=== PATIENT | male | born 1950 | race Caucasian/White ===

== ENCOUNTER 2020-07-26 09:16 | Outpatient (REF) | payer MEDICARE, MEDICAID, SELFPAY ==
--- NOTE | 2020-07-26 09:17 | XR_ITS ---
EXAMINATION: XR PELVIS CLINICAL INFORMATION: Hip pain. COMPARISON: Radiographs bilateral hips 01/27/2020. Radiographs lumbar spine 01/27/2020 TECHNIQUE: AP view of the pelvis. FINDINGS: There is no fracture, dislocation, destructive process. There are degenerative changes lower lumbar spine consistent with the recent lumbar radiographs. The SI joints and pubis appear normal. No diastases. There is minor spurring lateral right iliac crest. The left hip joint shows no narrowing or erosive change. There is mild narrowing superior right hip joint, similar to recent right hip radiographs. XR/XR pelvis 1-2V IMPRESSION: 1. Degenerative changes lower lumbar spine and right hip similar to recent radiographs. 2. Bony pelvis unremarkable. No destructive process.
== END 2020-07-26 09:17 | disposition home or self-care (01) ==
LOC: HO.HOSX 09:16
PROVIDERS: Visit Provider Orthopaedic Surgery
DX: M25.559 Pain in unspecified hip (principal); M16.11 Unilateral primary osteoarthritis, right hip
CPT/HCPCS: 72170; 99202

== ENCOUNTER 2021-05-10 07:42 | Outpatient (REF) | payer MEDICARE, MEDICAID, SELFPAY ==
--- NOTE | ~2021-05-10 | US_ITS ---
EXAMINATION: US ABDOMEN COMPLETE CLINICAL INFORMATION: Alcoholic cirrhosis of liver without ascites. COMPARISON: Ultrasound abdomen 02/10/2020. Renal ultrasound 12/10/2019. TECHNIQUE: Real-time imaging of the abdominal viscera. Technically limited study secondary to bowel gas. FINDINGS: PANCREAS: The pancreas is obscured by overlying gas. Visualized body of the pancreas is echogenic but not enlarged. ABDOMINAL AORTA: The abdominal aorta is not visualized. INFERIOR VENA CAVA: Visualized portions are normal. LIVER: The liver is coarse and echogenic with slightly lobulated contour. No enlargement seen. No focal hepatic lesion. There is no intrahepatic biliary duct dilatation seen. GALLBLADDER: Surgically absent. COMMON BILE DUCT: Normal in caliber measuring 1.0 cm in diameter. RIGHT KIDNEY: There are several anechoic cysts seen. Two midpole cyst measure 2.1 x 2.0 x 2.4 cm and 1.5 x 1.2 x 2.0 cm. A lower pole anechoic cyst measures 1.6 x 1.1 x 1.0 cm. No hydronephrosis or renal calculi. The kidney measures 10.6 cm in maximum dimension. LEFT KIDNEY: There is an anechoic cyst in the midpole measuring 2.2 x 2.1 x 2.2 cm. No hydronephrosis or renal calculi. The kidney measures 10.6 cm in maximum dimension. SPLEEN: Scattered calcifications are seen in the spleen. The spleen measures 12.5 cm in maximum dimension. FREE FLUID: None. US/US abdomen complete IMPRESSION: Limited visualization of the pancreas, however, visualized pancreatic body is echogenic without enlargement. Coarse echogenic liver is slightly lobulated, likely underlying cirrhosis. No ascites seen. Bilateral anechoic renal cysts. No echogenic stones or hydronephrosis. Scattered splenic calcifications.
[2021-05-10 09:26] LABS: MANUAL DIFF FLAG NO
[2021-05-10 09:32] LABS: Basophils Absolute Auto 0.1 X10*3/uL (0.0-0.2); Eosinophils Absolute Auto 0.2 X10*3/uL (0.0-0.4); Hematocrit 45.5 % (42-52); Hemoglobin 15.4 g/dl (14.0-18.0); Imm Gran Abs Auto 0.01 X10*3/uL (0.00-0.03); Imm Gran Pct Auto 0.2 % (0.0-0.4); Lymphocytes Absolute Auto 2.2 X10*3/uL (1.2-4.9); Lymphocytes Percent Auto 43.3 % (20-40); Mean Corpuscular HGB Conc 33.8 g/dl (31.0-36.0); Mean Corpuscular Hemoglobin 31.2 pg (27.0-33.0); Mean Corpuscular Volume 92.3 fL (80-98); Mean Platelet Volume 10.2 fL (9.4-12.4); Monocytes Absolute Auto 0.5 X10*3/uL (0.1-1.2); Monocytes Percent Auto 10.3 % (2-11); Neutrophils Absolute Auto 2.1 X10*3/uL (2.0-8.3); Neutrophils Percent Auto 42.2 % (45-73); Platelet Count 179 X10*3/uL (160-400); Red Blood Count 4.93 X10*6/uL (4.60-5.80); Red Cell Distribution Width 13.1 % (11.0-16.0)
[2021-05-10 09:39] LABS: INTERNATIONAL NORM RATIO 1.2 (0.9-1.1); Prothrombin Time 13.4 SEC (9.9-13.0)
[2021-05-10 09:48] LABS: Alanine Aminotransferase 28 U/L (0-40); Albumin Level 4.3 g/dL (3.5-5.0); Alkaline Phosphatase 62 U/L (39-117); Aspartate Amino Transferase 27 U/L (5-37); Bilirubin Direct 0.4 mg/dL (0.0-0.5); Total Protein 7.1 g/dL (6.5-8.0)
[2021-05-16 13:26] LABS: Alpha Fetoprotein 4.2 ng/mL (<6.1)
== END 2021-05-10 07:43 | disposition home or self-care (01) ==
LOC: HO.US 07:42
PROVIDERS: PCP Internal Medicine; Visit Provider Internal Medicine
DX: K70.30 Alcoholic cirrhosis of liver without ascites (principal)
CPT/HCPCS: 36415; 76700; 80076; 82105; 85025; 85610

== ENCOUNTER 2021-05-23 11:36 | Outpatient (REF) | payer MEDICARE, MEDICAID, SELFPAY ==
[2021-05-23 12:17] LABS: MANUAL DIFF FLAG NO
[2021-05-23 12:26] LABS: Basophils Percent Auto 0.7 % (0-2); Eosinophils Absolute Auto 0.1 X10*3/uL (0.0-0.4); Eosinophils Percent Auto 2.6 % (0-4); Hematocrit 43.7 % (42-52); Imm Gran Abs Auto 0.02 X10*3/uL (0.00-0.03); Imm Gran Pct Auto 0.4 % (0.0-0.4); Lymphocytes Absolute Auto 2.8 X10*3/uL (1.2-4.9); Lymphocytes Percent Auto 52.2 % (20-40); Mean Corpuscular HGB Conc 34.3 g/dl (31.0-36.0); Mean Corpuscular Hemoglobin 31.3 pg (27.0-33.0); Mean Platelet Volume 9.7 fL (9.4-12.4); Monocytes Absolute Auto 0.5 X10*3/uL (0.1-1.2); Monocytes Percent Auto 9.7 % (2-11); Neutrophils Absolute Auto 1.8 X10*3/uL (2.0-8.3); Neutrophils Percent Auto 34.4 % (45-73); Platelet Count 167 X10*3/uL (160-400); White Blood Count 5.4 X10*3/uL (4.8-10.8)
[2021-05-23 14:12] LABS: Albumin Level 4.1 g/dL (3.5-5.0); Anion Gap 12 (12-20); Blood Urea Nitrogen 18 mg/dL (9-16); Calcium 9.1 mg/dL (8.4-10.2); Carbon Dioxide 23 mmol/L (22-29); Chloride 107 mmol/L (96-108); Estimated Glomerular Filt Rate 45; Magnesium 2.1 mg/dL (1.6-2.6); Phosphorus 3.3 mg/dL (2.7-4.5); Potassium 4.5 mmol/L (3.3-5.1); Sodium 137 mmol/L (135-145)
[2021-05-23 14:35] LABS: Vitamin D 25-OH Total 69.9 ng/mL (>30)
[2021-05-23 14:47] LABS: Appearance Urine CLEAR; Color Urine YELLOW; Glucose Urine UA 250 MG/DL (NEG); Leukocyte Esterase Urine NEG (NEG); Nitrite Urine NEG (NEG); PH 5.5 (5.0-8.0); Specific Gravity - Urine 1.025 (1.005-1.025); Urine Blood NEG (NEG); Urine Ketones NEG (NEG); Urine Protein NEG (NEG-TRACE)
[2021-05-23 15:24] LABS: Creatinine Urine 97.13 mg/dL; Microalbum/Creatinine Ratio Ur 13.3 ug/mg cr; Total Protein Urine Random < 7 mg/dL (<12)
[2021-05-24 18:27] LABS: Calcium (PTHI) 9.6 mg/dL (8.6-10.3); PTHI 52 pg/mL (14-64)
== END 2021-05-23 11:37 | disposition home or self-care (01) ==
LOC: HO.LAB 11:36
PROVIDERS: PCP Internal Medicine; Visit Provider Internal Medicine Nephrology
DX: I12.9 Hypertensive chronic kidney disease with stage 1 through stage 4 chronic kidney disease, or unspecified chronic kidney disease (principal); N18.31 Chronic kidney disease, stage 3a; N28.1 Cyst of kidney, acquired
CPT/HCPCS: 36415; 80051; 81003; 82040; 82043; 82306; 82310; 82565; 83735; 83970; 84100; 84156; 84520; 85025; 87086

== ENCOUNTER 2021-10-28 16:04 | Outpatient (REF) | payer MEDICARE, MEDICAID, SELFPAY ==
--- NOTE | ~2021-10-28 | XR_ITS ---
EXAMINATION: XR SHOULDER, LEFT CLINICAL INFORMATION: Shoulder pain COMPARISON: None TECHNIQUE: AP external rotation, Grashey, scapular Y, and axillary views of the left shoulder. FINDINGS: No fracture. Mild acromioclavicular arthritis. Glenohumeral and acromioclavicular alignment is anatomic with normal joint space. No abnormal soft tissue calcifications. XR/XR shoulder LT min 2V IMPRESSION: Mild acromioclavicular arthritis.
== END 2021-10-28 16:05 | disposition home or self-care (01) ==
LOC: HO.XRAY 16:04
PROVIDERS: Visit Provider Nurse Practitioner
DX: M25.512 Pain in left shoulder (principal)
CPT/HCPCS: 73030

== ENCOUNTER 2021-10-31 10:47 | Outpatient (REF) | payer MEDICARE, MEDICAID, SELFPAY ==
[2021-10-31 11:34] LABS: Estimated Average Glucose 148 mg/dL; Hemoglobin A1c % 6.8 %
== END 2021-10-31 10:48 | disposition home or self-care (01) ==
LOC: HO.LAB 10:47
PROVIDERS: PCP Internal Medicine; Visit Provider Nurse Practitioner
DX: R73.03 Prediabetes (principal)
CPT/HCPCS: 36415; 83036

== ENCOUNTER → 2021-11-24 10:42 | Outpatient (BNVA) | payer MEDICARE, MEDICAID, SELFPAY | PROVIDERS: PCP Internal Medicine; Visit Provider Orthopaedic Surgery | DX: M75.42 Impingement syndrome of left shoulder (principal) | CPT/HCPCS: 20610; 99212; J1100 ==

== ENCOUNTER 2022-01-02 11:00 | Outpatient (RCR) | payer MEDICARE, MEDICAID, SELFPAY ==
--- NOTE | 2021-12-06 15:13 | MHC.PT.EP ---
[facility] [place] Office [place] Office [place] Office [address] Esperanza Deng [address] [phone] F: [phone] F: [phone] F: [phone] F: [phone] Physical Therapy Plan of Care Date of Evaluation: Date of Surgery: Diagnosis: IMPINGEMENT SYNDROME LEFT SHOULDER Assessment: 71 YO MALE REF TO PT W A LEFT SH IMPINGEMENT SUSTAINED AFTER RESUMING AN EXERCISE ROUTINE. Pt IS RIGHT HAND DOMINANT. ON XR, Pt HAS MILD LEFT AC ARTHRITIS- HE HAS DECR POSTURAL AWARENESS W MILD SCOLIOSIS, UT OVERUSE LEFT SH, LIMITED END ROM Lt SH, STRENGTH DEFICITS POST RC/ SCAP , AND PAIN IN LEFT AC Jt. FUNCTIONALLY, Pt IS ABLE TO PERFORM REG ADLs, BUT W LEFT SH PAIN/ IMPINGEMENT SXS. hE WOULD BENEFIT FROM PT TO ADDRESS THE ABOVE FINDINGS, DEV A PROGRESSIVE HEP, AND EDUC REGARDING PROPER FORM AND TECHN W RE-ENTRY TO THE GYM. Frequency and Duration: The patient will be seen 2x WK x 4 WKS Short Term Goals: *Pt 'S LEFT SH PAIN DECR TO 2-3/10 AT MAX W REG ADLs IN 2 WKS *Pt DEMON WFL AROM ABD, W/O PAINFUL ARC IN 2 WKS *Pt INDEP SELF CORRECT POSTURE AND BODY MECH W SIMUL ADLs IN 2 WKS Mcfp Goals: *Pt EDUC RE SAFELY RETURNING TO WORKING OUT W/O SHOULDER STRAIN IN 4 WKS *Pt DEMON APPROP FORM W SIMUL SH EXERCISES IN 4 WKS *Pt IMPROVE STRENGTH AND INDEP W PROGESSION IN LEFT SH COMPLEX IN 4 WKS Treatment Plan: Modalities to reduce pain, spasms and effusion. Manual therapy to restore motion and function. Therapeutic exercise to improve strength and flexibility. Neuromuscular re-education for posture and balance. Therapeutic activities to return to functional activities of daily living. Electronically signed by: Ana Rosa LopezPT Please sign and return to therapist. Thank you for your referral.
--- NOTE | 2022-02-06 07:08 | MHC.PT.DC ---
[facility] [place] Office [place] Office [place] Office [address] Esperanza Deng [address] [phone] F: [phone] F: [phone] F: [phone] F: [phone] Physical Therapy Discharge Report Diagnosis: IMPINGEMENT SYNDROME LEFT SHOULDER Date of Surgery: Date of Evaluation: 12/06/21 Date of Discharge: 02/06/22 Treatments to Date: 6 Cancellations to Date: No Shows to Date: Discharge Status: Achieved Goals Improved Function Independent with HEP Discharge Summary: Mook is demonstrating improved fuction w/L Shld and stamina improving w/added activities. Electronically signed by: Ana Rosa Lopez PT Please sign and return to therapist. Thank you for your referral.
== END 2022-02-06 07:08 | disposition home or self-care (01) ==
LOC: HO.PT 11:00
PROVIDERS: PCP Internal Medicine; Visit Provider Orthopaedic Surgery
DX: M75.42 Impingement syndrome of left shoulder (principal)
CPT/HCPCS: 97110; 97140; 97161; 97530

== ENCOUNTER 2022-08-10 08:41 | Outpatient (REF) | payer MEDICARE, MEDICAID, SELFPAY ==
--- NOTE | ~2022-08-10 | US_ITS ---
EXAMINATION: US ABDOMEN COMPLETE CLINICAL INFORMATION: Alcoholic cirrhosis of liver without ascites. COMPARISON: Ultrasound abdomen complete 05/10/2021 and 02/10/2020. TECHNIQUE: Real-time imaging of the abdominal viscera. Technically difficult study secondary to body habitus. FINDINGS: PANCREAS: Normal. ABDOMINAL AORTA: The proximal, mid, and distal segments are normal in caliber. INFERIOR VENA CAVA: Visualized portions are normal. LIVER: Coarsening of the liver parenchyma with increased echogenicity. No discrete focal lesion. No intrahepatic biliary ductal dilatation. GALLBLADDER: Surgically absent. COMMON BILE DUCT: Upper limits of normal measuring 0.7 cm in diameter, not significantly changed compared to 05/10/2021. RIGHT KIDNEY: Simple cysts, for which no imaging follow-up is recommended, largest measuring 2.3 cm in the mid to lower pole. No hydronephrosis or renal calculi. The kidney measures 10.3 cm in maximum dimension. LEFT KIDNEY: Simple cyst in the midpole measuring 2 cm for which no imaging follow-up is recommended. No hydronephrosis or renal calculi. The kidney measures 10.9 cm in maximum dimension. SPLEEN: Small echogenic densities in the spleen are not significantly changed, these could represent calcifications. The spleen measures 11.6 cm in maximum dimension. FREE FLUID: None. US/US abdomen complete IMPRESSION: 1. Coarsening of the liver parenchyma with increased echogenicity suggesting underlying liver disease and cirrhosis. 2. Simple bilateral renal cysts for which no imaging follow-up is recommended. 3. Overall stable small echogenic densities in the spleen, possibly related with calcifications.
[2022-08-10 09:41] LABS: MANUAL DIFF FLAG NO
[2022-08-10 10:35] LABS: Basophils Absolute Auto 0.1 X10*3/uL (0.0-0.2); Basophils Percent Auto 1.7 % (0-2); Eosinophils Absolute Auto 0.1 X10*3/uL (0.0-0.4); Hematocrit 42.6 % (42.0-52.0); Hemoglobin 14.7 g/dl (14.0-18.0); Imm Gran Abs Auto 0.01 X10*3/uL (0.00-0.03); Imm Gran Pct Auto 0.2 % (0.0-0.4); Lymphocytes Percent Auto 41.9 % (20-40); Mean Corpuscular HGB Conc 34.5 g/dl (31.0-36.0); Mean Corpuscular Hemoglobin 32.1 pg (27.0-33.0); Mean Platelet Volume 10.6 fL (9.4-12.4); Monocytes Absolute Auto 0.5 X10*3/uL (0.1-1.2); Monocytes Percent Auto 9.9 % (2-11); Neutrophils Percent Auto 43.3 % (45-73); Platelet Count 182 X10*3/uL (160-400); Red Blood Count 4.58 X10*6/uL (4.60-5.80); Red Cell Distribution Width 13.5 % (11.0-16.0); White Blood Count 4.7 X10*3/uL (4.8-10.8)
[2022-08-10 10:37] LABS: INTERNATIONAL NORM RATIO 1.1 (0.9-1.1); Prothrombin Time 12.9 SEC (10.0-13.1)
[2022-08-10 11:55] LABS: Alanine Aminotransferase 34 U/L (0-40); Albumin Level 4.2 g/dL (3.5-5.0); Alkaline Phosphatase 60 U/L (39-117); Aspartate Amino Transferase 24 U/L (5-37); Bilirubin Total 0.6 mg/dL (0.0-1.0); Total Protein 6.6 g/dL (6.5-8.0)
[2022-08-10 12:07] LABS: Bilirubin Direct 0.2 mg/dL (0.0-0.5)
[2022-08-14 13:59] LABS: Alpha Fetoprotein 3.9 ng/mL (<6.1)
== END 2022-08-10 08:42 | disposition home or self-care (01) ==
LOC: HO.US 08:41
PROVIDERS: PCP Internal Medicine; Visit Provider Internal Medicine
DX: K70.30 Alcoholic cirrhosis of liver without ascites (principal)
CPT/HCPCS: 36415; 76700; 80076; 82105; 85025; 85610

== ENCOUNTER 2023-05-28 08:09 | Outpatient (REF) | payer MEDICARE, MEDICAID, SELFPAY ==
[2023-05-28 11:39] LABS: MANUAL DIFF FLAG NO
[2023-05-28 12:16] LABS: Basophils Absolute Auto 0.1 X10*3/uL (0.0-0.2); Basophils Percent Auto 1.3 % (0-2); Eosinophils Absolute Auto 0.2 X10*3/uL (0.0-0.4); Eosinophils Percent Auto 4.8 % (0-4); Hemoglobin 15.2 g/dl (14.0-18.0); Lymphocytes Absolute Auto 2.1 X10*3/uL (1.2-4.9); Lymphocytes Percent Auto 45.3 % (20-40); Mean Corpuscular HGB Conc 33.8 g/dl (31.0-36.0); Mean Corpuscular Hemoglobin 31.5 pg (27.0-33.0); Mean Corpuscular Volume 93.2 fL (80.0-98.0); Mean Platelet Volume 10.6 fL (9.4-12.4); Monocytes Absolute Auto 0.4 X10*3/uL (0.1-1.2); Monocytes Percent Auto 9.6 % (2-11); Neutrophils Absolute Auto 1.8 x10*3/uL (2.0-8.3); Platelet Count 187 X10*3/uL (160-400); Red Blood Count 4.83 X10*6/uL (4.60-5.80); Red Cell Distribution Width 13.1 % (11.0-16.0); White Blood Count 4.6 X10*3/uL (4.8-10.8)
[2023-05-28 12:18] LABS: Estimated Average Glucose 134 mg/dL; Hemoglobin A1C 151.9673 umol/L; Hemoglobin A1c % 6.3 % (<6.0)
[2023-05-28 12:42] LABS: Alanine Aminotransferase 34 U/L (0-40); Alkaline Phosphatase 60 U/L (39-117); Anion Gap 16 (12-20); Aspartate Amino Transferase 26 U/L (5-37); Bilirubin Total 0.6 mg/dL (0.0-1.0); Blood Urea Nitrogen 16 mg/dL (9-16); Carbon Dioxide 23 mmol/L (22-29); Chloride 107 mmol/L (96-108); Estimated Glomerular Filt Rate 51; Glucose Random 116 mg/dL (60-115); Potassium 4.8 mmol/L (3.3-5.1); Sodium 141 mmol/L (135-145); Total Protein 6.7 g/dL (6.5-8.0)
[2023-05-29 11:28] LABS: Absolute CD3 Count 1887 cells/uL (840-3060); Absolute CD4 Count 1025 cells/uL (490-1740); Absolute CD8 Count 950 cells/uL (180-1170); Absolute Lymphocytes 2240 cells/uL (850-3900); CD4 CD8 Ratio 1.08 (0.86-5.00); Percent CD3 Cells 84 % (57-85); Percent CD4 Cells 46 % (30-61); Percent CD8 Cells 42 % (12-42)
[2023-05-29 13:19] LABS: HIV RNA PCR Qn Copies NOT DETECTED copies/mL (NOT DETECTED); HIV RNA PCR Qn Log Copies NOT DETECTED (NOT DETECTED)
== END 2023-05-28 08:10 | disposition home or self-care (01) ==
LOC: HO.HHCL 08:09
PROVIDERS: Visit Provider Student in an Organized Health Care Education/Training Program
DX: B20 Human immunodeficiency virus [HIV] disease (principal); E08.22 Diabetes mellitus due to underlying condition with diabetic chronic kidney disease; N18.9 Chronic kidney disease, unspecified
CPT/HCPCS: 36415; 80053; 83036; 85025; 86359; 86360; 87536

== ENCOUNTER 2023-07-09 08:01 | Outpatient (REF) | payer MEDICARE, MEDICAID, SELFPAY ==
[2023-07-09 11:18] LABS: Appearance Urine Clear; Color Urine Yellow; Glucose Urine UA Negative (Negative); Leukocyte Esterase Urine Negative (Negative); Nitrite Urine Negative (Negative); PH 6.5 (5.0-9.0); Urine Blood Negative (Negative); Urine Ketones Negative (Negative); Urine Protein Negative (Neg-Trace)
[2023-07-09 11:31] LABS: MANUAL DIFF FLAG NO
[2023-07-09 11:38] LABS: Basophils Absolute Auto 0.1 X10*3/uL (0.0-0.2); Basophils Percent Auto 1.4 % (0-2); Eosinophils Absolute Auto 0.2 X10*3/uL (0.0-0.4); Eosinophils Percent Auto 4.7 % (0-4); Hematocrit 47.4 % (42.0-52.0); Hemoglobin 15.6 g/dl (14.0-18.0); Imm Gran Abs Auto 0.01 X10*3/uL (0.00-0.03); Imm Gran Pct Auto 0.2 % (0.0-0.4); Lymphocytes Absolute Auto 2.5 X10*3/uL (1.2-4.9); Lymphocytes Percent Auto 48.5 % (20-40); Mean Corpuscular HGB Conc 32.9 g/dl (31.0-36.0); Mean Corpuscular Hemoglobin 31.1 pg (27.0-33.0); Mean Corpuscular Volume 94.6 fL (80.0-98.0); Mean Platelet Volume 10.7 fL (9.4-12.4); Monocytes Absolute Auto 0.5 X10*3/uL (0.1-1.2); Monocytes Percent Auto 9.3 % (2-11); Neutrophils Absolute Auto 1.9 x10*3/uL (2.0-8.3); Neutrophils Percent Auto 35.9 % (45-73); Platelet Count 200 X10*3/uL (160-400); Red Blood Count 5.01 X10*6/uL (4.60-5.80); Red Cell Distribution Width 13.2 % (11.0-16.0); White Blood Count 5.2 X10*3/uL (4.8-10.8)
[2023-07-09 12:05] LABS: Albumin Level 4.1 g/dL (3.5-5.0); Anion Gap 10 (12-20); Blood Urea Nitrogen 15 mg/dL (9-16); Calcium 8.8 mg/dL (8.4-10.2); Carbon Dioxide 24 mmol/L (22-29); Chloride 110 mmol/L (96-108); Estimated Glomerular Filt Rate 51; Phosphorus 2.8 mg/dL (2.7-4.5); Potassium 4.2 mmol/L (3.3-5.1); Sodium 140 mmol/L (135-145)
[2023-07-09 12:09] LABS: Cholesterol 144 mg/dL (<200); HDL Cholesterol 36 mg/dL (>40); LDL Cholesterol Calculated 84 mg/dL (<100); Triglycerides 123 mg/dL (<150)
[2023-07-09 12:16] LABS: Reflex LDLD? No
[2023-07-09 12:19] LABS: Prothrombin Time 12.4 SEC (11.1-13.3); Vitamin D 25-OH Total 73.1 ng/mL (>30)
[2023-07-09 12:20] LABS: Creatinine Urine 130.62 mg/dL; Protein/Creatinine Ratio, Ur 0.11 (<0.2); Total Protein Urine Random 14 mg/dL (<12)
[2023-07-09 12:24] LABS: Creatinine Urine 129.49 mg/dL; Microalbum/Creatinine Ratio Ur 17.7 ug/mg cr (<30)
[2023-07-10 12:44] LABS: Alpha Fetoprotein 4.2 ng/mL (<6.1)
[2023-07-10 15:23] LABS: Calcium (PTHI) 8.9 mg/dL (8.6-10.3); PTHI 64 pg/mL (16-77)
[2023-07-14 16:58] LABS: FIB-ALT 27 U/L (9-46); FIB-Alpha-2-Macroglobulin 160 mg/dL (106-279); FIB-Apolipoprotein A1 135 mg/dL (94-176); FIB-GGT 27 U/L (3-70); FIB-Haptoglobin 65 mg/dL (43-212); FIB-Total Bilirubin 0.5 mg/dL (0.2-1.2); Liver Fibrosis Score 0.35; Liver Fibrosis Stage F1-F2; Nec Inflam Act Grade A0; Nec Inflam Act Score 0.13
== END 2023-07-09 08:02 | disposition home or self-care (01) ==
LOC: HO.HHCL 08:01
PROVIDERS: Visit Provider Internal Medicine
DX: I12.9 Hypertensive chronic kidney disease with stage 1 through stage 4 chronic kidney disease, or unspecified chronic kidney disease (principal); N18.31 Chronic kidney disease, stage 3a; N25.0 Renal osteodystrophy; K70.30 Alcoholic cirrhosis of liver without ascites
CPT/HCPCS: 36415; 80051; 80061; 81003; 81596; 82040; 82043; 82105; 82306; 82310; 82565; 82570; 83735; 83970; 84100; 84156; 84520; 85025; 85610

== ENCOUNTER 2023-08-03 10:09 | Outpatient (REF) | payer MEDICARE, MEDICAID, SELFPAY ==
--- NOTE | ~2023-08-03 | US_ITS ---
EXAMINATION: US COMPLETE ABDOMEN WITH LIVER ELASTOGRAPHY CLINICAL INFORMATION: Cirrhosis. COMPARISON: Abdominal ultrasound dated 08/10/2022. TECHNIQUE: Real-time imaging of the abdominal viscera. Noninvasive ultrasound liver fibrosis assessment is performed using Ana Lilia ElastPQ point quantification shear wave elastography (2D-SWE) with a C5-2 MHz transducer. Multiple elastography samples are obtained. FINDINGS: PANCREAS: Limited. The visualized pancreatic head and body are normal in appearance. The remainder of the pancreas is obscured from visualization by the overlying bowel gas. ABDOMINAL AORTA: The proximal segment is largely obscured by overlapping bowel gas. The middle, and distal aortic segments are normal in caliber. INFERIOR VENA CAVA: Visualized portions are normal. LIVER: The liver demonstrates normal size, a positive nodular contour and increased echogenicity. No focal lesion or intrahepatic biliary duct dilatation. The right lobe measures 16.8 cm in length. The left lobe measures 9.6 cm in length. Portal flow is towards the liver (hepatopetal). Shear wave liver elastography median stiffness is 1.93 m/s (reference: normal median stiffness is 1.3 m/s or less). IQR/median stiffness to assess sampling precision is 0.09 (reference: good quality data set is IQR/median stiffness of 0.15 or less). GALLBLADDER: Normal. The gallbladder is physiologically distended without evidence of stones, sludge, polyps, wall thickening or pericholecystic fluid. COMMON BILE DUCT: Normal in caliber measuring 0.3 cm in diameter. RIGHT KIDNEY: Multiple benign, simple cysts are seen, the largest at the interpolar aspect measuring 2.5 cm. These require no imaging follow-up. No hydronephrosis. No renal calculi or focal parenchymal lesions. The kidney measures 10.2 cm in maximum dimension. LEFT KIDNEY: Multiple benign, simple cysts are seen, the largest at the interpolar aspect measuring 2.5 cm. These require no imaging follow-up. No hydronephrosis. No renal calculi or focal parenchymal lesions. The kidney measures 10.8 cm in maximum dimension. SPLEEN: Echogenic foci which may represent calcifications or small hemangiomas. These are of doubtful clinical significance. The spleen measures 10.7 cm in maximum dimension. FREE FLUID: None. US/US abdomen comp w elastography IMPRESSION: 1. The liver again has a cirrhotic appearance. No focal hepatic mass or intrahepatic biliary ductal dilatation is seen. 2. Liver elastography: Measurements are suggestive of compensated advanced chronic liver disease but need further test for confirmation. 3. There are stable echogenic densities within the spleen, possibly granulomatous calcifications or small hemangiomas. 4. Technically limited ultrasound examination of the pancreas. REFERENCE: Society of Radiologists in Ultrasound Liver Stiffness Thresholds (2020): LIVER STIFFNESS THRESHOLDS: *Liver Stiffness equal or less than 1.3 m/s: High probability of being normal. *Liver Stiffness less than 1.7 m/s: In the absence of other known clinical signs, rules out compensated advanced chronic liver disease. *Liver Stiffness 1.7-2.1 m/s: Suggestive of compensated advanced chronic liver disease but need further test for confirmation. *Liver Stiffness over 2.1 m/s: Rules in compensated advanced chronic liver disease. *Liver Stiffness over 2.4 m/s: Suggestive of clinically significant portal hypertension. QUALITY OF DATA SET: *IQR/Median value equal or less than 0.15 implies a quality data set. *IQR/Median value over 0.15 implies a poor quality data set. SIGNIFICANT CHANGE FROM PRIOR EXAM: Significant change if liver stiffness measurement is 10% or greater from prior exam. OTHER CONSIDERATIONS: The stage of liver fibrosis may be overestimated in the setting of acute hepatitis, liver inflammation, elevated liver function tests, hepatic vascular congestion, obstructive cholestasis, non-fasting state, and infiltrative diseases such as amyloidosis and lymphoma. In some patients with NAFLD, the liver stiffness thresholds for compensated advanced chronic liver disease may be lower. In causes other than viral hepatitis and NAFLD, liver stiffness thresholds are not well established.
== END 2023-08-03 10:10 | disposition home or self-care (01) ==
LOC: HO.US 10:09
PROVIDERS: PCP Internal Medicine; Visit Provider Internal Medicine
DX: K70.30 Alcoholic cirrhosis of liver without ascites (principal)
CPT/HCPCS: 76705; 76981

== ENCOUNTER 2023-08-22 13:27 | Outpatient (REF) | payer MEDICARE, MEDICAID, SELFPAY ==
[2023-08-22 16:59] LABS: INTERNATIONAL NORM RATIO 1.1 (0.9-1.1); Prothrombin Time 12.8 SEC (11.1-13.3)
[2023-08-22 17:32] LABS: Alanine Aminotransferase 33 U/L (0-40); Albumin Level 4.1 g/dL (3.5-5.0); Alkaline Phosphatase 60 U/L (39-117); Aspartate Amino Transferase 25 U/L (5-37); Bilirubin Direct 0.2 mg/dL (0.0-0.5); Bilirubin Total 0.6 mg/dL (0.0-1.0); Total Protein 6.9 g/dL (6.5-8.0)
[2023-08-24 12:23] LABS: Alpha Fetoprotein 3.6 ng/mL (<6.1)
== END 2023-08-22 13:28 | disposition home or self-care (01) ==
LOC: HO.HHCL 13:27
PROVIDERS: Visit Provider Internal Medicine
DX: K70.30 Alcoholic cirrhosis of liver without ascites (principal)
CPT/HCPCS: 36415; 80076; 82105; 85610

== ENCOUNTER 2023-10-18 10:49 | Outpatient (REF) | payer MEDICARE, MEDICAID, SELFPAY ==
--- NOTE | ~2023-10-18 | XR_ITS ---
EXAMINATION: XR CHEST CLINICAL INFORMATION: post- covid cough COMPARISON: Chest radiograph 07/28/2014 TECHNIQUE: 2 views of the chest FINDINGS: Lines and tubes: Upper abdominal surgical clips. Clear lungs. No pleural effusion. No pneumothorax. Unchanged cardiomediastinal silhouette. XR/XR chest 2V IMPRESSION: * Clear lungs.
== END 2023-10-18 10:50 | disposition home or self-care (01) ==
LOC: HO.XRAY 10:49
PROVIDERS: Visit Provider Emergency Medicine
DX: J06.9 Acute upper respiratory infection, unspecified (principal)
CPT/HCPCS: 71046

== ENCOUNTER 2024-02-07 11:43 | Outpatient (REF) | payer MEDICARE, MEDICAID, SELFPAY ==
[2024-02-07 13:19] LABS: MANUAL DIFF FLAG NO
[2024-02-07 13:37] LABS: Basophils Absolute Auto 0.1 X10*3/uL (0.0-0.2); Basophils Percent Auto 1.1 % (0-2); Eosinophils Absolute Auto 0.3 X10*3/uL (0.0-0.4); Eosinophils Percent Auto 4.8 % (0-4); Hematocrit 43.9 % (42.0-52.0); Imm Gran Abs Auto 0.01 X10*3/uL (0.00-0.03); Imm Gran Pct Auto 0.2 % (0.0-0.4); Lymphocytes Absolute Auto 2.6 X10*3/uL (1.2-4.9); Lymphocytes Percent Auto 47.5 % (20-40); Mean Corpuscular HGB Conc 34.2 g/dl (31.0-36.0); Mean Corpuscular Hemoglobin 32.3 pg (27.0-33.0); Mean Corpuscular Volume 94.6 fL (80.0-98.0); Mean Platelet Volume 10.7 fL (9.4-12.4); Monocytes Absolute Auto 0.5 X10*3/uL (0.1-1.2); Monocytes Percent Auto 8.8 % (2-11); Neutrophils Percent Auto 37.6 % (45-73); Platelet Count 170 X10*3/uL (160-400); Red Blood Count 4.64 X10*6/uL (4.60-5.80); Red Cell Distribution Width 13.1 % (11.0-16.0); White Blood Count 5.4 X10*3/uL (4.8-10.8)
[2024-02-07 13:44] LABS: Alanine Aminotransferase 29 U/L (0-40); Albumin Level 4.1 g/dL (3.5-5.0); Alkaline Phosphatase 69 U/L (39-117); Anion Gap 13 (12-20); Aspartate Amino Transferase 25 U/L (5-37); Bilirubin Total 0.5 mg/dL (0.0-1.0); Blood Urea Nitrogen 24 mg/dL (9-16); Calcium 9.4 mg/dL (8.4-10.2); Carbon Dioxide 23 mmol/L (22-29); Chloride 109 mmol/L (96-108); Estimated Glomerular Filt Rate 47; Glucose Random 160 mg/dL (60-115); Potassium 4.4 mmol/L (3.3-5.1); Sodium 141 mmol/L (135-145)
[2024-02-07 14:02] LABS: Syphilis Screen Nonreactive (Nonreactive)
[2024-02-07 14:03] LABS: HBc Num1 4.96 S/CO (0.00-0.79); Hepatitis B Surface Antigen Negative (Negative); ~HepC Num1 0.26 S/CO (0.00-0.79); ~Hepatitis B Surface Antibody REACTIVE (Nonreactive); ~Hepatitis C Antibody Nonreactive (Nonreactive)
[2024-02-07 14:53] LABS: HBc Num2 5.05 S/CO; HBc Num3 4.87 S/CO; Hepatitis B Core Antibody Reactive (Nonreactive)
[2024-02-07 15:25] LABS: CT PCR NOT DETECTED (Not Detect.); NG PCR NOT DETECTED (Not Detect.)
[2024-02-09 09:59] LABS: HIV RNA PCR Qn Copies 194 copies/mL (NOT DETECTED); HIV RNA PCR Qn Log Copies 2.29 (NOT DETECTED)
[2024-02-10 09:54] LABS: TS Negative Control Passed; TS Panel A 1; TS Panel B 0; TS Positive Control Passed; TSpotTB Negative (Negative)
[2024-02-11 09:34] LABS: Absolute CD3 Count 2331 cells/uL (840-3060); Absolute CD4 Count 1301 cells/uL (490-1740); Absolute CD8 Count 1136 cells/uL (180-1170); Absolute Lymphocytes 2905 cells/uL (850-3900); CD4 CD8 Ratio 1.15 (0.86-5.00); Percent CD3 Cells 80 % (57-85); Percent CD4 Cells 45 % (30-61); Percent CD8 Cells 39 % (12-42)
== END 2024-02-07 11:44 | disposition home or self-care (01) ==
LOC: HO.HHCL 11:43
PROVIDERS: Visit Provider Student in an Organized Health Care Education/Training Program
DX: Z11.59 Encounter for screening for other viral diseases (principal); Z11.1 Encounter for screening for respiratory tuberculosis; Z20.2 Contact with and (suspected) exposure to infections with a predominantly sexual mode of transmission; B20 Human immunodeficiency virus [HIV] disease; Z72.89 Other problems related to lifestyle
CPT/HCPCS: 0353U; 36415; 80053; 85025; 86359; 86360; 86481; 86704; 86706; 86780; 86803; 87340; 87536

== ENCOUNTER 2024-02-26 10:07 | Outpatient (REF) | payer MEDICARE, MEDICAID, SELFPAY ==
--- NOTE | 2024-02-26 10:11 | EMG_ITS ---
Bilateral tibial and peroneal motor studies were performed. Bilateral superficial peroneal and sural sensory studies were performed. Tibial H reflexes were obtained and paraspinal muscles were tested with a needle. 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 MD PATY Dewitt/MODL / [id number]
== END 2024-02-26 10:08 | disposition home or self-care (01) ==
LOC: HO.NEURO 10:07
PROVIDERS: PCP Internal Medicine; Visit Provider Internal Medicine
DX: G62.89 Other specified polyneuropathies (principal)
CPT/HCPCS: 95886; 95911

== ENCOUNTER 2024-03-10 12:08 | Day surgery (SDC) | payer MEDICARE, MEDICAID, SELFPAY ==
[2024-03-10 12:32] VITALS: BMI 33.5
[2024-03-10 12:43] VITALS: BP 102/62; PULSE 58; RESP 16; TEMP 36.3; O2SAT 94
--- NOTE | 2024-03-10 12:47 | P.CONAN_ITS ---
HPI - Anesthesia Eval Consult details Narrative: 73 yo M presenting for EGD and colonoscopy. Hx of HIV. PMFSH Active Problems Active Problems: All Active Problems Impingement syndrome, shoulder, left (Acute) Hip pain (Acute) Osteoarthritis of right hip (Acute) Past Medical History Medical History (Updated 03/10/24 @ 12:29 by Christina Hernández RN) Cirrhosis Elevated cholesterol Osteoarthritis of right hip Chronic kidney disease Alcoholism Erectile dysfunction HIV (human immunodeficiency virus infection) Hypertension Family History Family history of problems with anesthesia: No Surgical History Surgical History (Updated 03/10/24 @ 12:31 by Christina Hernández RN) History of esophagogastroduodenoscopy (EGD) H/O colonoscopy History of Problems with Anesthesia: No Social History Social History Patient Tobacco Use Status: Never used Tobacco Use of substances other than those prescribed or required for medical reasons: No Are you DNR?: No Advance Directives: No Advance Directives Information Provided: Yes Current occupational status: retired 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 Meds Allergies Allergy/AdvReac Type Severity Reaction Status Date / Time No Known Allergies Allergy Verified 03/10/24 12:31 Active Medications: Current Medications Lactated Ringer's (Lr) 1,000 mls @ 50 mls/hr IVCONT .Q20H VIBHA Sodium Biphosphate/Sodium Phosphate (Sodium Phosphate,Tunica-Dibasic 133 Ml Enema) 133 ml AZ ONCE PRN PRN Reason: Poor Colonoscopy Prep Results Home Medications ?Medication ?Instructions ?Recorded ?Confirmed ?Last Taken ?Type atorvastatin 40 mg tablet 40 mg PO DAILY 07/23/20 03/10/24 Unknown History bictegravir 50 mg-emtricitabine 1 tab PO DAILY 07/23/20 03/10/24 Unknown History 200 mg-tenofovir alafenam 25 mg tablet (Biktarvy) metoprolol succinate 100 mg 100 mg PO DAILY 07/23/20 03/10/24 Unknown History tablet,extended release 24 hr (Toprol XL) omeprazole magnesium 20 mg 20 mg PO DAILY 07/23/20 03/10/24 Unknown History tablet,delayed release (Prilosec OTC) famotidine 40 mg tablet 40 mg PO DAILY 07/26/20 03/10/24 Unknown History cyanocobalamin (vitamin B-12) 1,000 mcg PO DAILY 03/10/24 03/10/24 Unknown History 1,000 mcg tablet (Vitamin B-12) Exam Exam Date and Time: March 10, 2024 1250 Height,Weight and Vital Signs: Height 5 ft 11 in Weight 108.862 kg Last Vital Signs Temp 97.4 F 03/10/24 12:43 Pulse 58 03/10/24 12:43 Resp 16 03/10/24 12:43 BP 102/62 03/10/24 12:43 Pulse Ox 94 03/10/24 12:43 O2 Del Method Room Air 03/10/24 12:43 Airway Mallampati Class: II TM Dist: >3cm Neck ROM: Full Loose/Missing/Broken Teeth: No (patient denies any loose or broken teeth) Heart: S1S2 Lungs: CTAB Assessment and Plan Assessment Anesthesia Assessment: Anesthesia Plan Discussed and Chart Reviewed Final Anesthetic Review Family History of Problems with Anesthesia: No History of Problems with Anesthesia: No NPO: Yes ASA Class: III Final Preanesthetic Review: No Changes in Pt Med Stat, Meds/Allgs Chart Reviewed, Consent Obtained/Reviewed and Anes Risks/Benef Reviewed Patient Risk: Intermediate Procedure Risk: Low Anesthetic Plan Anesthetic Plan: MAC: and Agree w/ Assess. and Plan Disposition: Standard PACU
[2024-03-10] MEDS: Lactated Ringers 1,000 ML 50 ML IVCONT (13:00)
--- NOTE | 2024-03-10 13:18 | PC.NURSE ---
24hr update documented on paper
[2024-03-10 14:15] VITALS: BP 122/71; PULSE 55; RESP 16; TEMP 36.3; O2SAT 94
--- NOTE | 2024-03-10 14:18 | P.BOP_ITS ---
Brief Operative Note Date of Service: 03/10/24 Pre-op diagnosis: GERD, Cirrhosis, Screening Post-op diagnosis: other (Hiatal hernia, Diverticulosis) Procedure: EGD, Colonoscopy to the cecum Surgeon: Mick Durán MD Anesthesia: MAC Was an Tank Builder And Erector used for this Procedure?: No Estimated blood loss (mL): 0 Pathology: none sent Condition: stable Disposition: PACU
[2024-03-10 14:30] VITALS: BP 114/69; PULSE 53; RESP 16; O2SAT 93
--- NOTE | 2024-03-10 14:30 | PC.NURSE ---
report given to alma villalba rn at this time.
[2024-03-10 14:45] VITALS: BP 117/67; PULSE 55; RESP 16; TEMP 36.4; O2SAT 94
--- NOTE | 2024-03-10 15:36 | OP_ITS ---
DATE OF SERVICE: 03/10/2024 SURGEON: Mick Durán MD INDICATIONS: The patient presents for evaluation of gastroesophageal reflux, history of cirrhosis, history of colon polyps, and colorectal cancer screening. Full consent has been obtained from him for this, including risks of bleeding and perforation. PREOPERATIVE DIAGNOSIS: POSTOPERATIVE DIAGNOSIS: PROCEDURE PERFORMED: Esophagogastroduodenoscopy, and colonoscopy to the cecum. ESTIMATED BLOOD LOSS: COMPLICATIONS: ANESTHESIA: Monitored anesthesia care. ASSISTANTS: SPECIMENS: PREOPERATIVE DIAGNOSES: Gastroesophageal reflux, history of cirrhosis, and colorectal cancer screening. POSTOPERATIVE DIAGNOSES: Gastroesophageal reflux, history of cirrhosis, colorectal cancer screening, hiatal hernia, diverticulosis, and internal hemorrhoids. DESCRIPTION OF PROCEDURE: The patient was placed in the left lateral decubitus position. The Olympus video gastroscope was passed in the posterior oropharynx and upper esophagus under direct vision. The scope was passed slowly into the distal esophagus. The gastroesophageal junction appeared normal other than some slight irregularity at 36 cm. There was no sign of any varices throughout the entire esophagus. There was no esophagitis. The scope entered to the stomach. There was a small hiatal hernia. The scope was advanced to pylorus and the duodenum was cannulated to the descending portion. The duodenum including the bulb appeared normal without mass or ulceration. The scope was withdrawn back to the stomach. The gastric antrum and body appeared normal with good peristalsis. The scope was retroflexed, visualizing the proximal stomach carefully, which appeared normal, without any sign of mass, ulceration, gastropathy, nor varices. The scope was straightened and withdrawn back to the esophagus. The esophageal mucosa appeared normal. The scope was withdrawn from the patient. He was turned around for the colonoscopy. The digital rectal exam revealed no abnormalities. The Olympus video pediatric colonoscope was then entered into the rectum and advanced easily to the cecum. Once in the cecum, I did identify normal-appearing cecal pouch with appendiceal orifice and a normal-appearing ileocecal valve. There was transillumination of light deep in the right lower quadrant. The entire cecum and ileocecal valve appeared normal. Scope was slowly withdrawn assessing all mucosal surfaces carefully. Preparation was excellent. I did not visualize any sign of polyps, colitis, nor angiodysplasias. There was a mild amount of sigmoid diverticulosis. In the rectum, scope was retroflexed, visualizing internal hemorrhoids, but no other pathology. The rectal mucosa appeared normal. Scope was straightened and withdrawn from the patient. He tolerated both procedures well and was returned to the recovery area in stable condition. IMPRESSION: 1. Hiatal hernia, gastroesophageal reflux. 2. Diverticulosis. 3. Internal hemorrhoids. PLAN: Given today's negative exams, I would recommend a repeat colonoscopy in 5 years. He will continue his omeprazole and famotidine for reflux. I would recommend a repeat colonoscopy in 5 years and a repeat office visit in 1 year for followup of his underlying liver disease. He was advised to avoid all aspirin and NSAIDs long-term. He will see me otherwise on a p.r.n. basis. MD JENIFER Shea/NIMCO / [phone]
== END 2024-03-10 15:17 | disposition home or self-care (01) ==
PROVIDERS: PCP Internal Medicine; Visit Provider Internal Medicine
PROC: (CPT 43235; principal; 2024-03-10 12:30)
DX: Z12.11 Encounter for screening for malignant neoplasm of colon (principal); Z86.010 Personal history of colon polyps; Z80.0 Family history of malignant neoplasm of digestive organs; K57.30 Diverticulosis of large intestine without perforation or abscess without bleeding; K64.8 Other hemorrhoids; K70.30 Alcoholic cirrhosis of liver without ascites; K21.9 Gastro-esophageal reflux disease without esophagitis; K44.9 Diaphragmatic hernia without obstruction or gangrene; I10 Essential (primary) hypertension; E78.00 Pure hypercholesterolemia, unspecified; Z87.19 Personal history of other diseases of the digestive system; B20 Human immunodeficiency virus [HIV] disease; Z79.899 Other long term (current) drug therapy
CPT/HCPCS: 43235; G0105; J1596; J2704

== ENCOUNTER 2024-03-13 08:04 | Outpatient (REF) | payer MEDICARE, MEDICAID, SELFPAY ==
[2024-03-13 11:42] LABS: MANUAL DIFF FLAG NO
[2024-03-13 11:47] LABS: Basophils Absolute Auto 0.1 X10*3/uL (0.0-0.2); Basophils Percent Auto 1.2 % (0-2); Eosinophils Absolute Auto 0.3 X10*3/uL (0.0-0.4); Eosinophils Percent Auto 5.4 % (0-4); Hematocrit 42.9 % (42.0-52.0); Hemoglobin 14.9 g/dl (14.0-18.0); Lymphocytes Absolute Auto 2.4 X10*3/uL (1.2-4.9); Lymphocytes Percent Auto 48.2 % (20-40); Mean Corpuscular HGB Conc 34.7 g/dl (31.0-36.0); Mean Corpuscular Hemoglobin 32.7 pg (27.0-33.0); Mean Corpuscular Volume 94.3 fL (80.0-98.0); Mean Platelet Volume 10.5 fL (9.4-12.4); Monocytes Absolute Auto 0.5 X10*3/uL (0.1-1.2); Monocytes Percent Auto 9.5 % (2-11); Neutrophils Absolute Auto 1.8 x10*3/uL (2.0-8.3); Neutrophils Percent Auto 35.7 % (45-73); Platelet Count 171 X10*3/uL (160-400); Red Blood Count 4.55 X10*6/uL (4.60-5.80); Red Cell Distribution Width 13.1 % (11.0-16.0)
[2024-03-13 12:11] LABS: Alanine Aminotransferase 28 U/L (0-40); Albumin Level 4.1 g/dL (3.5-5.0); Alkaline Phosphatase 65 U/L (39-117); Anion Gap 13 (12-20); Aspartate Amino Transferase 27 U/L (5-37); Bilirubin Direct 0.2 mg/dL (0.0-0.5); Bilirubin Total 0.5 mg/dL (0.0-1.0); Blood Urea Nitrogen 15 mg/dL (9-16); Calcium 9.7 mg/dL (8.4-10.2); Carbon Dioxide 25 mmol/L (22-29); Chloride 109 mmol/L (96-108); Cholesterol 158 mg/dL (<200); Estimated Glomerular Filt Rate 44; Glucose Random 132 mg/dL (60-115); HDL Cholesterol 41 mg/dL (>40); LDL Cholesterol Calculated 89 mg/dL (<100); Potassium 4.5 mmol/L (3.3-5.1); Sodium 142 mmol/L (135-145); Total Protein 6.9 g/dL (6.5-8.0); Triglycerides 143 mg/dL (<150)
[2024-03-13 12:53] LABS: Reflex LDLD? No
[2024-03-14 16:34] LABS: HIV RNA PCR Qn Copies 532 copies/mL (NOT DETECTED); HIV RNA PCR Qn Log Copies 2.73 (NOT DETECTED)
== END 2024-03-13 08:05 | disposition home or self-care (01) ==
LOC: HO.HHCL 08:04
PROVIDERS: Referring Provider Internal Medicine; Visit Provider Student in an Organized Health Care Education/Training Program
DX: B20 Human immunodeficiency virus [HIV] disease (principal); E11.9 Type 2 diabetes mellitus without complications; E78.2 Mixed hyperlipidemia; I10 Essential (primary) hypertension
CPT/HCPCS: 36415; 80053; 80061; 80076; 82248; 85025; 87536

== ENCOUNTER 2024-03-24 16:41 | Outpatient (REF) | payer MEDICARE, MEDICAID, SELFPAY | END 2024-03-24 16:42 | disposition home or self-care (01) | LOC: HO.HHCLNP 16:41 | PROVIDERS: Visit Provider Student in an Organized Health Care Education/Training Program | DX: B20 Human immunodeficiency virus [HIV] disease (principal) | CPT/HCPCS: 88112 ==

== ENCOUNTER 2024-03-25 08:13 | Outpatient (REF) | payer MEDICARE, MEDICAID, SELFPAY ==
[2024-03-25 11:40] LABS: Appearance Urine Clear; Color Urine Yellow; Glucose Urine UA Negative (Negative); Leukocyte Esterase Urine Negative (Negative); Nitrite Urine Negative (Negative); PH 5.5 (5.0-9.0); Urine Blood Negative (Negative); Urine Ketones Negative (Negative); Urine Protein Negative (Neg-Trace)
[2024-03-25 11:43] LABS: Bacteria Urine None Seen (None Seen); RBC Urine 0-2 /HPF (0-2); Squamous Epithelial Cell Urine 0-2 /HPF (0-2); WBC Urine 0-5 /HPF (0-5)
[2024-03-31 12:39] LABS: Date Viral Load Collected NG; Value of Last HIV Viral Load NG
[2024-04-05 02:14] LABS: HIV 1 Integrase Proviral DNA DETECTED; HIV 1 PR RT Proviral DNA DETECTED
== END 2024-03-25 08:14 | disposition home or self-care (01) ==
LOC: HO.HHCL 08:13
PROVIDERS: Visit Provider Student in an Organized Health Care Education/Training Program
DX: B20 Human immunodeficiency virus [HIV] disease (principal)
CPT/HCPCS: 36415; 81001; 87536; 87900; 87901; 87906

== ENCOUNTER 2024-03-27 13:36 | Outpatient (REF) | payer MEDICARE, MEDICAID, SELFPAY ==
--- NOTE | ~2024-03-27 | US_ITS ---
EXAMINATION: US RETROPERITONEAL LIMITED (RENAL ONLY) CLINICAL INFORMATION: Rule out renal/ureteral obstruction. COMPARISON: Ultrasound abdomen complete 08/03/2023 and 08/10/2022. TECHNIQUE: Real-time imaging of the kidneys. FINDINGS: RIGHT KIDNEY: 9.9 x 7.4 x 6.3 cm (SAG x AP x TRV). The kidney is normal in size, contour, and echogenicity. Renal cortical thickness is normal. No renal calculi or hydronephrosis. There are multiple renal cysts the largest measure up to 2.7 cm lower pole. LEFT KIDNEY: 11.7 x 5.3 x 3.6 cm (SAG x AP x TRV). The kidney is normal in size, contour, and echogenicity. Renal cortical thickness is normal. No renal calculi or hydronephrosis. There are multiple renal cysts the largest measure up to 2.7 cm middle pole. US/US renal BI IMPRESSION: 1. No ultrasound evidence of renal obstruction or hydronephrosis. 2. Bilateral simple renal cysts, these are commonly benign, no follow-up imaging is recommended..
== END 2024-03-27 13:37 | disposition home or self-care (01) ==
LOC: HO.US 13:36
PROVIDERS: Visit Provider Student in an Organized Health Care Education/Training Program
DX: N18.31 Chronic kidney disease, stage 3a (principal)
CPT/HCPCS: 76775

== ENCOUNTER 2024-04-10 15:24 | Outpatient (AMB) | payer MEDICARE, MEDICAID, SELFPAY ==
--- NOTE | 2024-04-10 15:26 | MHC.OFFVIS ---
Intake Visit Reasons: [facility]/ [facility] faxed referral for VV Intake Note: [facility] [facility]/PCP referral for VV Right LE worse than the Left LE. 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 Pt states he walks over 3 miles per week. Accompanied by: Self / Same As Patient Allergies No Known Allergies Allergy (Verified 04/10/24 15:32) HPI HPI [facility]/ C faxed referral for VV: Details: Very pleasant 73-year-old gentleman patient presents for painful varicose veins. Complaints include pain over varicosities, swelling of lower extremities, cramping, fatigue, and heaviness of the lower extremities. It has been affecting there daily activities including walking. It is noted more so in right leg. 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 Of note he has a prior history of alcohol abuse and has been sober for over 11 years. In addition he is a newly diagnosed diabetic. Patient denies any previous venous surgery or injections. Patient denies any history of DVT/ PE. Patient denies any history of phlebitis. Trial of compression includes - [id number] They now present for vascular evaluation regarding their varicose veins. [facility], [facility] Medical History Cirrhosis Elevated cholesterol Osteoarthritis of right hip Chronic kidney disease Alcoholism Erectile dysfunction HIV (human immunodeficiency virus infection) Hypertension Surgical History History of esophagogastroduodenoscopy (EGD) H/O colonoscopy Social History Patient Tobacco Use Status: Never used Tobacco Current occupational status: retired 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 Review of Systems Const Reports as per HPI ENT Reports no additional complaints Card Denies chest pain, Denies chest pain at rest and Denies chest pain with activity Resp Denies chest congestion and Denies cough GI Reports no additional complaints Musc Details: pain over varicosities, aching of lower extremities, swelling, cramping, heaviness and tiredness, itching Denies abnormal gait Skin/Breast Reports pruritus and Denies wounds Neuro Reports no additional complaints and Denies abnormal gait Psych Denies no additional complaints Physical Exam Const General: cooperative, healthy appearing and comfortable Orientation/consciousness: oriented to person, oriented to place and oriented to time Neck Carotids: no bruits Chest Chest palpation & inspection: normal inspection of the chest and normal palpation of entire chest wall Resp Effort & Inspection: normal respiratory effort and able to speak in complete sentences Cardio Rate: regular rate Heart sounds: S1 normal heart sound present and S2 normal heart sound present Peripheral pulses: Peripheral pulses 2+ throughout GI Inspection: Yes normal to inspection Skin Other: +2 edema, large rope-like varicosities greater than 4 mm right calf and thigh CEAP Classification C4 - skin color changes Ep - Etiology Primary As - superficial veins P - reflux General skin exam: dry skin Neuro General: oriented to person, oriented to place and oriented to time Extrem Right lower extremity: full ROM, normal capillary refill and edema Left lower extremity: full ROM, normal capillary refill and edema Psych Mental Status: mental status grossly normal Assessment & Plan Assessment & Plan (1) Varicose veins of right lower extremity with inflammation: Code(s): I83.11 - Varicose veins of right lower extremity with inflammation Category: Medical Plan: Unclear etiology of lower extremity discomfort. This may be from longstanding history alcohol abuse and newly diagnosed diabetes which may be leading to neuropathy. In addition the patient does have swelling of the lower extremities. I have taken the liberty of ordering venous insufficiency testing to rule that out. Of note the patient did have palpable arterial pulses. Thank you for allowing us to assist in his care. If there are any questions or concerns please do not hesitate to contact us. Orders: Orders US venous duplex LE BI 1 Week I83.11 - Varicose veins of right lower extremity with inflammation Coding Level of Care Code New Pt Level 4 (64942) Diagnoses Varicose veins of right lower extremity with inflammation I83.11
== END 2024-04-10 15:52 | disposition home or self-care (01) ==
PROVIDERS: PCP Internal Medicine; Visit Provider Surgery Vascular Surgery
DX: I83.11 Varicose veins of right lower extremity with inflammation (principal)
CPT/HCPCS: 99204

== ENCOUNTER → 2024-04-10 15:24 | Outpatient (BNVA) | payer MEDICARE, MEDICAID, SELFPAY | PROVIDERS: PCP Internal Medicine; Visit Provider Surgery Vascular Surgery | DX: I83.11 Varicose veins of right lower extremity with inflammation (principal) | CPT/HCPCS: 99202 ==

== ENCOUNTER 2024-04-22 08:04 | Outpatient (REF) | payer MEDICARE, MEDICAID, SELFPAY ==
[2024-04-22 11:53] LABS: Alanine Aminotransferase 22 U/L (0-40); Albumin Level 4.2 g/dL (3.5-5.0); Alkaline Phosphatase 53 U/L (39-117); Anion Gap 16 (12-20); Aspartate Amino Transferase 21 U/L (5-37); Bilirubin Total 0.7 mg/dL (0.0-1.0); Blood Urea Nitrogen 21 mg/dL (9-16); Calcium 9.7 mg/dL (8.4-10.2); Carbon Dioxide 18 mmol/L (22-29); Chloride 110 mmol/L (96-108); Estimated Glomerular Filt Rate 38; Glucose Random 131 mg/dL (60-115); Potassium 4.3 mmol/L (3.3-5.1); Sodium 140 mmol/L (135-145)
[2024-04-25 12:43] LABS: HIV RNA PCR Qn Copies 302 copies/mL (NOT DETECTED); HIV RNA PCR Qn Log Copies 2.48 (NOT DETECTED)
[2024-05-05 01:03] LABS: Date Viral Load Collected NG; Dolutegravir Resistance NOT PREDICTED; HIV-1 Bictegravir Resistance NOT PREDICTED; HIV-1 Cabotegravir Resistance NOT PREDICTED; HIV-1 Elvitegravir Resistance NOT PREDICTED; Raltegravir Resistance NOT PREDICTED; Value of Last HIV Viral Load NG copies/mL
[2024-05-07 19:49] LABS: HIV Genotype DETECTED
== END 2024-04-22 08:05 | disposition home or self-care (01) ==
LOC: HO.HHCL 08:04
PROVIDERS: Visit Provider Student in an Organized Health Care Education/Training Program
DX: B20 Human immunodeficiency virus [HIV] disease (principal)
CPT/HCPCS: 36415; 80053; 87536; 87900; 87901; 87906

== ENCOUNTER 2024-04-23 12:55 | Outpatient (REF) | payer MEDICARE, MEDICAID, SELFPAY ==
--- NOTE | ~2024-04-23 | US_ITS ---
EXAMINATION: US LOWER EXTREMITY VENOUS (REFLUX EXAM), BILATERAL CLINICAL INFORMATION: Chronic venous insufficiency with right lower extremity varicose veins with inflammation COMPARISON: None. TECHNIQUE: Color flow triplex imaging and compression Doppler was performed to evaluate both the deep and the superficial systems bilaterally. To evaluate the superficial system, the examination was performed in the upright position. Color-flow Doppler ultrasound and compression ultrasound were utilized. In addition, maneuvers were utilized to demonstrate reflux. FINDINGS: 1. DEEP VENOUS ULTRASOUND OF THE RIGHT LOWER EXTREMITY: Common Femoral Vein: Compressible, normal respiratory variation and augmented flow. Femoral Vein: Compressible, normal color flow and augmentation. Popliteal Vein: Compressible, normal augmentation. Deep Reflux: There is no evidence of reflux in the deep system in either the common femoral vein, superficial femoral or the popliteal vein. There is no evidence of a Potter's cyst. 2. SUPERFICIAL ULTRASOUND WITH DOPPLER OF RIGHT LOWER EXTREMITY: GREAT SAPHENOUS VEIN: Saphenofemoral Junction: 0.8 cm; Reflux: 0 ms Proximal Thigh: 0.9 cm; Reflux: 0 ms Mid Thigh: 0.6 cm; Reflux: 1780 ms Distal Thigh: 0.6 cm; Reflux: 0 ms At Knee: 0.6 cm; Reflux: 2096 ms Proximal Calf: 0.4 cm; Reflux: 0 ms Mid Calf: 0.4 cm; Reflux: 0 ms Distal Calf: 0.4 cm; Reflux: 0 ms DUPLICATED MEDIAL GREAT SAPHENOUS VEIN: Diameter: None imaged Reflux: NA DUPLICATED LATERAL GREAT SAPHENOUS VEIN: Diameter: None imaged Reflux: NA SMALL SAPHENOUS VEIN: Saphenopopliteal Junction: 0.3 cm; Reflux: 0 ms Proximal: 0.3 cm; Reflux: 0 ms Distal: 0.2 cm; Reflux: 0 ms VEIN OF GIACOMINI: Size: NA Reflux: NA PERFORATORS: Location: Posterior calf extending into the small saphenous vein Size: 0.3 Reflux: 568 ms VARICOSITIES: Location: Posterior calf of the small saphenous vein Size: 0.3 cm Reflux: None VARICOSITIES: Location: Medial thigh, knee and calf the greater saphenous vein Size: Ranging from 0.4 to 0.5 cm Reflux: From 1272 ms to 2772 ms 3. DEEP VENOUS ULTRASOUND OF THE LEFT LOWER EXTREMITY: Common Femoral Vein: Compressible, normal respiratory variation and augmented flow. Femoral Vein: Compressible, normal color flow and augmentation. Popliteal Vein: Compressible, normal augmentation. Deep Reflux: There is no evidence of reflux in the deep system in either the common femoral vein, superficial femoral or the popliteal vein. There is no evidence of a Potter's cyst. 4. SUPERFICIAL ULTRASOUND WITH DOPPLER OF LEFT LOWER EXTREMITY: GREAT SAPHENOUS VEIN: Saphenofemoral Junction: 1.4 cm; Reflux: 0 ms Proximal Thigh: 1.1 cm; Reflux: 1116 ms Mid Thigh: 0.5 cm; Reflux: 2560 ms Distal Thigh: 0.5 cm; Reflux: 2424 ms At Knee: 0.5 cm; Reflux: 504 ms Proximal Calf: 0.4 cm; Reflux: 0 ms Mid Calf: 0.4 cm; Reflux: 0 ms Distal Calf: 0.4 cm; Reflux: 0 ms DUPLICATED MEDIAL GREAT SAPHENOUS VEIN: Diameter: None imaged Reflux: NA DUPLICATED LATERAL GREAT SAPHENOUS VEIN: Diameter: 0.2 cm Reflux: No SMALL SAPHENOUS VEIN: Saphenopopliteal Junction: 0.2 cm; Reflux: 0 ms Proximal: 0.2 cm; Reflux: 0 ms Distal: 0.1 cm; Reflux: 0 ms VEIN OF GIACOMINI: Size: NA Reflux: NA PERFORATORS: Location: None significant Size: NA Reflux: NA VARICOSITIES: Location: Medial thigh, knee and calf off the great saphenous vein Size: 0.3 to 0.5 cm Reflux: Ranging from 1520 ms to 2824 ms US/US venous insuf bilat IMPRESSION: 1. Right: Focal reflux in the mid thigh and at the knee in the greater saphenous vein. Multiple varicosities in the medial thigh, knee and calf off the greater saphenous vein with reflux as described above. 2. Left: Focal reflux in the proximal thigh, mid thigh and at the knee in the greater saphenous vein. Multiple varicosities in the medial thigh, knee and calf off the greater saphenous vein with reflux as described above. Electronically signed by: Akira Felix MD 04/30/2024 02:02 PM EDT
== END 2024-04-23 12:56 | disposition home or self-care (01) ==
LOC: HO.US 12:55
PROVIDERS: PCP Internal Medicine; Visit Provider Surgery Vascular Surgery
DX: I83.11 Varicose veins of right lower extremity with inflammation (principal)
CPT/HCPCS: 93970

== ENCOUNTER 2024-05-01 15:04 | Outpatient (AMB) | payer MEDICARE, MEDICAID, SELFPAY ==
--- NOTE | 2024-05-01 15:10 | MHC.OFFVIS ---
Vital Signs 05/01/24 15:13 Height 5 ft 11 in Weight 240 lb BMI 33.5 BP 120/64 Blood Pressure Location Rt brachial Position Sitting Intake Visit Reasons: follow up [facility] 04/23/24 Intake Note: Pt presents to the office today for a follow up [facility] 04/23/24. Pt states some mornings he will wake up with throbbing pain from his knees to his toes. Pt states one leg isn't worse than the other. Allergies No Known Allergies Allergy (Verified 05/01/24 15:14) [facility] HPI follow up [facility] 04/23/24: Details: Very pleasant 73-year-old gentleman presents for follow-up regarding venous insufficiency. He does have significantly swollen lower extremities. He reports it is right more so than left. Has been a source of pain and discomfort form. He has had a trial of compression with no significant relief. He now presents for follow-up. [facility] Medical History Cirrhosis Elevated cholesterol Osteoarthritis of right hip Chronic kidney disease Alcoholism Erectile dysfunction HIV (human immunodeficiency virus infection) Hypertension Surgical History History of esophagogastroduodenoscopy (EGD) H/O colonoscopy Social History Patient Tobacco Use Status: Never used Tobacco Current occupational status: retired 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 Review of Systems Const Reports as per HPI ENT Reports no additional complaints Card Denies chest pain, Denies chest pain at rest and Denies chest pain with activity Resp Denies chest congestion and Denies cough GI Reports no additional complaints Musc Details: pain over varicosities, aching of lower extremities, swelling, cramping, heaviness and tiredness, itching Denies abnormal gait Skin/Breast Reports pruritus and Denies wounds Neuro Reports no additional complaints and Denies abnormal gait Psych Denies no additional complaints Physical Exam Vital Signs: Last Vital Signs BP 120/64 05/01/24 15:13 BMI result Body Mass Index 33.5 Const General: cooperative, healthy appearing and comfortable Orientation/consciousness: oriented to person, oriented to place and oriented to time Neck Carotids: no bruits Chest Chest palpation & inspection: normal inspection of the chest and normal palpation of entire chest wall Resp Effort & Inspection: normal respiratory effort and able to speak in complete sentences Cardio Rate: regular rate Heart sounds: S1 normal heart sound present and S2 normal heart sound present Peripheral pulses: Peripheral pulses 2+ throughout GI Inspection: Yes normal to inspection Skin Other: +2 edema, large rope-like varicosities greater than 4 mm CEAP Classification C4 - skin color changes Ep - Etiology Primary As - superficial veins P - reflux General skin exam: dry skin Neuro General: oriented to person, oriented to place and oriented to time Extrem Right lower extremity: full ROM, normal capillary refill and edema Left lower extremity: full ROM, normal capillary refill and edema Psych Mental Status: mental status grossly normal Results Reviewed Results Reviewed: Brief summary of venous insufficiency testing is as follows: right great saphenous vein: Positive right small saphenous vein: negative right accessory vein: none present left great saphenous vein: Positive left small saphenous vein: negative left accessory vein: none present Please note there is no evidence of any venous aneurysms or significant tortuosity Assessment & Plan Assessment & Plan (1) Varicose veins of right lower extremity with inflammation: Code(s): I83.11 - Varicose veins of right lower extremity with inflammation Category: Medical Plan: This patient has varicose veins with inflammation. They continue to be a source of discomfort for the patient. The patient has tried conservative treatment with compression, leg elevation and exercise program for over 3 months time. They have been compliant with all treatment. This has provided minimal relief for the patient. I do not anticipate this course of treatment will alter the underlying etiology. The patient has been scheduled for lower extremity venous treatment inclusive of --- right great saphenous vein radiofrequency ablation. Risks, benefits, and complications of this procedure has been discussed in detail with the patient including but not limited to bleeding, infection, and the development of a DVT. The patient has demonstrated a clear understanding and has consented. We will schedule the patient as soon as possible. Thank you for allowing us to participate in this patient's care. If there are any questions or concerns please do not hesitate to contact us. Coding Level of Care Code Est Pt Level 4 (25710) Diagnoses Varicose veins of right lower extremity with inflammation I83.11
[2024-05-01 15:13] VITALS: BP 120/64; BMI 33.5
== END 2024-05-01 15:52 | disposition home or self-care (01) ==
PROVIDERS: PCP Internal Medicine; Visit Provider Surgery Vascular Surgery
DX: I83.11 Varicose veins of right lower extremity with inflammation (principal)
CPT/HCPCS: 99214

== ENCOUNTER → 2024-05-01 15:04 | Outpatient (BNVA) | payer MEDICARE, MEDICAID, SELFPAY | PROVIDERS: PCP Internal Medicine; Visit Provider Surgery Vascular Surgery | DX: I83.11 Varicose veins of right lower extremity with inflammation (principal) | CPT/HCPCS: 99212 ==

== ENCOUNTER 2024-05-16 11:37 | Outpatient (REF) | payer MEDICARE, MEDICAID, SELFPAY ==
[2024-05-16 13:36] LABS: Appearance Urine Clear; Color Urine Yellow; Glucose Urine UA >=1000 mg/dL (Negative); Leukocyte Esterase Urine Negative (Negative); Nitrite Urine Negative (Negative); Specific Gravity - Urine 1.025 (1.005-1.025); UMIC TRIGGER UACC YES; Urine Blood Negative (Negative); Urine Ketones Negative (Negative); Urine Protein Negative (Neg-Trace)
[2024-05-16 13:42] LABS: Bacteria Urine None Seen (None Seen); Hyaline Casts Urine 0-2 /LPF (0-2); RBC Urine 0-2 /HPF (0-2); Squamous Epithelial Cell Urine 0-2 /HPF (0-2); WBC Urine 0-5 /HPF (0-5)
[2024-05-16 14:21] LABS: Parathyroid Hormone Intact 43.1 pg/mL (8.7-77.1)
[2024-05-16 14:42] LABS: Albumin Level 4.2 g/dL (3.5-5.0); Anion Gap 14 (12-20); Blood Urea Nitrogen 25 mg/dL (9-16); Calcium 9.9 mg/dL (8.4-10.2); Carbon Dioxide 23 mmol/L (22-29); Chloride 107 mmol/L (96-108); Estimated Glomerular Filt Rate 36; Magnesium 2.1 mg/dL (1.6-2.6); Phosphorus 2.5 mg/dL (2.7-4.5); Sodium 140 mmol/L (135-145)
[2024-05-16 14:43] LABS: Creatinine Urine 66.57 mg/dL; Microalbumin Urine < 5.0 mg/L
[2024-05-16 15:00] LABS: Vitamin D 25-OH Total 58.6 ng/mL (>30)
== END 2024-05-16 11:38 | disposition home or self-care (01) ==
LOC: HO.HHCL 11:37
PROVIDERS: Visit Provider Internal Medicine Nephrology
DX: Z13.89 Encounter for screening for other disorder (principal)
CPT/HCPCS: 36415; 80051; 81001; 82040; 82043; 82306; 82310; 82565; 82570; 83735; 83970; 84100; 84520

== ENCOUNTER 2024-05-26 15:44 | Outpatient (REF) | payer MEDICARE, MEDICAID, SELFPAY ==
[2024-05-26 16:08] LABS: MANUAL DIFF FLAG NO
[2024-05-26 16:26] LABS: Basophils Absolute Auto 0.1 X10*3/uL (0.0-0.2); Eosinophils Absolute Auto 0.3 X10*3/uL (0.0-0.4); Eosinophils Percent Auto 4.9 % (0-4); Hematocrit 43.7 % (42.0-52.0); Hemoglobin 15.1 g/dl (14.0-18.0); Imm Gran Abs Auto 0.01 X10*3/uL (0.00-0.03); Imm Gran Pct Auto 0.2 % (0.0-0.4); Lymphocytes Absolute Auto 2.1 X10*3/uL (1.2-4.9); Mean Corpuscular HGB Conc 34.6 g/dl (31.0-36.0); Mean Corpuscular Hemoglobin 32.3 pg (27.0-33.0); Mean Corpuscular Volume 93.6 fL (80.0-98.0); Mean Platelet Volume 10.6 fL (9.4-12.4); Monocytes Absolute Auto 0.4 X10*3/uL (0.1-1.2); Monocytes Percent Auto 7.2 % (2-11); Neutrophils Absolute Auto 2.4 x10*3/uL (2.0-8.3); Neutrophils Percent Auto 45.7 % (45-73); Platelet Count 177 X10*3/uL (160-400); Red Blood Count 4.67 X10*6/uL (4.60-5.80); Red Cell Distribution Width 12.9 % (11.0-16.0); White Blood Count 5.2 X10*3/uL (4.8-10.8)
[2024-05-26 16:37] LABS: Appearance Urine Clear; Color Urine Yellow; Glucose Urine UA >=1000 mg/dL (Negative); Leukocyte Esterase Urine Negative (Negative); Nitrite Urine Negative (Negative); Specific Gravity - Urine >= 1.030 (1.005-1.025); UMIC TRIGGER UA YES; Urine Blood Negative (Negative); Urine Ketones Negative (Negative); Urine Protein Negative (Neg-Trace)
[2024-05-26 17:03] LABS: Bacteria Urine None Seen (None Seen); Hyaline Casts Urine 0-2 /LPF (0-2); RBC Urine 0-2 /HPF (0-2); Squamous Epithelial Cell Urine 0-2 /HPF (0-2); WBC Urine 0-5 /HPF (0-5)
[2024-05-26 17:27] LABS: Albumin Level 4.1 g/dL (3.5-5.0); Anion Gap 13 (12-20); Blood Urea Nitrogen 30 mg/dL (9-16); Calcium 9.8 mg/dL (8.4-10.2); Carbon Dioxide 24 mmol/L (22-29); Chloride 106 mmol/L (96-108); Estimated Glomerular Filt Rate 36; Magnesium 2.1 mg/dL (1.6-2.6); Phosphorus 4.7 mg/dL (2.7-4.5); Potassium 4.8 mmol/L (3.3-5.1); Sodium 138 mmol/L (135-145)
[2024-05-26 17:27] LABS: Creatinine Urine 102.25 mg/dL; Microalbum/Creatinine Ratio Ur 7.8 ug/mg cr (<30); Total Protein Urine Random < 7 mg/dL (<12)
[2024-05-26 17:48] LABS: Vitamin D 25-OH Total 52.8 ng/mL (>30)
== END 2024-05-26 15:45 | disposition home or self-care (01) ==
LOC: HO.LAB 15:44
PROVIDERS: PCP Internal Medicine; Visit Provider Internal Medicine Nephrology
DX: N18.32 Chronic kidney disease, stage 3b (principal); E11.9 Type 2 diabetes mellitus without complications; N25.0 Renal osteodystrophy
CPT/HCPCS: 36415; 80051; 81001; 82040; 82043; 82306; 82310; 82565; 82570; 83735; 83970; 84100; 84156; 84520; 85025

== ENCOUNTER 2024-06-12 11:25 | Outpatient (REF) | payer MEDICARE, MEDICAID, SELFPAY ==
[2024-06-12 12:56] LABS: MANUAL DIFF FLAG NO
[2024-06-12 13:04] LABS: Basophils Absolute Auto 0.1 X10*3/uL (0.0-0.2); Basophils Percent Auto 1.1 % (0-2); Eosinophils Absolute Auto 0.3 X10*3/uL (0.0-0.4); Eosinophils Percent Auto 5.3 % (0-4); Hematocrit 46.3 % (42.0-52.0); Hemoglobin 15.7 g/dl (14.0-18.0); Lymphocytes Absolute Auto 1.7 X10*3/uL (1.2-4.9); Lymphocytes Percent Auto 35.9 % (20-40); Mean Corpuscular HGB Conc 33.9 g/dl (31.0-36.0); Mean Corpuscular Hemoglobin 32.2 pg (27.0-33.0); Mean Corpuscular Volume 94.9 fL (80.0-98.0); Mean Platelet Volume 10.7 fL (9.4-12.4); Monocytes Absolute Auto 0.4 X10*3/uL (0.1-1.2); Neutrophils Absolute Auto 2.4 x10*3/uL (2.0-8.3); Neutrophils Percent Auto 49.7 % (45-73); Platelet Count 171 X10*3/uL (160-400); Red Blood Count 4.88 X10*6/uL (4.60-5.80); Red Cell Distribution Width 12.7 % (11.0-16.0); White Blood Count 4.7 X10*3/uL (4.8-10.8)
[2024-06-12 13:15] LABS: Alanine Aminotransferase 28 U/L (0-40); Albumin Level 4.2 g/dL (3.5-5.0); Alkaline Phosphatase 62 U/L (39-117); Anion Gap 11 (12-20); Aspartate Amino Transferase 26 U/L (5-37); Bilirubin Total 0.6 mg/dL (0.0-1.0); Blood Urea Nitrogen 21 mg/dL (9-16); Calcium 9.7 mg/dL (8.4-10.2); Carbon Dioxide 25 mmol/L (22-29); Chloride 109 mmol/L (96-108); Estimated Glomerular Filt Rate 36; Glucose Random 178 mg/dL (60-115); Potassium 4.4 mmol/L (3.3-5.1); Sodium 141 mmol/L (135-145)
[2024-06-12 13:38] LABS: Prostate Specific Antigen Scr 0.85 ng/mL (<0.05-4.0)
[2024-06-14 05:19] LABS: Rubeola IgG (Measles) >300.00 AU/mL
[2024-06-14 12:58] LABS: Hepatitis B Viral DNA Qn - cp NOT DETECTED Log IU/mL (NOT DETECTED); Hepatitis B Viral DNA Qn-IU/mL NOT DETECTED (NOT DETECTED)
[2024-06-14 14:39] LABS: HIV RNA PCR Qn Copies 295 copies/mL (NOT DETECTED); HIV RNA PCR Qn Log Copies 2.47 (NOT DETECTED)
[2024-06-23 00:19] LABS: Date Viral Load Collected NG; Dolutegravir Resistance NOT PREDICTED; HIV-1 Bictegravir Resistance NOT PREDICTED; HIV-1 Cabotegravir Resistance NOT PREDICTED; HIV-1 Elvitegravir Resistance NOT PREDICTED; Raltegravir Resistance NOT PREDICTED; Value of Last HIV Viral Load NG copies/mL
[2024-07-02 19:09] LABS: HIV Genotype DETECTED
== END 2024-06-12 11:26 | disposition home or self-care (01) ==
LOC: HO.HHCL 11:25
PROVIDERS: Student in an Organized Health Care Education/Training Program; Visit Provider Internal Medicine
DX: B20 Human immunodeficiency virus [HIV] disease (principal); Z00.00 Encounter for general adult medical examination without abnormal findings; Z12.5 Encounter for screening for malignant neoplasm of prostate
CPT/HCPCS: 36415; 80053; 84153; 85025; 86735; 86762; 86765; 87517; 87536; 87900; 87901; 87906

== ENCOUNTER 2024-06-13 10:29 | Outpatient (AMB) | payer MEDICARE, MEDICAID, SELFPAY ==
[2024-06-13 11:31] VITALS: BMI 33.5
--- NOTE | 2024-06-13 11:31 | A.OFFVIS_ITS ---
Vital Signs 06/13/24 11:31 Height 5 ft 11 in Weight 240 lb BMI 33.5 Intake Visit Reasons: Right GSV RFA Accompanied by: Self / Same As Patient Allergies No Known Allergies Allergy (Verified 06/13/24 11:32) [facility] Medical History Cirrhosis Elevated cholesterol Osteoarthritis of right hip Chronic kidney disease Alcoholism Erectile dysfunction HIV (human immunodeficiency virus infection) Hypertension Surgical History History of esophagogastroduodenoscopy (EGD) H/O colonoscopy Social History Patient Tobacco Use Status: Never used Tobacco Current occupational status: retired 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 Physical Exam Vital Signs: BMI result Body Mass Index 33.5 Office Procedures Vascular Office Procedure Details Details: Diagnosis: Varicose veins with inflammation of right leg Procedure: Endovenous radiofrequency ablation of the right great saphenous vein(s) of the lower extremity with Venclose RF ablation Anesthesia: Local infiltration 5 cc, Tumescent 500 cc. Estimated Blood Loss: Minimal The patient was transferred to the procedure suite and the insufficient saphenous vein was mapped by ultrasound and diagrammed on the overlying skin. The depth and diameter of the vein(s) to be treated was documented. The varicose tributary veins and suitable access sites were identified and mapped as well. The patient was then positioned supine on the procedure table. The affected limb was prepped and draped in the usual sterile fashion. The RF catheter was placed on the sterile field, flushed and wiped down, prepared, and connected by a sterile cable. The patient was placed in a supine position and local anesthesia was instilled in the skin overlying the access site. A skin incision was made overlying the identified and mapped great saphenous vein entry site. The vein was accessed using ultrasound guidance and the Seldinger technique, a guide wire was introduced through the needle, which was then exchanged over the guide wire for a 6F sheath, which was secured in place. The guide wire was removed and the sheath was flushed. The RF catheter was placed into the vein through the sheath and preferentially, imaging was used to place the catheter tip just inferior to the superficial epigastric vein to preserve normal physiological flow in that vein. Additionally, it was confirmed by ultrasound guidance that the catheter tip was also placed a minimum of 1.5cm distal to the saphenofemoral junction. After the RF catheter position was verified by ultrasound, tumescent anesthesia was infiltrated, under ultrasound guidance, precisely into the perivenous compartment along the entire length of vein from the entry site to the saphenofemoral junction until a halo of fluid was noted around the vein. The patient was appropriately position. After RF catheter position was again confirmed with ultrasound imaging, and under direct external compression along the length of the heating element, RF energy was applied. The vein was segmentally ablated by heating a 10 cm segment and then indexing the catheter forward by 9.5 cm until the treatment length is completed. Device temperature was maintained at 120 plus or minus 5 degrees C with an initial power level of 4W/cm dropping to below 2W/cm for each treatment. Total vein length treated 42.5 cm Total cycles of RF 7. Repeat ultrasound of the saphenous vein was performed, confirming successful treatment. The catheter and sheath were withdrawn and hemostasis established with direct pressure. After assuring hemostasis, the skin incision over the saphenous vein was closed with a steristip and a compression wrap was applied from the level of the foot to the most proximal level of the thigh. Discharge instructions were given to the patient inclusive of follow-up ultrasound and recommended follow-up with us. [id number] - Endovenous RF, 1st Vein All charges added?: Procedure code (CPT) selection complete Assessment & Plan Assessment & Plan (1) Varicose veins of right lower extremity with inflammation: Comment: 06/13/2024 - right great saphenous vein radiofrequency ablation Code(s): I83.11 - Varicose veins of right lower extremity with inflammation Category: Medical Plan: See op note Coding Level of Care Code Procedure Only Diagnoses Varicose veins of right lower extremity with inflammation I83.11 CPT Codes Details - Vascular 1: 66763 - Endovenous RF, 1st Vein ([id number])
== END 2024-06-13 11:35 | disposition home or self-care (01) ==
PROVIDERS: PCP Internal Medicine; Visit Provider Surgery Vascular Surgery
DX: I83.11 Varicose veins of right lower extremity with inflammation (principal)
CPT/HCPCS: 36475

== ENCOUNTER → 2024-06-13 10:29 | Outpatient (BNVA) | payer MEDICARE, MEDICAID, SELFPAY | PROVIDERS: PCP Internal Medicine; Visit Provider Surgery Vascular Surgery | DX: I83.11 Varicose veins of right lower extremity with inflammation (principal) | CPT/HCPCS: 36475; J2003; J2004 ==

== ENCOUNTER 2024-06-16 14:45 | Outpatient (REF) | payer MEDICARE, MEDICAID, SELFPAY ==
--- NOTE | ~2024-06-16 | US_ITS ---
EXAMINATION: TRIPLEX SCANNING OF RIGHT LOWER EXTREMITY; SUPERFICIAL ULTRASOUND WITH DOPPLER OF RIGHT LOWER EXTREMITY CLINICAL INFORMATION: Status post Venaseal of the right great saphenous vein Ambulatory phlebectomy performed: No Originally performed on 06/13/24. COMPARISON: preprocedure studies. TECHNIQUE: Color flow triplex imaging and compression Doppler were performed as well as superficial ultrasound with Doppler. FINDINGS: RIGHT LOWER EXTREMITY DEEP VENOUS SYSTEM: Respiratory variation, normal compression and augmented flow are noted throughout the lower extremity. The visualized common femoral vein, femoral vein, profunda femoral vein, popliteal vein and the calf veins show no evidence of deep venous thrombosis. There is no evidence of Potter's cyst. SUPERFICIAL VENOUS SYSTEM: The great saphenous vein is occluded from the access site to just before the saphenofemoral junction. There is no extension of thrombus into the deep system. US/US venous duplex LE RT IMPRESSION: 1. No evidence of DVT. 2. Excellent appearance status post ablation of the right great saphenous vein. Electronically signed by: Magnolia De La Cruz MD 06/16/2024 04:53 PM EDT
== END 2024-06-16 14:46 | disposition home or self-care (01) ==
LOC: HO.US 14:45
PROVIDERS: PCP Internal Medicine; Visit Provider Surgery Vascular Surgery
DX: M79.604 Pain in right leg (principal)
CPT/HCPCS: 93971

== ENCOUNTER 2024-06-26 10:50 | Outpatient (AMB) | payer MEDICARE, MEDICAID, SELFPAY ==
[2024-06-26 10:56] VITALS: BMI 33.5
--- NOTE | 2024-06-26 10:56 | A.OFFVIS_ITS ---
Vital Signs 06/26/24 10:56 Height 5 ft 11 in Weight 240 lb BMI 33.5 Intake Visit Reasons: 2w follow up s/p Right GSV RFA 06/13/24 Intake Note: 2 week follow up Right GSV RFA 06/13/24. Pt states no issues. Only complaint is his neuropathy. Pt questioning if Left LE needs to be done? Accompanied by: Self / Same As Patient Allergies No Known Allergies Allergy (Verified 06/26/24 10:58) HPI HPI 2w follow up s/p Right GSV RFA 06/13/24: Details: Very pleasant 73-year-old gentleman presents for follow-up status post right great saphenous vein ablation. He reports he is doing fairly well from the procedure. Overall swelling and discomfort has significantly improved. He now presents for routine postprocedure follow-up. Of note postprocedure ultrasound was negative for DVT. Also of note he is concerned about his left lower extremity. It is a source of pain and discomfort for him. Persistent swelling as well. Compression has provided minimal relief. [facility] Medical History Cirrhosis Elevated cholesterol Osteoarthritis of right hip Chronic kidney disease Alcoholism Erectile dysfunction HIV (human immunodeficiency virus infection) Hypertension Surgical History History of esophagogastroduodenoscopy (EGD) H/O colonoscopy Social History Patient Tobacco Use Status: Never used Tobacco Current occupational status: retired 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 Review of Systems Const Reports as per HPI ENT Reports no additional complaints Card Denies chest pain, Denies chest pain at rest and Denies chest pain with activity Resp Denies chest congestion and Denies cough GI Reports no additional complaints Musc Details: pain over varicosities, aching of lower extremities, swelling, cramping, heaviness and tiredness, itching Denies abnormal gait Skin/Breast Reports pruritus and Denies wounds Neuro Reports no additional complaints and Denies abnormal gait Psych Denies no additional complaints Physical Exam Vital Signs: BMI result Body Mass Index 33.5 Const General: cooperative, healthy appearing and comfortable Orientation/consciousness: oriented to person, oriented to place and oriented to time Neck Carotids: no bruits Chest Chest palpation & inspection: normal inspection of the chest and normal palpation of entire chest wall Resp Effort & Inspection: normal respiratory effort and able to speak in complete sentences Cardio Rate: regular rate Heart sounds: S1 normal heart sound present and S2 normal heart sound present Peripheral pulses: Peripheral pulses 2+ throughout GI Inspection: Yes normal to inspection Skin Other: +2 edema, large rope-like varicosities greater than 4 mm left calf CEAP Classification C4 - skin color changes Ep - Etiology Primary As - superficial veins P - reflux General skin exam: dry skin Neuro General: oriented to person, oriented to place and oriented to time Extrem Right lower extremity: full ROM, normal capillary refill and edema Left lower extremity: full ROM, normal capillary refill and edema Psych Mental Status: mental status grossly normal Results Reviewed Results Reviewed: Brief summary of venous insufficiency testing is as follows: right great saphenous vein: Ablated right small saphenous vein: negative right accessory vein: none present left great saphenous vein: Positive left small saphenous vein: negative left accessory vein: none present Please note there is no evidence of any venous aneurysms or significant tortuosity Assessment & Plan Assessment & Plan (1) Varicose veins of left lower extremity with inflammation: Code(s): I83.12 - Varicose veins of left lower extremity with inflammation Category: Medical Plan: This patient has varicose veins with inflammation. They continue to be a source of discomfort for the patient. The patient has tried conservative treatment with compression, leg elevation and exercise program for over 3 months time. They have been compliant with all treatment. This has provided minimal relief for the patient. I do not anticipate this course of treatment will alter the underlying etiology. The patient has been scheduled for lower extremity venous treatment inclusive of --- left great saphenous vein radiofrequency ablation. Risks, benefits, and complications of this procedure has been discussed in detail with the patient including but not limited to bleeding, infection, and the development of a DVT. The patient has demonstrated a clear understanding and has consented. We will schedule the patient as soon as possible. Thank you for allowing us to participate in this patient's care. If there are any questions or concerns please do not hesitate to contact us. Coding Level of Care Code Est Pt Level 4 (41421) Diagnoses Varicose veins of left lower extremity with inflammation I83.12
== END 2024-06-26 11:14 | disposition home or self-care (01) ==
PROVIDERS: PCP Internal Medicine; Visit Provider Surgery Vascular Surgery
DX: I83.12 Varicose veins of left lower extremity with inflammation (principal)
CPT/HCPCS: 99214

== ENCOUNTER → 2024-06-26 10:50 | Outpatient (BNVA) | payer MEDICARE, MEDICAID, SELFPAY | PROVIDERS: PCP Internal Medicine; Visit Provider Surgery Vascular Surgery | DX: I83.12 Varicose veins of left lower extremity with inflammation (principal); G62.9 Polyneuropathy, unspecified | CPT/HCPCS: 99212 ==

== ENCOUNTER 2024-07-04 09:15 | Outpatient (AMB) | payer MEDICARE, MEDICAID, SELFPAY ==
--- NOTE | 2024-07-04 09:16 | MHC.OFFVIS ---
Intake Visit Reasons: Right GSV RFA Accompanied by: Self / Same As Patient Allergies No Known Allergies Allergy (Verified 07/04/24 09:17) PFSH Medical History Cirrhosis Elevated cholesterol Osteoarthritis of right hip Chronic kidney disease Alcoholism Erectile dysfunction HIV (human immunodeficiency virus infection) Hypertension Surgical History History of esophagogastroduodenoscopy (EGD) H/O colonoscopy Social History Patient Tobacco Use Status: Never used Tobacco Current occupational status: retired 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 Office Procedures Vascular Office Procedure Details Details: Diagnosis: Varicose veins with inflammation of left leg Procedure: Endovenous radiofrequency ablation of the left great saphenous vein(s) of the lower extremity. Anesthesia: Local infiltration 5 cc, Tumescent 400 cc. Estimated Blood Loss: minimal Specimen: Varicose veins The patient was transferred to the procedure suite and the insufficient saphenous vein was mapped by ultrasound and diagrammed on the overlying skin. The depth and diameter of the vein(s) to be treated was documented. The varicose tributary veins and suitable access sites were identified and mapped as well. The patient was then positioned supine on the procedure table. The affected limb was prepped and draped in the usual sterile fashion. The RF catheter was placed on the sterile field, flushed and wiped down, prepared, and connected by a sterile cable. The patient was placed in supine position and local anesthesia was instilled in the skin overlying the access site. A skin incision was made overlying the identified and mapped great saphenous vein entry site. The vein was accessed using ultrasound guidance and the Seldinger technique, a guide wire was introduced through the needle, which was then exchanged over the guide wire for a 6F sheath, which was secured in place. The guide wire was removed and the sheath was flushed. The RF catheter was placed into the vein through the sheath and preferentially, imaging was used to place the catheter tip just inferior to the superficial epigastric vein to preserve normal physiological flow in that vein. Additionally, it was confirmed by ultrasound guidance that the catheter tip was also placed a minimum of 1.5cm distal to the saphenofemoral junction. After the RF catheter position was verified by ultrasound, tumescent anesthesia was infiltrated, under ultrasound guidance, precisely into the perivenous compartment along the entire length of vein from the entry site to the saphenofemoral junction until a halo of fluid was noted around the vein. The patient was then placed in supine position to further exsanguinate the superficial venous system. After RF catheter position was again confirmed with ultrasound imaging, and under direct external compression along the length of the heating element, RF energy was applied. The vein was segmentally ablated by heating a 8 cm segment and then indexing the catheter forward by 7.5 cm until the treatment length is completed. Device temperature was maintained at 120 plus or minus 5 degrees C with an initial power level of 40W dropping to below 20W for each treatment. Total vein length treated 40 cm Total cycles of RF 7. Repeat ultrasound of the saphenous vein was performed, confirming successful treatment. The catheter and sheath were withdrawn and hemostasis established with direct pressure. After assuring hemostasis, the skin incision over the saphenous vein was closed with a bandage and a compression wrap, and/ or graduated compression stocking was applied from the level of the foot to the most proximal level of the thigh. [id number] - Endovenous RF, 1st Vein All charges added?: Procedure code (CPT) selection complete Assessment & Plan Assessment & Plan (1) Varicose veins of left lower extremity with inflammation: Comment: 07/04/2024 - left great saphenous vein radiofrequency ablation Code(s): I83.12 - Varicose veins of left lower extremity with inflammation Category: Medical Plan: See op note Coding Level of Care Code Procedure Only Diagnoses Varicose veins of left lower extremity with inflammation I83.12 CPT Codes Details - Vascular 1: 23254 - Endovenous RF, 1st Vein ([id number])
== END 2024-07-04 10:25 | disposition home or self-care (01) ==
LOC: HO.HVS 09:16
PROVIDERS: PCP Internal Medicine; Visit Provider Surgery Vascular Surgery
DX: I83.12 Varicose veins of left lower extremity with inflammation (principal)
CPT/HCPCS: 36475

== ENCOUNTER → 2024-07-04 09:15 | Outpatient (BNVA) | payer MEDICARE, MEDICAID, SELFPAY | PROVIDERS: PCP Internal Medicine; Visit Provider Surgery Vascular Surgery | DX: I83.12 Varicose veins of left lower extremity with inflammation (principal) | CPT/HCPCS: 36475; J2003; J2004 ==

== ENCOUNTER 2024-07-07 12:52 | Outpatient (REF) | payer MEDICARE, MEDICAID, SELFPAY ==
--- NOTE | ~2024-07-07 | US_ITS ---
EXAMINATION: TRIPLEX SCANNING OF RIGHT LOWER EXTREMITY; SUPERFICIAL ULTRASOUND WITH DOPPLER OF RIGHT LOWER EXTREMITY CLINICAL INFORMATION: Status post RF ablation of the right great saphenous vein originally performed on 07/04/2024. COMPARISON: Preprocedure studies. TECHNIQUE: Color flow triplex imaging and compression Doppler were performed as well as superficial ultrasound with Doppler. FINDINGS: TRIPLEX SCANNING OF RIGHT LOWER EXTREMITY: Respiratory variation, normal compression and augmented flow are noted throughout the lower extremity. The visualized common femoral vein, femoral vein, profunda femoral vein, popliteal vein and the calf veins show no evidence of deep venous thrombosis. There is no evidence of Potter's cyst. SUPERFICIAL ULTRASOUND WITH DOPPLER OF RIGHT LOWER EXTREMITY: The right great saphenous vein is occluded from the access site to 1.7 before the saphenofemoral junction. There is no extension of thrombus into the deep system. US/US venous duplex LE IMPRESSION: 1. Normal triplex scan of the right without evidence of deep venous thrombosis. 2. Excellent appearance status post ablation of the right great saphenous vein. Electronically signed by: Ken [place] MD 07/15/2024 12:32 AM [facility]
== END 2024-07-07 12:53 | disposition home or self-care (01) ==
LOC: HO.US 12:52
PROVIDERS: PCP Internal Medicine; Visit Provider Surgery Vascular Surgery
DX: M79.605 Pain in left leg (principal); Z98.890 Other specified postprocedural states
CPT/HCPCS: 93971

== ENCOUNTER 2024-07-15 07:56 | Outpatient (REF) | payer MEDICARE, MEDICAID, SELFPAY ==
[2024-07-15 11:29] LABS: MANUAL DIFF FLAG NO
[2024-07-15 11:35] LABS: Appearance Urine Clear; Color Urine Yellow; Glucose Urine UA >=1000 mg/dL (Negative); Leukocyte Esterase Urine Negative (Negative); Nitrite Urine Negative (Negative); Specific Gravity - Urine 1.025 (1.005-1.025); UMIC TRIGGER UA YES; Urine Blood Negative (Negative); Urine Ketones Negative (Negative); Urine Protein Negative (Neg-Trace)
[2024-07-15 11:36] LABS: Basophils Absolute Auto 0.1 X10*3/uL (0.0-0.2); Basophils Percent Auto 1.1 % (0-2); Eosinophils Absolute Auto 0.2 X10*3/uL (0.0-0.4); Eosinophils Percent Auto 4.1 % (0-4); Hematocrit 45.1 % (42.0-52.0); Hemoglobin 15.2 g/dl (14.0-18.0); Imm Gran Abs Auto 0.01 X10*3/uL (0.00-0.03); Imm Gran Pct Auto 0.2 % (0.0-0.4); Lymphocytes Absolute Auto 2.4 X10*3/uL (1.2-4.9); Lymphocytes Percent Auto 43.2 % (20-40); Mean Corpuscular HGB Conc 33.7 g/dl (31.0-36.0); Mean Corpuscular Hemoglobin 31.9 pg (27.0-33.0); Mean Corpuscular Volume 94.5 fL (80.0-98.0); Mean Platelet Volume 10.6 fL (9.4-12.4); Monocytes Absolute Auto 0.6 X10*3/uL (0.1-1.2); Monocytes Percent Auto 9.9 % (2-11); Neutrophils Absolute Auto 2.3 x10*3/uL (2.0-8.3); Neutrophils Percent Auto 41.5 % (45-73); Platelet Count 169 X10*3/uL (160-400); Red Blood Count 4.77 X10*6/uL (4.60-5.80); Red Cell Distribution Width 13.1 % (11.0-16.0); White Blood Count 5.6 X10*3/uL (4.8-10.8)
[2024-07-15 11:42] LABS: Bacteria Urine None Seen (None Seen); Hyaline Casts Urine 0-2 /LPF (0-2); RBC Urine 0-2 /HPF (0-2); Squamous Epithelial Cell Urine 0-2 /HPF (0-2); WBC Urine 0-5 /HPF (0-5)
[2024-07-15 11:50] LABS: Creatinine Urine 73.31 mg/dL; Microalbum/Creatinine Ratio Ur 25.9 ug/mg cr (<30); Protein/Creatinine Ratio, Ur 0.11 (<0.2); Total Protein Urine Random 8 mg/dL (<12)
[2024-07-15 11:56] LABS: Alanine Aminotransferase 24 U/L (0-40); Albumin Level 4.3 g/dL (3.5-5.0); Alkaline Phosphatase 65 U/L (39-117); Anion Gap 14 (12-20); Aspartate Amino Transferase 31 U/L (5-37); Bilirubin Total 0.6 mg/dL (0.0-1.0); Blood Urea Nitrogen 24 mg/dL (9-16); Carbon Dioxide 21 mmol/L (22-29); Chloride 109 mmol/L (96-108); Estimated Glomerular Filt Rate 42; Glucose Random 109 mg/dL (60-115); Potassium 4.5 mmol/L (3.3-5.1); Sodium 139 mmol/L (135-145); Total Protein 7.4 g/dL (6.5-8.0)
[2024-07-15 11:58] LABS: Albumin Level 4.3 g/dL (3.5-5.0); Blood Urea Nitrogen 23 mg/dL (9-16); Calcium 10.1 mg/dL (8.4-10.2); Magnesium 2.1 mg/dL (1.6-2.6); Phosphorus 4.1 mg/dL (2.7-4.5)
[2024-07-15 12:08] LABS: Parathyroid Hormone Intact 72.5 pg/mL (8.7-77.1)
[2024-07-16 16:13] LABS: Hepatitis B Viral DNA Qn - cp NOT DETECTED Log IU/mL (NOT DETECTED); Hepatitis B Viral DNA Qn-IU/mL NOT DETECTED (NOT DETECTED)
[2024-07-16 16:39] LABS: HIV RNA PCR Qn Copies <20 DETECTED copies/mL (NOT DETECTED); HIV RNA PCR Qn Log Copies <1.30 DETECTED (NOT DETECTED)
[2024-07-17 06:33] LABS: Rubeola IgG (Measles) >300.00 AU/mL
[2024-07-18 19:58] LABS: Absolute CD3 Count 2072 cells/uL (840-3060); Absolute CD4 Count 1169 cells/uL (490-1740); Absolute CD8 Count 1026 cells/uL (180-1170); Absolute Lymphocytes 2419 cells/uL (850-3900); CD4 CD8 Ratio 1.14 (0.86-5.00); Percent CD3 Cells 86 % (57-85); Percent CD4 Cells 48 % (30-61); Percent CD8 Cells 42 % (12-42)
[2024-07-20 11:33] LABS: VITAMIN D (1,25 OH) D3 42 pg/mL; Vit D (1,25-Dihydroxy) Total 42 pg/mL (18-72); Vitamin D (1,25 OH) D2 <8 pg/mL
== END 2024-07-15 07:57 | disposition home or self-care (01) ==
LOC: HO.HHCL 07:56
PROVIDERS: Student in an Organized Health Care Education/Training Program; Visit Provider Internal Medicine Nephrology
DX: I12.9 Hypertensive chronic kidney disease with stage 1 through stage 4 chronic kidney disease, or unspecified chronic kidney disease (principal); E11.22 Type 2 diabetes mellitus with diabetic chronic kidney disease; N18.31 Chronic kidney disease, stage 3a; Z21 Asymptomatic human immunodeficiency virus [HIV] infection status; I83.12 Varicose veins of left lower extremity with inflammation
CPT/HCPCS: 36415; 80053; 81001; 82040; 82043; 82310; 82570; 82652; 83735; 83970; 84100; 84156; 84520; 85025; 86359; 86360; 86735; 86762; 86765; 86787; 87517; 87536; 99212

== ENCOUNTER 2024-07-15 11:03 | Outpatient (AMB) | payer MEDICARE, MEDICAID, SELFPAY ==
--- NOTE | 2024-07-15 11:03 | MHC.OFFVIS ---
Vital Signs 07/15/24 11:05 Height 5 ft 11 in Weight 240 lb BMI 33.5 BP 134/82 Blood Pressure Location Rt brachial Position Sitting Intake Visit Reasons: 2 Week follow up left GSV RFA 07/04/24 Intake Note: Mook is a 74 year old male who presents to the office today for a 2 week follow up left GSV RFA 07/04/24. Pt states he is feeling well. Pt states he has some soreness near his left knee but denies any other pain or swelling. Allergies No Known Allergies Allergy (Verified 07/15/24 11:07) HPI HPI 2 Week follow up left GSV RFA 07/04/24: Details: Mook, a pleasant 74-year-old male patient, is presenting today for a follow-up to a left GSV performed on 07/04. He is also status post right GSV from 06/13. He states he has had a little discomfort on the medial aspect of his left knee but other than that he has been doing very well. He states he is very happy with the results that he has had so far. He has not had any other complaints of discomfort or pain. He states the vein has also started to flatten out. [facility] Medical History Cirrhosis Elevated cholesterol Osteoarthritis of right hip Chronic kidney disease Alcoholism Erectile dysfunction HIV (human immunodeficiency virus infection) Hypertension Surgical History History of esophagogastroduodenoscopy (EGD) H/O colonoscopy Social History Patient Tobacco Use Status: Never used Tobacco Current occupational status: retired 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 Review of Systems Const Reports as per HPI and Denies weakness ENT Reports Normal hearing present and Denies dizziness Card Reports as per HPI, Denies chest pain, Denies chest pain at rest, Denies chest pain with activity, Denies dyspnea and Denies dyspnea on exertion Resp Reports as per HPI, Denies cough, Denies dyspnea and Denies dyspnea on exertion GI Reports as per HPI, Denies abdominal pain, Denies nausea and Denies vomiting Musc Denies numbness Skin/Breast Reports as per HPI, Denies erythema and Denies wounds Neuro Reports Normal hearing present, Denies dizziness, Denies numbness, Denies Sensory deficit (Neuro) and Denies weakness Psych Reports no additional complaints Endo Reports no additional complaints Physical Exam Vital Signs: Last Vital Signs BP 134/82 07/15/24 11:05 BMI result Body Mass Index 33.5 Const General: healthy appearing and no acute distress Orientation/consciousness: patient oriented x3 HEENT Head: Yes normal to inspection Ears: hearing grossly normal bilaterally Mouth: Normal oral and palatal mucosa present Resp Effort & Inspection: normal respiratory effort and able to speak in complete sentences Auscultation: clear to auscultation bilaterally Cardio Jugular venous distension: no JVD Rate: regular rate Rhythm: regular rhythm Heart sounds: S1 normal heart sound present and S2 normal heart sound present Bruits: no abdominal aortic bruits, no carotid bruits, no femoral bruits and no renal bruits Peripheral pulses: Peripheral pulses 2+ throughout GI Inspection: Yes normal to inspection Palpation (GI): No Abdominal aortic bruit present Skin General skin exam: no rashes or lesions noted Wounds: no wounds Hair: normal Neuro General: patient oriented x3 Cranial nerves: Yes Normal hearing present Cognition (Neuro): normal cognition Gait exam (Neuro): Normal gait present Motor exam (neuro): 5/5 motor strength present throughout Sensory Exam: No Sensory deficit (Neuro) Extrem Other: Left lower extremity: Very small less than 1 cm varicosity noted in the medial aspect of the knee. No bruising, redness, or swelling noted. General: Yes normal to inspection, Yes full ROM, Yes capillary refill normal and Yes normal gait Results Reviewed Results Reviewed: US 07/07: US/US venous duplex LE LT IMPRESSION: 1. Normal triplex scan of the right without evidence of deep venous thrombosis. 2. Excellent appearance status post ablation of the right great saphenous vein. Assessment & Plan Assessment & Plan (1) Varicose veins of left lower extremity with inflammation: Comment: 07/04/2024 - left great saphenous vein radiofrequency ablation Code(s): I83.12 - Varicose veins of left lower extremity with inflammation Category: Medical Plan: Mook is presenting today as a follow up to postprocedure. He is status post left GSV venous seal performed on 07/04. His follow up ultrasound on 07/07 revealed no DVT. He states he is healing well and only has a slight discomfort in the medial aspect of his left knee, which he states is tolerable. He states he is overall very happy with the results. At this point, he has no complaints and we will follow up with him only as needed. We discussed that if he had any concerns he can reach out to our office at any point. If there are any questions or concerns, please do not hesitate to reach out to us. Coding Level of Care Code Established Pt Est Pt Level 4 (90981) Patient Type Established Diagnoses Varicose veins of left lower extremity with inflammation I83.12 Comment Review of ultrasound
[2024-07-15 11:05] VITALS: BP 134/82; BMI 33.5
== END 2024-07-15 11:37 | disposition home or self-care (01) ==
PROVIDERS: PCP Internal Medicine; Visit Provider Physician Assistant Surgical
DX: I83.12 Varicose veins of left lower extremity with inflammation (principal)
CPT/HCPCS: 99214

== ENCOUNTER 2024-08-21 14:10 | Outpatient (REF) | payer MEDICARE, MEDICAID, SELFPAY ==
--- NOTE | ~2024-08-21 | XR_ITS ---
EXAMINATION: XR CHEST CLINICAL INFORMATION: chest discomfort, mild cough COMPARISON: Chest x-ray from 10/18/2023 TECHNIQUE: 2 views of the chest were obtained. FINDINGS: Heart is normal in size. Atherosclerotic calcification seen in the aortic arch. No acute vascular congestion. No focal infiltrates or pleural effusions. XR/XR chest 2V IMPRESSION: No acute process. Electronically signed by: Akira Felix MD 08/24/2024 10:13 AM SHIREEN
--- OUTSIDE RECORDS SUMMARY | 2024-08-21 14:14 | XMS_ITS ---
Author Organization [facility] Address [address] [place] [address] Care Team Providers Care Miller Head Name Role Phone Socorro Arceo MD, Raul Primary Care Provide r Mick Chow Unavailable [phone] ALLERGIES No Known Allergies REASON FOR VISIT Patient presents today for cirrhosis MEDICATIONS Medication SIG (Take, Route, Frequency, Duration) Notes Start Date End Date Status Biktarvy 50-200-25 MG 1 tablet Orally On ce a day for 30 day(s) Active Metoprolol Succinate ER 100 MG 1 tablet Orally Once a day for 90 days Active Omeprazole 20 MG 1 Orally Every morni ng for 90 days 09/04/2023 Active Omeprazole 20 MG 1 Orally QAM 07/24/2020 Active Famotidine 40 MG 1 Orally At bedtime 07/24/2019 Active Atorvastatin Calcium 40 MG 1 tablet Oral ly Once a day Active Vitamin B12 100 MCG 1 tablet Orally Once a day Active Losartan Potassium-HCTZ 50-12.5 MG 1 tablet Orally Once a day Active SOCIAL HISTORY Tobacco Use: Social History Observation Description Date Details (start date - stop date) Never Smoker NA - NA Sex Assigned At : Social History Observation Description Sex Assigned At Unknown Tobacco Use/Smoking Question Answer Notes Patient is a nonsmoker Alcohol Screen Question Answer Notes Did you have a drink containing alcohol in the p ast year? No Points 0 Interpretation Negative PROBLEMS Problem Type ICD Code Onset Dates Problem Status W/U Status Risk SNOMED Code Notes Problem Esophageal varices without bleeding (I85.00) Active confirmed Esophageal varices without bleeding (79290168) VITAL SIGNS BMI 33.77 kg/m2 01/29/2024 Blood pressure systolic 000 mm Hg 01/29/20 24 Blood pressure diastolic 00 mm Hg 024 Height 72 in 01/29/2024 Temperature 98.6 degrees Fahrenheit 01/29/20 24 Weight 249 lbs 01/29/2024 Encounters Encounter Location Date Provider Diagnosis [facility] [address] [place] [address] 01/29/2024 Mick Durán 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 ; Alcoholic cirrhosis of liver without ascites K70.30 ; History of adenomatous polyp of colon Z86.010 ; Encounter for screening for malignant neoplasm of colon Z12.11 ; Esophageal varices without bleeding I85.00 and GERD (gastroesophageal reflux disease) K21.9 ASSESSMENTS Encounter Date Diagnosis Assessment Notes Treatment Notes Treatment Clinical Notes 01/29/2024 Cirrhosis with alcoholism (ICD-10 - K70.30) 01/29/2024 Alcoholic cirrhosis of liver without ascites (ICD-10 - K70.30) 01/29/2024 History of adenomatous polyp of colon (ICD-10 - Z86.010) 01/29/2024 Encounter for screening for malignant neoplasm of colon (ICD-10 - Z12.11) 01/29/2024 Esophageal varices without bleeding (ICD-10 - I85.00) 01/29/2024 GERD (gastroesophageal reflux disease) (ICD-10 - K21.9) PLAN OF TREATMENT Future Test Test Name Order Date UPPER GI ENDOSCOPY 01/29/2024 COLONOSCOPY 01/29/2024 Next Appt Details Follow Up: prn, Reason: Progress Notes * Examination Category Sub-Category Detail Notes General Examination GENERAL APPEARANCE: pleasant , well nourished, well developed, in no acute distress EYES: sclera non-icteric NECK/THYROID: no cervical lymphade nopathy, neck supple HEART: S1, S2 normal LUNGS: clear to auscultatio n bilaterally ABDOMEN: normal bowel sounds, no guarding or rigidity, no hepatosplenomegaly, no masses palpable, soft, nontender, nondistended. NEUROLOGIC: alert and oriented SKIN: nonjaundiced, no spi jesus angiomata. EXTREMITIES: no edema ORAL CAVITY: mucosa moist
--- OUTSIDE RECORDS SUMMARY | 2024-08-21 14:14 | XMS_ITS ---
Author Organization [facility] Address [address] [place] [address] Care Team Providers Care Women'S Studies Lecturer Name Role Phone Socorro Arceo MD, Raul Primary Care Provide r Mick Chow Unavailable [phone] REASON FOR VISIT gerd,alcoholic cirrhosis,screening,hx polyps, esophageal varices MEDICATIONS Medication SIG (Take, Route, Frequency, Duration) [...] morni ng for 90 days 09/04/2023 Active PROBLEMS Problem Type ICD Code Onset Dates Problem Status W/U Status Risk SNOMED Code Notes Problem Personal history of colonic polyps (Z86.010) Active confirmed History of polyp of colon (situation) (305139302) Problem Diverticulosis of large intestine without perforation or abscess without bleeding (K57.30) Active confirmed Diverticul ar disease of colon (091384349) Problem Cirrhosis (K74.60) Active confirmed Cir rhotic (161546868) Problem Gastro-esophageal reflux disease without esophagitis (K21.9) Active confirmed Gastro-esophage al reflux disease without esophagitis (953581644) Encounters Encounter Location Date Provider Diagnosis [facility] Out[facility] [address] [place], [place] [phone] 03/10/2024 Mick Durán Colon cancer scree nina Z12.11 ; Personal history of colonic polyps Z86.010 ; Diverticulosis of large intestine without perforation or abscess without bleeding K57.30 ; Other hemorrhoids K64.8 ; Other specified disease of esophagus K22.89 ; Hiatal hernia K44.9 ; Cirrhosis K74.60 and Gastro-esophageal reflux disease without esophagitis K21.9 ASSESSMENTS Encounter Date Diagnosis Assessment Notes Treatment Notes Treatment Clinical Notes 03/10/2024 Colon cancer screening (ICD-10 - Z12.11) 03/10/2024 Personal history of colonic polyps (ICD-10 - Z86.010) 03/10/2024 Diverticulosis of large intestine without perforation or abscess without bleeding (ICD-10 - K57.30) 03/10/2024 Other hemorrhoids (ICD-10 - K64.8) 03/10/2024 Other specified disease of esophagus (ICD-10 - K22.89) 03/10/2024 Hiatal hernia (ICD-1 0 - K44.9) 03/10/2024 Cirrhosis (ICD-10 - K74.60) 03/10/2024 Gastro-esophageal reflux disease without esophagitis (ICD-10 - K21.9) PLAN OF TREATMENT No Information
--- OUTSIDE RECORDS SUMMARY | 2024-08-21 14:14 | XMS_ITS ---
Author Organization [facility] Address [address] [place] [address] Care Team Providers Care Color Blender Name Role Phone Socorro Arceo MD, Raul Primary Care Provide Mick Sanchez [phone] REASON FOR VISIT cirrhosis Encounters Encounter Location Date Provider Diagnosis [facility] [address] [place] [address] 11/02/2023 Mick Durán PLAN OF TREATMENT No Information
--- OUTSIDE RECORDS SUMMARY | 2024-08-21 14:14 | XMS_ITS | Patient Health Record ---
Author Organization [facility] Address [address] [place] [address] Care Team Providers Care Seismic Prospecting Supervisor Name Role Phone Socorro Arceo MD, Raul Primary Care Provide r Unavailable Mick Durán Unavailable [phone] ALLERGIES No Known Allergies RESULTS Component Value Reference Range Notes Prothrombin Time INR Reviewed date:08/22/2023 05:37:10 PM Interpretation: Performing Lab:[facility], [address] [place] [phone] Notes/Report: Prothrombin Time 12.8 11.1-13.3 SEC INTERNATIONAL NORM RATIO 1.1 0.9-1.1 INTERNATIONAL NORMALIZED RATIO (INR) REFERENCE RANGES Reference Range For patients not on anticoagulant therapy: 0.9 - 1.1 INR ranges for oral anticoagulant therapy: For prevention and treatment of venous thrombosis and pulmonary embolism: 2.0 - 3.0 For acute myocardial infarction with aspirin therapy: 2.0 - 3.0 For acute myocardial infarction without aspirin therapy: 3.0 - 4.0 For patients with mechanical prosthetic heart valves: 2.5 - 3.5 Liver Panel Reviewed date:08/22/2023 05:37:38 PM Interpretation: Performing Lab:[facility], [address] [place] [phone] Notes/Report: Bilirubin Total 0.6 0.0-1.0 mg/dL Bilirubin Direct 0.2 0.0-0.5 mg/dL Aspartate Amino Transferase 25 5-37 U/L Alanine Aminotransferase 33 0-40 U/L Total Protein 6.9 6.5-8.0 g/dL Albumin Level 4.1 3.5-5.0 g/dL Alkaline Phosphatase 60 39-117 U/L Alpha Fetoprotein Reviewed date:08/24/2023 06:52:42 PM Interpretation: Performing Lab:[facility], [address] [place] [address], [place] [address] Notes/Report: Alpha Fetoprotein 3.6 <6.1 ng/mL This test was performed using the Evelio Naren chemiluminescent method. Values obtained from different assay methods cannot be used interchangeably. AFP levels, regardless of value, should not be interpreted as absolute evidence of the presence or absence of disease. THIS TEST WAS PERFORMED AT: [facility] [facility] [address] [place] [phone] NINA SOLORIO MD REASON FOR REFERRAL No Information MEDICATIONS Medication SIG (Take, Route, Frequency, Duration) [...] morni ng for 90 days 09/04/2023 Active IMMUNIZATIONS Vaccine Route Administration Date Status Comme nts Flu vaccine no Preserv 3 and > Unknown 06/08/2015 Admin istered Influenza Unknown 05/11/2018 Administered Influenza Unknown 05/06/2019 Administered Influenza Unknown 05/04/2020 Administered Influenza Unknown 07/05/2022 Administered Influenza Unknown 07/04/2023 Administered SOCIAL HISTORY Tobacco Use: Social History Observation [...] W/U Status Risk SNOMED Code Notes Problem Gastro-esophageal reflux disease without esophagitis (K21.9) Active confirmed Gastro-esophage al reflux disease without esophagitis (526663571) Problem Encounter for screening for malignant neoplasm of colon (Z12.11) Active confirmed 275948306 Problem History of adenomatous polyp of colon (Z86.010) Active confirmed 239981112 Problem Personal history of colonic polyps (Z86.010) Active confirmed History of poly p of colon (situation) (202318603) Problem Esophageal varices without bleeding (I85.00) Active confirmed Esophageal vari chin without bleeding (57170651) Problem Diverticulosis of large intestine without perforation or abscess without bleeding (K57.30) Active confirmed Diverticul ar disease of colon (901253350) Problem 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) Active confirmed 101381185 Problem 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) Active confirmed 947450148 Problem GERD with esophagitis (K21.0) Active confirmed 926105549 Problem Cirrhosis (K74.60) Active confirmed Cir rhotic (608314143) Problem GERD (gastroesophageal reflux disease) (K21.9) Active confirmed Gastroesophagea l reflux disease (123385542) Problem Gastroesophageal reflux disease with esophagitis without hemorrhage (K21.00) Active confirmed Gastroes ophageal reflux disease with esophagitis (disorder) (339492773) VITAL SIGNS Temperature 98.6 degrees Fahrenheit 01/29/2024 Blood pressure diastolic 00 mm Hg 01/29/2024 Height 72 in 01/29/2024 Blood pressure systolic 000 mm Hg 01/29/2024 Weight 249 lbs 01/29/2024 BMI 33.77 kg/m2 01/29/2024 Encounters Encounter Location Date Provider Diagnosis [facility] [address] [place] [id number] 03/10/2024 Mick Durán Colon cancer screeni ng Z12.11 ; Personal history of colonic polyps Z86.010 ; Diverticulosis of large intestine without perforation or abscess without bleeding K57.30 ; Other hemorrhoids K64.8 ; Other specified disease of esophagus K22.89 ; Hiatal hernia K44.9 ; Cirrhosis K74.60 and Gastro-esophageal reflux disease without esophagitis K21.9 [facility] [address] [place] [address] 11/02/2023 Mick Durán [facility] [address] [place] [address] 01/29/2024 Mick Durán 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 ; Alcoholic cirrhosis of liver without ascites K70.30 ; History of adenomatous polyp of colon Z86.010 ; Encounter for screening for malignant neoplasm of colon Z12.11 ; Esophageal varices without bleeding I85.00 and GERD (gastroesophageal reflux disease) K21.9 [facility] [address] [place] [address] 09/04/2023 Mick Durán ASSESSMENTS Encounter Date Diagnosis Assessment Notes Treatment Notes Treatment Clinical Notes 03/10/2024 Colon cancer screening (ICD-10 - Z12.11) 03/10/2024 Personal history of colonic polyps (ICD-10 - Z86.010) 01/29/2024 Alcoholic cirrhosis of liver without ascites (ICD-10 - K70.30) 01/29/2024 Cirrhosis with alcoholism (ICD-10 - K70.30) 03/10/2024 Diverticulosis of large intestine without perforation or abscess without bleeding (ICD-10 - K57.30) 01/29/2024 History of adenomatous polyp of colon (ICD-10 - Z86.010) 03/10/2024 Other hemorrhoids (ICD-10 - K64.8) 01/29/2024 Encounter for screening for malignant neoplasm of colon (ICD-10 - Z12.11) 03/10/2024 Other specified disease of esophagus (ICD-10 - K22.89) 01/29/2024 Esophageal varices without bleeding (ICD-10 - I85.00) 03/10/2024 Hiatal hernia (ICD-1 0 - K44.9) 01/29/2024 GERD (gastroesophageal reflux disease) (ICD-10 - K21.9) 03/10/2024 Cirrhosis (ICD-10 - K74.60) 03/10/2024 Gastro-esophageal reflux disease without esophagitis (ICD-10 - K21.9) PLAN OF TREATMENT Pending Test Test Name Order Date LIVER PROFILE 08/02/2022 CBC w DIFF 04/21/2021 CBC w DIFF 08/02/2022 PROTHROMBIN TIME (PT, INR) 12/24/2018 ALPHA-FETOPROTEIN,TUMOR MARKER 3 ALPHA-FETOPROTEIN,TUMOR MARKER 7 ALPHA-FETOPROTEIN,TUMOR MARKER 1 ALPHA-FETOPROTEIN,TUMOR MARKER 2 ALPHA-FETOPROTEIN,TUMOR MARKER 9 US ABD 08/02/2022 US ABD 04/21/2021 Prothrombin Time INR 07/06/2023 Prothrombin Time INR 04/21/2021 Prothrombin Time INR 08/02/2022 Liver Panel 04/21/2021 Liver Fibrosis Pnl 07/06/2023 US abdomen comp w elastography 3 Future Test Test Name Order Date UPPER GI ENDOSCOPY 01/20/2014 UPPER GI ENDOSCOPY 12/24/2018 COLONOSCOPY 12/24/2018 UPPER GI ENDOSCOPY 01/29/2024 COLONOSCOPY 01/29/2024 Insurance Providers Payer Name Payer Address Payer Phone Subscriber Number Group Number Insured Name Patient Relationship to Insured Coverage Start Date Coverage End Date MED[place]ARE OF [place] [address] [place] [address] [id number] ANDREW FREEMAN Self - patient is the insured MEDICAID OF [facility] [address] [place] [address] [id number] ANDREW FREEMAN Self - patient is the insured MEDICAL (GENERAL) HISTORY Medical History History ICD Code Diverticulitis Esophageal ulcer/esophagitis in 2006--neg bx--F/U EGD in 07/12 WNL-no significant esophagitis and biopsies were negative for Hall's esophagus; he does have a small to moderate size hiatal hernia HIV infection-for >20 yrs Mild IA in 12/2012--describes a neg. ca rdiac cath afterwards Alcohol abuse-U/S of liver i n 12/2013 c/w cirrhosis--no mass--in January of 2014 he had a normal liver profile, normal PT with INR, normal CBC with platelet count, and a normal alpha-fetoprotein level Elevated cholesterol Neg. colonoscopy in 07/2009 and 2004-he does have some diverticulosis and internal hemorrhoids Denies DM,CVA,Lung disease,renal disease Hypertension Cirrhosis in relation to alcohol Skin cancer Peripheral neuropathy He had an upper endoscopy in February 2014 with the finding of a moderate size hiatal hernia, but no evidence of any significant esophagitis, Hall's esophagus, nor varices EGD 02/2019 with Gr I esophag eal varices, gastritis, and moderate-sized hiatal hernia--biopsies were negative for H. pylori Colonoscopy 02/2019 with small tubular ad enomas COVID 08/2023 Surgical History Surgery Date(Month/Year) CCY
== END 2024-08-21 14:11 | disposition home or self-care (01) ==
LOC: HO.HHCX 14:10
PROVIDERS: Visit Provider Internal Medicine
DX: R07.89 Other chest pain (principal)
CPT/HCPCS: 71046

== ENCOUNTER 2024-08-26 10:50 | Outpatient (REF) | payer MEDICARE, MEDICAID, SELFPAY ==
--- OUTSIDE RECORDS SUMMARY | 2024-08-26 10:56 | XMS_ITS ---
Author Organization [facility] Address [address] [place] [address] Care Team Providers Care Picking Belt Operator Name Role Phone Socorro Arceo MD, Raul Primary Care Provide Mick Sanchez [phone] REASON FOR VISIT cirrhosis Encounters Encounter Location Date Provider Diagnosis [facility] [address] [place] [address] 11/02/2023 Mick Durán PLAN OF TREATMENT No Information
--- OUTSIDE RECORDS SUMMARY | 2024-08-26 10:56 | XMS_ITS ---
Author Organization [facility] Address [address] [place] [address] Care Team Providers Care Hides Inspector Name Role Phone Socorro Arceo MD, Raul Primary Care Provide r Mick Chow Unavailable [phone] ALLERGIES No Known Allergies REASON FOR VISIT [...] (I85.00) Active confirmed Esophageal varices without bleeding (61009848) VITAL SIGNS BMI 33.77 kg/m2 01/29/2024 Blood pressure systolic 000 mm Hg 01/29/20 24 Blood pressure diastolic 00 mm Hg 024 Height 72 in 01/29/2024 Temperature 98.6 degrees Fahrenheit 01/29/20 24 Weight 249 lbs 01/29/2024 Encounters Encounter Location Date Provider Diagnosis [facility] [address] [place] [address] 01/29/2024 Mick Durán 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 [...]
--- OUTSIDE RECORDS SUMMARY | 2024-08-26 10:57 | XMS_ITS | Patient Health Record ---
Author Organization [facility] Address [address] [place] [address] Care Team Providers Care Claims Sorter Name Role Phone Socorro Arceo MD, Raul Primary Care Provide r Mick Chow Unavailable [phone] ALLERGIES No Known Allergies REASON FOR REFERRAL No Information MEDICATIONS Medication [...] confirmed Gastro-esophage al reflux disease without esophagitis (043202945) Problem Encounter for screening for malignant neoplasm of colon (Z12.11) Active confirmed 346752260 Problem History of adenomatous polyp of colon (Z86.010) Active confirmed 028525596 Problem Personal history of colonic polyps (Z86.010) Active confirmed History of poly p of colon (situation) (746819590) Problem Esophageal varices without bleeding (I85.00) Active confirmed Esophageal vari chin without bleeding (28272940) Problem Diverticulosis of large intestine without perforation or abscess without bleeding (K57.30) Active confirmed Diverticul ar disease of colon (028659496) Problem 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) Active confirmed 095546585 Problem 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) Active confirmed 515551299 Problem GERD with esophagitis (K21.0) Active confirmed 717189561 Problem Cirrhosis (K74.60) Active confirmed Cir rhotic (083454574) Problem GERD (gastroesophageal reflux disease) (K21.9) Active confirmed Gastroesophagea l reflux disease (209545611) Problem Gastroesophageal reflux disease with esophagitis without hemorrhage (K21.00) Active confirmed Gastroes ophageal reflux disease with esophagitis (disorder) (203540429) VITAL SIGNS Temperature 98.6 degrees Fahrenheit 01/29/2024 Blood pressure diastolic 00 mm Hg 01/29/2024 Height 72 in 01/29/2024 Blood pressure systolic 000 mm Hg 01/29/2024 Weight 249 lbs 01/29/2024 BMI 33.77 kg/m2 01/29/2024 Encounters Encounter Location Date Provider Diagnosis [facility] [address] [place], [place] [phone] 03/10/2024 Mick Durán Colon cancer screeni ng Z12.11 ; Personal history of colonic polyps Z86.010 ; Diverticulosis of large intestine without perforation or abscess without bleeding K57.30 ; Other hemorrhoids K64.8 ; Other specified disease of esophagus K22.89 ; Hiatal hernia K44.9 ; Cirrhosis K74.60 and Gastro-esophageal reflux disease without esophagitis K21.9 [facility] [address] [place] [address] 11/02/2023 Mick Durán [facility] [address] [place] [address] 01/29/2024 Mick Durán 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 ; Alcoholic cirrhosis of liver without ascites K70.30 ; History of adenomatous polyp of colon Z86.010 ; Encounter for screening for malignant neoplasm of colon Z12.11 ; Esophageal varices without bleeding I85.00 and GERD (gastroesophageal reflux disease) K21.9 [facility] [address] [place] [address] 09/04/2023 Mick Durán ASSESSMENTS Encounter Date Diagnosis [...] Start Date Coverage End Date MEDICARE OF [place] [address] [place] [address] [id number] ANDREW FREEMAN Self - patient is the insured MEDICAID OF [facility] [address] [place] [address] [id number] ANDREW FREEMAN Self - patient is the insured MEDICAL (GENERAL) HISTORY Medical History History ICD Code Diverticulitis Esophageal ulcer/esophagitis in 2006--neg bx--F/U EGD in 07/12 WNL-no significant esophagitis and biopsies were negative for Hall's esophagus; he does have a small to moderate size hiatal hernia HIV infection-for >20 yrs Mild [place] in 12/2012--describes a neg. ca rdiac cath [...]
== END 2024-08-26 10:51 | disposition home or self-care (01) ==
LOC: HO.MRI 10:50
PROVIDERS: PCP Internal Medicine; Visit Provider Student in an Organized Health Care Education/Training Program
DX: R41.3 Other amnesia (principal)
CPT/HCPCS: 70551

== ENCOUNTER 2024-10-03 14:20 | Outpatient (REF) | payer MEDICARE, MEDICAID, SELFPAY ==
--- NOTE | ~2024-10-03 | CT_ITS ---
CLINICAL HISTORY: dilated ascending aorta CT chest without contrast Comparison: None Findings: The heart size is normal. The visualized thyroid and mediastinum are unremarkable. Maximal ascending aortic dimensions are 4.4 x 3.8 cm. Maximal descending aortic diameter is 2.9 x 2.8 cm. Maximal aortic arch measurements are 3.5 x 3.4 cm. The lungs are clear. The upper abdomen is unremarkable. The bones are intact. IMPRESSION: 1. Ascending aortic aneurysm with measurements provided This document has been electronically signed by: Kin Longoria MD on 10/06/2024 08:52:55
--- OUTSIDE RECORDS SUMMARY | 2024-10-03 14:22 | XMS_ITS | Clinical Summary ---
Author Organization [facility] Address [address] [address] Phone Care Team Providers Care Credit Support Counselor Name Role Phone Raul Quintanilla MD Primary Care Provider Unav ailable Allergies No known active allergies Medications atorvastatin (LIPITOR) 20 MG tablet Take 40 mg by mouth 1 (one) time each day Active Bictegravir-Emtri citab-Tenofov (Biktarvy) 50-200-25 MG tablet Take 1 tablet by mouth at bed time Active Cyanocobalamin 1000 MCG capsule Take 1 capsule by mouth 1 (one) time each day Active famotidine (PEPCID) 40 MG tablet Take 1 tablet by mouth 1 (one) time each day Active metoprolol succinate XL (TOPROL-XL) 100 MG 24 hr tablet Take 1 tablet by mouth 1 (one) time each day Active omeprazole (PriLOSEC) [address] capsule Take 1 capsule by mouth 1 (one) time each day Active Jardiance 10 MG tablet Take by mouth 1 (one) time each day 4 Active losartan (COZAAR) 100 MG tabletIndications :Stage 3a chronic kidney disease (HCC),Essential hypertension Take 1 tablet (100 mg total) by mouth 1 (one) time each day 30 tablet 3 4 Active Active Problems Problem Noted Date Diagnosed Date Stage 3b chronic kidney disease 05/26/2024 Obese class I 07/10/2023 07/16/2023 Overview (07/16/2023): Last Assessment & Plan: -Advised pt to improve diet and exercise,discussed healthy life style -discussed card grinder referral but pt refusing -states was seen before -states recently joined a GYM and started walking Patient encounter status 06/07/2023 023 Overview (07/16/2023): Last Assessment & Plan: RE: PSA: 12/17/2015 Normal Colonoscopy: Normal : 07/26/2009 Dr Durán, and repeat 02/2019 showed multiple tubular adenomas, will need repeat 5 years Vaccines: Flu shot: 06/07/2023 Pneumovax: 08/12/2009 PCV 13: 05/07/2014 Tdap: 10/10/12 Zoster: 10/10/2012 Type 2 diabetes mellitus without complication 07/16/2023 Overview (07/16/2023): Last Assessment & Plan: Patient here for a f/u A1c 05/2023 was 6.3 from a previous one of 6.8 . Plan: Continue diet and exercise, No need for medication We discussed lifestyle changes, weight loss and dietary changes Glucometer shows BG averaging high 90s 3 month f/u Esophageal varix without bleeding 06/04/2023 07/16/2023 Overview (07/16/2023): Last Assessment & Plan: Due to underlying liver disease grade I. seen on EGD 02/28/2019 Dr Durán did not think pt needed to be on Nadolol Last seen by Dr. Durán 01/2023 Tubular adenoma of colon 06/04/2023 023 Overview (07/16/2023): Last Assessment & Plan: Pt had colonoscopy 02/28/2019 that showed multiple tubular adenomas Dr Durán recommended a 5 year f/u Dental plaque on teeth 11/22/2022 3 Renal osteodystrophy 01/03/2022 Stage 3a chronic kidney disease 12/02/2020 Essential hypertension 12/02/2020 Hypercholesterolemia 12/02/2020 Simple renal cyst 12/02/2020 Human immunodeficiency virus infection 0 07/16/2023 Overview (07/16/2023): Diagnosed 10/06/02 with cici CD4 of 110 and AIDS-defining illness of V2 shingles Fully suppressed since 03/17/12 08/13/09: Started boosted Prezista plus Truvada 06/12/13: Changed to Stribild 02/27/16: Chnaged to Genvoya 01/10/18: Changed to Biktarvy Last Assessment & Plan: 05/2023 CD4 1025, VL UD 05/2023 cr 1.37, GFR 51,LFTs wnl, hb1AC 6.3, LDL 84 2021 hep C neg, hep A immune, syphilis, Ch/Gn neg 2018 T-spot neg ,HLA [id number] 2017 anal pap : unsatisfactory -Vaccines s/p : meningococcal vaccine x2 in 2016 -will offer booster at next apt , COVID 19 vaccinex 4 -offered today booster but refusing, p13 in 2013 and p23 x3 last in 2021-will offer p20 in 2026,tdap 2022, Shingrix x2 ,flu vaccine 06/2023 -Continue Biktarvy daily ( ok to continue given CrCl > 30) -plan to repeat HIV labs 6 months from last ones -so aprox 11/2023 ,will repeat then Hep B serology ,STI panel and Tb test -will offer DEXA scan susu next apt ( HIV pt > 50 of age for screening ) -only if risk factors will need anal pap at next apt Personal history of alcoholism 04/13/2016 1 09/15/2022 Overview (07/16/2023): Last Assessment & Plan: Pt has been sober , He underwent an inpatient detox treatment in [place], He now goes to AA meetings 5 out of the 7 days of the week. Lumbago with sciatica 09/16/2015 07/16/2023 Erectile dysfunction due to diseases classified elsewhere 09/07/2015 07/16/2023 Overview (07/16/2023): Last Assessment & Plan: Pt with previous c/o ED Testosterone free and total to r/o hypogonadism on March 01 2015 were Normal Pt was started on Viagra with not very good results. Pt was interested in a second opinion by urology. He was seen by [facility] on 05/17/2015 , last seen on 07/28/2015 They recommended to try Tri-mix 0.4 cc injections Urology recommended to continue to follow with us and with them PRN Pt tells me he is doing well Osteoarthritis 11/12/2014 07/16/2023 Peripheral neuropathy 07/29/2013 07/16/2023 Overview (07/16/2023): Last Assessment & Plan: Pt with c/o pain on both lower legs and feet for close to 4 years, pt describes it as progressively worse at night or after being physically active. Previous NCS was not indicative of this, symptoms were. suggestive of Peripheral neuropathy in the setting of Hx of alcoholism and borderline B12 level Pts most recnt B12 is now back to normal and He has been sober for > 4 years He did not responded to Neurontin 300 mg po TID. Pt was seen by Neurology 03/2018 who agreed that he likely had either HIV or ETOH induced peripheral neuropathy Old myocardial infarction 07/29/20132022 Overview (07/16/2023): Last Assessment & Plan: S/P NSTEMI in 12/2011 with a normal echocardiogram and normal myocardial perfusion study(12/22/11). Evaluated by [facility] (01/01/2014). They recommended aggressive risk factor modification. According to pt associate professor of english did not recommend ASA given his Hx GERD. 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 Alcoholism 04/26/2012 07/16/2023 Encounters Date Type Department Care Team Description 08/25/2024 3:00 PM EST Office [facility] [address] [place] [phone] Bertin Bernard MD Stage 3b chronic kidney disease (HCC) (Primary Dx); Renal osteodystrophy; Essential hypertension 08/14/2024 Refill [facility] [address] [phone] Christine Malhotra MA Stage 3a chronic kidney disease (HCC); Essential hypertension 08/14/2024 Refill [facility] [address] [phone] Christine Malhotra MA 08/07/2024 Refill [facility] [address] [phone] Bertin Bernard MD Stage 3a chronic kidney disease (HCC); Essential hypertension 07/15/2024 Refill [facility] [address] [phone] Christine Malhotra MA Stage 3a chronic kidney disease (HCC); Essential hypertension 07/15/2024 Orders Only [facility] [address] [phone] Bertin Bernard MD from Last 3 Months Immunizations Name Administration Dates Next Due Influenza Split 06/12/2013,07/04/2012 Influenza Split High Dose Pr eservative Free IM 05/30/2018 Influenza, Quadrivalent, Pre servative Free 06/19/2023,06/17/2019,06/12/2017,06/03 Influenza, Quadrivalent, Wit h Preservative 06/01/2016 Influenza, Unspecified 05/12/2022,2020,05/20/2020,06/04 Meningococcal MCV4P 07/12/2017,03/01/2017 Pneumococcal Conjugate 13-Valent 05/07/2014 Pneumococcal Polysaccharide 03/01/2022, 7,08/12/2009 Shingrix 04/20/2021,02/11/2021 Td 05/13/2009 Tdap 06/19/2023,10/10/2012 Zoster 10/10/2012 Family History Medical History Relation Comments Cancer Father lung Heart disease Mother Hypertension Mother Relation Status Comments Father Mother Social History Tobacco Use Types Packs/Day Years Used Date Smoking Tobacco: Never Tobacco Cessation:Counseling Given: No Alcohol Use Standard Drinks/Week Comments Never 0 (1 standard drink = 0.6 oz pure alcohol) Alcoholic Drinks/day: 3 or more drinks per day Sex and Gender Information Value Date Recorded Sex Assigned at Not on file Legal Sex Male 4:56 PM EST Gender Identity Not on file Sexual Orientation Not on file Last Filed Vital Signs Vital Sign Reading Time Taken Comments Blood Pressure 128/72 08/25/2024 2:45 PM EST Pulse 84 05/26/2024 3:19 PM EDT Temperature - - Respiratory Rate - - Oxygen Saturation 97% 05/26/2024 3:19 PM EDT Inhaled Oxygen Concentration - - Weight 105 kg (231 lb) 08/25/2024 2:45 PM EST Height 180.3 cm (5' 11 ) 11/12/2019 12:01 PM EDT Body Mass Index 32.22 11/12/2019 12:01 PM EDT Plan of Treatment Upcoming Encounters Date Type Department Care Team (Late st Contact Info) Description 06/01/2025 2:15 PM EDT Office Visit [facility] [address] [place] [phone] Bertin Bernard MD [address] [facility] [address] [place] [phone] Health Maintenance Due Date Last Done Comments Colorectal Cancer Screening: Annual FOBT 2001 Colorectal Cancer Screening: Colonoscopy 2001 Colorectal Cancer Screening: Sigmoidoscopy 2001 Hepatitis B Vaccine (1 of 3 - Risk 3-dose series) 2012 Diabetes: Ophthalmology Exam 07/16/2023 Diabetes: Pedal Pulse Checked 07/16/2023 Diabetes: Sensory Foot Exam 07/16/2023 Diabetes: Visual Foot Exam 07/16/2023 Diabetes: Hemoglobin A1C 08/27/2023 05/28/2023 Influenza Vaccine (#1) 2024 3, 05/12/2022, 05/30/2021, Additional history exists Pneumococcal Vaccine: 65+ Years Completed 03/01/2022, 03/01/2017, 05/07/2014, Additional history exists Procedures Procedure Name Priority Date/Time Associated Diagnosis Comments VITAMIN D 1,25 DIHYDROXY Routine 07/15/2024 11:35 AM EST ALBUMIN Routine 07/15/2024 11:35 AM EST MAGNESIUM Routine 07/15/2024 11:35 AM EST PHOSPHATE ( PHOSPHORUS) Routine 07/15/2024 11:35 AM EST CALCIUM Routine 07/15/2024 11:35 AM EST BUN Routine 07/15/2024 11:35 AM EST PTH, INTACT (HC) Routine 07/15/2024 11:3 2 AM EST PROTEIN / CREATININE RATIO, URINE Routine 07/15/2024 11:27 AM EST ALBUMIN, URINE, RANDOM Routine 07/15/2024 11:27 AM EST URINALYSIS WITH MICROSCOPIC Routine 07/15/2024 11:27 AM EST from Last 3 Months Results * Vitamin D 1,25 dihydroxy (07/15/2024 11:35 AM EST) Calcitriol(1,25 di-OH Vit D) 42 18 - 72 pg/mL See order comments Vitamin D3 125 (OH)2 42 pg/mL See order comments Vitamin D2 125 (OH)2 <8 pg/mL See order comments Comment: Vitamin D3, 1,25(OH)2 indicates both endogenous production and supplementation. Vitamin D2, 1,25(OH)2 is an indicator of exogenous sources, such as diet or supplementation. ??Interpretation and therapy are based on measurement of Vitamin D,1,25(OH)2, Total. This test was developed and its analytical performance characteristics have been determined [facility], [place], [place]. It has not been cleared or approved by the FDA. This assay has been validated pursuant to the CLIA regulations and is used for clinical purposes. THIS TEST WAS PERFORMED AT: [facility]/[address] ??[id number] MEGAN MCKEON MD,PHD 07/15/2024 11:3 5 AM EST 07/15/2024 11:35 AM EST Bertin Bernard MD LAB BLOOD ORDERABLES Final Re sult Performing Organization Address [facility] de Phone Number EDMOND See order comments [place] [address] * (ABNORMAL) BUN (07/15/2024 11:35 AM EST) BUN 23(H) 9 - 16 mg/dL See order comments 07/15/2024 11:3 5 AM EST 07/15/2024 11:35 AM EST Bertin Bernard MD LAB BLOOD ORDERABLES Final Re sult Performing Organization Address [facility] de Phone Number [place] See order comments [place] [address] * Phosphorus (07/15/2024 11:35 AM EST) Phosphorus, Serum 4.1 2.7 - 4.5 mg/dL See order comments 07/15/2024 11:3 5 AM EST 07/15/2024 11:35 AM EST Bertin Bernard MD LAB BLOOD ORDERABLES Final Re sult Performing Organization Address [facility] de Phone Number [place] See order comments [place] [address] * Magnesium (07/15/2024 11:35 AM EST) Magnesium 2.1 1.6 - 2.6 mg/dL See order comments 07/15/2024 11:3 5 AM EST 07/15/2024 11:35 AM EST us Bertin Bernard MD LAB BLOOD ORDERABLES Final Re sult Performing Organization Address [facility] Phone Number [place]D See order comments [place] [address] * Calcium (07/15/2024 11:35 AM EST) Calcium 10.1 8.4 - 10.2 mg/dL See order comments 07/15/2024 11:3 5 AM EST 07/15/2024 11:35 AM EST us Bertin Bernard MD LAB BLOOD ORDERABLES Final Re sult Performing Organization Address [facility] Phone Number [place] See order comments [place] [address] * Albumin (07/15/2024 11:35 AM EST) Albumin 4.3 3.5 - 5.0 g/dL See order comments 07/15/2024 11:3 5 AM EST 07/15/2024 11:35 AM EST us Bertin Bernard MD LAB BLOOD ORDERABLES Final Re sult Performing Organization Address [facility] Phone Number [place] See order comments [place] [address] * PTH, Intact (07/15/2024 11:32 AM EST) Parathyroid Hormone, Intact 72.5 8.7 - 77.1 pg/mL See order comments 07/15/2024 11:3 2 AM EST 07/15/2024 11:32 AM EST us Bertin Bernard MD LAB [id number] SOLICITED RESULTS Final Result Performing Organization Address [facility] Phone [facility] See order comments [place] [address] * Protein, Total, Random Urine w/Creatinine (Protein/Creat Ratio) (07/15/2024 11:27 AM EST) Protein Urine Random 8 <12 mg/dL See order comments Protein/Creatin ine Ratio, Urine 0.11 <0.2 See order comments Comment: The spot urine protein:creatinine ratio may increase to 0.3 during normal . 07/15/2024 11:2 7 AM EST 07/15/2024 11:27 AM EST Bertin Bernard MD LAB URINE ORDERABLES Final [facility] Performing Organization Address [facility] de Phone Number [place] See order comments [place] [address] * Albumin, urine, random (07/15/2024 11:27 AM EST) Creatinine, Urine 73.31 mg/dL Se e order comments Urine Microalbumin 19.0 mg/L See order comments Microalbumin/Crea tinine Ratio 25.9 <30 ug/mg cr See order comments Comment: ?Albumin/Creatinine Ratio Reference Ranges: ?Normal: < 30 ug/mg creatinine ?Microalbuminuria: ??30 - 300 ug/mg creatinine Clinical Albuminuria: ??> 300 ug/mg creatinine 07/15/2024 11:2 7 AM EST 07/15/2024 11:27 AM EST Beritn Bernard MD LAB URINE ORDERABLES Final [facility] Performing Organization Address [facility] de Phone Number [place] See order comments [place] [address] * (ABNORMAL) Urinalysis with microscopic (07/15/2024 11:27 AM EST) Color Urine Yellow See orde r comments Appearance Urine Clear See order comments pH Urine 5.0 5.0 - 9.0 See order comments Glucose Urine >=1000(A) Negative mg/dL See order comments Blood, Urine Negative Negative See ord er comments Specific [place] Urine 1.025 1.005 - 1.025 See order comments Protein Urine Negative Neg-Trace mg/dL See order comments Ketones, Urine Negative Negative mg/dL See order comments Nitrite, Urine Negative Negative See o rder comments Leukocyte Esterase Urine Negative Negative See order comments RBC, Urine 0-2 0 - 2 /HPF See orde r comments WBC 0-5 0 - 5 /HPF See order comments Squamous Epithelial, Urine 0-2 0 - 2 /HPF See order comments Bacteria, Urine None Seen None Seen See order comments Hyaline Casts, Urine 0-2 0 - 2 /LPF See order comments 07/15/2024 11:2 7 AM EST 07/15/2024 11:27 AM EST us Bertin Bernard MD LAB URINE ORDERABLES Final Re sult [facility] See order comments [place] [address] from Last 3 Months Insurance [place] Care Teams Credit Support Counselor Relationship Specialty Start Date End Date Raul Quintanilla MD [address] [place] [address] PCP - General Internal Medicine 08/25/24
--- OUTSIDE RECORDS SUMMARY | 2024-10-03 14:23 | XMS_ITS | Clinical Summary ---
Author Organization [address] [facility] Address [address] [place] [address] Phone Care Team Providers Care Bandoleer Straightener Stamper Name Role Phone Raul Nava MD Primary Care Provi jesus Allergies No known active allergies Medications Medication Sig Dispensed Refills Start Date End Date Status darunavir (PREZISTA ORAL) darunavir (PREZISTA) 400 MG tablet Take 400 mg by mouth 2 times daily. Active metoprolol succinate (TOPROL-XL) 100 mg 24 hr tablet Take 100 mg by mouth daily. Active emtricitabine-tenofov ir disoproxil fumarate (TRUVADA) 200-300 mg per tablet Take 1 tablet by mouth daily. 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 Erectile dysfunction due to diseases classified elsewhere 09/02/2024 Chronic kidney disease (CKD) stage G3a/A2, moderately decreased glomerular filtration rate (GFR) between 45-59 mL/min/1.73 square meter and albuminuria creatinine ratio between 30-299 mg/g 09/02/2024 Mixed hyperlipidemia 09/02/2024 Human immunodeficiency virus (HIV) disease 09/02 Personal history of alcoholism 09/02/2024 Esophageal varices without bleeding 09/02/2024 Tubular adenoma of colon 09/02/2024 Obesity (BMI 30.0-34.9) 09/02/2024 Dry cough 09/02/2024 Varicose veins of both lower extremities 024 Encounters Date Type Department Care Team Description 09/08/2024 1:15 PM EST Consult Orthopedic Surgery [facility] [address] [facility] [address] [place] [phone] Jaime Kenny, DPM Posterior tibial tendinitis of right leg (Primary Dx); Posterior tibial tendinitis of left leg; Primary osteoarthritis of both feet; Dermatophytosis of nail; Pain in toe of right foot; Pain in toe of left foot; Corns and callosities; Bilateral femoral artery stenosis (CMS/HCC); Metatarsalgia of both feet; Type II diabetes mellitus with peripheral circulatory disorder (CMS/HCC); Diabetic mononeuropathy simplex (CMS/HCC); Acquired hammer toe of right foot; Hammer toe of left foot; Acquired hallux valgus of right foot; Acquired hallux valgus of left foot from Last 3 Months Immunizations Name Administration Dates Next Due COVID-19 (Moderna/Spikevax) 12yo and older 06/05 Social History Tobacco Use Types Packs/Day Years Used Date Smoking Tobacco: Never Assessed Sex and Gender Information Value Date Recorded Sex Assigned at Not on file Gender Identity Not on file Sexual Orientation Not on file Job Start Date Occupation Industry Not on file Not on file Not on file Last Filed Vital Signs Vital Sign Reading Time Taken Comments Blood Pressure - - Pulse - - Temperature - - Respiratory Rate - - Oxygen Saturation - - Inhaled Oxygen Concentration - - Weight 108 kg (238 lb) 09/08/2024 1:06 PM EST Height 180.3 cm (5' 11 ) 09/08/2024 1:06 PM EST Body Mass Index 33.19 09/08/2024 1:06 PM EST Plan of Treatment Upcoming Encounters Date Type Department Care Team (Late st Contact Info) Description 10/27/2024 1:30 PM EST Office Visit Orthopedic Surgery - [place] [address] [phone] Jaime Kenny, DPM [address] [address] Health Maintenance Due Date Last Done Comments Diabetes: Annual GFR (Glomerular Filtration Rate) 1952 Diabetes: Annual Foot Exam 1962 Diabetes: Annual Retina Eye Exam 1962 MMR Vaccines (1 of 2 - Risk 2-dose series) 1970 Hepatitis B Vaccines (1 of 3 - Risk 3-dose series) 2012 Pneumococcal Vaccine: 65+ Years (2 of 2 - PCV) 03/01/2023 03/01/2022 Meningococcal ACWY Vaccine (2 - Risk 2-dose series) 05/19/2024 03/24/2024 Abdominal Aortic Aneurysm (AAA) Screen 06/15/2024 Cholesterol Screening (Lipid Panel) 06/15/2024 Colorectal Cancer Screening: Colonoscopy 06/15/2024 Depression Screening 06/15/2024 Falls Risk Assessment 06/15/2024 Hepatitis C Screening 06/15/2024 Medicare Annual Wellness Visit 06/15/2024 Social Influencers of Health Screening 06/15/2024 Hypertension/CHF/CAD Annual BMP Blood Test 09/02/2024 Diabetes: Annual Urine Albumin-Creatinine Ratio (uACR) 09/08/2024 Diabetes: Blood Sugar Control Test (HGBA1C) 09/08/2024 Hepatitis A Vaccines (2 of 2 - Risk 2-dose series) 02/12/2025 08/14/2024 DTaP,Tdap,and Td Vaccines (2 - Td or Tdap) 06/19/2033 06/19/2023 Zoster Vaccines Completed 04/20/2021, 02/11/2021 Influenza Vaccine Completed 06/12/2024, , 05/12/2022, Additional history exists COVID-19 Vaccine Completed 07/28/2024, 11/2021, 01/24/2022, Additional history exists RSV Immunization Patients 60+ Years Old Completed 08/14/2024 HIB Vaccines Aged Out No longer eligi ble based on patient's age to complete this topic HPV Vaccines Aged Out No longer eligi ble based on patient's age to complete this topic IPV Vaccines Aged Out No longer eligi ble based on patient's age to complete this topic RSV Immunization Patients Under 20 months Aged Out No longer eligible based on patient's age to complete this topic Varicella Vaccines Aged Out No longer eligible based on patient's age to complete this topic Care Teams Bandoleer Straightener Stamper Relationship Specialty Start Date End Date Raul Nava MD [address] [place] [phone] PCP - General 05/28/24
--- OUTSIDE RECORDS SUMMARY | 2024-10-03 14:23 | XMS_ITS | Encounter Summary ---
Author Organization [employer] [facility] Address [address] [place] [phone] Care Team Providers Care Blending Tank Tender Helper Name Role Phone Raul Nava MD Primary Care Provi [facility] Reason for Visit * Reason Comments DM Foot Care T2 DM Encounter Details Date Type Department Care Team (Late st Contact Info) Description 09/08/2024 1:15 PM EST Consult Orthopedic Surgery - [place] [address] [phone] Jaime Kenny, DPM [address] [phone] Posterior tibial tendinitis of right leg (Primary [...] foot; Acquired hallux valgus of left foot Social History Tobacco Use Types Packs/Day Years Used Date Smoking Tobacco: Never Assessed Sex and Gender Information Value Date Recorded Sex Assigned at Not on file Gender Identity Not on file Sexual Orientation Not on file Job Start Date Occupation Industry Not on file Not on file Not on file documented as of this encounter Last Filed Vital Signs Vital Sign Reading Time Taken Comments Blood Pressure - - Pulse - - Temperature - - Respiratory Rate - - Oxygen Saturation - - Inhaled Oxygen Concentration - - Weight 108 kg (238 lb) 09/08/2024 1:06 PM EST Height 180.3 cm (5' 11 ) 09/08/2024 1:06 PM EST Body Mass Index 33.19 09/08/2024 1:06 PM EST documented in this encounter Progress Notes * Jaime Kenny DPM - 09/08/2024 1:15 PM EST Last PCP visit:Referring MD: 03/18/2024 Dr. Raul Arceo MD 03/18/24 IDENTIFIER: Braulio is a 74 y.o. year old male who presents for consultation. CC: Foot pain HPI: Patient presents today with multiple complaints he states he suffers from severe flatfeet and deformities of both feet he states that he has chronic pain discomfort with walking very thick fungal nails very thick skin that make it difficult for him to take care of himself he is a complex past medical history including diabetes type 2 with numbness burning tingling in both feet reports his nails elongated painful thickened his skin is painful and thickened and has deformities of both feet is difficult to maintain he states he is difficulty walking due to the flatness of both feet pain discomfort is a 7 out of 10 on a visual analog scale ROS: GENERAL: Pt denies nausea, fever, vomiting, chills, or shortness of breath. Pt in NAD. CARDIOLOGY: pt denies chest pain, palpitations LUNGS: pt denies shortness of breath MUSCULOSKELETAL: See HPI, otherwise no joint pain or swelling, back pain, or muscle pain. SKIN: see HPI, otherwise no lesions, rash or itching NEURO: No persistent headache, weakness or numbness The remainder of the review of systems is noncontributory PAST MEDICAL HISTORY: Patient Active Problem List Diagnosis Hypertension Peripheral neuropathy Polypoid degeneration of vocal cords Erectile dysfunction due to diseases classified elsewhere Chronic kidney disease (CKD) stage G3a/A2, moderately decreased glomerular filtration rate (GFR) between 45-59 mL/min/1.73 square meter and albuminuria creatinine ratio between 30-299 mg/g (CMS/HCC) Mixed hyperlipidemia Human immunodeficiency virus (HIV) disease (CMS/HCC) Personal history of alcoholism (CMS/HCC) Esophageal varices without bleeding (CMS/HCC) Tubular adenoma of colon Obesity (BMI 30.0-34.9) Dry cough Varicose veins of both lower extremities SOCIAL HISTORY: Social History Tobacco Use Smoking status: Not on file Smokeless tobacco: Not on file Substance Use Topics Alcohol use: Not on file ACTIVE MEDICATIONS: No outpatient medications have been marked as taking for the 09/08/24 encounter (Consult) with Jaime Kenny DPM. ALLERGIES: No Known Allergies PHYSICAL EXAM: Visit Vitals Ht 1.803 m (71 ) Wt 108 kg (238 lb) BMI 33.19 kg/m?? BSA 2.27 m?? PODIATRIC EXAMINATION: GENERAL: Patient appears well nourished, with NAD. VASCULAR: Dorsalis pedis pulses are 1/4 bilaterally and Posterior tibial pulses are 1/4 bilaterally. Capillary filling time within normal limits the digits. No pallor on elevation or rubor on dependency. Positive hair growth. No varicosities. Denies rest pain or claudication pain. NEUROLOGICAL: Sharp/dull sensation , protective sensation 0/10 with 5.07 semmes singh bilaterally, vibratory sensation with tuning fork intact to the tibial tuberosity. ORTHOPEDIC: Good muscle strength 5/5 of all flexors and extensors. Dorsi flexion of ankle ,10 degrees, plantar flexion WNL. No muscle atrophy. Unable to perform single or double heel raise bilateral DERMATOLOGICAL:. Toenails: Left Toenail(s) 1-5: Crumbling upon debridement, subungual debris, discoloration, dystrophy, elongation, mycotic appearance, onychomycosis, pain and thickening. Right Toenail(s) 1-5: Crumbling upon debridement, subungual debris, discoloration, dystrophy, elongation, mycotic appearance, onychomycosis, pain and thickening. Annular scaling bilateral feet moccasin distribution Skin thinning texture shiny appearance diffuse hyperpigmentation bilaterally pedal hair decreased Hyperkeratotic tissue subfirst metatarsal bilaterally BIOMECHANICS: Ankle ROM mild crepitation bilateral, STJ ROM advance crepitation fixed eversion bilateral, MTJ ROM midfoot collapse bilateral, 1st MPJ ROM moderate bunion deformity bilateral hammertoecontractures 2-5 bilateral. IMAGING: IMPRESSION: 1. Posterior tibial tendinitis of right leg 2. Posterior tibial tendinitis of left leg 3. Primary osteoarthritis of both feet 4. Dermatophytosis of nail 5. Pain in toe of right foot 6. Pain in toe of left foot 7. Corns and callosities 8. Bilateral femoral artery stenosis (CMS/HCC) 9. Metatarsalgia of both feet 10. Type II diabetes mellitus with peripheral circulatory disorder (CMS/HCC) 11. Diabetic mononeuropathy simplex (CMS/HCC) 12. Acquired hammer toe of right foot 13. Hammer toe of left foot 14. Acquired hallux valgus of right foot 15. Acquired hallux valgus of left foot PLAN: Pt was seen and examined, history reviewed. Multiple pedal deformities were discussed and reviewed recommend patient pursue diabetic shoes and inserts to help accommodate his multiple pedal deformities will support his arch Preulcerative lesions and calluses were discussed and reviewed Discussed with patient regarding proper glucose control, exercise, and diet. Explained to patient proper shoe gear, and importance of daily foot checks. I reviewed neuropathy and why it occurs in diabetics. I educated the patient on proper blood sugar control and the importance of an HgBA1c of less than 7.0%. I reviewed the signs and symptoms of neuropathy with the patient Pt to return for another evaluation in 3 months. Debridement of mycotic toenails 6-10: Verbal informed consent was obtained from the patient. Greater than 6 nails were aseptically debrided in thickness and length with nail nippers Hyperkeratotic tissue debrided pared with a number #15 scalpel blade x2 Jaime Kenny DPM documented in this encounter Plan of Treatment Upcoming Encounters Date Type Department Care Team (Late st Contact Info) Description 10/27/2024 1:30 PM EST Office Visit Orthopedic Surgery - [place] [address] [phone] Jaime Kenny DPM [address] [address] documented as of this encounter Visit Diagnoses Diagnosis Posterior tibial tendinitis of right leg- Primary Posterior tibial tendinitis of left leg Primary osteoarthritis of both feet Dermatophytosis of nail Pain in toe of right foot Pain in soft tissues of limb Pain in toe of left foot Pain in soft tissues of limb Corns and callosities Bilateral femoral artery stenosis (CMS/HCC) Stricture of artery Metatarsalgia of both feet Type II diabetes mellitus with peripheral circulatory disorder (CMS/HCC) Type II or unspecified type diabetes mellitus with peripheral circulatory disorders, not stated as uncontrolled Diabetic mononeuropathy simplex (CMS/HCC) Type II or unspecified type diabetes mellitus with neurological manifestations, not stated as uncontrolled Acquired hammer toe of right foot Hammer toe of left foot Acquired hallux valgus of right foot Acquired hallux valgus of left foot documented in this encounter Care Teams Blending Tank Tender Helper Relationship Specialty Start Date End Date Raul Nava MD [address] [place] [address] PCP - General 05/28/24 documented as of this encounter
== END 2024-10-03 14:21 | disposition home or self-care (01) ==
LOC: HO.CT 14:20
PROVIDERS: PCP Internal Medicine; Visit Provider Internal Medicine
DX: I77.819 Aortic ectasia, unspecified site (principal)
CPT/HCPCS: 71250

== ENCOUNTER → 2024-10-03 14:22 | Outpatient (BNV) | payer MEDICARE, MEDICAID, SELFPAY | PROVIDERS: PCP Internal Medicine; Visit Provider Specialist | DX: I71.21 Aneurysm of the ascending aorta, without rupture (principal) | CPT/HCPCS: 71250 ==

== ENCOUNTER 2024-10-29 10:28 | Outpatient (AMB) | payer MEDICARE, MEDICAID, SELFPAY ==
--- NOTE | 2024-10-29 10:38 | A.OFFVIS_ITS ---
Vital Signs 10/29/24 10:38 Height 5 ft 11 in Intake Visit Reasons: 4.4 cm Ascending Aortic Aneurism Intake Note: Patient referred by pcp Dr. Jose Alfredo Arceo for Ascending aortic aneurysm. Patient c/o: wakes up at 3am with deep soreness on RUQ. Denies nausea. Chest CT: 10-03-2024. Manager Provider Relations Required: No Accompanied by: Self / Same As Patient Allergies No Known Allergies Allergy (Verified 10/29/24 10:38) HPI Comments Details: Patient presents for evaluation of right upper quadrant abdominal wall pain. He says this wakes him up at 03:00 o'clock in the morning over the last several months time. Denies any nausea, vomiting, or bowel habit changes. Never been jaundiced before. Patient was status post laparoscopic cholecystectomy. He had a chest CT ordered by his medical doctor which demonstrated a thoracic aortic aneurysm. This was not of the upper abdomen or pelvis. Patient was had several prior ultrasounds demonstrating hepatic and renal issues. Because of persistence of symptoms, he presents here for further evaluation. Chart was reviewed and patient evaluated. Patient was a significant drinker in the past. He has not imbibed for 12 years. One of his ultrasounds demonstrated hepatic scarring/cirrhosis. Patient also has as noted above renal issues. [facility] Medical History Cirrhosis Elevated cholesterol Osteoarthritis of right hip Chronic kidney disease Alcoholism Erectile dysfunction HIV (human immunodeficiency virus infection) Hypertension Surgical History History of esophagogastroduodenoscopy (EGD) H/O colonoscopy Social History Patient Tobacco Use Status: Never used Tobacco Current occupational status: retired 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 Physical Exam Chest Other: Chest breath sounds bilaterally, HS 1 in 2 GI Other: Abdomen corpulent, soft, benign. Patient was a reducible 2 cm umbilical hernia. No other obvious pathology demonstrated Assessment & Plan Assessment & Plan (1) Upper abdominal pain: Code(s): R10.10 - Upper abdominal pain, unspecified Category: Surgical (2) Thoracic aortic aneurysm (TAA): Code(s): I71.20 - Thoracic aortic aneurysm, without rupture, unspecified Category: Surgical Plan At present, no acute surgical issues demonstrated. My current recommendation is 1. Vascular surgical consultation regarding his abdominal aortic aneurysm. 2. GI consultation regarding his upper GI symptoms/dyspeptic complaints. Arrangements were made for both of these. Patient will otherwise follow up with me p.r.n.. All questions answered. Coding Level of Care Code New Pt Level 4 (39516) Diagnoses Upper abdominal pain R10.10 Thoracic aortic aneurysm (TAA) I71.20
--- OUTSIDE RECORDS SUMMARY | 2024-10-29 12:52 | XMS_ITS | Clinical Summary ---
Author Organization 175 [facility] Address [address] [place] [address] Phone Care Team Providers Care Antenna Machine Operator Name Role Phone Raul Nava MD Primary Care Provi jesus Allergies No known active allergies Medications darunavir (PREZISTA ORAL) darunavir (PREZISTA) 400 MG tablet Take 400 mg by mouth 2 times daily. Active metoprolol succinate (TOPROL-XL) 100 mg 24 hr tablet Take 100 mg by mouth daily. Active emtricitabine-t enofovir disoproxil fumarate (TRUVADA) 200-300 mg per tablet [...] 09/08/2024 1:15 PM EST Consult Orthopedic Surgery [facility] 250 175 [facility] [address] [place] [address] Jaime Kenny, DPM Posterior tibial [...] at Not on file Legal Sex Male 11:40 AM EDT Gender Identity Not on file Sexual Orientation [...] Care Team (Late st Contact Info) Description 12/23/2024 9:45 AM EDT Office Visit Orthopedic Surgery - [place] [address] [phone] Jaime Kenny, KAZ [address] [address] Health Maintenance Due Date Last Done Comments Diabetes: Annual GFR (Glomerular Filtration Rate) 1952 Diabetes: Annual Foot Exam 1962 Diabetes: Annual Retina Eye Exam 1962 MMR Vaccines (1 of 2 - Risk 2-dose series) 1970 Hepatitis B Vaccines (1 of 3 - Risk 3-dose series) 2012 Pneumococcal Vaccine: 50+ Years (2 of 2 - PCV) 03/01/2023 [...] on patient's age to complete this topic Meningococcal B Vacine Aged Out No lo nger eligible based on patient's age to complete this topic RSV Immunization Patients Under 20 months Aged Out No longer eligible based on patient's age to complete this topic Varicella Vaccines Aged Out No longer eligible based on patient's age to complete this topic Insurance MEDICARE MEDICAID - [place] Care Teams Antenna Machine Operator Relationship Specialty Start Date End Date Raul Nava MD [address] [facility] [place] [address] PCP - General 05/28/24
--- OUTSIDE RECORDS SUMMARY | 2024-10-29 12:52 | XMS_ITS | Clinical Summary ---
Author Organization [facility] Address [address] [address] Phone Care Team Providers Care Men'S And Boys' Clothing Salesperson Name Role Phone Raul Quintanilla MD Primary [...] diet and exercise,discussed healthy life style -discussed potato pancake frier referral but pt refusing -states was seen [...] He underwent an inpatient detox treatment in [place], He now goes to AA meetings 5 [...] opinion by urology. He was seen by [facility] on 05/17/2015 , last seen on [...] aggressive risk factor modification. According to pt tree inspector did not recommend ASA given his Hx GERD. 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 Alcoholism 04/26/2012 07/16/2023 Encounters Date Type Department Care Team Description 08/25/2024 3:00 PM EST Office Visit [facility] [address] [place] [address] Bertin Bernard MD Stage 3b chronic kidney disease (HCC) (Primary Dx); Renal osteodystrophy; Essential hypertension 08/14/2024 Refill [facility] [address] [phone] Christine Malhotra MA Stage 3a chronic kidney disease (HCC); Essential hypertension 08/14/2024 Refill [facility] [address] [phone] Christine Malhotra MA 08/07/2024 Refill [facility] [address] [phone] Bertin Bernard MD Stage 3a chronic kidney disease (HCC); Essential hypertension from Last 3 Months Immunizations Name Administration [...] Visit [facility] [address] [place] [address] Bertin Bernard MD [address] [facility] [address] [place] [address] Health Maintenance Due Date Last Done Comments [...] Completed 03/01/2022, 03/01/2017, 05/07/2014, Additional [place] [id number] [address] [place] [address] [place]ARE [place]ICA[place] Care Teams Men'S And Boys' Clothing Salesperson Relationship Specialty Start Date End Date Raul Quintanilla MD [address] [place] [address] [place] [address] PCP - General Internal Medicine 08/25/24
--- OUTSIDE RECORDS SUMMARY | 2024-10-29 12:52 | XMS_ITS ---
Author Organization [facility] Address [address] [place] [address] Care Team Providers Care Theater Projectionist Name Role Phone Socorro Arceo MD, Raul Primary Care Provide r Mick Chow Unavailable [phone] ALLERGIES No Known Allergies REASON FOR VISIT [...] (I85.00) Active confirmed Esophageal varices without bleeding (93743657) VITAL SIGNS Temperature 98.6 degrees Fahrenheit 01/29/20 24 Blood pressure systolic 000 mm Hg 01/29/20 24 Blood pressure diastolic 00 mm Hg 024 Height 72 in 01/29/2024 Weight 249 lbs 01/29/2024 BMI 33.77 kg/m2 01/29/2024 Encounters Encounter Location Date Provider Diagnosis [facility] [address] [place] [address] 01/29/2024 Mick Durán 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 [...]
--- OUTSIDE RECORDS SUMMARY | 2024-10-29 12:52 | XMS_ITS | Patient Health Record ---
Author Organization [facility] Address [address] [place] [address] Care Team Providers Care Instrument Engineer Name Role Phone Socorro Arceo MD, Raul Primary Care Provide r Mick Chow Unavailable [phone] ALLERGIES No Known Allergies REASON FOR REFERRAL No Information MEDICATIONS Medication SIG (Take, Route, Frequency, Duration) Notes Start Date End Date Status Omeprazole 20 MG 1 Orally QAM for 90 days 07/24/20 20 Active Losartan Potassium-HCTZ 50-12.5 MG 1 tablet [...] Once a day for 90 days Active Famotidine 40 MG 1 Orally At [...] confirmed Gastro-esophage al reflux disease without esophagitis (755111049) Problem Encounter for screening for malignant neoplasm of colon (Z12.11) Active confirmed 418648818 Problem History of adenomatous polyp of colon (Z86.010) Active confirmed 185052623 Problem Personal history of colonic polyps (Z86.010) Active confirmed History of poly p of colon (situation) (933955403) Problem Esophageal varices without bleeding (I85.00) Active confirmed Esophageal vari chin without bleeding (64112354) Problem Diverticulosis of large intestine without perforation or abscess without bleeding (K57.30) Active confirmed Diverticul ar disease of colon (965389232) Problem 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) Active confirmed 950027396 Problem 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) Active confirmed 152612558 Problem GERD with esophagitis (K21.0) Active confirmed 514663535 Problem Cirrhosis (K74.60) Active confirmed Cir rhotic (941277937) Problem GERD (gastroesophageal reflux disease) (K21.9) Active confirmed Gastroesophagea l reflux disease (356995159) Problem Gastroesophageal reflux disease with esophagitis without hemorrhage (K21.00) Active confirmed Gastroes ophageal reflux disease with esophagitis (disorder) (907486063) VITAL SIGNS Temperature 98.6 degrees Fahrenheit 01/29/2024 Blood pressure diastolic 00 mm Hg 01/29/2024 Height 72 in 01/29/2024 Blood pressure systolic 000 mm Hg 01/29/2024 Weight 249 lbs 01/29/2024 BMI 33.77 kg/m2 01/29/2024 Encounters Encounter Location Date Provider Diagnosis [facility] [address] [place] [address] 11/02/2023 Mick Durán [facility] Outpatient [address] [place], [place] [phone] 03/10/2024 Mick Durán Colon cancer screeni Z12.11 ; Personal history of colonic polyps Z86.010 ; Diverticulosis of large intestine without perforation or abscess without bleeding K57.30 ; Other hemorrhoids K64.8 ; Other specified disease of esophagus K22.89 ; Hiatal hernia K44.9 ; Cirrhosis K74.60 and Gastro-esophageal reflux disease without esophagitis K21.9 [facility] [address] [place] [address] 01/29/2024 Mick Durán 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 ; Alcoholic cirrhosis of liver without ascites K70.30 ; History of adenomatous polyp of colon Z86.010 ; Encounter for screening for malignant neoplasm of colon Z12.11 ; Esophageal varices without bleeding I85.00 and GERD (gastroesophageal reflux disease) K21.9 [facility] [address] [place] [phone] 09/12/2024 Mick Durán ASSESSMENTS Encounter Date Diagnosis Assessment [...] PROTHROMBIN TIME (PT, INR) 12/24/2018 ALPHA-FETOPROTEIN,TUMOR MARKER 9 ALPHA-FETOPROTEIN,TUMOR MARKER 3 ALPHA-FETOPROTEIN,TUMOR MARKER 1 ALPHA-FETOPROTEIN,TUMOR MARKER 2 ALPHA-FETOPROTEIN,TUMOR MARKER 7 US ABD 08/02/2022 US ABD 04/21/2021 Prothrombin [...] Date MEDICARE OF [place] [address] [place] [address] [id number] ANDREW FREEMAN Self - patient is the insured MEDICAID OF [facility] [address] [place] [address] [id number] ANDREW FREEMAN Self - patient is the insured MEDICAL (GENERAL) HISTORY Medical History History ICD Code Diverticulitis Esophageal ulcer/esophagitis in 2006--neg bx--F/U EGD in 07/12 WNL-no significant esophagitis and biopsies were negative for Hall's esophagus; he does have a small to moderate size hiatal hernia HIV infection-for >[address] in 12/2012--describes a neg. ca rdiac cath [...]
--- OUTSIDE RECORDS SUMMARY | 2024-10-29 12:52 | XMS_ITS ---
Author Organization [facility] Address [address] [place] [address] Care Team Providers Care Boil Off Worker Name Role Phone Socorro Arceo MD, Raul Primary Care Provide r Mick Chow Unavailable [phone] REASON FOR VISIT gerd,alcoholic cirrhosis,screening,hx polyps, esophageal [...] confirmed History of polyp of colon (situation) (911465607) Problem Diverticulosis of large intestine without perforation or abscess without bleeding (K57.30) Active confirmed Diverticul ar disease of colon (900426684) Problem Cirrhosis (K74.60) Active confirmed Cir rhotic (094500543) Problem Gastro-esophageal reflux disease without esophagitis (K21.9) Active confirmed Gastro-esophage al reflux disease without esophagitis (084088200) Encounters Encounter Location Date Provider Diagnosis [facility] Outpatient [address] [place], [place] [phone] 03/10/2024 Mick Durán Colon cancer scree nina [...]
--- OUTSIDE RECORDS SUMMARY | 2024-10-29 12:52 | XMS_ITS ---
Author Organization [facility] Address [address] [place] [address] Care Team Providers Care County Home Demonstration Agent Name Role Phone Socorro Arceo MD, Raul Primary Care Provide Mick Sanchez Unavailable [phone] REASON FOR VISIT omepraole Rx MEDICATIONS Medication SIG (Take, Route, Fr equency, Duration) Notes Start Date End Date Status Omeprazole 20 MG 1 Orally QAM for 90 days 07/24/20 20 Active Encounters Encounter Location Date Provider Diagnosis [facility] [address] [place] [address] 09/12/2024 Mick Durán PLAN OF TREATMENT Medication Medication Name Sig Start Date Stop Date Notes Omeprazole 20 MG 1 Orally QAM for 90 days 07/24/2020
== END 2024-10-29 11:04 | disposition home or self-care (01) ==
PROVIDERS: PCP Internal Medicine; Visit Provider Surgery
DX: R10.10 Upper abdominal pain, unspecified (principal); I71.20 Thoracic aortic aneurysm, without rupture, unspecified
CPT/HCPCS: 99204

== ENCOUNTER → 2024-10-29 10:28 | Outpatient (BNVA) | payer MEDICARE, MEDICAID, SELFPAY | PROVIDERS: PCP Internal Medicine; Visit Provider Surgery | DX: I71.20 Thoracic aortic aneurysm, without rupture, unspecified (principal); R10.11 Right upper quadrant pain | CPT/HCPCS: 99202 ==

== ENCOUNTER 2024-10-31 09:46 | Outpatient (REF) | payer MEDICARE, MEDICAID, SELFPAY ==
--- NOTE | ~2024-10-31 | US_ITS ---
CLINICAL HISTORY: RUQ discomfort US abdomen complete Comparison: 08/10/2022 Findings: The visualized pancreas is normal. The aorta and inferior vena cava are normal caliber. The appearance of the liver suggests fatty infiltration without focal lesion. There is no intrahepatic bile duct dilatation. The common duct is 3.0 mm in diameter. The gallbladder is normal. There is no sonographic Garza sign. The main portal vein is antegrade. The right kidney is 9.6 cm in length. The left kidney is 10.7 cm in length. The spleen is normal. No ascites. IMPRESSION: 1. Hepatic steatosis. This document has been electronically signed by: Kin Longoria MD on 10/31/2024 17:18:45
--- OUTSIDE RECORDS SUMMARY | 2024-10-31 10:37 | XMS_ITS ---
Author Organization [facility] Address [address] [place] [address] Care Team Providers Care Chocolatier Name Role Phone Socorro Arceo MD, Raul Primary Care Provide r Mick Chow Unavailable [phone] Amado Velez M.D. Unavailable Unavailable REASON FOR VISIT omepraole Rx MEDICATIONS Medication SIG (Take, Route, Fr equency, Duration) Notes Start Date End Date Status Omeprazole 20 MG 1 Orally QAM for 90 days 07/24/20 20 Active Encounters Encounter Location Date Provider Diagnosis [facility] [address] [place] [address] 09/12/2024 Mick Durán PLAN OF TREATMENT Medication Medication Name Sig Start Date Stop Date Notes Omeprazole 20 MG 1 Orally QAM for 90 days 07/24/2020 Next Appt Details Provider Name:Mick Durán , 01/20/2025 11:10:00 AM, [address] [place] [address], [address], [place], [address],
--- OUTSIDE RECORDS SUMMARY | 2024-10-31 10:37 | XMS_ITS | Clinical Summary ---
Author Organization [facility] Address [address] [place] [address] Phone Care Team Providers Care Die Maintenance Technician Name Role Phone Raul Nava MD Primary [...] 09/08/2024 1:15 PM EST Consult Orthopedic Surgery [facility] 250 175 [facility] 250 [place] [address] Jaime Kenny, DPM Posterior tibial [...] AM EDT Office Visit Orthopedic [facility] [place] [address] [address] Jaime Kenny, KAZ [address] [address] Health Maintenance Due Date Last Done Comments [...] Insurance MEDICARE MEDICAID - [place] Care Teams Die Maintenance Technician Relationship Specialty Start Date End Date Raul Nava MD [address] [place] [address] PCP - General 05/28/24
--- OUTSIDE RECORDS SUMMARY | 2024-10-31 10:37 | XMS_ITS | Clinical Summary ---
Author Organization [facility] Address [address] [address] Phone Care Team Providers Care Real Estate Consultant Name Role Phone Raul Quintanilla MD Primary [...] diet and exercise,discussed healthy life style -discussed general operations manager referral but pt refusing -states was seen [...] He underwent an inpatient detox treatment in [place], He now goes to AA meetings 5 [...] opinion by urology. He was seen by [facility] on 05/17/2015 , last seen on [...] aggressive risk factor modification. According to pt nursing aide did not recommend ASA given his Hx GERD. 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 Alcoholism 04/26/2012 07/16/2023 Encounters Date Type Department Care Team Description 08/25/2024 3:00 PM EST Office Visit [facility] [address] [place] [address] Bertin Bernard MD Stage 3b chronic kidney disease (HCC) (Primary Dx); Renal osteodystrophy; Essential hypertension 08/14/2024 Refill [facility] [address] [phone] Christine Malhotra MA Stage 3a chronic kidney disease (HCC); Essential hypertension 08/14/2024 Refill [facility] [address] [phone] Christine Malhotra MA 08/07/2024 Refill [facility] [address] [phone] Bertin Bernard MD Stage 3a chronic kidney [...] Visit [facility] [address] [place] [address] Bertin Bernard MD [address] [facility] [address] [place] [address] Health Maintenance Due Date Last [...] Additional [place] [id number] [place] [id number] [place]ARE [place] Care Teams Real Estate Consultant Relationship Specialty Start Date End Date Raul Quintanilla MD [address] [place] [address] [place] [id number] PCP - General Internal Medicine 08/25/24
--- OUTSIDE RECORDS SUMMARY | 2024-10-31 10:37 | XMS_ITS ---
Author Organization [facility] Address [address] [place] [address] Care Team Providers Care Laboratory Director Name Role Phone Socorro Arceo MD, Raul Primary Care Provide r Unavailable Mick Durán Unavailable [phone] Amado Velez M.D. 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
--- OUTSIDE RECORDS SUMMARY | 2024-10-31 10:37 | XMS_ITS ---
Author Organization [facility] Address [address] [place] [address] Care Team Providers Care Envelope Machine Adjuster Name Role Phone Socorro Arceo MD, Raul Primary Care Provide r Unavailable Mick Durán Unavailable [phone] Amado Velez M.D. Unavailable Unavailable REASON FOR VISIT gerd,alcoholic cirrhosis,screening,hx [...] confirmed History of polyp of colon (situation) (545633174) Problem Diverticulosis of large intestine without perforation or abscess without bleeding (K57.30) Active confirmed Diverticul ar disease of colon (285177335) Problem Cirrhosis (K74.60) Active confirmed Cir rhotic (055131795) Problem Gastro-esophageal reflux disease without esophagitis (K21.9) Active confirmed Gastro-esophage al reflux disease without esophagitis (856321570) Encounters Encounter Location Date Provider Diagnosis [facility] Outpatient [address] [place], [place] [phone] 03/10/2024 Mick Durán Colon cancer scree nina [...] esophagitis (ICD-10 - K21.9) PLAN OF TREATMENT Next Appt Details Provider Name:Mick Durán , 01/20/2025 11:10:00 AM, [address] [place] [address], [address], [place], [address],
--- OUTSIDE RECORDS SUMMARY | 2024-10-31 10:38 | XMS_ITS | Patient Health Record ---
Author Organization [facility] Address [address] [place] [address] Care Team Providers Care Delivery And Installation Subcontractor Name Role Phone Socorro Arceo MD, Raul Primary Care Provide r Unavailable Mick Durán Unavailable [phone] Amado Velez M.D. Unavailable Unavailable ALLERGIES No Known Allergies REASON FOR REFERRAL [...] confirmed Gastro-esophage al reflux disease without esophagitis (667991768) Problem Encounter for screening for malignant neoplasm of colon (Z12.11) Active confirmed 608270104 Problem History of adenomatous polyp of colon (Z86.010) Active confirmed 507320529 Problem Personal history of colonic polyps (Z86.010) Active confirmed History of poly p of colon (situation) (185486397) Problem Esophageal varices without bleeding (I85.00) Active confirmed Esophageal vari chin without bleeding (05338546) Problem Diverticulosis of large intestine without perforation or abscess without bleeding (K57.30) Active confirmed Diverticul ar disease of colon (020802506) Problem 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) Active confirmed 467751045 Problem 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) Active confirmed 143903526 Problem GERD with esophagitis (K21.0) Active confirmed 207389668 Problem Cirrhosis (K74.60) Active confirmed Cir rhotic (428707476) Problem GERD (gastroesophageal reflux disease) (K21.9) Active confirmed Gastroesophagea l reflux disease (815573122) Problem Gastroesophageal reflux disease with esophagitis without hemorrhage (K21.00) Active confirmed Gastroes ophageal reflux disease with esophagitis (disorder) (777166841) VITAL SIGNS Temperature 98.6 degrees Fahrenheit 01/29/2024 Blood pressure diastolic 00 mm Hg 01/29/2024 Height 72 in 01/29/2024 Blood pressure systolic 000 mm Hg 01/29/2024 Weight 249 lbs 01/29/2024 BMI 33.77 kg/m2 01/29/2024 Encounters Encounter Location Date Provider Diagnosis [facility] [address] [place] [address] 11/02/2023 Mick Durán [facility] Outpatient [address] [place], [place] [phone] 03/10/2024 Mick Durán Colon cancer screeni ng Z12.11 ; Personal history of colonic polyps Z86.010 ; Diverticulosis of large intestine without perforation or abscess without bleeding K57.30 ; Other hemorrhoids K64.8 ; Other specified disease of esophagus K22.89 ; Hiatal hernia K44.9 ; Cirrhosis K74.60 and Gastro-esophageal reflux disease without esophagitis K21.9 [facility] [address] [place] [address] 01/29/2024 Mick Durán 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 ; Alcoholic cirrhosis of liver without ascites K70.30 ; History of adenomatous polyp of colon Z86.010 ; Encounter for screening for malignant neoplasm of colon Z12.11 ; Esophageal varices without bleeding I85.00 and GERD (gastroesophageal reflux disease) K21.9 [facility] [address] [place] [address] 09/12/2024 Mick Durán ASSESSMENTS Encounter Date Diagnosis [...] PROTHROMBIN TIME (PT, INR) 12/24/2018 ALPHA-FETOPROTEIN,TUMOR MARKER 2 ALPHA-FETOPROTEIN,TUMOR MARKER 7 ALPHA-FETOPROTEIN,TUMOR MARKER 9 ALPHA-FETOPROTEIN,TUMOR MARKER 3 ALPHA-FETOPROTEIN,TUMOR MARKER 1 US ABD 08/02/2022 US ABD 04/21/2021 Prothrombin Time INR 04/21/2021 Prothrombin Time INR 08/02/2022 Prothrombin Time INR 07/06/2023 Liver Panel 04/21/2021 Liver Fibrosis Pnl 07/06/2023 US abdomen comp w elastography 3 Future Test Test Name Order Date UPPER GI ENDOSCOPY 01/20/2014 UPPER GI ENDOSCOPY 12/24/2018 COLONOSCOPY 12/24/2018 UPPER GI ENDOSCOPY 01/29/2024 COLONOSCOPY 01/29/2024 Next Appt Details Provider Name:Mick Durán , 01/20/2025 11:10:00 AM, [address] [facility], [address], [place], [address], Insurance Providers Payer Name Payer Address Payer Phone Subscriber Number Group Number Insured Name Patient Relationship to Insured Coverage Start Date Coverage End Date [place] [address] [place] [address] [id number] ANDREW FREEMAN Self - patient is the insured MEDICAID OF [facility] [address] [place] [address] [id number] ANDREW FREEMAN Self - patient is the insured MEDICAL (GENERAL) HISTORY Medical History History ICD Code Diverticulitis Esophageal ulcer/esophagitis in 2006--neg bx--F/U EGD in 07/12 WNL-no significant esophagitis and biopsies were negative for Hall's esophagus; he does have a small to moderate size hiatal hernia HIV infection-for >20 yrs Mild MS in 12/2012--describes a neg. ca rdiac cath [...]
== END 2024-10-31 09:47 | disposition home or self-care (01) ==
LOC: HO.US 09:46
PROVIDERS: PCP Internal Medicine; Visit Provider Internal Medicine
DX: R10.11 Right upper quadrant pain (principal)
CPT/HCPCS: 76700

== ENCOUNTER → 2024-10-31 09:47 | Outpatient (BNV) | payer MEDICARE, MEDICAID, SELFPAY | PROVIDERS: PCP Internal Medicine; Visit Provider Specialist | DX: K76.0 Fatty (change of) liver, not elsewhere classified (principal) | CPT/HCPCS: 76700 ==

== ENCOUNTER 2024-12-17 11:20 | Outpatient (REF) | payer MEDICARE, MEDICAID, SELFPAY ==
[2024-12-17 13:02] LABS: Folate 9.1 ng/mL (> or = 4.0); Vitamin B12 719 pg/mL (200-900)
--- OUTSIDE RECORDS SUMMARY | 2024-12-17 13:47 | XMS_ITS | Continuity of Care Document ---
Author Organization [facility] Agatha ken Address [address] [place] [address]- Care Team Providers Care Dump Motorman Name Role Phone Elijah LAWTON, Raul [place]en[place] Primary Care Physi ruben Encounter [facility] [id number] Date(s): 11/13/24 - 12/13/24 [facility] [address] [place] [address] Drive [address] [place] [address]- Encounter Type: Triage Allergies, Adverse Reactions, Alerts No Known Allergies Medications atorvastatin 80 mg oral tablet TAKE 1 TABLET BY MOUTH EVERY MORNING Start Date: 11/06/24 Status: Ordered Repeat number: 1 Biktarvy oral tablet TAKE 1 TABLET BY MOUTH EVERY MORNING Start Date: 11/06/24 Status: Ordered Repeat number: 1 famotidine 40 mg oral tablet TAKE 1 TABLET BY MOUTH EVERY MORNING Start Date: 11/06/24 Status: Ordered Repeat number: 1 Jardiance 10 mg oral tablet TAKE 1 TABLET BY MOUTH EVERY DAY Start Date: 11/06/24 Status: Ordered Repeat number: 1 losartan 100 mg oral tablet TAKE 1 TABLET BY MOUTH EVERY MORNING Start Date: 11/06/24 Status: Ordered Repeat number: 1 omeprazole 20 mg oral enteric coated capsule TAKE 1 CAPSULE BY MOUTH EVERY MORNING Start Date: 11/06/24 Status: Ordered Repeat number: 1 Problem List Condition Confirmation Course Effective Dates Status Health St atus Informant Obese class I Confirmed Active Social History Social History Type Response Smoking Status Never (less than 100 in lifetime) entered on: 11/06/24 Sex Sex Representation Male (finding) Patient Care team information Care Team Personnel Name: Raul Nava MD Position: S Outreach Member Role: PCP Address: [address] [place] [address]- Telecom: Care Team Related Persons Name: MARIA FERNANDA WADSWORTH Name: MERLY FREEMAN Insurance Providers Guarantor name: ANDREW FREEMAN Health Plan Information #: 1 Payer: MEDICARE PART B OUTPT Member Number: NA Policy Number: NA Group Number: NA Health Plan Information #: 2 Payer: [place] Member Number: NA Policy Number: NA Group Number: NA
--- OUTSIDE RECORDS SUMMARY | 2024-12-17 13:47 | XMS_ITS ---
Author Organization [facility] Address [address] [place] [address] Care Team Providers Care Director Of Training Name Role Phone Socorro Arceo MD, Raul Primary Care Provide r Unavailable Mick Durán Unavailable [phone] Amado Velez M.D. Unavailable Unavailable Allergies No Known Allergies REASON FOR VISIT Patient presents today for cirrhosis Medications Medication SIG (Take, Route, Frequency, Duration) [...] 1 tablet Orally Once a day Active Social History Tobacco Use: Social History Observation Description Date Details (start date - stop date) Never Smoker NA - NA Tobacco Use/Smoking Question Answer Notes Patient is a nonsmoker Alcohol Screen Question Answer Notes Did you have a drink containing alcohol in the p ast year? No Points 0 Interpretation Negative Section Notes: He does not smoke; Alcohol a buse--sobriety for approx. 10 years as of the 07/2022 OV Problems Problem Type SNOMED Code ICD Code Onset Dates Problem Status W/U Status Risk Notes Problem Esophageal varices without bleeding (60966242) Esophageal varices without bleeding (I85.00) Active confirmed Vital Signs Temperature 98.6 degrees Fahrenheit 01/29/20 24 Blood pressure systolic 000 mm Hg 01/29/20 24 Blood pressure diastolic 00 mm Hg 024 Height 72 in 01/29/2024 Weight 249 lbs 01/29/2024 BMI 33.77 kg/m2 01/29/2024 Encounters Encounter Location Date Provider Diagnosis [facility] [address] [place] [address] 01/29/2024 Mick Durán 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 ; Alcoholic cirrhosis of liver without ascites K70.30 ; History of adenomatous polyp of colon Z86.010 ; Encounter for screening for malignant neoplasm of colon Z12.11 ; Esophageal varices without bleeding I85.00 and GERD (gastroesophageal reflux disease) K21.9 Assessments Encounter Date Diagnosis (ICD Code) Assessment Notes Treatment Notes Treatment Clinical Notes Section Notes 01/29/2024 Cirrhosis with alcoholism (ICD-10 - K70.30) Overall, Mook appears quite well. He does not show any signs of decompensating liver disease on this exam nor his previous laboratories. He is not having any new or worrisome GI complaints. I don't think he needs any diagnostic testing in regard to his liver disease and I would recommend a repeat ultrasound and laboratories for the end of this year. His reflux seems quite stable on his current medical regimen of the daily omeprazole and famotidine. I did advise him to continue this current treatment. I did recommend a followup colonoscopy for further screening purposes given his history of tubular adenomas and is last colonoscopy being approximately 5 years ago in February of 2019. He did review the rationale for this regard to colon cancer prevention. I also recommended an upper endoscopy the same day to reassess his esophageal varices. Full consent was obtained from him for both procedures, including risks of bleeding and perforation. The procedures will be done monitored anesthesia care. Mook was comfortable with this plan. Thank you again for allowing me to participate in Mook's care. I shall continue to keep you advised of his progress. 01/29/2024 Alcoholic cirrhosis of liver without ascites (ICD-10 - K70.30) Overall, Mook appears quite well. He does not show any signs of decompensating liver disease on this exam nor his previous laboratories. He is not having any new or worrisome GI complaints. I don't think he needs any diagnostic testing in regard to his liver disease and I would recommend a repeat ultrasound and laboratories for the end of this year. His reflux seems quite stable on his current medical regimen of the daily omeprazole and famotidine. I did advise him to continue this current treatment. I did recommend a followup colonoscopy for further screening purposes given his history of tubular adenomas and is last colonoscopy being approximately 5 years ago in February of 2019. He did review the rationale for this regard to colon cancer prevention. I also recommended an upper endoscopy the same day to reassess his esophageal varices. Full consent was obtained from him for both procedures, including risks of bleeding and perforation. The procedures will be done monitored anesthesia care. Mook was comfortable with this plan. Thank you again for allowing me to participate in Mook's care. I shall continue to keep you advised of his progress. 01/29/2024 History of adenomatous polyp of colon (ICD-10 - Z86.010) Overall, Mook appears quite well. He does not show any signs of decompensating liver disease on this exam nor his previous laboratories. He is not having any new or worrisome GI complaints. I don't think he needs any diagnostic testing in regard to his liver disease and I would recommend a repeat ultrasound and laboratories for the end of this year. His reflux seems quite stable on his current medical regimen of the daily omeprazole and famotidine. I did advise him to continue this current treatment. I did recommend a followup colonoscopy for further screening purposes given his history of tubular adenomas and is last colonoscopy being approximately 5 years ago in February of 2019. He did review the rationale for this regard to colon cancer prevention. I also recommended an upper endoscopy the same day to reassess his esophageal varices. Full consent was obtained from him for both procedures, including risks of bleeding and perforation. The procedures will be done monitored anesthesia care. Mook was comfortable with this plan. Thank you again for allowing me to participate in Mook's care. I shall continue to keep you advised of his progress. 01/29/2024 Encounter for screening for malignant neoplasm of colon (ICD-10 - Z12.11) Overall, Mook appears quite well. He does not show any signs of decompensating liver disease on this exam nor his previous laboratories. He is not having any new or worrisome GI complaints. I don't think he needs any diagnostic testing in regard to his liver disease and I would recommend a repeat ultrasound and laboratories for the end of this year. His reflux seems quite stable on his current medical regimen of the daily omeprazole and famotidine. I did advise him to continue this current treatment. I did recommend a followup colonoscopy for further screening purposes given his history of tubular adenomas and is last colonoscopy being approximately 5 years ago in February of 2019. He did review the rationale for this regard to colon cancer prevention. I also recommended an upper endoscopy the same day to reassess his esophageal varices. Full consent was obtained from him for both procedures, including risks of bleeding and perforation. The procedures will be done monitored anesthesia care. Mook was comfortable with this plan. Thank you again for allowing me to participate in Mook's care. I shall continue to keep you advised of his progress. 01/29/2024 Esophageal varices without bleeding (ICD-10 - I85.00) Overall, Mook appears quite well. He does not show any signs of decompensating liver disease on this exam nor his previous laboratories. He is not having any new or worrisome GI complaints. I don't think he needs any diagnostic testing in regard to his liver disease and I would recommend a repeat ultrasound and laboratories for the end of this year. His reflux seems quite stable on his current medical regimen of the daily omeprazole and famotidine. I did advise him to continue this current treatment. I did recommend a followup colonoscopy for further screening purposes given his history of tubular adenomas and is last colonoscopy being approximately 5 years ago in February of 2019. He did review the rationale for this regard to colon cancer prevention. I also recommended an upper endoscopy the same day to reassess his esophageal varices. Full consent was obtained from him for both procedures, including risks of bleeding and perforation. The procedures will be done monitored anesthesia care. Mook was comfortable with this plan. Thank you again for allowing me to participate in Mook's care. I shall continue to keep you advised of his progress. 01/29/2024 GERD (gastroesophage al reflux disease) (ICD-10 - K21.9) Overall, Mook appears quite well. He does not show any signs of decompensating liver disease on this exam nor his previous laboratories. He is not having any new or worrisome GI complaints. I don't think he needs any diagnostic testing in regard to his liver disease and I would recommend a repeat ultrasound and laboratories for the end of this year. His reflux seems quite stable on his current medical regimen of the daily omeprazole and famotidine. I did advise him to continue this current treatment. I did recommend a followup colonoscopy for further screening purposes given his history of tubular adenomas and is last colonoscopy being approximately 5 years ago in February of 2019. He did review the rationale for this regard to colon cancer prevention. I also recommended an upper endoscopy the same day to reassess his esophageal varices. Full consent was obtained from him for both procedures, including risks of bleeding and perforation. The procedures will be done monitored anesthesia care. Mook was comfortable with this plan. Thank you again for allowing me to participate in Mook's care. I shall continue to keep you advised of his progress. Plan Of Treatment Future Test Test Name Order Date UPPER GI ENDOSCOPY 01/29/2024 COLONOSCOPY 01/29/2024 Next Appt Details Follow Up: prn, Reason: Provider Name:Mick Durán , 01/20/2025 11:10:00 AM, [address] [place] [address], [address], [address], Progress Notes * MOOK FREEMAN FDOB: [birth year] (73 yo M)Acc No.[id number]:01/29/2024 Progress Notes Patient:?MOOK FREEMAN Provider:?Mick Durán MD :1950???Age:73 Y???Sex:Male Nicholas e:01/29/2024 Address:[address] [place], [place] [id number] Pcp:Raul heaton MD Subjective: * Chief Complaints: * ???Patient presents today fo r cirrhosis * HPI: ???incontinence:? I saw a Mook in followup today in regard to his underlying history of alcohol-induced cirrhosis, history of known esophageal varices, gastroesophageal reflux, personal history of tubular adenomas of the colon, and discussion of colorectal cancer screening. ?I last saw Mook in July of 2023. Since that time he has been doing well and without any new GI symptoms. He has not noticed any signs of jaundice, increasing abdominal girth, edema, pruritus, nor fatigue. He enjoys a good appetite, without any significant heartburn on his current regimen of the omeprazole and famotidine. He denies any dysphagia, anorexia, early satiety, nausea, nor vomiting. His bowel movements are regular and without any signs of bleeding. He denies any abdominal pains nor unintentional weight loss. ?His abdominal ultrasound in August of 2023 was negative for any sign of liver mass, ascites, no splenomegaly. His known cirrhosis was described. Laboratories included a normal liver profile, normal PT with INR, and a normal alpha- fetoprotein level. A CBC with platelet count was normal in July of 2023. * ROS:?General/Constitutional:?Change in appetite?denies.?Chills?denies.?Fatigue?denies.?Ophthalmologic:?Patient denies? Negative..?ENT:?Patient denies?Negative..?Respiratory:?Patient denies?No coughing/hemoptysis..?Cardiovascular:?Patient denies? No chest pain/orthopnea..?Gastrointestinal:?Comments?See HPI for details.?Genitourinary:?Patient denies? No dysuria/hematuria..?Musculoskeletal:?Patient denies? No specific arthralgias/myalgias..?Skin:?Patient denies?No rash/pruritus..?Neurologic:?Patient denies? No headaches/seizures..?Psychiatric:?Patient denies?Negative..? * Medical History:? * Surgical History:?CCY * Hospitalization/Major Diagno stic Procedure:?No Hospitalization History. * Family History:?Father: dece ased, skin cancer/partial of removal of intestines /lung cancer, diagnosed with Colon cancer.?Mother: , diagnosed with Heart disease.?Siblings: brother had esophageal cancer at age 57.? Father had colon cancer in his 40's. No famiy history of liver cancer. * Social History:?Tobacco Use:?Tobacco Use/Smoking?Patient is a?nonsmoker.?Drugs/Alcohol:?Alcohol Screen?Did you have a drink containing alcohol in the past year??No,?Points?0,?Interpretation?Negative.?Miscellaneous:?Marital status: single. Occupation: unemployed, retired. ???He does not smoke; Alcohol abuse--sobriety for approx. 10 years as of the 07/2022 OV. * Medications:?TakingBiktarvy 50-200-25 MG Tablet 1 tablet Orally Once a dayLosartan Potassium-HCTZ 50-12.5 MG Tablet 1 tablet Orally Once a dayVitamin B12 100 MCG Tablet 1 tablet Orally Once a dayAtorvastatin Calcium 40 MG Tablet 1 tablet Orally Once a dayMetoprolol Succinate ER 100 MG Tablet Extended Release 24 Hour 1 tablet Orally Once a dayFamotidine 40 MG Tablet 1 Orally At bedtimeOmeprazole 20 MG Capsule Delayed Release 1 Orally QAMOmeprazole 20 MG Capsule Delayed Release 1 Orally Every morningMedication List reviewed and reconciled with the patientTaking Biktarvy 50-200-25 MG Tablet 1 tablet Orally Once a dayTaking Losartan Potassium-HCTZ 50- 12.5 MG Tablet 1 tablet Orally Once a dayTaking Vitamin B12 100 MCG Tablet 1 tablet Orally Once a dayTaking Atorvastatin Calcium 40 MG Tablet 1 tablet Orally Once a dayTaking Metoprolol Succinate ER 100 MG Tablet Extended Release 24 Hour 1 tablet Orally Once a dayTaking Famotidine 40 MG Tablet 1 Orally At bedtimeTaking Omeprazole 20 MG Capsule Delayed Release 1 Orally QAMTaking Omeprazole 20 MG Capsule Delayed Release 1 Orally Every morningMedication List reviewed and reconciled with the patient * Allergies:?N.K.D.A.yes[Aller gies Verified] Objective: * Vitals:?Wt: 249 lbs, Ht: 72 in, BMI:33.77 Index, BP: 000/00 mm Hg, Temp: 98.6. * Examination: ???General Examination: ?GENERAL APPEARANCE:?pleasant, well nourished, well developed, in no acute distress.?EYES:?sclera non-icteric.?ORAL CAVITY:?mucosa moist.?NECK/THYROID:?no cervical lymphadenopathy, neck supple.?SKIN:?nonjaundiced, no spider angiomata..?HEART:?S1, S2 normal.?LUNGS:?clear to auscultation bilaterally.?ABDOMEN:?normal bowel sounds, no guarding or rigidity, no hepatosplenomegaly, no masses palpable, soft, nontender, nondistended..?EXTREMITIES:?no edema.?NEUROLOGIC:?alert and oriented.? Assessment: * Assessment: 1.?Alcoholic cirrhosis of li morenita without ascites - K70.30 (Primary)?2.?Cirrhosis with alcoholism - K70.30?3.?History of adenomatous polyp of colon - Z86.010?4.?Encounter for screening for malignant neoplasm of colon - Z12.11?5.?Esophageal varices without bleeding - I85.00?6.?GERD (gastroesophageal reflux disease) - K21.9? Overall, Mook appears quite well. He does not show any signs of decompensating liver disease on this exam nor his previous laboratories. He is not having any new or worrisome GI complaints. I don't think he needs any diagnostic testing in regard to his liver disease and I would recommend a repeat ultrasound and laboratories for the end of this year. His reflux seems quite stable on his current medical regimen of the daily omeprazole and famotidine. I did advise him to continue this current treatment. I did recommend a followup colonoscopy for further screening purposes given his history of tubular adenomas and is last colonoscopy being approximately 5 years ago in February of 2019. He did review the rationale for this regard to colon cancer prevention. I also recommended an upper endoscopy the same day to reassess his esophageal varices. Full consent was obtained from him for both procedures, including risks of bleeding and perforation. The procedures will be done monitored anesthesia care. Mook was comfortable with this plan. Thank you again for allowing me to participate in Mook's care. I shall continue to keep you advised of his progress. Plan: * Treatment: 2.?History of adenomatous polyp of colon?Procedure: COLONOSCOPY (Ordered for 01/29/2024)* with MACsched for 03/10/24 at 1:50 pmmiralax 3.?Encounter for screening for malignant neoplasm of colon?Procedure: COLONOSCOPY (Ordered for 01/29/2024)* with MACsched for 03/10/24 at 1:50 pmmiralax 4.?Esophageal varices without bleeding?Procedure: UPPER GI ENDOSCOPY (Ordered for 01/29/2024)* with MACsched for 03/10/24 at 1:50 pm 5.?GERD (gastroesophageal reflux disease)?Procedure: UPPER GI ENDOSCOPY (Ordered for 01/29/2024)* with MACsched for 03/10/24 at 1:50 pm * Procedure Codes:?3017F COLOR ECTAL CA SCREEN DOC ELY0285A TOBACCO NON-PASHK3157 BP SCR NOT PRFRM REC REASON NOS * Preventive Medicine:? ??Counseling:?Care goal follow-up plan:?Above Normal BMI Follow-up?Giving encouragement to exercise,?BMI management provided?Yes.? * Follow Up:?prn * * Sign off status: Completed true * Provider:?Mick Durán MD Date:? 024 Generated for Precious grajeda/Carin/Giselleitting on:?12/17/2024 01:47 PM EDT History and Physical Notes * HPI (History of Present Illness) Category Sub-Category Detail Notes Category Not es incontinence I saw a Mook in followup today in regard to his underlying history of alcohol-induced cirrhosis, history of known esophageal varices, gastroesophageal reflux, personal history of tubular adenomas of the colon, and discussion of colorectal cancer screening. I last saw Mook in July of 2023. Since that time he has been doing well and without any new GI symptoms. He has not noticed any signs of jaundice, increasing abdominal girth, edema, pruritus, nor fatigue. He enjoys a good appetite, without any significant heartburn on his current regimen of the omeprazole and famotidine. He denies any dysphagia, anorexia, early satiety, nausea, nor vomiting. His bowel movements are regular and without any signs of bleeding. He denies any abdominal pains nor unintentional weight loss. His abdominal ultrasound in August of 2023 was negative for any sign of liver mass, ascites, no splenomegaly. His known cirrhosis was described. Laboratories included a normal liver profile, normal PT with INR, and a normal alpha-fetoprotein level. A CBC with platelet count was normal in July of 2023. Examination Category Sub-Category Detail Notes Category Not es General Examination GENERAL APPEARANCE: pleasant , well [...]
--- OUTSIDE RECORDS SUMMARY | 2024-12-17 13:47 | XMS_ITS ---
Author Organization [facility] Address [address] [place] [address] Care Team Providers Care Telecom Specialist Name Role Phone Socorro Arceo MD, Raul Primary Care Provide r Unavailable Mick Durán Unavailable [phone] Amado Velez M.D. Unavailable Unavailable REASON FOR [...] Problem History of polyp of colon (situation) (012160595) Personal history of colonic polyps (Z86.010) Active confirmed Problem Diverticular disease of colon (487145710) Diverticulosis of large intestine without perforation or abscess without bleeding (K57.30) Active confirmed Problem Cirrhotic (556306019) Cirrhosis (K74.60) Active confirmed Problem Gastro-esophagea l reflux disease without esophagitis (941531646) Gastro-esophageal reflux disease without esophagitis (K21.9) Active confirmed Encounters Encounter Location Date Provider Diagnosis [facility] Outpatient [address] [place], [place] [id number] 03/10/2024 Mick Durán Colon cancer scree nina [...] Provider Name:Mick Durán , 01/20/2025 11:10:00 AM, [address] [place] [address], [place] [address], [place], [address], Progress Notes * ANDREW FREEMAN FDOB: [birth year] (74 yo M)Acc No.[id number]:03/10/2024 EGD and COL/MAC Patient:?ANDREW FREEMAN Patrick Provider:?Mick Durán MD :1950???Age:73 Y???Sex:Male Nicholas e:03/10/2024 Address:[address] [place], [place] [id number] Pcp:Raul heaton MD Subjective: * Chief Complaints: * ???1. Gerd,alcoholic cirrhos is,screening,hx polyps, esophageal varices. * Medical History:? * Medications:?Taking Biktarvy 50-200-25 MG Tablet 1 tablet Orally [...] Release 1 Orally Every morning Objective: * Vitals:? Assessment: * Assessment: 1.?Colon cancer screening - Z12.11 (Primary)???2.?Personal history of colonic polyps - Z86.010???3.?Diverticulosis of large intestine without perforation or abscess without bleeding - K57.30???4.?Other hemorrhoids - K64.8?? 5.?Other specified disease of esophagus - K22.89???6.?Hiatal hernia - K44.9???7.?Cirrhosis - K74.60???8.?Gastro-esophageal reflux disease without esophagitis - K21.9??? Plan: * Treatment: * Procedure Codes:?G0105 COLOR EC CANCR SCR; COLNSCPY HI RISK, 0529F INTRVL 3+YRS PTS CLNSCP DOCD, 0528F RCMND FLW-UP 10 YRS DOCD, Modifiers: 1P , 24800 UPPR GI ENDOSCOPY, DIAGNOSIS * * The named appointment provid er may or may not be the originator of this progress note, and it is not deemed complete until electronically signed by the appointment provider. Sign off status: Pending * Provider:?Mick Durán MD Date:? 024 Generated for Precious grajeda/Carin/Inez on:?12/17/2024 01:46 PM EDT
--- OUTSIDE RECORDS SUMMARY | 2024-12-17 13:47 | XMS_ITS ---
Author Organization [facility] Address [address] [place] [address] Care Team Providers Care Sanitarian Inspector Name Role Phone Socorro Arceo MD, Raul Primary Care Provide r Mick Chow Unavailable [phone] Amado Velez M.D. Unavailable Unavailable REASON FOR VISIT omepraole Rx Medications Medication SIG (Take, Route, Fr equency, Duration) Notes Start Date End Date Status Omeprazole 20 MG 1 Orally QAM for 90 days 07/24/20 20 Active Encounters Encounter Location Date Provider Diagnosis [facility] [address] [place] [address] [place] [address] 09/12/2024 Mick Durán Plan Of Treatment Medication Medication Name Sig Start Date Stop Date Notes Omeprazole 20 MG 1 Orally QAM for 90 days 07/24/2020 Next Appt Details Provider Name:Mick Durán , 01/20/2025 11:10:00 AM, [address] [place] [address], [address], [place], [address], Progress Notes * ANDREW FREEMAN FDOB: [birth year] (74 yo M)Acc No.[id number]:09/12/2024 Patient:?ANDREW FREEMAN :1950???Age:74 Y???Sex:Male Address:[address] [place] [address] [place] [address] * Refills? Refill Omeprazole Capsule Delayed Release, 20 MG, Orally, 90, 1, QAM, 90 days, Refills=3 * true * Date:? Generated for Precious grajeda/Carin/eTransmitting on:?12/17/2024 01:47 PM EDT
--- OUTSIDE RECORDS SUMMARY | 2024-12-17 13:47 | XMS_ITS | Clinical Summary ---
Author Organization [facility] Address [address] [address] Phone Care Team Providers Care Brand Strategist Name Role Phone Raul Quintanilla MD Primary Care Provider Unav ailable Allergies No known active allergies Medications atorvastatin (LIPITOR) 20 MG tablet Take 40 mg by mouth 1 (one) time each day Active Bictegravir-Emtr icitab-Tenofov (Biktarvy) 50-200-25 MG tablet Take 1 tablet [...] by mouth 1 (one) time each day 03/24/20 24 Active losartan (COZAAR) 100 MG tabletIndication s:Stage 3a chronic kidney disease (HCC),Essential hypertension TAKE 1 TABLET BY MOUTH EVERY MORNING 30 tablet 3 11/19/19 25 Active losartan (COZAAR) 100 MG tabletIndication s:Stage 3a chronic kidney disease (HCC),Essential hypertension Take 1 tablet (100 mg total) by mouth 1 (one) time each day 30 tablet 3 08/14/20 24 025 Discontinued Active Problems Problem Noted Date Diagnosed Date Stage 3b chronic kidney disease 05/26/2024 Obese class I 07/10/2023 07/16/2023 Overview (07/16/2023): Last Assessment & Plan: -Advised pt to improve diet and exercise,discussed healthy life style -discussed sales order administrator referral but pt refusing -states was seen [...] He underwent an inpatient detox treatment in [place], He now goes to AA meetings 5 [...] opinion by urology. He was seen by [facility] on 05/17/2015 , last seen [...] aggressive risk factor modification. 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 [address] [address] Bertin Bernard MD Stage 3a chronic kidney disease (HCC); Essential hypertension from Last 3 Months Immunizations Immunization Administration Dates Next Due Influenza Split 06/12/2013,07/04/2012 [...] Visit [facility] [address] [place] [address] Bertin Bernard MD [address] [facility] [address] [place] [phone] Health Maintenance Due Date Last Done Comments Colorectal Cancer Screening: Annual FOBT 2001 Colorectal Cancer Screening: Colonoscopy 2001 Colorectal Cancer Screening: Sigmoidoscopy 2001 Hepatitis B Vaccine (1 of 3 - Risk 3-dose series) 2012 Diabetes: Ophthalmology Exam 07/16/2023 Diabetes: Pedal Pulse Checked 07/16/2023 Diabetes: Sensory Foot Exam 07/16/2023 Diabetes: Visual Foot Exam 07/16/2023 Diabetes: Hemoglobin A1C 08/27/2023 05/28/2023 Influenza Vaccine (Season Ended) 2025 06/19/2023, 05/12/2022, 05/30/2021, Additional history exists Pneumococcal Vaccine: 50+ Years Completed 03/01/2022, 03/01/2017, 05/07/2014, Additional history exists Pneumococcal Vaccine: Peds ( 0 to 5 Years) and At-Risk Patients (6 to 49 Years) Discontinued 03/01/2022, 03/01/2017, 05/07/2014, Additional [place] [id number] [place] [id number] Medicare Medicaid [place] Care Teams Brand Strategist Relationship Specialty Start Date End Date Raul Quintanilla MD [address] [place] [address] [place] [id number] PCP - General Internal Medicine 08/25/24
--- OUTSIDE RECORDS SUMMARY | 2024-12-17 13:47 | XMS_ITS | Clinical Summary ---
Author Organization [address] [place] [address] Address [address] [place] [address] Phone Care Team Providers Care Button Breaker Operator Name Role Phone Raul Nava MD [...] mL/min/1.73 square meter and albuminuria creatinine ratio bet* ([facility] V24, [facility] V28) 09/02/2024 Mixed hyperlipidemia 09/02/2024 Human immunodeficiency virus (HIV) disease ([facility] V24, [facility] V28) 09/02/2024 Personal history of alcoholism ([facility] V24, [facility] V28) 09/02/2024 Esophageal varices without b leeding ([facility] V24, [facility] V28) 09/02/2024 Tubular adenoma of colon 09/02/2024 Obesity (BMI 30.0-34.9) 09/02/2024 Dry cough 09/02/2024 Varicose veins of both lower extremities 024 Immunizations Name Administration Dates Next Due COVID-19 [...] Upcoming Encounters Date Type Department Care Team ([facility] st Contact Info) Description 12/23/2024 9:45 AM EDT Office Visit Orthopedic Surgery - [place] [address] [phone] Jaime Kenny, DPPancho [address] [address] Health Maintenance Due Date Last Done Comments MMR Vaccines (1 of 2 - Risk [...] 06/15/2024 Hypertension/CHF/CAD Annual BMP Blood Test 09/02/2024 COVID-19 Vaccine (6 - Mixed Product risk ) 01/25/2025 07/28/2024, 06/05/2022, 01/24/2022, Additional history exists Hepatitis A Vaccines (2 of 2 - Risk 2-dose series) 02/12/2025 08/14/2024 DTaP,Tdap,and Td Vaccines (2 - Td or Tdap) 06/19/2033 06/19/2023 Zoster Vaccines Completed 04/20/2021, 02/11/2021 Influenza Vaccine Completed 06/12/2024, , 05/12/2022, Additional history exists RSV Immunization Adult Patients Completed 08/14/2024 HIB Vaccines Aged Out No longer eligi ble based on patient's age to complete this topic HPV Vaccines Aged Out No longer eligi ble based on patient's age to complete this topic IPV Vaccines Aged Out No longer eligi ble based on patient's age to complete this topic Meningococcal B Vaccine Aged Out No l onger eligible based on patient's age to complete this topic RSV Immunization Patients Under 20 months Aged Out No longer eligible based on patient's age to complete this topic Varicella Vaccines Aged Out No longer eligible based on patient's age to complete this topic Insurance MEDICARE [place]ICA[place] - [place] Care Teams Button Breaker Operator Relationship Specialty Start Date End Date Raul Nava MD [address] [place] [address] [place] [address] PCP - General 05/28/24
--- OUTSIDE RECORDS SUMMARY | 2024-12-17 13:48 | XMS_ITS | Patient Health Record ---
Author Organization [facility] Address [address] [place] [address] Care Team Providers Care Motor Scooter Repairer Name Role Phone Socorro Arceo MD, Raul Primary Care Provide r Unavailable Mick Durán Unavailable [phone] Amado Velez M.D. Unavailable Unavailable Allergies No Known Allergies Reason For Referral No Information Medications Medication SIG (Take, Route, Frequency, Duration) [...] morni ng for 90 days 09/04/2023 Active Immunizations Vaccine Route Administration Date Status Comme nts Flu vaccine no Preserv 3 and > Unknown 06/08/2015 Admin istered Influenza Unknown 05/11/2018 Administered Influenza Unknown 05/06/2019 Administered Influenza Unknown 05/04/2020 Administered Influenza Unknown 07/05/2022 Administered Influenza Unknown 07/04/2023 Administered Social History Tobacco Use: Social History Observation Description Date Details (start date - stop date) Never Smoker NA - NA Tobacco Use/Smoking Question Answer Notes Patient is a nonsmoker Alcohol Screen Question Answer Notes Did you have a drink containing alcohol in the p ast year? No Points 0 Interpretation Negative Section Notes: He does not smoke; EtOH as p er HPI He does not smoke; Alcohol a buse--still has a couple of drinks per day He does not smoke; Alcohol a buse--he reports that he stopped alcholol as of 11/14/2013 He does not smoke; Alcohol abuse--he reports that he stopped alcholol as of 11/14/2013 pt has been sober for 8 months He does not smoke; Alcohol a buse--he reports that he stopped alcholol as of 11/14/2013. He does not smoke; Alcohol a buse--he reports that he stopped alcholol as of 11/14/2013. He does not smoke; Alcohol a buse--he reports that he stopped alcholol as of 11/14/2013. He does not smoke; Alcohol a buse--he reports that he stopped alcholol as of 11/14/2013. He does not smoke; Alcohol a buse--sobriety since 2013. He does not smoke; Alcohol a buse--sobriety for approx. 10 years as of the 07/2022 OV He does not smoke; Alcohol a buse--sobriety for approx. 10 years as of the 07/2022 OV He does not smoke; Alcohol a buse--sobriety for approx. 10 years as of the 07/2022 OV Problems Problem Type SNOMED Code ICD Code Onset Dates Problem Status W/U Status Risk Notes Problem Gastro-esophageal reflux disease without esophagitis (968385239) Gastro-esophageal reflux disease without esophagitis (K21.9) Active confirmed Problem 608120776 Encounter for screening for malignant neoplasm of colon (Z12.11) Active confirmed Problem 869129822 History of adenomatous polyp of colon (Z86.010) Active confirmed Problem History of polyp of colon (situation) (480617427) Personal history of colonic polyps (Z86.010) Active confirmed Problem Esophageal varices without bleeding (20554299) Esophageal varices without bleeding (I85.00) Active confirmed Problem Diverticular disease of colon (415674014) Diverticulosis of large intestine without perforation or abscess without bleeding (K57.30) Active confirmed Problem 938005416 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) Active confirmed Problem 957740282 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) Active confirmed Problem 692504674 GERD with esophagitis (K21.0) Active confirmed Problem Cirrhotic (341344230) Cirrhosis (K74.60) Active confirmed Problem Gastroesophageal reflux disease (983669827) GERD (gastroesophageal reflux disease) (K21.9) Active confirmed Problem Gastroesophageal reflux disease with esophagitis (disorder) (157749669) Gastroesophageal reflux disease with esophagitis without hemorrhage (K21.00) Active confirmed Vital Signs Temperature 98.6 degrees Fahrenheit 01/29/2024 Blood pressure diastolic 00 mm Hg 01/29/2024 Height 72 in 01/29/2024 Blood pressure systolic 000 mm Hg 01/29/2024 Weight 249 lbs 01/29/2024 BMI 33.77 kg/m2 01/29/2024 Encounters Encounter Location Date Provider Diagnosis [facility] [address] [place] [phone] 03/10/2024 Mick Durán Colon cancer screeni ng Z12.11 ; Personal history of colonic polyps Z86.010 ; Diverticulosis of large intestine without perforation or abscess without bleeding K57.30 ; Other hemorrhoids K64.8 ; Other specified disease of esophagus K22.89 ; Hiatal hernia K44.9 ; Cirrhosis K74.60 and Gastro-esophageal reflux disease without esophagitis K21.9 [facility] [address] [place] [phone] 01/29/2024 Mick Durán 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 ; Alcoholic cirrhosis of liver without ascites K70.30 ; History of adenomatous polyp of colon Z86.010 ; Encounter for screening for malignant neoplasm of colon Z12.11 ; Esophageal varices without bleeding I85.00 and GERD (gastroesophageal reflux disease) K21.9 [facility] [address] [place] [phone] 09/12/2024 Mick Durán Assessments Encounter Date Diagnosis (ICD Code) Assessment [...] keep you advised of his progress. 01/29/2024 Cirrhosis with alcoholism (ICD-10 - K70.30) [...] to keep you advised of his progress. 03/10/2024 Diverticulosis of large intestine without perforation [...] to keep you advised of his progress. 03/10/2024 Other hemorrhoids (ICD-10 - K64.8) 01/29/2024 [...] to keep you advised of his progress. 03/10/2024 Other specified disease of esophagus (ICD-10 [...] to keep you advised of his progress. 03/10/2024 Hiatal hernia (ICD-10 - K44.9) 01/29/2024 GERD (gastroesophageal reflux disease) (ICD-10 - K21.9) Overall, Mook [...] to keep you advised of his progress. 03/10/2024 Cirrhosis (ICD-10 - K74.60) 03/10/2024 Gastro-esophageal reflux disease without esophagitis (ICD-10 - K21.9) Plan Of Treatment Pending Test Test Name Order Date LIVER PROFILE 08/02/2022 CBC w DIFF 04/21/2021 CBC w DIFF 08/02/2022 PROTHROMBIN TIME (PT, INR) 12/24/2018 ALPHA-FETOPROTEIN,TUMOR MARKER 9 ALPHA-FETOPROTEIN,TUMOR MARKER 3 ALPHA-FETOPROTEIN,TUMOR MARKER 1 ALPHA-FETOPROTEIN,TUMOR MARKER 7 ALPHA-FETOPROTEIN,TUMOR MARKER 2 US ABD 08/02/2022 US ABD 04/21/2021 Prothrombin [...] Name:Mick Durán , 01/20/2025 11:10:00 AM, [address] [facility], [address], [place], [address], Insurance Providers Payer Name Payer Address Payer Phone Subscriber Number Group Number Insured Name Patient Relationship to Insured Coverage Start Date Coverage End Date MEDICARE [place] [address] [place] [address] [id number] MOOK FREEMAN Self - patient is the insured MEDICAID OF [facility] [address] [place] [address] [id number] MOOK FREEMAN Self - patient is the insured Medical (General) History Medical History History ICD Code Diverticulitis Esophageal ulcer/esophagitis in 2006--neg bx--F/U EGD in 07/12 WNL-no significant esophagitis and biopsies were negative for Hall's esophagus; he does have a small to moderate size hiatal hernia HIV infection-for >20 yrs Mild AK in 12/2012--describes a neg. ca rdiac cath [...]
[2024-12-18 06:23] LABS: Lyme Abs Screen <0.90 index
[2024-12-19 10:28] LABS: IgA 206 mg/dL (70-320); IgG 1002 mg/dL (600-1540); IgM 150 mg/dL (50-300)
== END 2024-12-17 11:21 | disposition home or self-care (01) ==
LOC: HO.LAB 11:20
PROVIDERS: Absent Provider Psychiatry & Neurology Neurology; PCP Internal Medicine; Visit Provider Student in an Organized Health Care Education/Training Program
DX: G62.9 Polyneuropathy, unspecified (principal)
CPT/HCPCS: 36415; 82607; 82746; 82784; 86334; 86617; 86618

== ENCOUNTER 2025-01-13 11:57 | Outpatient (REF) | payer MEDICARE, MEDICAID, SELFPAY ==
[2025-01-13 13:18] LABS: Imm Gran Abs Auto 0.01 X10*3/uL (0.00-0.03); Imm Gran Pct Auto 0.2 % (0.0-0.4); MANUAL DIFF FLAG SCAN; PLT CLUMP 1; SCAN SMEAR FLAG 1
[2025-01-13 13:20] LABS: Basophils Absolute Auto 0.1 X10*3/uL (0.0-0.2); Basophils Percent Auto 1.2 % (0-2); Eosinophils Absolute Auto 0.2 X10*3/uL (0.0-0.4); Eosinophils Percent Auto 3.2 % (0-4); Hematocrit 45.4 % (42.0-52.0); Hemoglobin 15.5 g/dl (14.0-18.0); Lymphocytes Absolute Auto 1.8 X10*3/uL (1.2-4.9); Lymphocytes Percent Auto 31.1 % (20-40); Mean Corpuscular HGB Conc 34.1 g/dl (31.0-36.0); Mean Corpuscular Hemoglobin 30.8 pg (27.0-33.0); Mean Corpuscular Volume 90.3 fL (80.0-98.0); Monocytes Absolute Auto 0.6 X10*3/uL (0.1-1.2); Monocytes Percent Auto 9.5 % (2-11); Neutrophils Absolute Auto 3.2 x10*3/uL (2.0-8.3); Neutrophils Percent Auto 54.8 % (45-73); Red Blood Count 5.03 X10*6/uL (4.60-5.80); Red Cell Distribution Width 13.6 % (11.0-16.0)
--- OUTSIDE RECORDS SUMMARY | 2025-01-13 13:20 | XMS_ITS ---
Author Organization [facility] Address [address] [place] [address] Care Team Providers Care Electronic Resources Librarian Name Role Phone Socorro Arceo MD, Raul Primary Care Provide r Unavailable Mick Durán Unavailable [phone] Amado Velez M.D. Unavailable Unavailable REASON FOR [...] Problem Status W/U Status Risk Notes Problem Personal history of colonic polyps (Z86.010) Active confirmed Problem Diverticular disease of colon (977722858) Diverticulosis of large intestine without perforation or abscess without bleeding (K57.30) Active confirmed Problem Cirrhotic (848890371) Cirrhosis (K74.60) Active confirmed Problem Gastro-esophagea l reflux disease without esophagitis (111201098) Gastro-esophageal reflux disease without esophagitis (K21.9) Active confirmed Encounters Encounter Location Date Provider Diagnosis [facility] [address] [place] [address] [place] [phone] 03/10/2024 Mick Durán Colon cancer scree nina [...] Provider Name:Mick Durán , 01/20/2025 11:10:00 AM, [address] [place] [address], [place] [address], [place], [address], Progress Notes * ANDREW FREEMAN FDOB: [birth year] (74 yo M)Acc No.[id number]:03/10/2024 EGD and COL/MAC Patient:?ANDREW FREEMAN Provider:?Mick Durán MD :1950???Age:73 Y???Sex:Male Nicholas e:03/10/2024 Address:[address] [place], [place] [phone] Pcp:Raul heaton MD Subjective: * Chief Complaints: [...] FLW-UP 10 YRS DOCD, Modifiers: 1P , [address]77[address] UPPR GI ENDOSCOPY, DIAGNOSIS * * The named appointment provid er may or may not be the originator of this progress note, and it is not deemed complete until electronically signed by the appointment provider. Sign off status: Pending * Provider:?Mick Durán MD Date:? 024 Generated for Precious grajeda/Carin/Inez on:?01/13/2025 12:13 PM EDT
--- OUTSIDE RECORDS SUMMARY | 2025-01-13 13:20 | XMS_ITS | Clinical Summary ---
Author Organization [address] [place] [address] Address [address] [place] [address] Phone Care Team Providers Care Field Adjuster Name Role Phone Raul Nava MD Primary [...] Take 1 tablet by mouth daily. Active Jardiance 10 mg tablet Take 1 tablet (10 mg total) by mouth. at bedtime. 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 Erectile dysfunction due to diseases classified elsewhere 09/02/2024 Chronic kidney disease (CKD) stage G3a/A2, moderately decreased glomerular filtration rate (GFR) between 45-59 mL/min/1.73 square meter and albuminuria creatinine ratio bet* ([facility] V24, [facility] V28) 09/02/2024 Mixed hyperlipidemia 09/02/2024 Human immunodeficiency virus (HIV) disease ([facility] V24, [facility] V28) 09/02/2024 Personal history of alcoholism ([facility] V24, [facility] V28) 09/02/2024 Esophageal varices without b leeding ([facility] V24, [facility] V28) 09/02/2024 Tubular adenoma of colon 09/02/2024 Obesity (BMI 30.0-34.9) 09/02/2024 Dry cough 09/02/2024 Varicose veins of both lower extremities 024 Encounters Date Type Department Care Team Description 12/23/2024 9:45 AM EDT Office Visit Orthopedic [facility] [address] [phone] Jaime Kenny DPM Posterior tibial tendinitis of right leg (Primary Dx); Posterior tibial tendinitis of left leg; Primary osteoarthritis of both feet; Dermatophytosis of nail; Pain in toe of right foot; Type II diabetes mellitus with peripheral circulatory disorder (CMS/HCC V24, CMS/HCC V28); Metatarsalgia of both feet; Bilateral femoral artery stenosis ([facility] V24); Corns and callosities; Pain in toe of left foot from Last 3 Months [...] Care Team (Late st Contact Info) Description 02/25/2025 10:00 AM EDT Office Visit Orthopedic Surgery [facility] [address] [phone] Jaime Kenny DPM [address] [address] Health Maintenance Due Date Last Done Comments Diabetes: Annual GFR (Glomerular Filtration Rate) 1952 Diabetes: Annual Foot Exam 1962 Diabetes: Annual Retina Eye Exam 1962 Hepatitis B Vaccines (1 of 3 - Risk 3-dose series) 2012 MMR Vaccines (1 of 2 - Risk 2-dose series) 11/07/2012 Abdominal Aortic Aneurysm (AAA) Screen 06/15/2024 Cholesterol Screening (Lipid Panel) 06/15/2024 Colorectal Cancer Screening: Colonoscopy 06/15/2024 Depression Screening 06/15/2024 Falls Risk Assessment 06/15/2024 Hepatitis C Screening 06/15/2024 Medicare Annual Wellness Visit 06/15/2024 Social Influencers of Health Screening 06/15/2024 Hypertension/CHF/CAD Annual BMP Blood Test 09/02/2024 Diabetes: Annual Urine Albumin-Creatinine Ratio (uACR) 12/23/2024 Diabetes: Blood Sugar Control Test (HGBA1C) 12/23/2024 COVID-19 Vaccine (6 - Mixed Product risk season) 2025 07/28/2024, 06/05/2022, 01/24/2022, Additional history exists Hepatitis A Vaccines (2 of 2 - Risk 2-dose series) 02/12/2025 08/14/2024 Meningococcal ACWY Vaccine (4 - Risk 2-dose series) 03/24/2029 03/24/2024, 07/12/2017, 03/01/2017 DTaP,Tdap,and Td Vaccines (4 - Td or Tdap) 06/19/2033 06/19/2023, 10/10/2012, 05/13/2009 Zoster Vaccines Completed 04/20/2021, 02/01, 10/10/2012 Pneumococcal Vaccine: 50+ Years Completed 03/01/2022, 03/01/2017, 05/07/2014, Additional history exists Influenza Vaccine Completed 06/12/2024, , 05/12/2022, Additional [...] Insurance MEDICARE MEDICAID - [place] Care Teams Field Adjuster Relationship Specialty Start Date End Date Raul Nava MD [address] [place] [address] [place] [address] PCP - General 05/28/24
--- OUTSIDE RECORDS SUMMARY | 2025-01-13 13:20 | XMS_ITS | Clinical Summary ---
Author Organization [facility] Address [address] [address] Phone Care Team Providers Care Pit Crane Operator Name Role Phone Raul Quintanilla MD Primary [...] :Stage 3a chronic kidney disease (HCC),Essential hypertension TAKE 1 TABLET BY MOUTH EVERY MORNING 30 tablet 3 5 Active Active Problems Problem Noted Date Diagnosed Date Stage 3b chronic kidney disease 05/26/2024 Obese class I 07/10/2023 07/16/2023 Overview (07/16/2023): Last Assessment & Plan: -Advised pt to improve diet and exercise,discussed healthy life style -discussed dietary director referral but pt refusing -states was seen [...] He underwent an inpatient detox treatment in [place], He now goes to AA meetings 5 [...] opinion by urology. He was seen by [facility] on 05/17/2015 , last seen [...] aggressive risk factor modification. According to pt group sales representative did not recommend ASA given his Hx GERD. 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 Alcoholism 04/26/2012 07/16/2023 Encounters Date Type Department Care Team Description 11/16/2024 Refill [facility] [address] [phone] Bertin Bernard MD Stage 3a chronic kidney [...] Visit [facility] [address] [place] [address] Bertin Bernard MD [address] [address] Health Maintenance Due Date Last Done [...] 03/01/2022, 03/01/2017, 05/07/2014, Additional history exists Insurance [place] [id number] Medicare Medicaid [place] Care Teams Pit Crane Operator Relationship Specialty Start Date End Date Raul Quintanilla MD [address] [place] [address] PCP - General Internal Medicine 08/25/24
--- OUTSIDE RECORDS SUMMARY | 2025-01-13 13:20 | XMS_ITS ---
Author Organization [facility] Address [address] [facility] [address] [place] [address] Care Team Providers Care Fire Extinguisher Charger Name Role Phone Socorro Arceo MD, Raul Primary Care Provide r Mick Chow Unavailable [phone] Amado Velez M.D. Unavailable Unavailable REASON FOR VISIT omepraole Rx Medications Medication SIG (Take, Route, Fr equency, Duration) Notes Start Date End Date Status Omeprazole 20 MG 1 Orally QAM for 90 days 07/24/20 20 Active Encounters Encounter Location Date Provider Diagnosis [facility] [address] [place] [address] [place] [phone] 09/12/2024 Mick Durán Plan Of Treatment Medication Medication Name Sig Start Date Stop Date Notes Omeprazole 20 MG 1 Orally QAM for 90 days 07/24/2020 Next Appt Details Provider Name:Mick Durán , 01/20/2025 11:10:00 AM, [address] [place] [address], [address], [place], [address], Progress Notes * ANDREW FREEMAN FDOB: [birth year] (74 yo M)Acc No.[id number]:09/12/2024 Patient:?ANDREW FREEMAN :1950???Age:74 Y???Sex:Male Address:[address] [place] [address] [place] [address] * Refills? Refill Omeprazole Capsule Delayed Release, 20 MG, Orally, 90, 1, QAM, 90 days, Refills=3 * true * Date:? Generated for Precious grajeda/Carin/eTransmitting on:?01/13/2025 12:13 PM EDT
--- OUTSIDE RECORDS SUMMARY | 2025-01-13 13:21 | XMS_ITS ---
Author Organization [facility] Address [address] [place] [address] Care Team Providers Care Soda Worker Name Role Phone Socorro Arceo MD, Raul Primary Care Provide r Unavailable Mick Durán Unavailable [phone] Amado Velez M.D. Unavailable Unavailable Allergies No [...] Risk Notes Problem Esophageal varices without bleeding (I85.00) Active confirmed Vital Signs Temperature 98.6 degrees Fahrenheit 01/29/20 24 Blood pressure systolic 000 mm Hg 01/29/20 24 Blood pressure diastolic 00 mm Hg 024 Height 72 in 01/29/2024 Weight 249 lbs 01/29/2024 BMI 33.77 kg/m2 01/29/2024 Encounters Encounter Location Date Provider Diagnosis [facility] [address] [place] [address] 01/29/2024 Mick Durán 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 [...] Provider Name:Mick Durán , 01/20/2025 11:10:00 AM, [address] [place] [address], [address], [address], Progress Notes * LYDIA MOOK FDOB: [birth year] (73 yo M)Acc No.[id number]:01/29/2024 Progress Notes Patient:?MOOK FREEMAN Provider:?Mick Durán MD :1950???Age:73 Y???Sex:Male Nicholas e:01/29/2024 Address:[address] [place], [place] [address] Pcp:Raul heaton MD Subjective: * Chief Complaints: [...] Procedure Codes:?3017F COLOR ECTAL CA SCREEN DOC [id number] TOBACCO [id number] BP SCR NOT PRFRM REC REASON NOS * Preventive Medicine:? ??Counseling:?Care goal follow-up plan:?Above Normal BMI Follow-up?Giving encouragement to exercise,?BMI management provided?Yes.? * Follow Up:?prn * * Sign off status: Completed true * Provider:?Mick Durán MD Date:? 024 Generated for Precious grajeda/Carin/Giselleitting on:?01/13/2025 01:20 PM EDT History and Physical Notes * [...]
--- OUTSIDE RECORDS SUMMARY | 2025-01-13 13:21 | XMS_ITS | Patient Health Record ---
Author Organization [facility] Address [address] [place] [address] Care Team Providers Care Gas Distribution And Emergency Clerk Name Role Phone Socorro Arceo MD, Raul Primary Care Provide r Unavailable Mick Durán Unavailable [phone] Amado Velez M.D. Unavailable Unavailable Allergies No [...] Notes Problem Gastro-esophageal reflux disease without esophagitis (075028229) Gastro-esophageal reflux disease without esophagitis (K21.9) Active confirmed Problem 169965513 Encounter for screening for malignant neoplasm of colon (Z12.11) Active confirmed Problem 502153741 History of adenomatous polyp of colon (Z86.010) Active confirmed Problem History of polyp of colon (situation) (383423968) Personal history of colonic polyps (Z86.010) Active confirmed Problem Esophageal varices without bleeding (14180644) Esophageal varices without bleeding (I85.00) Active confirmed Problem Diverticular disease of colon (673019360) Diverticulosis of large intestine without perforation or abscess without bleeding (K57.30) Active confirmed Problem 237360893 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) Active confirmed Problem 899616301 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) Active confirmed Problem 594261513 GERD with esophagitis (K21.0) Active confirmed Problem Cirrhotic (017032909) Cirrhosis (K74.60) Active confirmed Problem Gastroesophageal reflux disease (970953707) GERD (gastroesophageal reflux disease) (K21.9) Active confirmed Problem Gastroesophageal reflux disease with esophagitis (disorder) (090473737) Gastroesophageal reflux disease with esophagitis without hemorrhage (K21.00) Active confirmed Vital Signs Temperature 98.6 degrees Fahrenheit 01/29/2024 Blood pressure diastolic 00 mm Hg 01/29/2024 Height 72 in 01/29/2024 Blood pressure systolic 000 mm Hg 01/29/2024 Weight 249 lbs 01/29/2024 BMI 33.77 kg/m2 01/29/2024 Encounters Encounter Location Date Provider Diagnosis [facility] Outpatient [address] [place] [id number] 03/10/2024 Mick Durán Colon cancer screeni ng Z12.11 ; Personal history of colonic polyps Z86.010 ; Diverticulosis of large intestine without perforation or abscess without bleeding K57.30 ; Other hemorrhoids K64.8 ; Other specified disease of esophagus K22.89 ; Hiatal hernia K44.9 ; Cirrhosis K74.60 and Gastro-esophageal reflux disease without esophagitis K21.9 [facility] [address] [place] [address] 01/29/2024 Mick Durán 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 ; Alcoholic cirrhosis of liver without ascites K70.30 ; History of adenomatous polyp of colon Z86.010 ; Encounter for screening for malignant neoplasm of colon Z12.11 ; Esophageal varices without bleeding I85.00 and GERD (gastroesophageal reflux disease) K21.9 [facility] [address] [place] [address] 09/12/2024 Mick Durán Assessments Encounter Date Diagnosis [...] Date LIVER PROFILE 08/02/2022 CBC w DIFF 08/02/2022 CBC w DIFF 04/21/2021 PROTHROMBIN TIME (PT, INR) 12/24/2018 ALPHA-FETOPROTEIN,TUMOR MARKER 3 ALPHA-FETOPROTEIN,TUMOR MARKER 1 ALPHA-FETOPROTEIN,TUMOR MARKER 7 ALPHA-FETOPROTEIN,TUMOR MARKER 2 ALPHA-FETOPROTEIN,TUMOR MARKER 9 US ABD 04/21/2021 US ABD 08/02/2022 Prothrombin Time INR 07/06/2023 Prothrombin Time INR 04/21/2021 Prothrombin Time INR 08/02/2022 Liver Panel 04/21/2021 Liver Fibrosis Pnl 07/06/2023 US abdomen comp w elastography 3 Future Test Test Name Order Date UPPER GI ENDOSCOPY 01/20/2014 UPPER GI ENDOSCOPY 12/24/2018 COLONOSCOPY 12/24/2018 UPPER GI ENDOSCOPY 01/29/2024 COLONOSCOPY 01/29/2024 Next Appt Details Provider Name:Mick Durán , 01/20/2025 11:10:00 AM, [address], [address], [place], [address], Insurance Providers Payer Name Payer Address Payer Phone Subscriber Number Group Number Insured Name Patient Relationship to Insured Coverage Start Date Coverage End Date MEDICARE [place] [address] [place] [address] [phone] [id number] MOOK FREEMAN Self - patient is the insured MEDICAID OF [facility] [address] [place] [address] [id number] MOOK FREEMAN Self - patient is the insured Medical (General) History Medical History History ICD Code Diverticulitis Esophageal ulcer/esophagitis in 2006--neg bx--F/U EGD in 07/12 WNL-no significant esophagitis and biopsies were negative for Hall's esophagus; he does have a small to moderate size hiatal hernia HIV infection-for >20 yrs Mild AL in 12/2012--describes a neg. ca rdiac cath [...]
[2025-01-13 13:46] LABS: Alanine Aminotransferase 32 U/L (0-40); Albumin Level 4.2 g/dL (3.5-5.0); Alkaline Phosphatase 71 U/L (39-117); Anion Gap 13 (12-20); Aspartate Amino Transferase 35 U/L (5-37); Bilirubin Total 0.6 mg/dL (0.0-1.0); Blood Urea Nitrogen 30 mg/dL (9-16); Calcium 9.4 mg/dL (8.4-10.2); Carbon Dioxide 22 mmol/L (22-29); Chloride 109 mmol/L (96-108); Estimated Glomerular Filt Rate 34; Glucose Random 196 mg/dL (60-115); Potassium 4.2 mmol/L (3.3-5.1); Sodium 140 mmol/L (135-145); Total Protein 7.2 g/dL (6.5-8.0)
[2025-01-13 14:40] LABS: Platelet Count 169 X10*3/uL (160-400); White Blood Count 5.9 X10*3/uL (4.8-10.8)
[2025-01-13 14:41] LABS: SLIDE REVIEW VERIFIED
[2025-01-15 13:13] LABS: HIV RNA PCR Qn Copies NOT DETECTED copies/mL (NOT DETECTED); HIV RNA PCR Qn Log Copies NOT DETECTED (NOT DETECTED)
[2025-01-18 21:33] LABS: Absolute CD3 Count 1523 cells/uL (840-3060); Absolute CD4 Count 841 cells/uL (490-1740); Absolute CD8 Count 745 cells/uL (180-1170); Absolute Lymphocytes 1870 cells/uL (850-3900); CD4 CD8 Ratio 1.13 (0.86-5.00); Percent CD3 Cells 81 % (57-85); Percent CD4 Cells 45 % (30-61); Percent CD8 Cells 40 % (12-42)
== END 2025-01-13 11:58 | disposition home or self-care (01) ==
LOC: HO.HHCL 11:57
PROVIDERS: Visit Provider Student in an Organized Health Care Education/Training Program
DX: Z21 Asymptomatic human immunodeficiency virus [HIV] infection status (principal)
CPT/HCPCS: 36415; 80053; 85025; 86359; 86360; 87536

== ENCOUNTER 2025-05-05 14:16 | Outpatient (REF) | payer MEDICARE, MEDICAID, SELFPAY ==
--- OUTSIDE RECORDS SUMMARY | 2025-05-05 15:29 | XMS_ITS | Clinical Summary ---
Author Organization [facility] Address [address] [place] [address] Phone Care Team Providers Care Household Refrigerator Mechanic Name Role Phone Raul Nava MD Primary [...] square meter and albuminuria creatinine ratio bet* ([facility] V24, [facility] V28) 09/02/2024 Mixed hyperlipidemia 09/02/2024 Human immunodeficiency virus (HIV) disease ([facility] V24, [facility] V28) 09/02/2024 Personal history of alcoholism ([facility] V24, [facility] V28) 09/02/2024 Esophageal varices without b leeding ([facility] V24, [facility] V28) 09/02/2024 Tubular adenoma of colon 09/02/2024 Obesity (BMI 30.0-34.9) 09/02/2024 Dry cough 09/02/2024 Varicose veins of both lower extremities 024 Encounters Date Type Department Care Team Description 04/15/2025 10:15 AM EDT Office Visit Orthopedic Surgery [facility] [address] [address] Jaime Kenny DPM Posterior tibial tendinitis of right leg (Primary Dx); Posterior tibial tendinitis of left leg; Primary osteoarthritis of both feet; Dermatophytosis of nail; Diabetic mononeuropathy simplex ([facility] V24, [facility] V28); Acquired hallux valgus of right foot; Acquired hallux valgus of left foot 02/25/2025 10:00 AM EDT Office Visit Orthopedic [facility] [address] [address] Jaime Kenny DPM Posterior tibial tendinitis of left leg (Primary Dx); Posterior tibial tendinitis of right leg; Primary osteoarthritis of both feet; Dermatophytosis of nail; Pain in toe of right foot; Pain in toe of left foot; Corns and callosities; Bilateral femoral artery stenosis ([facility] V24); Metatarsalgia of both feet; Diabetic mononeuropathy simplex ([facility] V24, [facility] V28); Type II diabetes mellitus with peripheral circulatory disorder ([facility] V24, [facility] V28); Acquired hammer toe of right foot; Hammer toe of left foot; Acquired hallux valgus of right foot; Acquired hallux valgus of left foot; Follow-up exam from Last 3 Months Immunizations Name Administration Dates Next Due COVID-19 (Moderna/Spikevax) 12yo and older 06/05 Social History Tobacco Use Types Packs/Day Years Used Date Smoking Tobacco: Never Assessed Sex and Gender Information Value Date Recorded Sex Assigned at Male 02/24/2025 11:17 AM EDT Legal Sex Male 11:40 AM EDT Gender Identity Male 02/24/2025 11:17 AM EDT Sexual Orientation Not on file Last Filed Vital Signs Vital Sign Reading Time Taken Comments Blood Pressure - - Pulse - - Temperature - - Respiratory Rate - - Oxygen Saturation - - Inhaled Oxygen Concentration - - Weight 108 kg (238 lb 1.6 oz) 04/15/2025 10:14 A M EDT Height 180.3 cm (5' 10.98 ) 04/15/2025 10:14 AM EDT Body Mass Index 33.22 04/15/2025 10:14 AM EDT Plan of Treatment Upcoming Encounters Date Type Department Care Team (Late st Contact Info) Description 06/01/2025 3:00 PM EDT Office Visit Orthopedic Surgery - [place] [address] [address] Jaime Kenny, DPM [address] [address] Health Maintenance Due Date Last Done Comments Diabetes: Annual GFR (Glomerular Filtration Rate) 1950 Diabetes: Annual Foot Exam 1962 Diabetes: Annual Retina Eye Exam 1962 Hepatitis B Vaccines (1 of 3 - Risk 3-dose series) 2012 MMR Vaccines (1 of 2 - Risk 2-dose series) 11/07/2012 Cholesterol Screening (Lipid Panel) 06/15/2024 Colorectal Cancer Screening: Colonoscopy 06/15/2024 Falls Risk Assessment 06/15/2024 Hepatitis C Screening 06/15/2024 Medicare Annual Wellness Visit 06/15/2024 Social Influencers of Health Screening 06/15/2024 Hypertension/CHF/CAD Annual BMP Blood Test 09/02/2024 Depression Screening 09/03/2024 Diabetes: Annual Urine Albumin-Creatinine Ratio (uACR) 12/23/2024 Diabetes: Blood Sugar Control Test (HGBA1C) 12/23/2024 COVID-19 Vaccine (6 - Mixed Product risk season) 2025 07/28/2024, 06/05/2022, 01/24/2022, Additional history exists Influenza Vaccine (#1) 2025 , 06/19/2023, 05/12/2022, Additional history exists Meningococcal ACWY Vaccine (4 - Risk 2-dose series) 03/24/2029 03/24/2024, 07/12/2017, 03/01/2017 DTaP,Tdap,and Td Vaccines (4 - Td or Tdap) 06/19/2033 06/19/2023, 10/10/2012, 05/13/2009 Zoster Vaccines Completed 04/20/2021, 02/01, 10/10/2012 Pneumococcal Vaccine: 50+ Years Completed 03/01/2022, 03/01/2017, 05/07/2014, Additional history exists RSV Immunization Adult Patients Completed 08/14/2024 Hepatitis A Vaccines Completed 02/12/2025, 08/14/20 HIB Vaccines Aged Out No longer eligi [...] on patient's age to complete this topic Procedures Procedure Name Priority Date/Time Associated Diagnosis Comments XR FOOT 3+ VIEWS LEFT Routine 02/25/2025 10:17 AM EDT Follow-up exam from Last 3 Months Results * XR Foot 3+ Views Left (02/25/2025 10:17 AM EDT) Anatomical Region Laterality Modality Lower Extremities, Foot Left Computed Radiography Narrative 02/25/2025 12:26 PM EDT Left foot 3 views Severe bunion deformity hammertoe contractures No fracture. No radiopaque foreign joint spaces Arthritis moderate severe Foot position advanced pes planus with Talus navicular uncovering decreased calcaneal inclination anterior displaced symes line talus navicular joint to calcaneal cuboid joint Jaime Kenny DPM IMG XR PROCEDURES Final R esult from Last [address] [id number] MEDICARE MEDICAID - [place] Care Teams Household Refrigerator Mechanic Relationship Specialty Start Date End Date Raul Nava MD [address] [place] [address] PCP - General 05/28/24
--- OUTSIDE RECORDS SUMMARY | 2025-05-05 15:29 | XMS_ITS | Encounter Summary ---
Author Organization [facility] Address [address] [place] [address] Phone Care Team Providers Care Budget Examiner Name Role Phone Pcp, Unknown Primary Care Provider Unavailabl e Encounter Details Date Type Department Care Team (Latest Contact Info) Description 01/08/2019 Ancillary Orders [facility] [address] [place] [address] [place] [address] Paresh Marcus, DO [address] [place] [address] Dyspnea on exertion Social History Tobacco Use Types Packs/Day Years Used Date Smoking Tobacco: Never Assessed Sex and Gender Information Value Date Recorded Sex Assigned at Not on file Legal Sex Male 9:59 PM EDT Gender Identity Not on file Sexual Orientation Not on file documented as of this encounter Plan of Treatment Not on file documented as of this encounter Results * Holter Monitor 24 Hours (01/08/2019 8:29 AM EDT) Anatomical Region Laterality Modality Heart Other Narrative 01/10/2019 12:48 PM EDT Holter monitor report Indication shortness of breath Findings: The underlying rhythm is a sinus rhythm with average heart rate 61 bpm, minimal heart rate 38 bpm, maximum heart rate 125 bpm. There were frequent PVCs occurring 1% of total beats. Most of these were isolated PVCs. There were rare ventricular couplets and rare ventricular bigeminy. There were very rare ventricular couplet. Rare premature atrial contractions. Conclusion: Frequent PVCs. Procedure Note Ken Florez MD - 01/10/2019 Holter monitor report Indication shortness of breath Findings: The underlying rhythm is a sinus rhythm with average heart rate 61 bpm,minimal heart rate 38 bpm, maximum heart rate 125 bpm. There were frequent PVCs occurring 1% of total beats. Most of these wereisolated PVCs. There were rare ventricular couplets and rare ventricularbigeminy. There were very rare ventricular couplet. Rare premature atrial contractions. Conclusion: Frequent PVCs. Paresh Angeline DO [facility] ORDERABLE S Final Result documented in this encounter Visit Diagnoses Diagnosis Dyspnea on exertion Other dyspnea and respiratory abnormality documented in this encounter Care Teams Budget Examiner Relationship Specialty Start Date End Date Pcp, Unknown PCP - General 01/10/19 01/10/19 documented as of this encounter Additional Source Comments The information contained in this document represents components of the legal health record. It is not the complete legal health record.[facility]
--- OUTSIDE RECORDS SUMMARY | 2025-05-05 15:29 | XMS_ITS | Clinical Summary ---
Author Organization [facility] Address [address] [address] Phone Care Team Providers Care Supervisor Accounts Receivable Name Role Phone Raul Quintanilla MD Primary [...] diet and exercise,discussed healthy life style -discussed marketing production manager referral but pt refusing -states was [...] He underwent an inpatient detox treatment in [place], He now goes to AA meetings 5 [...] opinion by urology. He was seen by [facility] on 05/17/2015 , last [...] aggressive risk factor modification. According to pt part time receptionist did not recommend ASA given his Hx GERD. 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 Alcoholism 04/26/2012 07/16/2023 Encounters Date Type Department Care Team Description 03/21/2025 Refill [facility] [address] [phone] Bertin Bernard MD Stage 3a chronic kidney [...] Visit [facility] the [address] [place] [address] Bertin Bernard MD [address] [address] Health Maintenance Due Date Last Done Comments Colorectal Cancer Screening: Annual FOBT 2001 Colorectal Cancer Screening: Colonoscopy 2001 Colorectal Cancer Screening: Sigmoidoscopy 2001 Hepatitis B Vaccine (1 of 3 - Risk 3-dose series) 2012 Diabetes: Ophthalmology Exam 07/16/2023 Diabetes: Pedal Pulse Checked 07/16/2023 Diabetes: Sensory Foot Exam 07/16/2023 Diabetes: Visual Foot Exam 07/16/2023 Diabetes: Hemoglobin A1C 08/27/2023 05/28/2023 Influenza Vaccine (#1) 2025 , 05/12/2022, 05/30/2021, Additional history exists Pneumococcal Vaccine: 50+ Years Completed 03/01/2022, 03/01/2017, 05/07/2014, Additional history exists Pneumococcal Vaccine: Peds ( 0 to 5 Years) and At-Risk Patients (6 to 49 Years) Discontinued 03/01/2022, 03/01/2017, 05/07/2014, Additional history exists [place] [id number] Medicare Medicaid [place] Care Teams Supervisor Accounts Receivable Relationship Specialty Start Date End Date Raul Quintanilla MD [address] [place] [address] PCP - General Internal Medicine 08/25/24
--- OUTSIDE RECORDS SUMMARY | 2025-05-05 15:29 | XMS_ITS | Clinical Summary ---
Author Organization [facility] Address [address] [address] Phone Care Team Providers Care Theatre Arts Professor Name Role Phone Unavailable Primary Care Provider Unavailabl e Social History Tobacco Use Types Packs/Day Years Used Date Smoking Tobacco: Never Assessed Education Answer Date Recorded Are you interested in more education? Not on sandrine e 12/29/2022 Are you concerned about learning? Not on file 12/29/2022 No 12/29/2022 No 12/29/2022 Digital Access Answer Date Recorded No 01/27/2023 No 01/27/2023 No 01/27/2023 Reliable internet access at home? Not on file 01/27/2023 Device with a working camera? Not on file Sex and Gender Information Value Date Recorded Sex Assigned at Not on file Legal Sex Male 9:59 PM EDT Gender Identity Not on file Sexual Orientation Not on file Plan of Treatment Health Maintenance Due Date Last Done Comments Adult Td,Tdap Booster 1952 LIPID PANEL 1952 DEPRESSION SCREENING 1964 SMOKING Hx and SMOKELESS TOBACCO SCREENING 1965 HEPATITIS C SCREENING 1970 COLOGUARD 1997 COLONOSCOPY 1997 COLORECTAL CANCER SCREENING 1997 FIT TEST 1997 FOBT 1997 SIGMOIDOSCOPY 1997 VIRTUAL COLONOSCOPY 1997 PNEUMOCOCCAL VACCINES (50+ years) (1 of 1 - PCV) 2002 ZOSTER VACCINES (1 of 2) 2002 INFLUENZA VACCINE (#1) 2025 0, 06/17/2019 COVID-19 VACCINE (2 - 2024-2 6 season) 2025 10/29/2020 RSV VACCINE (1 - 1-dose 75+ series) 2027 HEPATITIS A VACCINES Aged Out No long er eligible based on patient's age to complete this topic HIB VACCINES Aged Out No longer eligi ble based on patient's age to complete this topic MENINGOCOCCAL VACCINES (ACWY) Aged Out No longer eligible based on patient's age to complete this topic MENINGOCOCCAL VACCINES (B) Aged Out N o longer eligible based on patient's age to complete this topic Medical Devices Not on file Insurance MEDICARE PART A & B HEALTH MEDICARE PART A & [place] B Member Subscriber Plan / Payer (Ef fective 2014-Present) Name:Braulio Mook Member ID:[id number] Relation to Subscriber:Self Name:Mook Ramsey Subscriber ID:[id number] Payer ID:[id number] Group ID:Not on file Type:Medicare Address: [employer] [address] [facility] [place] PART A & B [facility] MEDIC[facility] PART [facility] & B [facility] & B Member Subscriber Plan / Payer (Ef fective 2014-Present) Name:Mook Ramsey Member ID:[id number] Relation to Subscriber:Self Name:Mook Ramsey Subscriber ID:[id number] Payer ID:[id number] Group ID:Not on file Type:Medicare Address: [employer] [address] [place] [id number] [facility] & B [facility] MEDICARE PART A & B [facility] Additional Source Comments The information contained in this document represents components of the legal health record. It is not the complete legal health record.[facility]
== END 2025-05-05 14:17 | disposition home or self-care (01) ==
LOC: HO.LAB 14:16
PROVIDERS: PCP Internal Medicine; Visit Provider Internal Medicine
DX: K70.30 Alcoholic cirrhosis of liver without ascites (principal)
CPT/HCPCS: 36415; 82105

== ENCOUNTER 2025-05-25 09:48 | Outpatient (REF) | payer MEDICARE, MEDICAID, SELFPAY ==
--- OUTSIDE RECORDS SUMMARY | 2024-03-10 08:50 | XMS_ITS ---
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 Name Role Phone Socorro Arceo MD, Raul Primary Care Provide r Unavailable Mick Durán Unavailable [phone] Roscoe LAWTON, Marvel Unavailable Unavailable REASON FOR VISIT gerd,alcoholic cirrhosis,screening,hx polyps, esophageal varices Medications Medication SIG (Take, Route, Frequency, Duration) Notes Start Date End Date Status Losartan Potassium-HCTZ 50-12.5 MG 1 tablet Orally Once a day Active Biktarvy 50-200-25 MG 1 tablet Orally On ce a day for 30 day(s) Active Atorvastatin Calcium 40 MG 1 tablet Oral ly Once a day Active Vitamin B12 100 MCG 1 tablet Orally Once a day Active Metoprolol Succinate ER 100 MG 1 tablet Orally Once a day for 90 days Active Omeprazole 20 MG 1 Orally QAM 07/24/2020 Active Famotidine 40 MG 1 Orally At bedtime 07/24/2019 Active Omeprazole 20 MG 1 Orally Every morni ng for 90 days 09/04/2023 Active Problems Problem Type SNOMED Code ICD Code Onset Dates Problem Status W/U Status Risk Notes Problem History of polyp of colon (situation) (845793074) Personal history of colonic polyps (Z86.010) Active confirmed Problem Diverticular disease of colon (632271688) Diverticulosis of large intestine without perforation or abscess without bleeding (K57.30) Active confirmed Problem Cirrhotic (796983514) Cirrhosis (K74.60) Active confirmed Problem Gastro-esophagea l reflux disease without esophagitis (447832939) Gastro-esophageal reflux disease without esophagitis (K21.9) Active confirmed Encounters Encounter Location Date Provider Diagnosis [facility] Out[facility] [address] [place], [place] [id number] 03/10/2024 Mick Durán Colon cancer scree nina [...] Provider Name:Mick Durán , 05/06/2026 10:20:00 AM, [address] [place] [address], [place] [address], [place], [address], Progress Notes * ANDREW FREEMAN FDOB: [birth year] (74 yo M)Acc No.[id number]:03/10/2024 EGD and COL/MAC Patient: ANDREW SALDANA Provider: Falguni Durán MD :1950 A ge:73 Y S ex:Male Date:03/10/2024 Address:[address] [place], [place] [id number] Pcp:Raul heaton MD Subjective: * Chief Complaints: * 1 . Gerd,alcoholic cirrhosis,screening,hx polyps, esophageal varices. * Medical History: * Medications: T aking Biktarvy 50-200-25 MG Tablet 1 tablet Orally [...] FLW-UP 10 YRS DOCD, Modifiers: 1P , 36104 UPPR GI ENDOSCOPY, DIAGNOSIS * * The named appointment provid er may or may not be the originator of this progress note, and it is not deemed complete until electronically signed by the appointment provider. Sign off status: Pending * Provider: Falguni Durán MD Date: 0 03/10/2024 Generated for Precious grajeda/Carin/Giselleitting on: 0 05/25/2025 11:57 AM EDT
--- OUTSIDE RECORDS SUMMARY | 2025-01-20 07:10 | XMS_ITS ---
Author Organization [facility] Address [address] [place] [address] Care Team Providers Care Prescription Clerk Lenses Name Role Phone Socorro Arceo MD, Raul Primary Care Provide Mick Sanchez [phone] Roscoe LAWTON, Marvel Unavailable Unavailable REASON FOR VISIT abdominal pain Encounters Encounter Location Date Provider Diagnosis [facility] [address] [place] [address] 01/20/2025 Mick Durán Plan Of Treatment Next Appt Details Provider Name:Mick Durán , 05/06/2026 10:20:00 AM, [address], [address], [place], [address], Progress Notes * ANDREW FREEMAN FDOB: [birth year] (74 yo M)Acc No.[id number]:01/20/2025 Progress Notes Patient: ANDREW SALDANA Provider: Falguni Durán MD :1950 A ge:74 Y S ex:Male Date:01/20/2025 Address:[address] [place] [address], [place], [place] Pcp:Raul heaton MD Subjective: * Chief Complaints: [...] 0 01/20/2025 Generated for Precious grajeda/Carin/Inez on: 0 05/25/2025 11:58 AM EDT
[2025-05-25 11:18] LABS: Appearance Urine Clear; Glucose Urine UA Negative (Negative); PH 5.5 (5.0-9.0); Specific Gravity - Urine 1.020 (1.005-1.025)
[2025-05-25 11:34] LABS: MANUAL DIFF FLAG NO
[2025-05-25 11:45] LABS: Hematocrit 42.9 % (42.0-52.0); Hemoglobin 14.6 g/dl (14.0-18.0); Imm Gran Abs Auto 0.01 X10*3/uL (0.00-0.03); Imm Gran Pct Auto 0.2 % (0.0-0.4); Lymphocytes Absolute Auto 3.0 X10*3/uL (1.2-4.9); Mean Corpuscular HGB Conc 34.0 g/dl (31.0-36.0); Mean Corpuscular Hemoglobin 31.7 pg (27.0-33.0); Mean Corpuscular Volume 93.3 fL (80.0-98.0); NRBC Abs Auto 0.000 X10*3/uL (0.0-0.012); NRBC Pct Auto 0.0 /100WBC (0.0-0.2); Platelet Count 182 X10*3/uL (160-400); Red Blood Count 4.60 X10*6/uL (4.60-5.80); White Blood Count 6.5 X10*3/uL (4.8-10.8)
--- OUTSIDE RECORDS SUMMARY | 2025-05-25 11:58 | XMS_ITS | Clinical Summary ---
Author Organization [facility] Address [address] [address] Phone Care Team Providers Care Diesel Inspector Name Role Phone Unavailable Primary Care Provider [...] Payer (Ef fective 2014-Present) Name:Braulio Mook Member ID:[id number] Relation to Subscriber:Self Name:Mook Ramsey Subscriber ID:[id number] Payer ID:[id number] Group ID:Not on file Type:Medicare Address: [employer] [address] [facility] B [place] MED[place]ARE PART A & B [facility] MEDIC[facility] PART A & B [facility] & B Member Subscriber Plan / Payer (Ef fective 2014-Present) Name:Mook Ramsey Member ID:[id number] Relation to Subscriber:Self Name:Mook Ramsey Subscriber ID:[id number] Payer ID:[id number] Group ID:Not on file Type:Medicare Address: [employer] [address] [place] [id number] [facility] & B [facility] MEDICARE PART A & B Member Subscriber Plan / Payer (Ef fective 2014-Present) Name:Mook Ramsey Member ID:[id number] Relation to Subscriber:Self Name:Mook Ramsey Subscriber ID:[id number] Payer ID:[id number] Group ID:Not on file Type:Medicare Address: [facility] [employer] [facility] [address] [place] [address] [facility] Additional Source Comments The information contained in this document represents components of the legal health record. It is not the complete legal health record.[facility]
--- OUTSIDE RECORDS SUMMARY | 2025-05-25 11:58 | XMS_ITS | Clinical Summary ---
Author Organization 175 [facility] Address [address] [place] [address] Phone Care Team Providers Care Otm Consultant Name Role Phone Raul Nava MD Primary [...] square meter and albuminuria creatinine ratio bet* ([facility] V24, [facility] V28) 09/02/2024 Mixed hyperlipidemia 09/02/2024 Human immunodeficiency virus (HIV) disease ([facility] V24, [facility] V28) 09/02/2024 Personal history of alcoholism ([facility] V24, [facility] V28) 09/02/2024 Esophageal varices without b leeding ([facility] V24, [facility] V28) 09/02/2024 Tubular adenoma of colon 09/02/2024 Obesity (BMI 30.0-34.9) 09/02/2024 Dry cough 09/02/2024 Varicose veins of both lower extremities 024 Encounters Date Type Department Care Team Description 04/15/2025 10:15 AM EDT Office Visit Orthopedic Surgery [facility] [address] [address] Jaime Kenny, DPM Posterior tibial tendinitis of right leg (Primary Dx); Posterior tibial tendinitis of left leg; Primary osteoarthritis of both feet; Dermatophytosis of nail; Diabetic mononeuropathy simplex ([facility] V24, [facility] V28); Acquired hallux valgus of right foot; Acquired hallux valgus of left foot 02/25/2025 10:00 AM EDT Office Visit Orthopedic Surgery [facility] [address] [address] Jaime Kenny, DPM Posterior tibial tendinitis of left leg (Primary Dx); Posterior tibial tendinitis of right leg; Primary osteoarthritis of both feet; Dermatophytosis of nail; Pain in toe of right foot; Pain in toe of left foot; Corns and callosities; Bilateral femoral artery stenosis ([facility] V24); Metatarsalgia of both feet; Diabetic mononeuropathy simplex ([facility] V24, [facility] V28); Type II diabetes mellitus with peripheral circulatory disorder ([facility] V24, [facility] V28); Acquired hammer toe of [...] PM EDT Office Visit Orthopedic Surgery - [place] [address] [address] Jaime Kenny, DPM [address] [address] Health Maintenance Due Date Last [...] 08/14/2024 Hepatitis A Vaccines Completed 02/12/2025, 08/14/20 24 HIB Vaccines Aged Out No longer eligi [...] talus navicular joint to calcaneal cuboid joint us Jaime Kenny DPPancho IMG XR PROCEDURES Final R esult from Last [address] [place] [address] MEDICARE MEDICAID - [place] Care Teams Otm Consultant Relationship Specialty Start Date End Date Raul Nava MD [address] [place] [address] [place] [address] PCP - General 05/28/24
--- OUTSIDE RECORDS SUMMARY | 2025-05-25 11:58 | XMS_ITS | Patient Health Record ---
Author Organization [facility] Address [address] [facility] [address] [place] [address] Care Team Providers Care Linking Machine Operator Name Role Phone Socorro Arceo MD, Raul Primary Care Provide r Unavailable Mick Durán Unavailable [phone] Marvel Malhotra MD Unavailable Unavailable Allergies No Known Allergies Results Component Value Reference Range Notes Alpha Fetoprotein Reviewed date:05/06/2025 05:54:54 PM Interpretation: Performing Lab:[facility], [address] [place] [phone] Notes/Report: Alpha Fetoprotein 3.1 <6.1 ng/mL This test was performed using the Evelio Seminole chemiluminescent method. Values obtained from different assay methods cannot be used interchangeably. AFP levels, regardless of value, should not be interpreted as absolute evidence of the presence or absence of disease. THIS TEST WAS PERFORMED AT: [facility] [address] [place] [phone] NINA SOLORIO MD Reason For Referral No Information Medications Medication SIG (Take, Route, Frequency, Duration) Notes Start Date End Date Status Omeprazole 20 MG 1 Orally Every morni ng for 90 days 09/04/2023 Active Metoprolol Succinate ER 50 MG 1 tablet Orally twice a day for 90 days Active Trulicity 0.75 MG/0.5ML as directed Subcutaneous Active Famotidine 40 MG 1 Orally At bedtime for 90 days 07/24/2019 Active Vitamin B12 100 MCG 1 tablet Orally Once a day Active Biktarvy 50-200-25 MG 1 tablet Orally On ce a day for 30 day(s) Active Losartan Potassium 100 MG 1 tablet Orally Once a day Active Atorvastatin Calcium 80 MG 1 tablet Orally Once a day Active Immunizations Vaccine Route Administration Date Status [...] Notes Problem Gastro-esophageal reflux disease without esophagitis (555315066) Gastro-esophageal reflux disease without esophagitis (K21.9) Active confirmed Problem 338485160 Encounter for screening for malignant neoplasm of colon (Z12.11) Active confirmed Problem 789859762 History of adenomatous polyp of colon (Z86.010) Active confirmed Problem History of polyp of colon (situation) (495625935) Personal history of colonic polyps (Z86.010) Active confirmed Problem Esophageal varices without bleeding (75921331) Esophageal varices without bleeding (I85.00) Active confirmed Problem Diverticular disease of colon (143462227) Diverticulosis of large intestine without perforation or abscess without bleeding (K57.30) Active confirmed Problem 958277568 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) Active confirmed Problem 303968410 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) Active confirmed Problem 635178678 GERD with esophagitis (K21.0) Active confirmed Problem Cirrhotic (954972935) Cirrhosis (K74.60) Active confirmed Problem Gastroesophageal reflux disease (450695977) GERD (gastroesophageal reflux disease) (K21.9) Active confirmed Problem Gastroesophageal reflux disease with esophagitis (disorder) (881793034) Gastroesophageal reflux disease with esophagitis without hemorrhage (K21.00) Active confirmed Vital Signs Blood pressure diastolic 77 mm Hg 05/05/2025 Height 72 in 05/05/2025 Blood pressure systolic 111 mm Hg 05/05/2025 Weight 227 lbs 05/05/2025 BMI 30.78 kg/m2 05/05/2025 Encounters Encounter Location Date Provider Diagnosis [facility] [address] [place] [phone] 05/05/2025 Mick Durán 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 ; GERD with esophagitis K21.0 ; Encounter for screening for malignant neoplasm of colon Z12.11 and History of adenomatous polyp of colon Z86.010 [facility] [address] [place] [phone] 09/12/2024 Mick Durán [facility] [address] [place] [phone] 01/19/2025 Mick Durán [facility] [address] [place] [phone] 02/26/2025 Mick Durán Assessments Encounter Date Diagnosis (ICD Code) Assessment Notes Treatment Notes Treatment Clinical Notes Section Notes 05/05/2025 Cirrhosis with alcoholism (ICD-10 - K70.30) Overall, Mook appears quite well. We did review that his long-term sobriety has continued to prove very effective in keeping him well and stabilizing his liver disease. As far as his liver disease is concerned this is quite stable and the only test I think he needs currently is that of an alpha-fetoprote in level. His testing from the past several months including laboratories and ultrasound have otherwise been unrevealing and I do not think they need to be repeated at this time. I did encourage him to continue the long-term sobriety. In regard to the reflux this seems very stable on his current regimen. We did review the endoscopy from last year and I advised him to simply continue the current regimen of the daily omeprazole and nightly famotidine. We did review his negative colonoscopy from 2023 and the need for a follow-up colonoscopy in 2028 for further screening. If things remain well I will see him in 1 year for a follow-up office visit at which time I would plan to repeat an abdominal ultrasound and laboratories. I did advise him to contact me in the interim if he has any problems or questions I can be of assistance with. Mook was comfortable with this plan. Thank you again for allowing me to participate in Mook's care. I shall continue to keep you advised of his progress. 05/05/2025 GERD with esophagitis (ICD-10 - K21.0) Overall, Mook appears quite well. We did review that his long-term sobriety has continued to prove very effective in keeping him well and stabilizing his liver disease. As far as his liver disease is concerned this is quite stable and the only test I think he needs currently is that of an alpha-fetoprote in level. His testing from the past several months including laboratories and ultrasound have otherwise been unrevealing and I do not think they need to be repeated at this time. I did encourage him to continue the long-term sobriety. In regard to the reflux this seems very stable on his current regimen. We did review the endoscopy from last year and I advised him to simply continue the current regimen of the daily omeprazole and nightly famotidine. We did review his negative colonoscopy from 2023 and the need for a follow-up colonoscopy in 2028 for further screening. If things remain well I will see him in 1 year for a follow-up office visit at which time I would plan to repeat an abdominal ultrasound and laboratories. I did advise him to contact me in the interim if he has any problems or questions I can be of assistance with. Mook was comfortable with this plan. Thank you again for allowing me to participate in Mook's care. I shall continue to keep you advised of his progress. 05/05/2025 Encounter for screening for malignant neoplasm of colon (ICD-10 - Z12.11) Repeat colonoscopy in 2028 Overall, Mook appears quite well. We did review that his long-term sobriety has continued to prove very effective in keeping him well and stabilizing his liver disease. As far as his liver disease is concerned this is quite stable and the only test I think he needs currently is that of an alpha-fetoprote in level. His testing from the past several months including laboratories and ultrasound have otherwise been unrevealing and I do not think they need to be repeated at this time. I did encourage him to continue the long-term sobriety. In regard to the reflux this seems very stable on his current regimen. We did review the endoscopy from last year and I advised him to simply continue the current regimen of the daily omeprazole and nightly famotidine. We did review his negative colonoscopy from 2023 and the need for a follow-up colonoscopy in 2028 for further screening. If things remain well I will see him in 1 year for a follow-up office visit at which time I would plan to repeat an abdominal ultrasound and laboratories. I did advise him to contact me in the interim if he has any problems or questions I can be of assistance with. Mook was comfortable with this plan. Thank you again for allowing me to participate in Mook's care. I shall continue to keep you advised of his progress. 05/05/2025 History of adenomatous polyp of colon (ICD-10 - Z86.010) Overall, Mook appears quite well. We did review that his long-term sobriety has continued to prove very effective in keeping him well and stabilizing his liver disease. As far as his liver disease is concerned this is quite stable and the only test I think he needs currently is that of an alpha-fetoprote in level. His testing from the past several months including laboratories and ultrasound have otherwise been unrevealing and I do not think they need to be repeated at this time. I did encourage him to continue the long-term sobriety. In regard to the reflux this seems very stable on his current regimen. We did review the endoscopy from last year and I advised him to simply continue the current regimen of the daily omeprazole and nightly famotidine. We did review his negative colonoscopy from 2023 and the need for a follow-up colonoscopy in 2028 for further screening. If things remain well I will see him in 1 year for a follow-up office visit at which time I would plan to repeat an abdominal ultrasound and laboratories. I did advise him to contact me in the interim if he has any problems or questions I can be of assistance with. Mook was comfortable with this plan. Thank you again for allowing me to participate in Mook's care. I shall continue to keep you advised of his progress. Plan Of Treatment Pending Test Test Name Order Date LIVER PROFILE 08/02/2022 CBC w DIFF 08/02/2022 CBC w DIFF 04/21/2021 PROTHROMBIN TIME (PT, INR) 12/24/2018 ALPHA-FETOPROTEIN,TUMOR MARKER 3 ALPHA-FETOPROTEIN,TUMOR MARKER 1 ALPHA-FETOPROTEIN,TUMOR MARKER 7 ALPHA-FETOPROTEIN,TUMOR MARKER 2 ALPHA-FETOPROTEIN,TUMOR MARKER 9 ALPHA-FETOPROTEIN,TUMOR MARKER 5 US ABD 04/21/2021 US ABD 08/02/2022 Prothrombin [...] Name:Mick Durán , 05/06/2026 10:20:00 AM, [address] [facility], [address], [place], [address], Insurance Providers Payer Name Payer Address Payer Phone Subscriber Number Group Number Insured Name Patient Relationship to Insured Coverage Start Date Coverage End Date MEDICARE OF [facility] [address] [place] [id number] MOKO FREEMAN Self - patient is the insured MEDICAID OF [place] [facility] [address] [place] [phone] [id number] MOOK FREEMAN Self - patient is the insured Medical (General) History Medical History History ICD Code Diverticulitis Esophageal ulcer/esophagitis in 2006--neg bx--F/U EGD in 07/12 WNL-no significant esophagitis and biopsies were negative for Hall's esophagus; he does have a small to moderate size hiatal hernia HIV infection-for >20 yrs Mild SD in 12/2012--describes a neg. ca rdiac cath afterwards Alcohol abuse-U/S of liver i n 12/2013 c/w cirrhosis--no mass--in January of 2014 he had a normal liver profile, normal PT with INR, normal CBC with platelet count, and a normal alpha-fetoprotein level Elevated cholesterol Neg. colonoscopy in 07/2009 and 2004-he does have some diverticulosis and internal hemorrhoids Denies CVA,Lung disease,renal disease Hypertension Cirrhosis in relation to [...] with small tubular ad enomas COVID 08/2023 NIDDM Colonoscopy in March 2024 was negative fo r polyps Upper endoscopy in March 2024 was negative for varices, Hall's esophagus, and esophagitis. 4.4 cm thoracic aortic aneur ysm found in 2024 and being followed by cardiothoracic surgery at [facility] Surgical History Surgery Date(Month/Year) LE varicose veins
--- OUTSIDE RECORDS SUMMARY | 2025-05-25 11:58 | XMS_ITS | Encounter Summary ---
Author Organization [facility] Address [address] [place] [address] Phone Care Team Providers Care Software Sales Name Role Phone Pcp, Unknown Primary Care Provider Unavailabl e Encounter Details Date Type Department Care Team (Latest Contact Info) Description 01/08/2019 Ancillary Orders [facility] [address] [place] [address] Paresh Marcus, DO [address] [place] [address] Dyspnea on exertion Social History Tobacco Use [...] abnormality documented in this encounter Care Teams Software Sales Relationship Specialty Start Date End Date Pcp, Unknown PCP - General 01/10/19 01/10/19 documented as of this encounter Additional Source Comments The information contained in this document represents components of the legal health record. It is not the complete legal health record.[facility]
--- OUTSIDE RECORDS SUMMARY | 2025-05-25 11:58 | XMS_ITS | Clinical Summary ---
Author Organization [facility] Address [address] [address] Phone Care Team Providers Care Biomass Plant Manager Name Role Phone Raul Quintanilla MD Primary [...] diet and exercise,discussed healthy life style -discussed paper sheeter referral but pt refusing -states was seen [...] He underwent an inpatient detox treatment in [place], He now goes to AA meetings 5 [...] opinion by urology. He was seen by [facility] on 05/17/2015 , last seen on [...] aggressive risk factor modification. According to pt test borer helper did not recommend ASA given his Hx GERD. 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 Alcoholism 04/26/2012 07/16/2023 Encounters Date Type Department Care Team Description 03/21/2025 Refill [facility] [address] [phone] Bertin Bernard MD Stage 3a chronic kidney [...] Team (Late st Contact Info) Description 06/01/2025 1:30 PM EDT Office Visit [facility] the [address] [place] [phone] Bertin Bernard MD [address] [facility] [address] [place] [address] Health Maintenance Due Date Last [...] Discontinued 03/01/2022, 03/01/2017, 05/07/2014, Additional history exists Procedures Procedure Name Priority Date/Time Associated Diagnosis Comments CBC AND DIFFERENTIAL Routine 05/25/2025 11:31 AM EDT URINALYSIS WITH MICROSCOPIC Routine 05/25/2025 11:05 AM EDT from Last 3 Months Results * (ABNORMAL) CBC and Differential (05/25/2025 11:31 AM EDT) WBC 6.5 4.8 - 10.8 X10*3/uL See order comments RBC 4.60 4.60 - 5.80 X10*6/uL See order comments Hgb 14.6 14.0 - 18.0 g/dl See order comments Hematocrit 42.9 42.0 - 52.0 % See order comments MCV 93.3 80.0 - 98.0 fL See order comments MCH 31.7 27.0 - 33.0 pg See order comments MCHC 34.0 31.0 - 36.0 g/dl See order comments RDW 14.4 11.0 - 16.0 % See order comments Platelets 182 160 - 400 X10*3/uL See order comments MPV 10.6 9.4 - 12.4 fL See order comments Neutrophils % Auto 39.7(L) 45 - 73 % See order comments Immature Granulocytes 0.2 0.0 - 0.4 % See order comments Lymphocytes Relative 45.2(H) 20 - 40 % See order comments Monocytes 10.0 2 - 11 % See order comments Eosinophils Relative 3.8 0 - 4 % See order comments Basophils Relative 1.1 0 - 2 % See order comments nRBC Count 0.0 0.0 - 0.2 /100WBC See order comments Neutrophils Absolute 2.6 2.0 - 8.3 x10*3/uL See order comments Immature Grans (Absolute) 0.01 0.00 - 0.03 X10*3/uL See order comments Lymphocytes Absolute 3.0 1.2 - 4.9 X10*3/uL See order comments Monocytes Absolute 0.7 0.1 - 1.2 X10*3/uL See order comments Eosinophils Absolute 0.3 0.0 - 0.4 X10*3/uL See order comments Basophils Absolute 0.1 0.0 - 0.2 X10*3/uL See order comments NRBC Absolute 0.000 0.0 - 0.012 X10*3/uL See order comments 05/25/2025 11:3 1 AM EDT 05/25/2025 11:31 AM EDT us Bertin Bernard MD LAB BLOOD ORDERABLES Final Re sult [place] See order comments [place] [address] * Urinalysis with microscopic (05/25/2025 11:05 AM EDT) Color Urine Yellow See orde r comments Appearance Urine Clear See order comments pH Urine 5.5 5.0 - 9.0 See order comments Glucose Urine Negative Negative mg/dL See order comments Blood, Urine Negative Negative See ord er comments Specific [place] Urine 1.020 1.005 - 1.025 See order comments Protein [...] 0 - 2 /LPF See order comments 05/25/2025 11:0 5 AM EDT 05/25/2025 11:05 AM EDT us Bertin Bernard MD LAB URINE ORDERABLES Final Re sult [place] See order comments [place] [address] from Last 3 Months Insurance Medicare Medicaid [place] Medicare Medicaid [place] Care Teams Biomass Plant Manager Relationship Specialty Start Date End Date Raul Quintanilla MD [address] [place] [address] PCP - General Internal Medicine 08/25/24
[2025-05-25 11:59] LABS: Renal w Reflex Lab Use Only Order verified
[2025-05-25 12:03] LABS: Total Protein Urine Random < 7 mg/dL (<12)
[2025-05-25 12:10] LABS: Parathyroid Hormone Intact 61.8 pg/mL (8.7-77.1)
[2025-05-25 12:12] LABS: Syphilis Screen Nonreactive (Nonreactive)
[2025-05-25 12:20] LABS: Albumin Level 4.5 g/dL (3.5-5.0); Anion Gap 12 (12-20); Blood Urea Nitrogen 22 mg/dL (9-16); Calcium 9.4 mg/dL (8.4-10.2); Carbon Dioxide 25 mmol/L (22-29); Chloride 109 mmol/L (96-108); Estimated Glomerular Filt Rate 48; Magnesium 2.0 mg/dL (1.6-2.6); Potassium 4.7 mmol/L (3.3-5.1); Sodium 141 mmol/L (135-145)
[2025-05-25 12:21] LABS: Folate 11.7 ng/mL (> or = 4.0); Vitamin B12 560 pg/mL (200-900)
[2025-05-29 20:14] LABS: VITAMIN D (1,25 OH) D3 31 pg/mL; Vit D (1,25-Dihydroxy) Total 31 pg/mL (18-72); Vitamin D (1,25 OH) D2 <8 pg/mL
== END 2025-05-25 09:49 | disposition home or self-care (01) ==
LOC: HO.HHCL 09:48
PROVIDERS: PCP Internal Medicine; Visit Provider Internal Medicine Nephrology
DX: Z01.84 Encounter for antibody response examination (principal); N18.32 Chronic kidney disease, stage 3b; N25.0 Renal osteodystrophy; R68.89 Other general symptoms and signs
CPT/HCPCS: 36415; 80051; 81001; 82040; 82310; 82565; 82570; 82607; 82652; 82746; 83735; 83970; 84100; 84156; 84520; 85025; 86780

== ENCOUNTER 2025-07-01 14:38 | Outpatient (REF) | payer MEDICARE, MEDICAID, SELFPAY ==
--- OUTSIDE RECORDS SUMMARY | 2024-03-10 08:50 | XMS_ITS ---
Author Organization [facility] Address [address] [place] [address] Care Team Providers Care Analog Circuit Designer Name Role Phone Socorro Arceo MD, Raul Primary Care Provide r Unavailable Mick Durán Unavailable [phone] Roscoe LAWTON, Marvel Unavailable Unavailable REASON FOR [...] Problem History of polyp of colon (situation) (156586202) Personal history of colonic polyps (Z86.010) Active confirmed Problem Diverticular disease of colon (547829916) Diverticulosis of large intestine without perforation or abscess without bleeding (K57.30) Active confirmed Problem Cirrhotic (624942897) Cirrhosis (K74.60) Active confirmed Problem Gastro-esophagea l reflux disease without esophagitis (526624201) Gastro-esophageal reflux disease without esophagitis (K21.9) Active confirmed Encounters Encounter Location Date Provider Diagnosis [facility] [place] Outpatient [address] [place] [phone] 03/10/2024 Mick Durán Colon cancer scree nina [...] Provider Name:Mick Durán , 05/06/2026 10:20:00 AM, [address] [place] [address], [address], [address], Progress Notes * ANDREW FREEMAN FDOB: [birth year] (74 yo M)Acc No.[id number]:03/10/2024 EGD and COL/MAC Patient: ANDREW SALDANA Provider: Falguni Durán MD :1950 A ge:73 Y S ex:Male Date:03/10/2024 Address:[address] [place], [place] [phone] Pcp:Raul heaton MD Subjective: * Chief Complaints: [...] FLW-UP 10 YRS DOCD, Modifiers: 1P , 56070 UPPR GI ENDOSCOPY, DIAGNOSIS * * The named appointment provid er may or may not be the originator of this progress note, and it is not deemed complete until electronically signed by the appointment provider. Sign off status: Pending * Provider: Falguni Durán MD Date: 0 03/10/2024 Generated for Precious grajeda/Carin/Inez on: 07:01 PM EDT
--- OUTSIDE RECORDS SUMMARY | 2025-01-20 07:10 | XMS_ITS ---
Author Organization [facility] Address [address] [place] [address] Care Team Providers Care Assistant Professor Of Biochemistry Name Role Phone Socorro Arceo MD, Raul Primary Care Provide Mick Sanchez [phone] Roscoe LAWTON, Marvel Unavailable Unavailable REASON FOR VISIT abdominal pain Encounters Encounter Location Date Provider Diagnosis [facility] [address] [place] [address] 01/20/2025 Mick Durán Plan Of Treatment Next Appt Details Provider Name:Mick Durán , 05/06/2026 10:20:00 AM, [address], [address], [place], [address], Progress Notes * ANDREW FREEMAN FDOB: [birth year] (74 yo M)Acc No.[id number]:01/20/2025 Progress Notes Patient: ANDREW SALDANA Provider: Falguni Durán MD :1950 A ge:74 Y S ex:Male Date:01/20/2025 Address:[address] [place] [address], [place], [place] Pcp:Raul heaton MD Subjective: * Chief Complaints: [...] 01/20/2025 Generated for Precious grajeda/Carin/Inez on: 1 07:02 PM EDT
--- NOTE | ~2025-07-01 | XR_ITS ---
EXAMINATION: XR CHEST CLINICAL INFORMATION: post covid symptoms ? pneumonia COMPARISON: August 21, 2024. 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 TECHNIQUE: PA and lateral views FINDINGS: No hyperinflation. No consolidation, pleural effusion or pneumothorax. Cardiomediastinal silhouette size is unchanged. Calcified plaque thoracic aorta. Mild multilevel spondylosis throughout the axial skeleton. XR/XR chest 2V IMPRESSION: No acute airspace disease. Stable chest Electronically signed by: Juan Santillan MD 07/01/2025 03:02 PM EDT
--- OUTSIDE RECORDS SUMMARY | 2025-07-01 19:02 | XMS_ITS | Clinical Summary ---
Author Organization [facility] Address [address] [address] Phone Care Team Providers Care Tanker Serviceman Name Role Phone Unavailable Primary Care Provider [...] Payer (Ef fective 2014-Present) Name:Braulio Mook Member ID:[id number] Relation to Subscriber:Self Name:Mook Ramsey Subscriber ID:[id number] Payer ID:[id number] Group ID:Not on file Type:Medicare Address: [employer] [address] [facility] [place] MED[place] PART A & B [facility] MEDIC[facility] PART A & B [facility] A & B Member Subscriber Plan / Payer (Ef fective 2014-Present) Name:Mook Ramsey Member ID:[id number] Relation to Subscriber:Self Name:Mook Ramsey Subscriber ID:[id number] Payer ID:[id number] Group ID:Not on file Type:Medicare Address: [employer] [address] [place] [id number] [facility] & B [facility] MEDICARE PART A & B [facility] Additional Source Comments The information contained in this document represents components of the legal health record. It is not the complete legal health record.[facility]
--- OUTSIDE RECORDS SUMMARY | 2025-07-01 19:02 | XMS_ITS | Encounter Summary ---
Author Organization [facility] Address [address] [facility] [address] [place] [address] Phone Care Team Providers Care Oil House Attendant Name Role Phone Pcp, Unknown Primary Care Provider Unavailabl e Encounter Details Date Type Department Care Team (Latest Contact Info) Description 01/08/2019 Ancillary Orders [facility] [address] [place] [address] [place] [address] Paresh Marcus, DO [address] [place] [address] Dyspnea on exertion Social History Tobacco Use [...] abnormality documented in this encounter Care Teams Oil House Attendant Relationship Specialty Start Date End Date Pcp, Unknown PCP - General 01/10/19 01/10/19 documented as of this encounter Additional Source Comments The information contained in this document represents components of the legal health record. It is not the complete legal health record.[facility]
--- OUTSIDE RECORDS SUMMARY | 2025-07-01 19:02 | XMS_ITS | Clinical Summary ---
Author Organization [facility] Address [address] [place] [phone] Phone Care Team Providers Care Tailing Hand Name Role Phone Raul Quintanilla MD Primary [...] BY MOUTH EVERY MORNING 30 tablet 3 03/21/20 25 Active Trulicity 0.75 MG/0.5ML solution auto-injector INJECT ONE PEN (=0.75MG) SUBCUTANEOUSLY ONCE A WEEK DIRECTED Active Active Problems Problem Noted Date Diagnosed Date Stage 3b chronic kidney disease 05/26/2024 Obese class I 07/10/2023 07/16/2023 Overview (07/16/2023): Last Assessment & Plan: -Advised pt to improve diet and exercise,discussed healthy life style -discussed direct mail coordinator referral but pt refusing -states was seen [...] Last seen by Dr. Durán 01/2023 Tubular adenomatous polyp of colon 06/04/2023 Overview (07/16/2023): Last Assessment & Plan: Pt had colonoscopy 02/28/2019 that showed multiple tubular adenomas Dr Durán recommended a 5 year f/u Dental plaque on teeth 11/22/2022 Renal osteodystrophy 01/03/2022 Stage 3a chronic kidney [...] He underwent an inpatient detox treatment in [place], He now goes to AA meetings 5 [...] opinion by urology. He was seen by [facility] on 05/17/2015 , last seen [...] aggressive risk factor modification. According to pt rehabilitation physician did not recommend ASA given his Hx GERD. 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 Alcoholism 04/26/2012 07/16/2023 Encounters Date Type Department Care Team Description 06/01/2025 1:30 PM EDT Office Visit [facility] the [address] [place] [address] Bertin Bernard MD Stage 3a chronic kidney disease (HCC) (Primary Dx); Type 2 diabetes mellitus without complication (HCC); Renal osteodystrophy; Essential hypertension from Last 3 Months Immunizations [...] Sign Reading Time Taken Comments Blood Pressure 129/78 06/01/2025 1:38 PM EDT Pulse 78 06/01/2025 1:38 PM EDT Temperature - - Respiratory Rate - - Oxygen Saturation 99% 06/01/2025 1:38 PM EDT Inhaled Oxygen Concentration - - Weight 105 kg (231 lb) 06/01/2025 1:38 PM EDT Height 180.3 cm (5' 11 ) 11/12/2019 12:01 PM EDT Body Mass Index 32.22 11/12/2019 12:01 PM EDT Plan of Treatment Upcoming Encounters Date Type Department Care Team (Late st Contact Info) Description 03/01/2026 1:00 PM EDT Office Visit [facility] [address] [place], [place] [phone] Bertin Bernard MD [address] [facility] [address] [place] [address] Health Maintenance Due Date Last [...] Diagnosis Comments VITAMIN D 1,25 DIHYDROXY Routine 05/25/2025 11:31 AM EDT PTH, INTACT (HC) Routine 05/25/2025 11:3 1 AM EDT CBC AND DIFFERENTIAL Routine 05/25/2025 11:31 AM EDT ALBUMIN Routine 05/25/2025 11:26 AM EDT MAGNESIUM Routine 05/25/2025 11:26 AM EDT RENAL FUNCTION PANEL (HC) Routine 05/25/2025 11:26 AM EDT PROTEIN / CREATININE RATIO, URINE Routine 05/25/2025 11:05 AM EDT URINALYSIS WITH MICROSCOPIC Routine 05/25/2025 11:05 AM EDT from Last 3 Months Results * PTH, Intact (05/25/2025 11:31 AM EDT) Parathyroid Hormone, Intact 61.8 8.7 - 77.1 pg/mL See order comments 05/25/2025 11:3 1 AM EDT 05/25/2025 11:31 AM EDT us Bertin Bernard MD LAB [id number] SOLICITED RESULTS Final Result [place] See order comments [place] [address] * Vitamin D 1,25 dihydroxy (05/25/2025 11:31 AM EDT) Vitamin D, 1,25-Dihydroxy 31 18 - 72 pg/mL See order comments Vitamin D3 125 (OH)2 31 pg/mL See order comments Vitamin D2 125 (OH)2 <8 pg/mL See order comments Comment: Vitamin D3, 1,25(OH)2 indicates both endogenous production and supplementation. Vitamin D2, 1,25(OH)2 is an indicator of exogenous sources, such as diet or supplementation. Interpretation and therapy are based on measurement of Vitamin D,1,25(OH)2, Total. This test was developed and its analytical performance characteristics have been determined by [facility], [place], [place]. It has not been cleared or approved by the FDA. This assay has been validated pursuant to the CLIA regulations and is used for clinical purposes. THIS TEST WAS PERFORMED AT: [facility] [address] [address] MEGAN MCKEON MD,PHD 05/25/2025 11:3 1 AM EDT 05/25/2025 11:31 AM EDT us Bertin Bernard MD LAB BLOOD ORDERABLES Final Re sult [place] See order comments [place] [address] * (ABNORMAL) CBC and Differential (05/25/2025 11:31 [...] 1 AM EDT 05/25/2025 11:31 AM EDT Bertin Bernard MD LAB BLOOD ORDERABLES Final Re sult [place] See order comments [place] [address] * (ABNORMAL) Renal Function Panel (05/25/2025 11:26 AM EDT) Sodium 141 135 - 145 mmol/L See order comments Potassium 4.7 3.3 - 5.1 mmol/L See order comments Chloride 109(H) 96 - 108 mmol/L See order comments Bicarbonate (CO2) 25 22 - 29 mmol/L See order comments Anion Gap 12 12 - 20 See order comments BUN 22(H) 9 - 16 mg/dL See order comments Creatinine Serum 1.45(H) 0.5 - 1.4 mg/dL See order comments eGFR (Calc) 48 See orde r comments Comment: Chronic Kidney Disease: Estimated GFR < 60 mL/min/1.73m2 Severe Kidney Disease: Estimated GFR < 15 mL/min/1.73m2 Calcium 9.4 8.4 - 10.2 mg/dL See order comments Phosphorus, Serum 3.6 2.7 - 4.5 mg/dL See order comments 05/25/2025 11:2 6 AM EDT 05/25/2025 11:26 AM EDT Bertin Bernard MD LAB [id number] SOLICITED RESULTS Final Result [place] See order comments [place] [address] * Magnesium (05/25/2025 11:26 AM EDT) Magnesium 2.0 1.6 - 2.6 mg/dL See order comments 05/25/2025 11:2 6 AM EDT 05/25/2025 11:26 AM EDT Bertin Bernard MD LAB BLOOD ORDERABLES Final Re sult Performing Organization Address [facility] de Phone Number [place] See order comments [place] [address] * Albumin (05/25/2025 11:26 AM EDT) Albumin 4.5 3.5 - 5.0 g/dL See order comments 05/25/2025 11:2 6 AM EDT 05/25/2025 11:26 AM EDT Bertin Bernard MD LAB BLOOD ORDERABLES Final Re sult Performing Organization Address [facility] de Phone Number [place] See order comments [place] [address] * Protein, Total, Random Urine w/Creatinine (Protein/Creat Ratio) (05/25/2025 11:05 AM EDT) Creatinine, Urine 116.23 mg/dL See order comments Protein Urine Random <7 <12 mg/dL See order comments Protein/Creatin ine Ratio, Urine TNP <0.2 See order comments Comment: Unable to calculate urine protein creatinine ratio due to low creatinine or protein result. Unable to calculate urine protein creatinine ratio due to low creatinine or protein result. 05/25/2025 11:0 5 AM EDT 05/25/2025 11:05 AM EDT Bertin Bernard MD LAB URINE ORDERABLES Final Re sult Performing Organization Address [facility] de Phone Number [place] See order comments [place] [address] * Urinalysis with microscopic (05/25/2025 11:05 AM EDT) Color Urine Yellow See orde r comments Appearance Urine Clear See order comments pH Urine 5.5 5.0 - 9.0 See order comments Glucose Urine Negative Negative mg/dL See order comments Blood, Urine Negative Negative See ord er comments Specific [place] Urine 1.020 1.005 - 1.025 See order [...] order comments [place] [address] from Last 3 Months Insurance Medicare Medicaid [place] Medicare Medicaid [place] Care Teams Tailing Hand Relationship Specialty Start Date End Date Raul Quintanilla MD [address] [place] [address] PCP - General Internal Medicine 08/25/24
--- OUTSIDE RECORDS SUMMARY | 2025-07-01 19:02 | XMS_ITS | Patient Health Record ---
Author Organization [facility] Address [address] [facility] [address] [place] [address] Care Team Providers Care Tube Heater Name Role Phone Socorro Arceo MD, Raul Primary Care Provide r Unavailable Mick Durán Unavailable [phone] Marvel Malhotra MD Unavailable Unavailable Allergies No Known Allergies Results Component Value Reference Range Notes Alpha Fetoprotein Reviewed date:05/06/2025 05:54:54 PM Interpretation: Performing Lab:[facility], [address] [place] [phone] Notes/Report: Alpha Fetoprotein 3.1 <6.1 ng/mL This test was performed using the Evelio Childwold chemiluminescent method. Values obtained from different assay methods cannot be used interchangeably. AFP levels, regardless of value, should not be interpreted as absolute evidence of the presence or absence of disease. THIS TEST WAS PERFORMED AT: [facility] [address] [place] [phone] NINA SOLORIO MD Reason For Referral No Information Medications Medication SIG (Take, Route, Frequency, Duration) Notes Start Date End Date Status Omeprazole 20 MG 1 Orally Every morni ng; Duration: 90 days 09/04/2023 Active Metoprolol Succinate ER 50 MG 1 tablet Orally twice a day; Duration: 90 days Active Trulicity 0.75 MG/0.5ML as directed Subcutaneous Active Famotidine 40 MG 1 Orally At bedtime; Duration: 90 days 07/24/2019 Active Vitamin B12 100 MCG 1 tablet Orally Once a day Active Biktarvy 50-200-25 MG 1 tablet Orally On ce a day; Duration: 30 day(s) Active Losartan Potassium 100 MG [...] Notes Problem Gastro-esophageal reflux disease without esophagitis (924104902) Gastro-esophageal reflux disease without esophagitis (K21.9) Active confirmed Problem Screening for malignant neoplasm of colon (840022491) Encounter for screening for malignant neoplasm of colon (Z12.11) Active confirmed Problem History of adenomatous polyp of colon (565810612) History of adenomatous polyp of colon (Z86.010) Active confirmed Problem History of polyp of colon (situation) (246143460) Personal history of colonic polyps (Z86.010) Active confirmed Problem Esophageal varices without bleeding (78343825) Esophageal varices without bleeding (I85.00) Active confirmed Problem Diverticular disease of colon (115395718) Diverticulosis of large intestine without perforation or abscess without bleeding (K57.30) Active confirmed Problem Alcoholic cirrhosis (727957912) 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) Active confirmed Problem Alcoholic cirrhosis (377587205) 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) Active confirmed Problem Gastroesophageal reflux disease with esophagitis (disorder) (641764689) GERD with esophagitis (K21.0) Active confirmed Problem Cirrhotic (299964627) Cirrhosis (K74.60) Active confirmed Problem Gastroesophageal reflux disease (217126710) GERD (gastroesophageal reflux disease) (K21.9) Active confirmed Problem Gastroesophageal reflux disease with esophagitis (disorder) (614439302) Gastroesophageal reflux disease with esophagitis without hemorrhage (K21.00) Active confirmed Vital Signs Blood pressure diastolic 77 mm Hg 05/05/2025 Height 72 in 05/05/2025 Blood pressure systolic 111 mm Hg 05/05/2025 Weight 227 lbs 05/05/2025 BMI 30.78 kg/m2 05/05/2025 Encounters Encounter Location Date Provider Diagnosis [facility] [address] [place] [phone] 05/05/2025 Mick Durán 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 ; GERD with esophagitis K21.0 ; Encounter for screening for malignant neoplasm of colon Z12.11 and History of adenomatous polyp of colon Z86.010 [facility] [address] [place] [phone] 09/12/[address] [facility] [address] [place] [phone] 01/19/[address] [facility] [address] [place] [phone] 02/26/[address] [facility] [address] [place] [phone] 05/05/2025 Mick Durán Assessments Encounter Date Diagnosis (ICD [...] Name:Mick Durán , 05/06/2026 10:20:00 AM, [address], [address], [place], [address], Insurance Providers Payer Name Payer Address Payer Phone Subscriber Number Group Number Insured Name Patient Relationship to Insured Coverage Start Date Coverage End Date MEDICARE OF [place] [address] [place] [address] [id number] MOOK FREEMAN Self - patient is the insured MEDICAID OF [facility] [address] [place] [address] [id number] MOOK FREEMAN Self - patient is the insured Medical (General) History Medical History History ICD Code Diverticulitis Esophageal ulcer/esophagitis in 2006--neg bx--F/U EGD in 07/12 WNL-no significant esophagitis and biopsies were negative for Hall's esophagus; he does have a small to moderate size hiatal hernia HIV infection-for >20 yrs Mild CO in 12/2012--describes a neg. ca rdiac cath [...] and being followed by cardiothoracic surgery at [facility] Surgical History Surgery Date(Month/Year) LE varicose veins
--- OUTSIDE RECORDS SUMMARY | 2025-07-01 19:02 | XMS_ITS | Clinical Summary ---
Author Organization [address] [facility] Address [address] [place] [address] Phone Care Team Providers Care Scouring Train Operator Chief Name Role Phone Raul Nava MD Primary [...] square meter and albuminuria creatinine ratio bet* ([facility] V24, [facility] V28) 09/02/2024 Mixed hyperlipidemia 09/02/2024 Human immunodeficiency virus (HIV) disease ([facility] V24, [facility] V28) 09/02/2024 Personal history of alcoholism ([facility] V24, [facility] V28) 09/02/2024 Esophageal varices without b leeding ([facility] V24, [facility] V28) 09/02/2024 Tubular adenoma of colon 09/02/2024 Obesity (BMI 30.0-34.9) 09/02/2024 Dry cough 09/02/2024 Varicose veins of both lower extremities 024 Encounters Date Type Department Care Team Description 06/01/2025 3:00 PM EDT Office Visit Orthopedic Surgery [place] [address] [address] Jaime Kenny DPM Posterior tibial tendinitis of right leg (Primary Dx); Posterior tibial tendinitis of left leg; Primary osteoarthritis of both feet; Dermatophytosis of nail; Diabetic mononeuropathy simplex ([facility] V24, [facility] V28); Pain in toe of left foot; Pain in toe of right foot; Acquired hallux valgus of left foot; Acquired hallux valgus of right foot; Corns and callosities; Bilateral femoral artery stenosis ([facility] V24); Type II diabetes mellitus with peripheral circulatory disorder ([facility] V24, [facility] V28); Metatarsalgia of both feet; Hammer toe of left foot; Acquired hammer toe of right foot 04/15/2025 10:15 AM EDT Office Visit Orthopedic Surgery [facility] [address] [phone] Jaime Kenny DPM Posterior tibial tendinitis of right leg (Primary Dx); Posterior tibial tendinitis of left leg; Primary osteoarthritis of both feet; Dermatophytosis of nail; Diabetic mononeuropathy simplex ([facility] V24, [facility] V28); Acquired hallux valgus of right foot; Acquired hallux valgus of left foot from Last 3 Months Immunizations Immunization Administration Dates Next Due COVID-19 (Moderna/Spikevax) 14yo [...] Care Team (Late st Contact Info) Description 07/22/2025 2:30 PM EST Office Visit Orthopedic Surgery [place] [address] [place] [phone] Jaime Kenny, [address] [phone] Health Maintenance Due Date Last Done Comments Colorectal Cancer Screening: Colonoscopy 1952 Diabetes: Annual GFR (Glomerular Filtration Rate) 1952 Diabetes: Annual Foot Exam 1962 Diabetes: Annual Retina Eye Exam 1962 MMR Vaccines (1 of 2 - Risk 2-dose series) 1970 Hepatitis B Vaccines (1 of 3 - Risk 3-dose series) 2012 Cholesterol Screening (Lipid Panel) 06/15/2024 Falls Risk Assessment 06/15/2024 Hepatitis C [...] patient's age to complete [place] [address] MEDICARE MEDICAID - [place] Care Teams Scouring Train Operator Chief Relationship Specialty Start Date End Date Raul Nava MD [address] [place] [address] [place] [address] PCP - General 05/28/24
== END 2025-07-01 14:39 | disposition home or self-care (01) ==
LOC: HO.HHCX 14:38
PROVIDERS: PCP Internal Medicine; Visit Provider Nurse Practitioner Family
DX: R05.3 Chronic cough (principal); U09.9 Post COVID-19 condition, unspecified
CPT/HCPCS: 71046

== ENCOUNTER → 2025-07-01 14:42 | Outpatient (BNV) | payer MEDICARE, MEDICAID, SELFPAY | PROVIDERS: PCP Internal Medicine; Visit Provider Radiology Diagnostic Radiology | DX: U09.9 Post COVID-19 condition, unspecified (principal) | CPT/HCPCS: 71046 ==

== ENCOUNTER 2025-07-06 07:39 | Outpatient (REF) | payer MEDICARE, MEDICAID, SELFPAY ==
--- OUTSIDE RECORDS SUMMARY | 2024-03-10 07:50 | XMS_ITS ---
Author Organization [facility] Address [address] [place] [address] Care Team Providers Care It Communications Specialist Name Role Phone Socorro Arceo MD, Raul Primary Care Provide r Unavailable Mick Durán Unavailable [phone] Roscoe LAWTON, Marvel Unavailable Unavailable REASON FOR VISIT gerd,alcoholic cirrhosis,screening,hx polyps, esophageal varices Medications Medication SIG (Take, Route, Frequency, Duration) Notes Start Date End Date Status Losartan Potassium-HCTZ 50-12.5 MG 1 tablet Orally Once a day Active Biktarvy 50-200-25 MG 1 tablet Orally On ce a day; Duration: 30 day(s) Active Atorvastatin Calcium 40 MG 1 tablet Oral ly Once a day Active Vitamin B12 100 MCG 1 tablet Orally Once a day Active Metoprolol Succinate ER 100 MG 1 tablet Orally Once a day; Duration: 90 days Active Omeprazole 20 MG 1 Orally QAM 07/24/2020 Active Famotidine 40 MG 1 Orally At bedtime 07/24/2019 Active Omeprazole 20 MG 1 Orally Every morni ng; Duration: 90 days 09/04/2023 Active Problems Problem Type SNOMED Code ICD Code Onset Dates Problem Status W/U Status Risk Notes Problem History of polyp of colon (situation) (963685697) Personal history of colonic polyps (Z86.010) Active confirmed Problem Diverticular disease of colon (503372831) Diverticulosis of large intestine without perforation or abscess without bleeding (K57.30) Active confirmed Problem Cirrhotic (420668314) Cirrhosis (K74.60) Active confirmed Problem Gastro-esophagea l reflux disease without esophagitis (619652827) Gastro-esophageal reflux disease without esophagitis (K21.9) Active confirmed Encounters Encounter Location Date Provider Diagnosis [facility] [place] Outpatient [address] [place] [id number] 03/10/2024 Mick Durán Colon cancer scree nina Z12.11 ; Personal history of colonic polyps Z86.010 ; Diverticulosis of large intestine without perforation or abscess without bleeding K57.30 ; Other hemorrhoids K64.8 ; Other specified disease of esophagus K22.89 ; Hiatal hernia K44.9 ; Cirrhosis K74.60 and Gastro-esophageal reflux disease without esophagitis K21.9 Assessments Encounter Date Diagnosis (ICD Code) Assessment Notes Treatment Notes Treatment Clinical Notes Section Notes 03/10/2024 Colon cancer screening (ICD-10 - Z12.11) 03/10/2024 Personal history of colonic polyps (ICD-10 - Z86.010) 03/10/2024 Diverticulosis of large intestine without perforation or abscess without bleeding (ICD-10 - K57.30) 03/10/2024 Other hemorrhoids (ICD-10 - K64.8) 03/10/2024 Other specified disease of esophagus (ICD-10 - K22.89) 03/10/2024 Hiatal hernia (ICD-10 - K44.9) 03/10/2024 Cirrhosis (ICD-10 - K74.60) 03/10/2024 Gastro-esophageal reflux disease without esophagitis (ICD-10 - K21.9) Plan Of Treatment Next Appt Details Provider Name:Mick Durán , 05/06/2026 10:20:00 AM, [address] [place] [address], [address], [address], Progress Notes * ANDREW FREEMAN FDOB: [birth year] (74 yo M)Acc No.[id number]:03/10/2024 EGD and COL/MAC Patient: ANDREW SALDANA Provider: Falguni Durán MD :1950 A ge:73 Y S ex:Male Date:03/10/2024 Address:[address] [place], [place] [phone] Pcp:Raul heaton MD Subjective: * Chief Complaints: * 1 . Gerd,alcoholic cirrhosis,screening,hx polyps, esophageal varices. * Medical History: * Medications: T tannag Biktarvy 50-200-25 MG Tablet 1 tablet Orally Once a day , Taking Losartan Potassium-HCTZ 50-12.5 MG Tablet 1 tablet Orally Once a day , Taking Vitamin B12 100 MCG Tablet 1 tablet Orally Once a day , Taking Atorvastatin Calcium 40 MG Tablet 1 tablet Orally Once a day , Taking Metoprolol Succinate ER 100 MG Tablet Extended Release 24 Hour 1 tablet Orally Once a day , Taking Famotidine 40 MG Tablet 1 Orally At bedtime , Taking Omeprazole 20 MG Capsule Delayed Release 1 Orally QAM , Taking Omeprazole 20 MG Capsule Delayed Release 1 Orally Every morning Objective: * Vitals: Assessment: * Assessment: 1. C olon cancer screening - Z12.11 (Primary) 2 . P ersonal history of colonic polyps - Z86.010 3 . D iverticulosis of large intestine without perforation or abscess without bleeding - K57.30 4 . O ther hemorrhoids - K64.8 5. O ther specified disease of esophagus - K22.89 6 . H iatal hernia - K44.9 7 . C irrhosis - K74.60 8 . G hailey-esophageal reflux disease without esophagitis - K21.9 Plan: * Treatment: * Procedure Codes: G 0105 COLOREC CANCR SCR; COLNSCPY HI RISK, 0529F INTRVL 3+YRS PTS CLNSCP DOCD, 0528F RCMND FLW-UP 10 YRS DOCD, Modifiers: 1P , 63715 UPPR GI ENDOSCOPY, DIAGNOSIS * * The named appointment provid er may or may not be the originator of this progress note, and it is not deemed complete until electronically signed by the appointment provider. Sign off status: Pending * Provider: Falguni Durán MD Date: 0 03/10/2024 Generated for Precious grajeda/Carin/Inez on: 09/05/2024 07:43 AM EST
--- OUTSIDE RECORDS SUMMARY | 2025-01-20 06:10 | XMS_ITS ---
Author Organization [facility] Address [address] [place] [address] Care Team Providers Care Risk Assessment Analyst Name Role Phone Socorro Arceo MD, Raul Primary Care Provide Mick Sanchez [phone] Roscoe LAWTON, Marvel Unavailable Unavailable REASON FOR VISIT abdominal pain Encounters Encounter Location Date Provider Diagnosis [facility] [address] [place] [address] 01/20/2025 Mick Durán Plan Of Treatment Next Appt Details Provider Name:Mick Durán , 05/06/2026 10:20:00 AM, [address], [address], [place], [address], Progress Notes * ANDREW FREEMAN FDOB: [birth year] (74 yo M)Acc No.[id number]:01/20/2025 Progress Notes Patient: ANDREW SALDANA Provider: Falguni Durán MD :1950 A ge:74 Y S ex:Male Date:01/20/2025 Address:[address] [place] [address], [place], [place] Pcp:Raul heaton MD Subjective: * Chief Complaints: * 1 . Abdominal pain. * Medical History: Objective: * Vitals: Assessment: Plan: * Treatment: * * The named appointment provid er may or may not be the originator of this progress note, and it is not deemed complete until electronically signed by the appointment provider. Sign off status: Pending * Provider: Falguni Durán MD Date: 0 01/20/2025 Generated for Precious grajeda/Carin/Inez on: 1 09/05/2024 07:44 AM EST
--- OUTSIDE RECORDS SUMMARY | 2025-07-06 07:43 | XMS_ITS | Clinical Summary ---
Author Organization [facility] Address [address] [place] [phone] Phone Care Team Providers Care Straw Hat Brusher Name Role Phone Raul Quintanilla MD Primary [...] diet and exercise,discussed healthy life style -discussed product craftsman referral but pt refusing -states was seen [...] He underwent an inpatient detox treatment in [place], He now goes to AA meetings 5 [...] opinion by urology. He was seen by [facility] on 05/17/2015 , last seen [...] aggressive risk factor modification. According to pt speech correction consultant did not recommend ASA given his Hx GERD. 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 Alcoholism 04/26/2012 07/16/2023 Encounters Date Type Department Care Team Description 06/01/2025 1:30 PM EDT Office Visit [facility] [address] [place] [address] Bertin Bernard MD Stage 3a chronic kidney [...] Visit [facility] [address] CORDOBA Thien CRUZITO, RAUL [phone] Bertin Bernard MD [address] [facility] [address] [place] [address] Health Maintenance Due Date Last [...] AM EDT us Bertin Bernard MD LAB [id number] SOLICITED RESULTS Final Result [place] See order comments [place] [address] * Vitamin D 1,25 dihydroxy (05/25/2025 11:31 [...] analytical performance characteristics have been determined by [facility], [place], [place]. It has not been cleared or approved by the FDA. This assay has been validated pursuant to the CLIA regulations and is used for clinical purposes. THIS TEST WAS PERFORMED AT: [facility] [address] [address] MEGAN MCKEON MD,PHD 05/25/2025 11:3 1 AM EDT 05/25/2025 11:31 AM EDT us Bertin Bernard MD LAB BLOOD ORDERABLES Final Re sult [place] See order comments [place] [address] * (ABNORMAL) CBC and Differential (05/25/2025 11:31 [...] order comments [place] [address] * (ABNORMAL) Renal Function Panel (05/25/2025 11:26 [...] 11:26 AM EDT Bertin Bernard MD LAB [id number] SOLICITED RESULTS Final Result [place] See order comments [place] [address] * Magnesium (05/25/2025 11:26 AM EDT) Magnesium 2.0 1.6 - 2.6 mg/dL See order comments 05/25/2025 11:2 6 AM EDT 05/25/2025 11:26 AM EDT Bertin Bernard MD LAB BLOOD ORDERABLES Final Re sult Performing Organization Address [facility] de Phone Number [place] See order comments [place] [address] * Albumin (05/25/2025 11:26 AM EDT) Albumin 4.5 3.5 - 5.0 g/dL See order comments 05/25/2025 11:2 6 AM EDT 05/25/2025 11:26 AM EDT Bertin Bernard MD LAB BLOOD ORDERABLES Final Re sult Performing Organization Address [facility] de Phone Number [place] See order comments [place] [address] * Protein, Total, Random Urine w/Creatinine (Protein/Creat [...] ORDERABLES Final Re sult Performing Organization Address [facility] de Phone Number [place] See order comments [place] [address] * Urinalysis with microscopic (05/25/2025 11:05 AM EDT) Color Urine Yellow See orde r comments Appearance Urine Clear See order comments pH Urine 5.5 5.0 - 9.0 See order comments Glucose Urine Negative Negative mg/dL See order comments Blood, Urine Negative Negative See ord er comments Specific Armour Urine 1.020 1.005 - 1.025 See order [...] order comments [place] [address] from Last 3 Months Insurance Medicare Medicaid [place] Medicare Medicaid [place] Care Teams Straw Hat Brusher Relationship Specialty Start Date End Date Raul Quintanilla MD [address] [place] [address] PCP - General Internal Medicine 08/25/24
--- OUTSIDE RECORDS SUMMARY | 2025-07-06 07:43 | XMS_ITS | Clinical Summary ---
Author Organization [address] [facility] Address [address] [place] [address] Phone Care Team Providers Care Warehouse General Laborer Name Role Phone Raul Nava MD Primary [...] and albuminuria creatinine ratio bet* ([facility] V24, [facility] V28) 09/02/2024 Mixed hyperlipidemia 09/02/2024 Human immunodeficiency virus (HIV) disease ([facility] V24, [facility] V28) 09/02/2024 Personal history of alcoholism ([facility] V24, [facility] V28) 09/02/2024 Esophageal varices without b leeding ([facility] V24, [facility] V28) 09/02/2024 Tubular adenoma of colon 09/02/2024 Obesity (BMI 30.0-34.9) 09/02/2024 Dry cough 09/02/2024 Varicose veins of both lower extremities 024 Encounters Date Type Department Care Team Description 06/01/2025 3:00 PM EDT Office Visit Orthopedic Surgery [place] [address] [address] Jaime Kenny DPM Posterior tibial tendinitis of right leg (Primary Dx); Posterior tibial tendinitis of left leg; Primary osteoarthritis of both feet; Dermatophytosis of nail; Diabetic mononeuropathy simplex ([facility] V24, [facility] V28); Pain in toe of left foot; Pain in toe of right foot; Acquired hallux valgus of left foot; Acquired hallux valgus of right foot; Corns and callosities; Bilateral femoral artery stenosis ([facility] V24); Type II diabetes mellitus with peripheral circulatory disorder ([facility] V24, [facility] V28); Metatarsalgia of both feet; Hammer toe of left foot; Acquired hammer toe of right foot 04/15/2025 10:15 AM EDT Office Visit Orthopedic Surgery [facility] [address] [address] Jaime Kenny DPM Posterior tibial tendinitis of right leg (Primary Dx); Posterior tibial tendinitis of left leg; Primary osteoarthritis of both feet; Dermatophytosis of nail; Diabetic mononeuropathy simplex ([facility] V24, [facility] V28); Acquired hallux valgus of right foot; [...] PM EST Office Visit Orthopedic Surgery - [place] [address] [place] [phone] Jaime Kenny, [address] [address] Health Maintenance Due Date Last [...] to complete this [place] [id number] MEDICARE MEDICAID - [place] Care Teams Warehouse General Laborer Relationship Specialty Start Date End Date Raul Nava MD [address] [place] [address] [place] [address] PCP - General 05/28/24
--- OUTSIDE RECORDS SUMMARY | 2025-07-06 07:43 | XMS_ITS | Patient Health Record ---
Author Organization [facility] Address [address] [facility] [place] [address] Care Team Providers Care Projection Camera Operator Name Role Phone Socorro Arceo MD, Raul Primary Care Provide r Unavailable Mick Durán Unavailable [phone] Marvel Malhotra MD Unavailable Unavailable Allergies No Known Allergies Results Component Value Reference Range Notes Alpha Fetoprotein Reviewed date:05/06/2025 05:54:54 PM Interpretation: Performing Lab:[facility], [address] [place] [phone] Notes/Report: Alpha Fetoprotein 3.1 <6.1 ng/mL This test was performed using the Evelio [place] chemiluminescent method. Values obtained from different assay methods cannot be used interchangeably. AFP levels, regardless of value, should not be interpreted as absolute evidence of the presence or absence of disease. THIS TEST WAS PERFORMED AT: [facility] [address] [place] [phone] NINA SOLORIO MD Reason For Referral No [...] Notes Problem Gastro-esophageal reflux disease without esophagitis (638621727) Gastro-esophageal reflux disease without esophagitis (K21.9) Active confirmed Problem Screening for malignant neoplasm of colon (047372181) Encounter for screening for malignant neoplasm of colon (Z12.11) Active confirmed Problem History of adenomatous polyp of colon (030792199) History of adenomatous polyp of colon (Z86.010) Active confirmed Problem History of polyp of colon (situation) (344334203) Personal history of colonic polyps (Z86.010) Active confirmed Problem Esophageal varices without bleeding (41528724) Esophageal varices without bleeding (I85.00) Active confirmed Problem Diverticular disease of colon (526587257) Diverticulosis of large intestine without perforation or abscess without bleeding (K57.30) Active confirmed Problem Alcoholic cirrhosis (832942826) 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) Active confirmed Problem Alcoholic cirrhosis (234700320) 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) Active confirmed Problem Gastroesophageal reflux disease with esophagitis (disorder) (840745402) GERD with esophagitis (K21.0) Active confirmed Problem Cirrhotic (365099106) Cirrhosis (K74.60) Active confirmed Problem Gastroesophageal reflux disease (661066997) GERD (gastroesophageal reflux disease) (K21.9) Active confirmed Problem Gastroesophageal reflux disease with esophagitis (disorder) (797145323) Gastroesophageal reflux disease with esophagitis without hemorrhage (K21.00) Active confirmed Vital Signs Blood pressure diastolic 77 mm Hg 05/05/2025 Height 72 in 05/05/2025 Blood pressure systolic 111 mm Hg 05/05/2025 Weight 227 lbs 05/05/2025 BMI 30.78 kg/m2 05/05/2025 Encounters Encounter Location Date Provider Diagnosis [facility] [address] [place] [phone] 05/05/2025 Mick Durán 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 ; GERD with esophagitis K21.0 ; Encounter for screening for malignant neoplasm of colon Z12.11 and History of adenomatous polyp of colon Z86.010 [facility] [address] [place] [phone] 09/12/2024 Mick Durán [facility] [address] [place] [phone] 01/19/2025 Mick Durán [facility] [address] [place] [address] 02/26/2025 Mick Durán [facility] [address] [place] [address] 05/05/2025 Mick Durán Assessments Encounter Date Diagnosis [...] PROTHROMBIN TIME (PT, INR) 12/24/2018 ALPHA-FETOPROTEIN,TUMOR MARKER 5 ALPHA-FETOPROTEIN,TUMOR MARKER 3 ALPHA-FETOPROTEIN,TUMOR MARKER 1 ALPHA-FETOPROTEIN,TUMOR [...] Name:Mick Durán , 05/06/2026 10:20:00 AM, [address], [address], [place], [address], Insurance Providers Payer Name Payer Address Payer Phone Subscriber Number Group Number Insured Name Patient Relationship to Insured Coverage Start Date Coverage End Date MEDICARE OF [place] [address] [place] [address] [id number] MOOK FREEMAN Self - patient is the insured MEDICAID OF [facility] [address] [facility] [place] [address] [id number] MOOK FREEMAN Self - patient is the insured Medical (General) History Medical History History ICD Code Diverticulitis Esophageal ulcer/esophagitis in 2006--neg bx--F/U EGD in 07/12 WNL-no significant esophagitis and biopsies were negative for Hall's esophagus; he does have a small to moderate size hiatal hernia HIV infection-for >20 yrs Mild [place] in 12/2012--describes a neg. ca rdiac cath [...] and being followed by cardiothoracic surgery at [facility] Surgical History Surgery Date(Month/Year) LE varicose veins
--- OUTSIDE RECORDS SUMMARY | 2025-07-06 07:44 | XMS_ITS | Encounter Summary ---
Author Organization [facility] Address [address] [facility] [address] [place] [address] Phone Care Team Providers Care Refinisher Name Role Phone Pcp, Unknown Primary Care Provider Unavailabl e Encounter Details Date Type Department Care Team (Latest Contact Info) Description 01/08/2019 Ancillary Orders [facility] [address] [place] [address] [place] [address] Paresh Marcus, DO [address] [place] [address] Dyspnea on exertion Social History Tobacco Use [...] abnormality documented in this encounter Care Teams Refinisher Relationship Specialty Start Date End Date Pcp, Unknown PCP - General 01/10/19 01/10/19 documented as of this encounter Additional Source Comments The information contained in this document represents components of the legal health record. It is not the complete legal health record.[facility]
--- OUTSIDE RECORDS SUMMARY | 2025-07-06 07:44 | XMS_ITS | Clinical Summary ---
Author Organization [facility] Address [address] [address] Phone Care Team Providers Care Rooming House Keeper Name Role Phone Unavailable Primary Care Provider [...] Payer (Ef fective 2014-Present) Name:Braulio Mook Member ID:[id number] Relation to Subscriber:Self Name:Mook Ramsey Subscriber ID:[id number] Payer ID:[id number] Group ID:Not on file Type:Medicare Address: [employer] [address] [facility] MEDIC[facility] PART A & B [place] MEDICARE PART A & B [facility] MEDICARE PART A & B [facility] MEDIC[facility] PART A & B Member Subscriber Plan / Payer (Ef fective 2014-Present) Name:Mook Ramsey Member ID:[id number] Relation to Subscriber:Self Name:Mook Ramsey Subscriber ID:[id number] Payer ID:[id number] Group ID:Not on file Type:Medicare Address: [employer] [address] [place] [id number] [facility] MEDIC[facility] PART A & B [facility] MEDICARE PART A & B [facility] Additional Source Comments The information contained in this document represents components of the legal health record. It is not the complete legal health record.[facility]
[2025-07-06 08:06] LABS: MANUAL DIFF FLAG NO
[2025-07-06 08:20] LABS: Hematocrit 43.3 % (42.0-52.0); Hemoglobin 14.3 g/dl (14.0-18.0); Imm Gran Abs Auto 0.01 X10*3/uL (0.00-0.03); Imm Gran Pct Auto 0.2 % (0.0-0.4); Lymphocytes Absolute Auto 2.4 X10*3/uL (1.2-4.9); Mean Corpuscular HGB Conc 33.0 g/dl (31.0-36.0); Mean Corpuscular Hemoglobin 31.0 pg (27.0-33.0); Mean Corpuscular Volume 93.9 fL (80.0-98.0); NRBC Abs Auto 0.000 X10*3/uL (0.0-0.012); NRBC Pct Auto 0.0 /100WBC (0.0-0.2); Platelet Count 189 X10*3/uL (160-400); Red Blood Count 4.61 X10*6/uL (4.60-5.80); White Blood Count 5.8 X10*3/uL (4.8-10.8)
[2025-07-06 08:51] LABS: Alanine Aminotransferase 19 U/L (0-40); Albumin Level 4.2 g/dL (3.5-5.0); Alkaline Phosphatase 66 U/L (39-117); Anion Gap 11 (12-20); Aspartate Amino Transferase 24 U/L (5-37); Blood Urea Nitrogen 18 mg/dL (9-16); Calcium 9.3 mg/dL (8.4-10.2); Carbon Dioxide 24 mmol/L (22-29); Chloride 110 mmol/L (96-108); Cholesterol 138 mg/dL (<200); Estimated Glomerular Filt Rate 46; HDL Cholesterol 40 mg/dL (>40); Potassium 4.2 mmol/L (3.3-5.1); Sodium 141 mmol/L (135-145); Total Protein 6.8 g/dL (6.5-8.0); Triglycerides 84 mg/dL (<150)
[2025-07-06 09:11] LABS: HBc Num1 8.56 S/CO (0.00-0.79); HBsAGNum1 0.48 S/CO (0.00-0.99); Hepatitis B Surface Antigen Negative (Negative); ~HepC Num1 0.26 S/CO (0.00-0.79); ~Hepatitis B Surface Antibody REACTIVE (Nonreactive); ~Hepatitis C Antibody Nonreactive (Nonreactive)
[2025-07-06 10:18] LABS: HBc Num2 8.95 S/CO; HBc Num3 8.49 S/CO
[2025-07-06 11:54] LABS: Reflex LDLD? No
[2025-07-07 15:08] LABS: HIV RNA PCR Qn Copies NOT DETECTED copies/mL (NOT DETECTED); HIV RNA PCR Qn Log Copies NOT DETECTED (NOT DETECTED)
[2025-07-09 04:23] LABS: TS Negative Control Passed; TS Panel A 1; TS Panel B 0; TS Positive Control Passed; TSpotTB Negative (Negative)
[2025-07-10 08:07] LABS: ~Hepatitis A Antibody IgG 8.48 S/CO (0.00-0.99)
[2025-07-11 15:30] LABS: Absolute CD3 Count 1877 cells/uL (840-3060); Absolute CD8 Count 821 cells/uL (180-1170); Percent CD3 Cells 85 % (57-85); Percent CD8 Cells 37 % (12-42)
[2025-07-12 17:29] LABS: Testosterone, Free 59.0 pg/mL (30.0-135.0)
== END 2025-07-06 07:40 | disposition home or self-care (01) ==
LOC: HO.LAB 07:39
PROVIDERS: PCP Internal Medicine; Visit Provider Student in an Organized Health Care Education/Training Program
DX: Z21 Asymptomatic human immunodeficiency virus [HIV] infection status (principal); Z11.1 Encounter for screening for respiratory tuberculosis; R79.9 Abnormal finding of blood chemistry, unspecified
CPT/HCPCS: 36415; 80053; 80061; 83036; 84402; 84403; 85025; 86359; 86360; 86481; 86704; 86706; 86708; 86803; 87340; 87536

== ENCOUNTER 2025-07-21 10:52 | Outpatient (REF) | payer MEDICARE, MEDICAID, SELFPAY ==
--- NOTE | ~2025-07-21 | XR_ITS ---
EXAMINATION: XR BILATERAL HIPS WITH AP PELVIS CLINICAL INFORMATION: BI LAT HIP PAIN COMPARISON: [01/27/2020 TECHNIQUE: AP view of the pelvis and 2 views of each hip were obtained. FINDINGS: Right hip: Moderate arthritis. No acute fracture or dislocation. Left hip: Mild arthritis. Joint space is maintained. Lateral acetabular subchondral cysts. No acute fracture or dislocation. Small chronic calcifications adjacent to the ischial tuberosity. Pelvis: SI joints and symphysis pubis are intact. No acute pelvic fracture seen. No suspicious bony lesions. XR/XR hip BI w PEL1V IMPRESSION: 1. Moderate right hip arthritis. 2. Mild left hip arthritis. Electronically signed by: Abhilash Langford MD 07/21/2025 04:34 PM EST
--- NOTE | ~2025-07-21 | XR_ITS ---
EXAMINATION: XR LUMBOSACRAL SPINE CLINICAL INFORMATION: low back pain COMPARISON: X-ray 01/27/2020 TECHNIQUE: 3 views FINDINGS: Mild levoconvex curvature. 5 lumbar type vertebral bodies. Mild L4-5 anterolisthesis. Vertebral body heights are maintained. No evidence of acute fracture. Multilevel disc degeneration, more prominent findings of severe L5-S1 disc degeneration. Multilevel facet degeneration. No suspicious bony lesions. SI joints are intact. Vascular calcifications present. Surgical clips in right upper abdomen to round small calcifications in the right upper quadrant, similar to previous. XR/XR lumbar spine 2-3V IMPRESSION: 1. No radiographic evidence of acute fracture. 2. Lumbar spondylosis. Severe L5-S1 disc degeneration. Electronically signed by: Abhilash Langford MD 07/21/2025 03:04 PM SHIREEN MARTINEZ
== END 2025-07-21 10:53 | disposition home or self-care (01) ==
LOC: HO.HHCX 10:52
PROVIDERS: PCP Internal Medicine; Visit Provider Internal Medicine
DX: M25.551 Pain in right hip (principal); M25.552 Pain in left hip; M54.50 Low back pain, unspecified
CPT/HCPCS: 72100; 73521

== ENCOUNTER → 2025-07-21 11:20 | Outpatient (BNV) | payer MEDICARE, MEDICAID, SELFPAY | PROVIDERS: PCP Internal Medicine; Visit Provider Radiology Diagnostic Ultrasound | DX: M16.0 Bilateral primary osteoarthritis of hip (principal); M47.816 Spondylosis without myelopathy or radiculopathy, lumbar region; M51.360 Other intervertebral disc degeneration, lumbar region with discogenic back pain only | CPT/HCPCS: 72100; 73521 ==

== ENCOUNTER 2025-08-05 15:16 | Inpatient (IN) | payer MEDICARE, MEDICAID, SELFPAY ==
--- OUTSIDE RECORDS SUMMARY | 2024-03-10 07:50 | XMS_ITS ---
Author Organization [facility] Address [address] [place] [address] Care Team Providers Care Change Management Name Role Phone Socorro Arceo MD, Raul Primary Care Provide r Unavailable Mick Durán Unavailable [phone] Roscoe LAWTON, Marvel Unavailable Unavailable REASON FOR VISIT gerd,alcoholic cirrhosis,screening,hx polyps, esophageal varices Medications Medication SIG (Take, Route, Frequency, Duration) Notes Start Date End Date Status Losartan Potassium-HCTZ 50-12.5 MG Tablet 1 tablet Orally Once a day Active Biktarvy 50-200-25 MG Tablet 1 tablet Orally Once a day; Duration: 30 day(s) Active Atorvastatin Calcium 40 MG Tablet 1 tablet Orally Once a day Active Vitamin B12 100 MCG Tablet 1 tablet Oral ly Once a day Active Metoprolol Succinate ER 100 MG Tablet Extended Release 24 Hour 1 tablet Orally Once a day; Duration: 90 days Active Omeprazole 20 MG Capsule Delayed Release 1 Orally QAM 07/24/2020 Active Famotidine 40 MG Tablet 1 Orally At bedtime 2018 Active Omeprazole 20 MG Capsule Delayed Release 1 Orally Every morning; Duration: 90 days 09/04/2023 Active Problems Problem Type SNOMED Code ICD Code Onset Dates Problem Status W/U Status Risk Notes Problem History of polyp of colon (situation) (894132936) Personal history of colonic polyps (Z86.010) Active confirmed Problem Diverticular disease of colon (851587732) Diverticulosis of large intestine without perforation or abscess without bleeding (K57.30) Active confirmed Problem Cirrhotic (809656923) Cirrhosis (K74.60) Active confirmed Problem Gastro-esophagea l reflux disease without esophagitis (119800579) Gastro-esophageal reflux disease without esophagitis (K21.9) Active confirmed Encounters Encounter Location Date Provider Diagnosis [facility] [place] Out[place] [address] [place] [phone] 03/10/2024 Mick Durán Colon cancer scree nina [...] Provider Name:Mick Durán , 05/06/2026 10:20:00 AM, [address] [place] [address], [address], [place], [address], Progress Notes * ANDREW FREEMAN FDOB: [birth year] (75 yo M)Acc No.[id number]:03/10/2024 EGD and COL/MAC Patient: ANDREW SALDANA Provider: Falguni Durán MD :1950 A ge:73 Y S ex:Male Date:03/10/2024 Address:[address] [place], [place] [phone] Pcp:Raul heaton MD Subjective: * Chief Complaints: * G erd,alcoholic cirrhosis,screening,hx polyps, esophageal varices * Medications: T akingBiktarvy 50-200-25 MG Tablet 1 tablet Orally Once a day Losartan Potassium- HCTZ 50-12.5 MG Tablet 1 tablet Orally Once a day Vitamin B12 100 MCG Tablet 1 tablet Orally Once a day Atorvastatin Calcium 40 MG Tablet 1 tablet Orally Once a day Metoprolol Succinate ER 100 MG Tablet Extended Release 24 Hour 1 tablet Orally Once a day Famotidine 40 MG Tablet 1 Orally At bedtime Omeprazole 20 MG Capsule Delayed Release 1 Orally QAM Omeprazole 20 MG Capsule Delayed Release 1 Orally Every morning Taking Biktarvy 50-200-25 MG Tablet 1 tablet Orally Once a day Taking Losartan Potassium-HCTZ 50-12.5 MG Tablet 1 tablet Orally Once a day Taking Vitamin B12 100 MCG Tablet 1 tablet Orally Once a day Taking Atorvastatin Calcium 40 MG Tablet 1 tablet Orally Once a day Taking Metoprolol Succinate ER 100 MG Tablet Extended Release 24 Hour 1 tablet Orally Once a day Taking Famotidine 40 MG Tablet 1 Orally At bedtime Taking Omeprazole 20 MG Capsule Delayed Release 1 Orally QAM Taking Omeprazole 20 MG Capsule Delayed Release 1 Orally Every morning Assessment: * Assessment: 1. C olon cancer [...] disease without esophagitis - K21.9 Plan: * Procedure Codes: G 0105 COLOREC CANCR SCR; COLNSCPY HI [id number] INTRVL 3+YRS PTS CLNSCP [id number] RCMND FLW-UP 10 YRS DOCD, Modifiers: 1P 68032 UPPR GI ENDOSCOPY, DIAGNOSIS Billing Information: * Procedure Codes: G0105 COLOREC CANCR SCR; COLNSCPY HI RISK. 0529F INTRVL 3+YRS PTS CLNSCP DOCD. 0528F RCMND FLW-UP 10 YRS DOCD. Modifiers: 1P 23820 UPPR GI ENDOSCOPY, DIAGNOSIS. * The named appointment provid er may or may not be the originator of this progress note, and it is not deemed complete until electronically signed by the appointment provider. Sign off status: Pending * Provider: Falguni Durán MD Date: 0 03/10/2024 Generated for Precious grajeda/Carin/Inez on: 10/06/2024 06:52 PM EST
--- OUTSIDE RECORDS SUMMARY | 2025-01-20 06:10 | XMS_ITS ---
Author Organization [facility] Address [address] [place] [address] Care Team Providers Care Concrete Paver Name Role Phone Socorro Arceo MD, Raul Primary Care Provide Mick Sanchez Unavailable [phone] Roscoe LAWTON, Marvel Unavailable Unavailable REASON FOR VISIT abdominal pain Encounters Encounter Location Date Provider Diagnosis [facility] [address] [place] [address] 01/20/2025 Mick Durán Plan Of Treatment Next Appt Details Provider Name:Mick Durán , 05/06/2026 10:20:00 AM, [address], [address], [place], [address], Progress Notes * LYDIAANDREW FDOB: [birth year] (75 yo M)Acc No.[id number]:01/20/2025 Progress Notes Patient: ANDREW SALDANA Provider: Falguni Durán MD :1950 A ge:74 Y S ex:Male Date:01/20/2025 Address:[address] [place] [address], [place] Pcp:Raul heaton MD Subjective: * Chief Complaints: * A bdominal pain * The named appointment provid er may or may not be the originator of this progress note, and it is not deemed complete until electronically signed by the appointment provider. Sign off status: Pending * Provider: Falguni Durán MD Date: 0 01/20/2025 Generated for Printi ng/Faxing/eTransmitting on: 1 10/06/2024 02:32 PM EST
--- NOTE | ~2025-08-05 | MR_ITS ---
CLINICAL HISTORY: concern for acute infarction on CT MR Brain without gadolinium Comparison: CT/SR - HEAD HEAD_WITHOUT (ADULT) - 08/05/25 16:55 EST Findings: Moderate focus of diffusion restriction present at the medial aspect of the left occipital lobe with small foci of diffusion restriction involving the medial aspect of the left temporal lobe, left cerebellar hemisphere, and left thalamus. A few small foci of increased signal intensity on diffusion-weighted imaging are present at the medial aspect of the right occipital lobe. Minimal to mild foci of T2/FLAIR prolongation are identified within the periventricular and subcortical white matter, which may be seen in the setting of chronic small vessel ischemic disease. No intra-axial mass or hemorrhage visualized. No midline shift. No hydrocephalus. Minimal mucosal thickening identified within the ethmoid air cells. The bilateral mastoid air cells appear clear. IMPRESSION: 1. Moderate focus of diffusion restriction present at the medial aspect of the left occipital lobe with small foci of diffusion restriction at the medial aspect of the left temporal lobe, left cerebellar hemisphere, and left thalamus, consistent with acute ischemia. There are a few scattered, small foci of increased signal intensity on diffusion-weighted imaging at the right occipital lobe. It is unclear whether there is subtle associated diffusion restriction at these sites, and these findings may be related to small foci of acute and/or subacute ischemia. No midline shift demonstrated. This document has been electronically signed by: Joby Rocha MD on 08/05/2025 21:12:17
--- NOTE | ~2025-08-05 | CT_ITS ---
CLINICAL HISTORY: acute infarct seen on CT CT angiography head and neck with contrast. 3D Postprocessing. Comparison: CT/SR - HEAD HEAD_WITHOUT (ADULT) - 08/05/25 16:55 EST Findings: Examination is limited by imaging noise and phase of contrast. Atherosclerosis calcification of the carotid bulbs and cavernous segment of the internal carotid artery. Mild stenoses of the bilateral proximal internal carotid artery. Ostial calcification of the bilateral vertebral artery with possible stenoses. Intracranial arteries are patent. No aneurysm, dissection, hemodynamically significant stenoses, or occlusion. No abnormal intracranial enhancement. The visualized thyroid gland is unremarkable. No cervical mass or fluid collection. Lung apices clear. No acute fracture. IMPRESSION: Mild stenoses of the proximal bilateral internal carotid artery and cavernous segment. Ostial calcification of the bilateral vertebral arteries with possible stenoses. No large intracranial artery occlusion. This document has been electronically signed by: Renate Mcdowell MD on 08/05/2025 19:43:05
--- NOTE | ~2025-08-05 | CT_ITS ---
CLINICAL HISTORY: confused [address] Brain without contrast Comparison: MR/SR - MR BRAIN WITHOUT IV CONTRAST - 08/26/24 11:06 EST FINDINGS: Cortical sulci: There is diffuse prominence of the cortical sulci compatible with age-related atrophy. Ventricles: Normal for age Brain parenchyma: There is patchy lucency throughout the deep white matter indicating chronic microvascular leukomalacia. There is a hypodense area of the left thalamus. Hypodense area of the left mesial occipital lobe with loss of dinh-white matter differentiation. Small chronic infarction of the left cerebellum. Extra axial spaces: Normal Posterior Fossa: Normal Extracranial soft tissues: Normal Additional abnormality: None IMPRESSION: Hypodense areas of the left thalamus and left mesial occipital lobe are concerning for acute infarction. Further evaluation by MRI as indicated This document has been electronically signed by: Renate Mcdowell MD on 08/05/2025 17:25:51
--- NOTE | ~2025-08-05 | XR_ITS ---
EXAMINATION: XR CHEST CLINICAL INFORMATION: pneumonia? confusion COMPARISON: 07/01/2025. TECHNIQUE: PA view of the chest was obtained. FINDINGS: The cardiac, hilar, and mediastinal contours are normal. Aortic mural calcification. There are low lung volumes bilaterally. There is mild bronchovascular crowding in the perihilar regions and lower lungs. Within these confines the lungs are clear. No pneumothorax or effusion. No focal osseous or soft tissue abnormality. XR/XR chest 1V IMPRESSION: Low lung volumes with no active disease. Electronically signed by: Ruiz Aiken MD 08/05/2025 04:01 PM SHIREEN
[2025-08-05 15:33] VITALS: BP 148/93; PULSE 70; RESP 20; TEMP 36.5; O2SAT 96; BMI 32.0
--- NOTE | 2025-08-05 15:39 | ECG_ITS ---
Test Reason : CHEST PRESSURE Blood Pressure : */* mmHG Vent. Rate : 70 BPM Atrial Rate : 70 BPM P-R Int : 222 ms QRS Dur : 84 ms QT Int : 416 ms P-R-T Axes : -7 -24 30 degrees QTcB Int : 449 ms Sinus rhythm with marked sinus arrhythmia with 1st degree A-V block Minimal voltage criteria for LVH, may be normal variant ( R in aVL ) Nonspecific T wave abnormality Abnormal ECG When compared with ECG of 08-Jan-2013 08:33, Premature atrial complexes Present Referred By: Rudy Jolley Electronically Signed By: GABRIEL CAMPOS
--- NOTE | 2025-08-05 15:41 | ED.GENADULT ---
HPI - General Adult General Chief complaint: Altered Mental Status Stated complaint: CAT SCAN sent by Dr. Carrillo Seen by Provider: 08/05/25 15:59 Source: patient, family (Sister at bedside corroborating history), RN notes reviewed and old records reviewed Mode of arrival: ambulatory Limitations: altered mental status History of Present Illness ED Provider: LEAH Osorio HPI narrative: 75-year-old male accompanied by his sister with medical history of TIA, osteoarthritis, CKD, HIV, HTN, alcohol use disorder, presents to the ED due to 3 days of confusion, headache, and chest pressure. Patient states he had the COVID vaccination 4 days ago and always has this happen after taking the pill explaining that he doesn't feel right after the vaccination (sister confirms vaccine was on 07/21). Patients sister took him to urgent care today and was urged to come to the ED for further evaluation. Patient states he has had a constant headache and sensation of chest pressure over the last 2 days but symptoms has subsided now. Patient seems to me like he is having word finding difficulty, his speech is not flowing. Patient denies chest pain, SOB, difficulty breathing, abdominal pain, nausea, vomiting, headache, visual changes. MD complaint: confusion Related Data Home Medications ?Medication ?Instructions ?Recorded ?Confirmed bictegravir 50 mg-emtricitabine 1 tab PO DAILY 07/23/20 08/05/25 200 mg-tenofovir alafenam 25 mg tablet (Biktarvy) omeprazole magnesium 20 mg 20 mg PO DAILY 07/23/20 08/05/25 tablet,delayed release (Prilosec OTC) cyanocobalamin (vitamin B-12) 1,000 mcg PO DAILY 03/10/24 08/05/25 1,000 mcg tablet (Vitamin B-12) losartan 100 mg tablet 100 mg PO QAM 04/13/25 08/05/25 atorvastatin 80 mg tablet 80 mg PO DAILY 08/05/25 08/05/25 metoprolol tartrate 50 mg tablet 50 mg PO BID 08/05/25 08/05/25 Previous Rx's ?Medication ?Instructions ?Recorded apixaban 5 mg tablet 5 mg PO BID #180 tabs 08/07/25 Allergies Allergy/AdvReac Type Severity Reaction Status Date / Time No Known Allergies Allergy Verified 08/05/25 15:38 Review of Systems Review of Systems: Yes all other systems are reviewed and are negative [facility] Past Medical History Attestation statement: The following information was validated with the patient. Medical History HLD (hyperlipidemia) GERD (gastroesophageal reflux disease) Peripheral neuropathy Cirrhosis Elevated cholesterol Osteoarthritis of right hip Chronic kidney disease Alcoholism Erectile dysfunction HIV (human immunodeficiency virus infection) Hypertension Surgical History History of esophagogastroduodenoscopy (EGD) H/O colonoscopy Social History Social History Household Members: None Housing: House Do you presently have visiting nurse or other home services: No Patient Tobacco Use Status: Never used Tobacco Current occupational status: retired 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 Physical Exam ED Vital Signs: Vital Signs - 24 hr 08/05/25 15:33 08/05/25 16:31 Temperature 97.7 F Pulse Rate 70 72 Respiratory Rate 20 16 Blood Pressure 148/93 H Pulse Oximetry 96 Oxygen Delivery Method Room Air BMI result Body Mass Index 32.0 GENERAL APPEARANCE: ?AxOx4, generally well-appearing, no acute distress. HEENT: ?NC, AT. MMM. EOMI, clear conjunctiva, oropharynx clear. NECK: ?Supple without lymphadenopathy.? No stiffness or restricted ROM. HEART:? Normal rate and regular rhythm, normal S1/S2, no m/r/g LUNGS:? CTAB, moving air well. No crackles or wheezes are heard. ABDOMEN: ?Soft, nontender, nondistended with good bowel sounds heard. BACK: No CVAT, no obvious deformity. EXTREMITIES: ?Without cyanosis, clubbing or edema. NEUROLOGICAL: Patient with very mild word-finding difficulty, no other neurological deficits, no speech slurring, no facial droop, no unilateral weakness, patient able to heel toe walk, no pronator drift, no cerebellar symptoms, patient able to ambulate without ataxia. Skin: ?Warm and dry without any rash. NIH Stroke Scale Internal: Initial- Upon Arrival Time: 17:53 Level of Consciousness: Alert Level of Consciousness Questions: Answers both questions correctly Level of Consciousness Commands: Performs both tasks correctly Best Gaze: Normal Visual: No visual loss Facial Palsy: Normal Motor Arm (Right): No drift Motor Arm (Left): No drift Motor Leg (Right): No drift Motor Leg (Left): No drift Limb Ataxia: Absent Sensory: Normal Best Language: Mild to moderate aphasia (patient with mild word finding difficulty ) Dysarthia: Normal Extinction and Inattention: No abnormality Score: 1 Course Course Course Narrative: Chad: 72 year male presents to ED for confusion for the past 3 days. patient denies any slurred speech, facial droop or paralysis of extremities. NIH score is 0. Patient is alert oriented x3. Patient has slept for the past 24 hours. Patient states have some auditory hallucinations. Labs EKG head CT scan UA ordered Medications Administered Discontinued Medications Generic Name Dose Route Start Last Admin Trade Name Freq PRN Reason Stop Dose Admin Acetaminophen 650 mg 08/05/25 18:06 08/07/25 09:09 Acetaminophen 325 Mg Tablet PO 650 mg Q6H PRN Administration Pain, Mild 1-3,fever,headache Aspirin 324 mg 08/05/25 17:33 08/05/25 18:10 Aspirin 81 Mg Tab.Chew PO 08/05/25 17:34 324 mg ONCE ONE Administration Aspirin 81 mg 08/06/25 09:00 08/07/25 09:03 Aspirin Enteric Coated 81 Mg Tablet.Dr PO 81 mg DAILY VIBHA Administration Atorvastatin Calcium 80 mg 08/05/25 21:00 08/06/25 22:11 Atorvastatin Calcium 80 Mg Tablet PO 80 mg BEDTIME VIBHA Administration Bictegravir/Emtricitabine/Tenofovir 1 tab 08/06/25 09:00 08/07/25 09:03 Bictegrav/Emtricit/Tenofov Ala Tablet PO 1 tab DAILY VIBHA Administration Clopidogrel Bisulfate 75 mg 08/07/25 09:00 08/07/25 09:03 Clopidogrel Bisulfate 75 Mg Tablet PO 75 mg DAILY VIBHA Administration Cyanocobalamin 1,000 mcg 08/06/25 09:00 08/07/25 09:03 Cyanocobalamin (Vitamin B-12) 1,000 Mcg Tablet PO 1,000 mcg DAILY VIBHA Administration Enoxaparin Sodium 40 mg 08/06/25 09:30 08/07/25 09:03 Enoxaparin Sodium 40 Mg/0.4 Ml Syringe SUBCUT 40 mg Q24H VIBHA Administration Folic Acid 1 mg 08/06/25 09:00 08/07/25 09:03 Folic Acid 1 Mg Tablet PO 1 mg DAILY VIBHA Administration Lactated Ringer's 1,000 mls @ 999 mls/hr 08/05/25 18:45 08/05/25 20:03 Lr IV 08/05/25 19:45 Infused .Q1H1M VIBHA Infusion Insulin Human Lispro 0 unit 08/05/25 21:00 08/07/25 11:30 Insulin Lispro 100 Unit/Ml 3 Ml Vial SUBCUT Not Given QIDACHS [facility] Protocol Iohexol 100 ml 08/05/25 18:59 08/05/25 19:00 Iohexol 350 Mg/Ml 100 Ml Infus..Btl IV 08/05/25 19:00 70 ml ONCE ONE Administration Multivitamins/Vitamin C 1 tab 08/06/25 09:00 08/07/25 09:03 Multivitamin Tablet PO 1 tab DAILY VIBHA Administration Omeprazole 20 mg 08/06/25 06:30 08/06/25 07:08 Omeprazole 20 Mg Capsule. PO 20 mg DAILY@0630 VIBHA Administration Pantoprazole Sodium 20 mg 08/07/25 06:30 08/07/25 06:04 Pantoprazole Sodium 20 Mg Tablet. PO 20 mg DAILY@0630 VIBHA Administration Sodium Chloride 3 ml 08/06/25 00:00 08/07/25 09:03 0.9 % Sodium Chloride Flush 3 Ml Syringe IVFLUSH 3 ml QSHIFT VIBHA Administration Thiamine HCl 100 mg 08/06/25 09:00 08/07/25 09:03 Thiamine Hcl 100 Mg Tablet PO 100 mg DAILY VIBHA Administration Medical Decision Making Medical Decision Making MDM Narrative: 75-year-old male accompanied by his sister with medical history of TIA, osteoarthritis, CKD, HIV, HTN, alcohol use disorder, presents to the ED due to 3 days of confusion, headache, and chest pressure. Patient states he had the COVID vaccination 4 days ago and always has this happen after taking the pill explaining that he doesn't feel right after the vaccination (sister confirms vaccine was on 07/21). Patients sister took him to urgent care today and was urged to come to the ED for further evaluation. Patient states he has had a constant headache and sensation of chest pressure over the last 2 days but symptoms has subsided now. Patient reports he slept 25 hours yesterday as he was very tired. Patient seems to me like he is having word finding difficulty, his speech is not flowing, there is some concerning pattern. Denies recent alcohol use, or drug use. Sister states last known well time was 3 days ago, with symptoms becoming more severe last night and this morning. VS on initial observation-BP 148/93, pulse rate of 72, respiratory rate of 16, afebrile with oral temp of 97.7?, O2 saturation 96% on room air. On physical exam patient is nontoxic appearing, patient has a very weird speech pattern with some word-finding difficulty, speech does not flow and sometimes does not make sense, no speech slurring, no unilateral weakness, patient without ataxic gait, NIHSS of 1 due to word-finding difficulty. Labs without leukocytosis/leukopenia, no evidence of anemia, creatinine of 1.69 however this seems to be around patient's baseline due to CKD, BUN of 27, no other electrolyte abnormalities. EKG reveals sinus rhythm with first-degree AV block, nonspecific T-wave abnormalities in AVR, no ST elevation/depression, lengthened QT, initial troponin WNL at 20.4, chest pressure over last 3 days with symptoms resolved in the department. CT head/brain reveals hypodensities of the left thalamus and left mesial occipital lobe concerning for acute infarction, recommending MRI for further evaluation. Patient with 3 days of headache, chest pressure and confusion. As patient arrives to the emergency department, headache and chest pressure has subsided, as I am speaking to the patient I do notice he has some word-finding difficulty. Last known well time per sister was 3 days ago with symptoms becoming more severe last night and this morning. Patient is outside of the window for thrombolytics and is not a candidate. Patient is medicated 324 mg of aspirin, patient is hypertensive with BP of 148/93 however I want to keep the blood pressure around these numbers and not take the BP to keep the brain well-perfused. I spoke to hospitalist Dr. Altman who will admit for further management of acute stroke. I discussed these findings with the patient and his sister. Patient is agreeable to stay for admission, patient and the sister are agreeable with the plan. Differential Diagnosis Differential Diagnoses: The differential diagnosis associated with the presentation includes ICH Stroke Hypoglycemia Dysrhythmia UTI Admission/Observation Consideration of admission/observation: Escalation of care including admission/observation considered Consult Healthcare Provider Management of the patient was discussed with: Hospitalist (Dr. Altman) I spoke to hospitalist Dr. Villela who will admit to medicine for further evaluation and management of acute cerebral infarct Lab Data MDM Lab Attestation statement: I reviewed the patient's lab results. 08/06/25 04:18 08/06/25 04:18 Labs: Lab Results 08/05/25 08/05/25 Range/Units 16:25 16:26 WBC 7.8 (4.8-10.8) X10*3/uL RBC 4.77 (4.60-5.80) X10*6/uL Hgb 15.4 (14.0-18.0) g/dl Hct 44.0 (42.0-52.0) % MCV 92.2 (80.0-98.0) fL MCH 32.3 (27.0-33.0) pg MCHC 35.0 (31.0-36.0) g/dl RDW 13.0 (11.0-16.0) % Plt Count 177 (160-400) X10*3/uL MPV 9.9 (9.4-12.4) fL Immature Gran % (Auto) 0.1 (0.0-0.4) % Neut % (Auto) 54.9 (45-73) % Lymph % (Auto) 30.7 (20-40) % [place] % (Auto) 12.0 H (2-11) % Eos % (Auto) 1.5 (0-4) % Baso % (Auto) 0.8 (0-2) % Lymph # (Auto) 2.4 (1.2-4.9) X10*3/uL [place] # (Auto) 0.9 (0.1-1.2) X10*3/uL Eos # (Auto) 0.1 (0.0-0.4) X10*3/uL Baso # (Auto) 0.1 (0.0-0.2) X10*3/uL Abs Immat Gran (auto) 0.01 (0.00-0.03) X10*3/uL Absolute Neuts (auto) 4.3 (2.0-8.3) x10*3/uL Absolute Nucleated RBC 0.000 (0.0-0.012) X10*3/uL Nucleated RBC % (auto) 0.0 (0.0-0.2) /100WBC PT 13.5 (11.2-13.5) SEC INR 1.1 (0.9-1.1) APTT 29.7 (26.7-34.1) SEC Sodium 140 (135-145) mmol/L Potassium 4.4 (3.3-5.1) mmol/L Chloride 108 (96-108) mmol/L Carbon Dioxide 22 (22-29) mmol/L Anion Gap 14 (12-20) BUN 27 H (9-16) mg/dL Creatinine 1.69 H (0.5-1.4) mg/dL Estim Creat Clear Calc 47.7 Estimated GFR 40 Random Glucose 102 (60-115) mg/dL Calcium 9.7 (8.4-10.2) mg/dL Total Bilirubin 0.7 (0.0-1.0) mg/dL AST 32 (5-37) U/L ALT 27 (0-40) U/L Alkaline Phosphatase 62 (39-117) U/L Ammonia 37 (13-55) umol/L Troponin I High Sens 20.4 (<3.5-35.0) ng/L Total Protein 7.3 (6.5-8.0) g/dL Albumin 4.4 (3.5-5.0) g/dL Lipase 57 (8-78) U/L Independent Interpretation I performed an independent interpretation of an: EKG and CT Scan Interpretation: I personally interpreted the EKG which reveals sinus rhythm with first-degree AV block, nonspecific T-wave inversions in AVR, no ST-elevation/depression, lengthened QT Vent. Rate : 70 BPM Atrial Rate : 70 BPM P-R Int : 222 ms QRS Dur : 84 ms QT Int : 416 ms P-R-T Axes : -7 -24 30 degrees QTcB Int : 449 ms Sinus rhythm with marked sinus arrhythmia with 1st degree A-V block Minimal voltage criteria for LVH, may be normal variant ( R in aVL ) Nonspecific T wave abnormality Abnormal ECG I personally interpreted the CT head/brain which reveals questionable hypodensities of the left side concerning for acute infarct, I agree with the radiologist's interpretation Radiology Impression Discussion of test interpretation with radiology: I have reviewed the radiologist's reading. Radiologist Impression: CT head/brain FINDINGS: Cortical sulci: There is diffuse prominence of the cortical sulci compatible with age-related atrophy. Ventricles: Normal for age Brain parenchyma: There is patchy lucency throughout the deep white matter indicating chronic microvascular leukomalacia. There is a hypodense area of the left thalamus. Hypodense area of the left mesial occipital lobe with loss of dinh-white matter differentiation. Small chronic infarction of the left cerebellum. Extra axial spaces: Normal Posterior Fossa: Normal Extracranial soft tissues: Normal Additional abnormality: None IMPRESSION: Hypodense areas of the left thalamus and left mesial occipital lobe are concerning for acute infarction. Further evaluation by MRI as indicated This document has been electronically signed by: Renate Mcdowell MD on 08/05/2025 17:25:51 Dictated By: Renate Mcdowell MD Signed By: <Electronically signed by Renate Mcdowell MD in OV> 08/05/25 1726 Independent Historian Clinical information obtained from an independent historian. History obtained from or confirmed by: Other (Sister at bedside) External Record Review External record reviewed: Inpatient record, Office record, Outpatient record and Prior outpatient labs Chronic Conditions Patient?s care impacted by: Diabetes, Hypertension and Other (TIA, osteoarthritis, CKD, HIV, HTN, alcohol use disorder) Discharge Plan Discharge Clinical Impression: Cerebral infarct Patient Disposition: Admitted As Inpatient Interventions: Admission Worksheet (ED) Last Done: 08/06/25 14:49 Discharge Date/Time: 08/06/25 16:00
[2025-08-05 16:31] VITALS: PULSE 72; RESP 16
[2025-08-05 16:32] LABS: MANUAL DIFF FLAG NO
[2025-08-05 16:37] LABS: Hematocrit 44.0 % (42.0-52.0); Hemoglobin 15.4 g/dl (14.0-18.0); Imm Gran Abs Auto 0.01 X10*3/uL (0.00-0.03); Imm Gran Pct Auto 0.1 % (0.0-0.4); Lymphocytes Absolute Auto 2.4 X10*3/uL (1.2-4.9); Mean Corpuscular HGB Conc 35.0 g/dl (31.0-36.0); Mean Corpuscular Hemoglobin 32.3 pg (27.0-33.0); Mean Corpuscular Volume 92.2 fL (80.0-98.0); NRBC Abs Auto 0.000 X10*3/uL (0.0-0.012); NRBC Pct Auto 0.0 /100WBC (0.0-0.2); Platelet Count 177 X10*3/uL (160-400); Red Blood Count 4.77 X10*6/uL (4.60-5.80); White Blood Count 7.8 X10*3/uL (4.8-10.8)
[2025-08-05 16:40] LABS: Ammonia 37 umol/L (13-55)
[2025-08-05 16:40] LABS: INTERNATIONAL NORM RATIO 1.1 (0.9-1.1); Prothrombin Time 13.5 SEC (11.2-13.5)
[2025-08-05 16:42] LABS: Partial Thromboplastin Time 29.7 SEC (26.7-34.1)
[2025-08-05 16:50] LABS: Alanine Aminotransferase 27 U/L (0-40); Albumin Level 4.4 g/dL (3.5-5.0); Alkaline Phosphatase 62 U/L (39-117); Anion Gap 14 (12-20); Aspartate Amino Transferase 32 U/L (5-37); Blood Urea Nitrogen 27 mg/dL (9-16); Calcium 9.7 mg/dL (8.4-10.2); Carbon Dioxide 22 mmol/L (22-29); Chloride 108 mmol/L (96-108); Creatinine Clr Calc Pharmacy 47.7; Estimated Glomerular Filt Rate 40; Lipase 57 U/L (8-78); Potassium 4.4 mmol/L (3.3-5.1); Sodium 140 mmol/L (135-145); Total Protein 7.3 g/dL (6.5-8.0)
[2025-08-05 16:55] LABS: Troponin-I High Sensitivity 20.4 ng/L (<3.5-35.0)
[2025-08-05 18:14] VITALS: BP 158/88; PULSE 81; RESP 18; O2SAT 95
--- NOTE | 2025-08-05 18:28 | P.HPHOSP_ITS ---
History of Present Illness Date of Service: 08/05/25 Chief Complaint: ams 75M PMH TIA, CKD III, HIV, borderline diabetes, etoh dependence, HTN, presented with AMS. One day prior to presentation patient was noted to be sleepy and confused. Having difficulty getting words out. Symptoms persisted on day of presentation so he is brought to ED by his sister. Patient did not have any noted motor deficits, but was confused and unable to express himself. Was also complaining of chest pressure past 2 days but has subsided. In ED CT head showed hypodense area of the left thalamus and left mesial occipital lobe concerning for acute infarction. Review of Systems 2 Review of Systems: Yes all other systems are reviewed and are negative [facility] Medical History HLD (hyperlipidemia) GERD (gastroesophageal reflux disease) Peripheral neuropathy Cirrhosis Elevated cholesterol Osteoarthritis of right hip Chronic kidney disease Alcoholism Erectile dysfunction HIV (human immunodeficiency virus infection) Hypertension Surgical History History of esophagogastroduodenoscopy (EGD) H/O colonoscopy Social History Patient Tobacco Use Status: Never used Tobacco Smoked in Last 30 Days: No Use of substances other than those prescribed or required for medical reasons: No Advance Directives: No Advance Directives Information Provided: Yes Do you have a plan to hurt others: No Plan Current occupational status: retired 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 Meds Allergies Allergy/AdvReac Type Severity Reaction Status Date / Time No Known Allergies Allergy Verified 08/05/25 15:38 Active Medications: Current Medications Acetaminophen (Acetaminophen 325 Mg Tablet) 650 mg PO Q6H PRN PRN Reason: Pain, Mild 1-3,fever,headache Aspirin (Aspirin Enteric Coated 81 Mg Tablet.Dr) 81 mg PO DAILY VIBHA Atorvastatin Calcium (Atorvastatin Calcium 80 Mg Tablet) 80 mg PO BEDTIME VIBHA Calcium Carbonate (Calcium Carbonate 750 Mg Tab.Chew) 750 mg PO Q4H PRN PRN Reason: Heartburn Dextrose (Dextrose 50 % 25 Gm/50 Ml Syringe) 25 gm IVPUSH Q15M PRN; Protocol PRN Reason: per Hypoglycemia Standing Ord. Enoxaparin Sodium (Enoxaparin Sodium 40 Mg/0.4 Ml Syringe) 40 mg SUBCUT Q24H [facility] Glucose (Glucose Gel 15 Gm Gel..Gram.) 15 gm PO Q15M PRN; Protocol PRN Reason: per Hypoglycemia Standing Ord. Insulin Human Lispro (Insulin Lispro 100 Unit/Ml 3 Ml Vial) 0 unit SUBCUT QIDACHS VIBHA; Protocol Magnesium Hydroxide (Milk Of Magnesia 30 Ml Oral.Susp) 30 ml PO DAILY PRN PRN Reason: Constipation Melatonin (Melatonin 3 Mg Tablet) 6 mg PO BEDTIME PRN PRN Reason: Insomnia Home Medications ?Medication ?Instructions ?Recorded ?Confirmed ?Last Taken ?Type atorvastatin 40 mg tablet 40 mg PO DAILY 07/23/2010/05 Unknown History bictegravir 50 mg-emtricitabine 1 tab PO DAILY 0 10/29/24 Unknown History 200 mg-tenofovir alafenam 25 mg tablet (Biktarvy) metoprolol succinate 100 mg 100 mg PO DAILY 07/23/20 0 10/29/24 Unknown History tablet,extended release 24 hr (Toprol XL) omeprazole magnesium 20 mg 20 mg PO DAILY 07/23/20 Unknown History tablet,delayed release (Prilosec OTC) famotidine 40 mg tablet 40 mg PO DAILY 07/26/2010/05 Unknown History cyanocobalamin (vitamin B-12) 1,000 mcg PO DAILY 03/1010/29/24 Unknown History 1,000 mcg tablet (Vitamin B-12) empagliflozin 10 mg tablet 10 mg PO DAILY 04/10/24 Unknown History (Jardiance) losartan 100 mg tablet 100 mg PO QAM 04/13/25 Unkn own History Physical Exam 2 Vital Signs and Narrative: Vital Signs: Last Vital Signs Temp 97.7 F 08/05/25 15:33 Pulse 81 08/05/25 18:14 Resp 18 08/05/25 18:14 BP 158/88 H 08/05/25 18:14 Pulse Ox 95 08/05/25 18:14 O2 Del Method Room Air 08/05/25 18:14 BMI result Body Mass Index 32.0 General: AO X 3, no acute distress Resp: CTA bilateral, no accessory muscles used CVS: S1,S2,RRR GI: soft, non tender, non distended Neuro: motor grossly intact, alert, expressive aphasia Results Labs 08/05/25 16:26 08/05/25 16:26 Labs: Laboratory Results - last 24 hr 08/05/25 08/05/25 16:25 16:26 MCV 92.2 MCH 32.3 MCHC 35.0 RDW 13.0 Plt Count 177 MPV 9.9 Immature Gran % (Auto) 0.1 Neut % (Auto) 54.9 Lymph % (Auto) 30.7 [place] % (Auto) 12.0 H Eos % (Auto) 1.5 Baso % (Auto) 0.8 Lymph # (Auto) 2.4 [place] # (Auto) 0.9 Eos # (Auto) 0.1 Baso # (Auto) 0.1 Abs Immat Gran (auto) 0.01 Absolute Neuts (auto) 4.3 Absolute Nucleated RBC 0.000 Nucleated RBC % (auto) 0.0 PT 13.5 INR 1.1 APTT 29.7 Anion Gap 14 Estim Creat Clear Calc 47.7 Estimated GFR 40 Random Glucose 102 Calcium 9.7 Total Bilirubin 0.7 AST 32 ALT 27 Alkaline Phosphatase 62 Ammonia 37 Troponin I High Sens 20.4 Total Protein 7.3 Albumin 4.4 Lipase 57 Imaging Radiologist's Impressions: Impressions Chest X-Ray 08/05/25 15:54 IMPRESSION: Low lung volumes with no active disease. Electronically signed by: Ruiz Aiken MD 08/05/2025 04:01 PM EST Assessment and Plan (1) Cerebral infarct: Status: Acute Plan 75M PMH TIA, CKD III, HIV, borderline diabetes, etoh dependence, HTN, presented with AMS Acute CVA Aspirin, statin, check MRI and CTA head and neck, echo, tele, neuro eval, PT OT speech, check lipids HIV HAART etoh dependence vitamin supplement, ciwa Borderline diabetes Insulin sliding scale CKD 3 Stable Hypertension Permissive hypertension DVT prophylaxis with Lovenox Full code Given acute CVA and risk for further decompensation and need for extensive workup expected require at least 2 midnights inpatient Quality Stroke Does the patient have a stroke diagnosis?: Yes Reason for No Anti-thrombotic by Day Two: N/A - Med Ordered VTE Prior VTE?: No VTE Risk Level:: Medical - moderate - high VTE Device Contraindication: Treatment Not Indicated VTE Drug Contraindication: N/A - Med Ordered
--- NOTE | 2025-08-05 18:34 | PC.NURSE ---
Plan for CTA and MRI, MRI screening form completed and faxed. Pt removed first IV placed as pt thought plan was for d/c, second IV started to right hand. VSS. NSR on tele with occasional PVCs and PACs. Sister at bedside. Swallow eval completed and ASA given. Neuros otherwise intact aside for word finding issues. It appears pt attempting to use other words and overall appears confused in conversation. Plan of care ongoing
--- OUTSIDE RECORDS SUMMARY | 2025-08-05 18:53 | XMS_ITS | Clinical Summary ---
Author Organization [facility] Address [address] [address] Phone Care Team Providers Care Hospice Nurse Name Role Phone Unavailable Primary Care Provider [...] Payer (Ef fective 2014-Present) Name:Braulio Mook Member ID:[id number] Relation to Subscriber:Self Name:Mook Ramsey Subscriber ID:[id number] Payer ID:[id number] Group ID:Not on file Type:Medicare Address: [employer] [address] [facility] B [place] MEDICARE PART A & B [facility] PART [facility] & [facility] & B Member Subscriber Plan / Payer (Ef fective 2014-Present) Name:Mook Ramsey Member ID:[id number] Relation to Subscriber:Self Name:Mook Ramsey Subscriber ID:[id number] Payer ID:[id number] Group ID:Not on file Type:Medicare Address: [employer] [address] [place] [id number] [facility] & B [facility] MEDIC[facility] PART A & B [facility] Additional Source Comments The information contained in this document represents components of the legal health record. It is not the complete legal health record.[facility]
--- OUTSIDE RECORDS SUMMARY | 2025-08-05 18:53 | XMS_ITS | Patient Health Record ---
Author Organization [facility] Address [address] [place] [address] Care Team Providers Care Conservation Engineer Name Role Phone Socorro Arceo MD, Raul Primary Care Provide r Unavailable Mick Durán Unavailable [phone] Marvel Malhotra MD Unavailable Unavailable Allergies No Known Allergies Results Component Value Reference Range Flag Notes Alpha Fetoprotein Reviewed date:05/06/2025 05:54:54 PM Interpretation: Performing Lab:[facility], [address] [place] [id number] Notes/Report: Alpha Fetoprotein 3.1 <6.1 ng/mL N This test was performed using the Evelio Armington chemiluminescent method. Values obtained from different assay methods cannot be used interchangeably. AFP levels, regardless of value, should not be interpreted as absolute evidence of the presence or absence of disease. THIS TEST WAS PERFORMED AT: [facility] [address] [place] [phone] NINA SOLORIO MD Reason For Referral No Information Medications Medication SIG (Take, Route, Frequency, Duration) Notes Start Date End Date Status Omeprazole 20 MG Capsule Delayed Release 1 Orally Every morning; Duration: 90 days 09/04/2023 Active Metoprolol Succinate ER 50 MG Tablet Extended Release 24 Hour 1 tablet Orally twice a day; Duration: 90 days Active Trulicity 0.75 MG/0.5ML Solution Auto-injector as directed Subcutaneous Active Famotidine 40 MG Tablet 1 Orally At bedt marcela; Duration: 90 days 07/24/2019 Active Vitamin B12 100 MCG Tablet 1 tablet Orally Once a day Active Biktarvy 50-200-25 MG Tablet 1 tablet Orally Once a day; Duration: 30 day(s) Active Losartan Potassium 100 MG Tablet 1 tablet Orally Once a day A ctive Atorvastatin Calcium 80 MG Tablet 1 tablet Orally Once a day A ctive Immunizations Vaccine Route Administration Date Status Comme nts Flu vaccine no Preserv 3 and > Unknown 06/08/2015 Admin istered Influenza Unknown 05/11/2018 Administered Influenza Unknown 05/06/2019 Administered Influenza Unknown 05/04/2020 Administered Influenza Unknown 07/05/2022 Administered Influenza Unknown 07/04/2023 Administered Social History Tobacco Use: Social History Observation Description Date Details (start date - stop date) Never Smoker NA - NA Social History Drugs/Alcohol: Social Info Question Answer Notes Alcohol Screen Did you have a drink containing alcohol in the past year? No Points 0 Interpretation Negative Tobacco Use: Social Info Question Answer Notes Tobacco Use/Smoking Patient is a nonsmoker Additional Details Category Social Info Options Details Miscellaneous: Marital status: single Occupation: Retired Section Notes: He does not smoke; EtOH [...] Notes Problem Gastro-esophageal reflux disease without esophagitis (373215783) Gastro-esophageal reflux disease without esophagitis (K21.9) Active confirmed Problem Screening for malignant neoplasm of colon (385309694) Encounter for screening for malignant neoplasm of colon (Z12.11) Active confirmed Problem History of adenomatous polyp of colon (361171899) History of adenomatous polyp of colon (Z86.010) Active confirmed Problem History of polyp of colon (situation) (576838485) Personal history of colonic polyps (Z86.010) Active confirmed Problem Esophageal varices without bleeding (35878076) Esophageal varices without bleeding (I85.00) Active confirmed Problem Diverticular disease of colon (182508291) Diverticulosis of large intestine without perforation or abscess without bleeding (K57.30) Active confirmed Problem Alcoholic cirrhosis (846883811) 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) Active confirmed Problem Alcoholic cirrhosis (992025011) 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) Active confirmed Problem Gastroesophageal reflux disease with esophagitis (disorder) (922089529) GERD with esophagitis (K21.0) Active confirmed Problem Cirrhotic (654483858) Cirrhosis (K74.60) Active confirmed Problem Gastroesophageal reflux disease (338501933) GERD (gastroesophageal reflux disease) (K21.9) Active confirmed Problem Gastroesophageal reflux disease with esophagitis (disorder) (749515347) Gastroesophageal reflux disease with esophagitis without hemorrhage (K21.00) Active confirmed Vital Signs Blood pressure diastolic 77 mm Hg 05/05/2025 Height 72 in 05/05/2025 Blood pressure systolic 111 mm Hg 05/05/2025 Weight 227 lbs 05/05/2025 BMI 30.78 kg/m2 05/05/2025 Encounters Encounter Location Date Provider Diagnosis [facility] [address] [place] [address] 05/05/2025 Mick Durán 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 ; GERD with esophagitis K21.0 ; Encounter for screening for malignant neoplasm of colon Z12.11 and History of adenomatous polyp of colon Z86.010 [facility] [address] [place] [address] [facility]/12[facility]20[facility] [address] [place] [address] 01/19/[address] [facility] [address] [place] [address] 02/26/[address] [facility] [address] [place] [address] 05/05/2025 Mick Durán Assessments Encounter Date Diagnosis [...] INR) 12/24/2018 ALPHA-FETOPROTEIN,TUMOR MARKER 9 ALPHA-FETOPROTEIN,TUMOR MARKER 1 ALPHA-FETOPROTEIN,TUMOR MARKER 7 ALPHA-FETOPROTEIN,TUMOR MARKER 2 ALPHA-FETOPROTEIN,TUMOR MARKER 5 ALPHA-FETOPROTEIN,TUMOR MARKER 3 US ABD 08/02/2022 US ABD 04/21/2021 Prothrombin Time INR 08/02/2022 Prothrombin Time INR 04/21/2021 Prothrombin Time INR 07/06/2023 Liver Panel 04/21/2021 Liver Fibrosis Pnl 07/06/2023 US abdomen comp w elastography 3 Future Test Test Name Order Date UPPER GI ENDOSCOPY 01/20/2014 UPPER GI ENDOSCOPY 12/24/2018 COLONOSCOPY 12/24/2018 UPPER GI ENDOSCOPY 01/29/2024 COLONOSCOPY 01/29/2024 Next Appt Details Provider Name:Mick Durán , 05/06/2026 10:20:00 AM, [address], [address], [place], [address], Insurance Providers Payer Name Payer Address Payer Phone Subscriber Number Group Number Insured Name Patient Relationship to Insured Coverage Start Date Coverage End Date MEDICARE OF [place] [address] [place] [address] [id number] MOOK FREEMAN Self - patient is the insured MEDICAID OF [facility] [address] [place] [phone] [id number] MOOK FREEMAN Self - patient is the insured Medical (General) History Medical History History ICD Code Diverticulitis Esophageal ulcer/esophagitis in 2006--neg bx--F/U EGD in 07/12 WNL-no significant esophagitis and biopsies were negative for Hall's esophagus; he does have a small to moderate size hiatal hernia HIV infection-for >20 yrs Mild MN in 12/2012--describes a neg. ca rdiac cath [...] and being followed by cardiothoracic surgery at [facility] Surgical History Surgery Date(Month/Year) LE varicose veins
--- OUTSIDE RECORDS SUMMARY | 2025-08-05 18:53 | XMS_ITS | Encounter Summary ---
Author Organization [facility] Address [address] [place] [address] Phone Care Team Providers Care Traffic Workforce Representative Name Role Phone Pcp, Unknown Primary Care Provider Unavailabl e Encounter Details Date Type Department Care Team (Latest Contact Info) Description 01/08/2019 Ancillary Orders [facility] [address] [place] [address] [place] [address] Paresh Marcus, DO [address] [place] [address] Dyspnea on exertion Social History Tobacco Use [...] abnormality documented in this encounter Care Teams Traffic Workforce Representative Relationship Specialty Start Date End Date Pcp, Unknown PCP - General 01/10/19 01/10/19 documented as of this encounter Additional Source Comments The information contained in this document represents components of the legal health record. It is not the complete legal health record.[facility]
--- OUTSIDE RECORDS SUMMARY | 2025-08-05 18:54 | XMS_ITS | Clinical Summary ---
Author Organization [address] [facility] Address [address] [place] [address] Phone Care Team Providers Care Drill Grinder Name Role Phone Raul Nava MD Primary [...] square meter and albuminuria creatinine ratio bet* ([facility] V24, [facility] V28) 09/02/2024 Mixed hyperlipidemia 09/02/2024 Human immunodeficiency virus (HIV) disease ([facility] V24, [facility] V28) 09/02/2024 Personal history of alcoholism ([facility] V24, [facility] V28) 09/02/2024 Esophageal varices without b leeding ([facility] [place], [facility] [place]28) 09/02/2024 Tubular adenoma of colon 09/02/2024 Obesity (BMI 30.0-34.9) 09/02/2024 Dry cough 09/02/2024 Varicose veins of both lower extremities 024 Encounters Date Type Department Care Team Description 07/22/2025 2:30 PM EST Office Visit Orthopedic Surgery [place] [address] [address] Jaime Kenny DPM Posterior tibial tendinitis of right leg (Primary Dx); Primary osteoarthritis of both feet; Dermatophytosis of nail; Acquired hallux valgus of right foot; Acquired hallux valgus of left foot 06/01/2025 3:00 PM EDT Office Visit Orthopedic [facility] [address] [address] Jaime Kenny DPM Posterior tibial tendinitis of right leg (Primary Dx); Posterior tibial tendinitis of left leg; Primary osteoarthritis of both feet; Dermatophytosis of nail; Diabetic mononeuropathy simplex ([facility] [place], [facility] V28); Pain in toe of left foot; Pain in toe of right foot; Acquired hallux valgus of left foot; Acquired hallux valgus of right foot; Corns and callosities; Bilateral femoral artery stenosis ([facility] V24); Type II diabetes mellitus with peripheral circulatory disorder ([facility] [place], [facility] V28); Metatarsalgia of both feet; Hammer toe of left foot; Acquired hammer toe of right foot from Last 3 Months Immunizations Immunization [...] Care Team (Late st Contact Info) Description 09/09/2025 10:30 AM EST Office Visit Orthopedic Surgery - [place] [address] [address] Jaime Kenny, DPM [address] [address] Health Maintenance Due Date Last [...] Sugar Control Test (HGBA1C) 12/23/2024 COVID-19 Vaccine (7 - Mixed Product risk 2024- season) 01/18/2026 07/21/2025, 07/28/2024, 06/05/2022, Additional history exists Meningococcal ACWY Vaccine (4 - Risk 2-dose series) 03/24/2029 03/24/2024, 07/12/2017, 03/01/2017 DTaP,Tdap,and Td Vaccines (4 - Td or Tdap) 06/19/2033 06/19/2023, 10/10/2012, 05/13/2009 Zoster Vaccines Completed 04/20/2021, 02/01, 10/10/2012 RSV Immunization Adult Patients Completed 08/14/2024 Hepatitis A Vaccines Completed 02/12/2025, 08/14/20 24 Influenza Vaccine Completed 05/22/2025, , 06/19/2023, Additional history exists Pneumococcal Vaccine: 50+ Years Completed 05/22/2025, 03/01/2022, 03/01/2017, Additional history exists HIB Vaccines Aged Out No longer eligi [...] Insurance MEDICARE MEDICAID - [place] Care Teams Drill Grinder Relationship Specialty Start Date End Date Raul Nava MD [address] [place] [address] [place] [phone] PCP - General 05/28/24
[2025-08-05] MEDS: iohexoL 350 MG/ML 100 ML INFUS..BTL IV (19:00)
[2025-08-05 19:12] VITALS: BP 154/86; PULSE 63; RESP 20; TEMP 36.5; O2SAT 96
[2025-08-05] MEDS: Lactated Ringers 1,000 ML 999 ML IV (19:14)
--- NOTE | 2025-08-05 20:30 | PHA.MEDREC ---
Pharmacy Consult ? Medication Reconciliation Pharmacy has completed the medication reconciliation. Spoke to patient to confirm medication list. Per patient, he does NOT take jardiance, famotidine, trulicity nor ammonium lactate cream. Last dose of medications was yesterday 08/04/25.
[2025-08-05 21:27] LABS: Glucose, Whole Blood 95 mg/dL (60-115)
[2025-08-05 22:10] VITALS: BP 147/72; PULSE 50; RESP 19; TEMP 36.6; O2SAT 98
[2025-08-06] VITALS (8 sets, daily range): BP systolic 132–171; BP diastolic 73–99; PULSE 56–84; RESP 15–18; TEMP 36.3–36.8; O2SAT 94–100; BMI 32.8
[2025-08-06] MEDS: 0.9 % Sodium Chloride Flush 3 ML SYRINGE IVFLUSH ×3 (00:51→22:12)
[2025-08-06 04:40] LABS: Hematocrit 42.0 % (42.0-52.0); Hemoglobin 14.3 g/dl (14.0-18.0); Mean Corpuscular HGB Conc 34.0 g/dl (31.0-36.0); Mean Corpuscular Hemoglobin 31.7 pg (27.0-33.0); Mean Corpuscular Volume 93.1 fL (80.0-98.0); NRBC Abs Auto 0.000 X10*3/uL (0.0-0.012); NRBC Pct Auto 0.0 /100WBC (0.0-0.2); Platelet Count 160 X10*3/uL (160-400); Red Blood Count 4.51 X10*6/uL (4.60-5.80); White Blood Count 7.4 X10*3/uL (4.8-10.8)
[2025-08-06 04:54] LABS: Anion Gap 13 (12-20); Blood Urea Nitrogen 24 mg/dL (9-16); Calcium 9.3 mg/dL (8.4-10.2); Carbon Dioxide 24 mmol/L (22-29); Chloride 107 mmol/L (96-108); Cholesterol 128 mg/dL (<200); Creatinine Clr Calc Pharmacy 49.2; Estimated Glomerular Filt Rate 41; HDL Cholesterol 38 mg/dL (>40); Potassium 4.0 mmol/L (3.3-5.1); Sodium 140 mmol/L (135-145); Triglycerides 99 mg/dL (<150)
--- NOTE | 2025-08-06 07:00 | CA_ITS ---
Transthoracic Echocardiogram Patient (Last, First, Middle): Mook Ramsey F Gender: M Date of : 1950 Age: 75 Procedure Date: 08/06/2025 Procedure Type: Transthoracic Echocardiogram Location: ER Height: 180.34 cm Weight: 103.87 kg BSA: 2.23 m2 Heart Rate: 71 bpm BP: 153 / 79 mmHg Undercover Agent: JASON Referring MD: Roberto Altman MD Symptoms: cva Study Quality: Fair but adequate ECG Rhythm: Sinus Conclusions: - The left ventricular systolic function is normal. The calculated ejection fraction is 57% by biplane method. - There is mild mitral valve regurgitation. - There is moderate dilatation of the sinuses of Valsalva measuring 4.80 cm and mild dilatation of the ascending aorta measuring 4.10 cm. - Moderate plaque is seen in the sino tubular ridge. Findings Left Ventricle Normal left ventricular cavity size. There is severely increased left ventricular wall thickness. The left ventricular systolic function is normal. The calculated ejection fraction is 57% by biplane method. There is no evidence of regional wall motion abnormalities. Diastolic function is indeterminate on the basis of available data. Right Ventricle Mildly increased right ventricular cavity size. There is normal right ventricular systolic function. Atria The left atrium is moderately dilated. The right atrium is normal in size. Aortic Valve There is a normal trileaflet aortic valve. There is mild calcification of the aortic valve. There is no aortic valve stenosis. There is trace (trivial) aortic valve regurgitation. Mitral Valve There is mild mitral valve regurgitation. There is no mitral valve stenosis. possibly some degree of mitral valve prolapse. Pulmonic Valve The pulmonic valve is likely normal. Tricuspid Valve There is trace tricuspid valve regurgitation. There is no evidence of pulmonary hypertension. Great Vessels There is moderate dilatation of the sinuses of Valsalva measuring 4.80 cm and mild dilatation of the ascending aorta measuring 4.10 cm. Moderate plaque is seen in the sino tubular ridge. Venous The inferior vena cava was not well visualized. Pericardium/Pleural There is no evidence of pericardial effusion. Prior Study Comparison No prior study available for comparison. Measurements 2D Linear Measurements IVSd: 1.56 0.6-0.9/0.6-1.0 cm LVIDd: 4.29 3.9-5.3/4.2-5.9 cm LVIDd Index: 1.92 2.4-3.2/2.2-3.1 cm/m2 LVIDs: 2.53 2.0-3.6 cm LVPWd: 1.60 0.7-1.1 cm LA Diam: 5.20 2.7-3.8/3.0-4.0 cm LAIDs Index: 2.33 1.5-2.3 cm/m2 LV Mass: 347.92 67-162/88-224 g LV Mass Index: 156.02 43-95/49-115 g/m2 LVOT Diam: 2.20 3.0+(-)1.3 cm 2D Systolic Function EF 4C: 56.70 >55% EF 2C: 56.50 >55% EF BiP: 57.10 >55% Mitral Valve MV Pk E: 0.93 MV PK A: 0.66 MV Decel Time: 214.00 E/A: 1.40 E'Lateral: 7.51 E'Medial: 5.44 E/E' Med: 17.00 E/E' Lat: 12.30 PHT: 63.00 MVA PHT: 3.49 Decel Ray: 4.33 Aortic Valve AoV Pk Ron: 1.29 AoV Mn Ron: 0.90 AoV VTI: 0.27 AoV Pk Grad: 7.00 Aov Mn Grad: 4.00 SUMMER Cont.VTI: 3.06 LVOT LVOT Pk Ron: 0.94 LVOT Mn Ron: 0.71 LVOT VTI: 0.22 LVOT Pk Grad: 4.00 LVOT Mn Grad: 2.00 LVOT Diam: 2.20 LVOT Area: 3.80 Diastolic Function MV Pk E: 0.93 MV Pk A: 0.66 E/A: 1.40 E'Medial: 5.44 E/E' Med: 17.00 E' Laterial: 7.51 E/E' Lat: 12.30 Right Ventricle TAPSE (mm): 31.50 TVS' Ron: 16.50 Tricuspid Valve TR Pk Ron: 1.84 TR Pk Grad: 14.00 Great Vessels Aorta Sinus of Valsalva: 4.80 2.0-3.5 cm Ao Asc: 4.10 2.1-3.4 cm Ao Arch: 3.80 Pulmonary Valve PV Pk Ron: 1.40 Peak PV Grad: 8.00 Updated in Other Vendor System with Status of Final Hakan Cortez MD electronically signed on 08/06/2025 12:33:28 PM with status of Final
--- NOTE | 2025-08-06 07:11 | HO.NURTONUR ---
75 Y.O. male sent from urgent care for increased confusion, auditory hallucinations and sleeping more than usual. Family was concerned patient had possibly accidentally taken additional doses of medication Head CT revealed areas concerning for acute infarct in L occipital lobe and left thalmus-MRI confirmed Difficulty word finding at times No facial droop noted, pupils equal and reactive, gait steady, speech clear Hx ETOH dependence-CIWA's negative Hx HIV Borderline DM--did not require coverage this AM or last night Admitting Dx: Acute CVA #20 PIV to right hand Alert and oriented
[2025-08-06 07:13] LABS: Glucose, Whole Blood 101 mg/dL (60-115)
--- NOTE | 2025-08-06 07:22 | PC.NURSE ---
report taken from previous rn. pt is caox3 with clear appropriate speech and brisk reflexes to all his extremities. he does need to be reoriented as to his plan of care and seems unaware of his diagnosis. he is tolerating a meal tray, he has his call richter in reach and fall precautions are in place.
[2025-08-06] MEDS: Bictegrav/Emtricit/Tenofov Ala TABLET 1 TAB PO (11:04)
[2025-08-06] MEDS: Aspirin Enteric Coated 81 MG TABLET.DR PO (11:04)
[2025-08-06 11:53] LABS: Glucose, Whole Blood 100 mg/dL (60-115)
[2025-08-06 12:05] LABS: Appearance Urine Clear; Glucose Urine UA Negative (Negative); PH 5.0 (5.0-9.0); Specific Gravity - Urine >= 1.030 (1.005-1.025)
--- NOTE | 2025-08-06 12:56 | HO.PM.IMPN ---
Subjective Subjective Date of Service: 08/06/25 Interval History: unchanged expressive aphasia Physical Exam Exam: Exam: General: AO X 3, no acute distress Resp: CTA bilateral, no accessory muscles used CVS: S1,S2,RRR GI: soft, non tender, non distended Neuro: motor grossly intact, alert, expressive aphasia Vital Signs: Vital Signs: Last Vital Signs Temp 97.5 F 08/06/25 09:47 Pulse 84 08/06/25 09:47 Resp 16 08/06/25 09:47 BP 153/79 H 08/06/25 09:47 Pulse Ox 100 08/06/25 09:47 O2 Del Method Room Air 08/06/25 09:47 BMI result Body Mass Index 32.0 Objective Data Active Medications Acetaminophen (Acetaminophen 325 Mg Tablet) 650 mg PO Q6H PRN PRN Reason: Pain, Mild 1-3,fever,headache Aspirin (Aspirin Enteric Coated 81 Mg Tablet.) 81 mg PO DAILY [facility] Last Admin: 08/06/25 11:04 Dose: 81 mg Documented By: ZHOU Atorvastatin Calcium (Atorvastatin Calcium 80 Mg Tablet) 80 mg PO BEDTIME [facility] Last Admin: 08/05/25 21:30 Dose: 80 mg Documented By: COOPECarolyn Bictegravir/Emtricitabine/Tenofovir (Bictegrav/Emtricit/Tenofov Ala Tablet) 1 tab PO DAILY [facility] Last Admin: 08/06/25 11:04 Dose: 1 tab Documented By: ZHOU Calcium Carbonate (Calcium Carbonate 750 Mg Tab.Chew) 750 mg PO Q4H PRN PRN Reason: Heartburn Cyanocobalamin (Cyanocobalamin (Vitamin B-12) 1,000 Mcg Tablet) 1,000 mcg PO DAILY [facility] Last Admin: 08/06/25 11:04 Dose: 1,000 mcg Documented By: ZHOU Dextrose (Dextrose 50 % 25 Gm/50 Ml Syringe) 25 gm IVPUSH Q15M PRN; Protocol PRN Reason: per Hypoglycemia Standing Ord. Enoxaparin Sodium (Enoxaparin Sodium 40 Mg/0.4 Ml Syringe) 40 mg SUBCUT Q24H [facility] Last Admin: 08/06/25 11:05 Dose: 40 mg Documented By: ZHOU Folic Acid (Folic Acid 1 Mg Tablet) 1 mg PO DAILY [facility] Last Admin: 08/06/25 11:04 Dose: 1 mg Documented By: ZHOU Glucose (Glucose Gel 15 Gm Gel..Gram.) 15 gm PO Q15M PRN; Protocol PRN Reason: per Hypoglycemia Standing Ord. Insulin Human Lispro (Insulin Lispro 100 Unit/Ml 3 Ml Vial) 0 unit SUBCUT QIDACHS [facility]; Protocol Last Admin: 08/06/25 12:07 Dose: Not Given Documented By: EVELINE Non-Admin Reason: poc-100 Magnesium Hydroxide (Milk Of Magnesia 30 Ml Oral.Susp) 30 ml PO DAILY PRN PRN Reason: Constipation Magnesium Hydroxide (Milk Of Magnesia 30 Ml Oral.Susp) 30 ml PO DAILY PRN PRN Reason: Constipation Melatonin (Melatonin 3 Mg Tablet) 6 mg PO BEDTIME PRN PRN Reason: Insomnia Multivitamins/Vitamin C (Multivitamin Tablet) 1 tab PO DAILY [facility] Last Admin: 08/06/25 11:04 Dose: 1 tab Documented By: ZHOU Omeprazole (Omeprazole 20 Mg Capsule.Dr) 20 mg PO DAILY@0630 [facility] Last Admin: 08/06/25 07:08 Dose: 20 mg Documented By: ROSCOE Sodium Chloride (0.9 % Sodium Chloride Flush 3 Ml Syringe) 3 ml IVFLUSH QSHIFT [facility] Last Admin: 08/06/25 11:59 Dose: 3 ml Documented By: BREANNE Thiamine HCl (Thiamine Hcl 100 Mg Tablet) 100 mg PO DAILY [facility] Last Admin: 08/06/25 11:04 Dose: 100 mg Documented By: ZHOU Labs 08/06/25 04:18 08/06/25 04:18 Labs: Laboratory Results - last 24 hr 08/05/25 08/05/25 08/05/25 16:25 16:26 21:24 MCV 92.2 MCH 32.3 MCHC 35.0 RDW 13.0 Plt Count 177 MPV 9.9 Immature Gran % (Auto) 0.1 Neut % (Auto) 54.9 Lymph % (Auto) 30.7 [place] % (Auto) 12.0 H Eos % (Auto) 1.5 Baso % (Auto) 0.8 Lymph # (Auto) 2.4 [place] # (Auto) 0.9 Eos # (Auto) 0.1 Baso # (Auto) 0.1 Abs Immat Gran (auto) 0.01 Absolute Neuts (auto) 4.3 Absolute Nucleated RBC 0.000 Nucleated RBC % (auto) 0.0 PT 13.5 INR 1.1 APTT 29.7 Anion Gap 14 Estim Creat Clear Calc 47.7 Estimated GFR 40 POC Glucose 95 Random Glucose 102 Calcium 9.7 Total Bilirubin 0.7 AST 32 ALT 27 Alkaline Phosphatase 62 Ammonia 37 Troponin I High Sens 20.4 Total Protein 7.3 Albumin 4.4 Triglycerides Cholesterol LDL Cholesterol, Calc HDL Cholesterol Lipase 57 Urine Color Urine Appearance Urine pH Ur Specific [place] Urine Protein Urine Glucose (UA) Urine Ketones Urine Blood Urine Nitrite Ur Leukocyte Esterase 08/06/25 08/06/25 08/06/25 04:18 07:06 11:48 MCV 93.1 MCH 31.7 MCHC 34.0 RDW 13.0 Plt Count 160 MPV 9.7 Immature Gran % (Auto) Neut % (Auto) Lymph % (Auto) [place] % (Auto) Eos % (Auto) Baso % (Auto) Lymph # (Auto) [place] # (Auto) Eos # (Auto) Baso # (Auto) Abs Immat Gran (auto) Absolute Neuts (auto) Absolute Nucleated RBC 0.000 Nucleated RBC % (auto) 0.0 PT INR APTT Anion Gap 13 Estim Creat Clear Calc 49.2 Estimated GFR 41 POC Glucose 101 100 Random Glucose 104 Calcium 9.3 Total Bilirubin AST ALT Alkaline Phosphatase Ammonia Troponin I High Sens Total Protein Albumin Triglycerides 99 Cholesterol 128 LDL Cholesterol, Calc 71 HDL Cholesterol 38 L Lipase Urine Color Urine Appearance Urine pH Ur Specific [place] Urine Protein Urine Glucose (UA) Urine Ketones Urine Blood Urine Nitrite Ur Leukocyte Esterase 08/06/25 11:49 MCV MCH MCHC RDW Plt Count MPV Immature Gran % (Auto) Neut % (Auto) Lymph % (Auto) [place] % (Auto) Eos % (Auto) Baso % (Auto) Lymph # (Auto) [place] # (Auto) Eos # (Auto) Baso # (Auto) Abs Immat Gran (auto) Absolute Neuts (auto) Absolute Nucleated RBC Nucleated RBC % (auto) PT INR APTT Anion Gap Estim Creat Clear Calc Estimated GFR POC Glucose Random Glucose Calcium Total Bilirubin AST ALT Alkaline Phosphatase Ammonia Troponin I High Sens Total Protein Albumin Triglycerides Cholesterol LDL Cholesterol, Calc HDL Cholesterol Lipase Urine Color Yellow Urine Appearance Clear Urine pH 5.0 Ur Specific [place] >= 1.030 H Urine Protein Trace Urine Glucose (UA) Negative Urine Ketones Negative Urine Blood Negative Urine Nitrite Negative Ur Leukocyte Esterase Negative Assessment and Plan (1) Cerebral infarct: Status: Acute Plan 75M PMH TIA, CKD III, HIV, borderline diabetes, etoh dependence, HTN, presented with AMS Acute CVA Aspirin, statin, echo - showing Moderate plaque is seen in the sino tubular ridge, tele, neuro eval, PT OT speech HIV HAART etoh dependence vitamin supplement, ciwa Borderline diabetes Insulin sliding scale CKD 3 Stable Hypertension Permissive hypertension DVT prophylaxis with Lovenox Full code reason for continued hospitalization:working up stroke Quality Stroke Does the patient have a stroke diagnosis?: Yes Reason for No Anti-thrombotic by Day Two: N/A - Med Ordered VTE Prior VTE?: No VTE Risk Level:: Medical - moderate - high VTE Device Contraindication: Treatment Not Indicated VTE Drug Contraindication: N/A - Med Ordered
--- NOTE | 2025-08-06 13:37 | MHC.SP.ADU ---
Referring provider: Roberto Altman Reason for Referral: Expressive Aphasia/Word finding difficulties Type of Treatment: 87766 Assessment of Aphasia Date of Plan of Treatment: 08/06/25 Onset of Symptoms/Illness: 08/05/25 Date Treatment Started: 08/06/25 Medical Diagnosis: (1) Cerebral infarct: Status: Acute Primary Speech Language Diagnosis: R47.01 Aphasia Secondary Speech Language Diagnosis: History Per H & P Note: 75M PMH TIA, CKD III, HIV, borderline diabetes, etoh dependence, HTN, presented with AMS. One day prior to presentation patient was noted to be sleepy and confused. Having difficulty getting words out. Symptoms persisted on day of presentation so he is brought to ED by his sister. Patient did not have any noted motor deficits, but was confused and unable to express himself. Was also complaining of chest pressure past 2 days but has subsided. In ED CT head showed hypodense area of the left thalamus and left mesial occipital lobe concerning for acute infarction. Patient's Brain MRI results: Moderate focus of diffusion restriction present at the medial aspect of the left occipital lobe with small foci of diffusion restriction at the medial aspect of the left temporal lobe, left cerebellar hemisphere, and left thalamus, consistent with acute ischemia. There are a few scattered, small foci of increased signal intensity on diffusion-weighted imaging at the right occipital lobe. It is unclear whether there is subtle associated diffusion restriction at these sites, and these findings may be related to small foci of acute and/or subacute ischemia. No midline shift demonstrated. Medical History: HLD (hyperlipidemia) GERD (gastroesophageal reflux disease) Peripheral neuropathy Cirrhosis Elevated cholesterol Osteoarthritis of right hip Chronic kidney disease Alcoholism Erectile dysfunction HIV (human immunodeficiency virus infection) Hypertension Respiratory Needs: Room Air Patient Orientation: Alert & Oriented x 4 Swallowing History: Dysphagia Specific: Within Functional Limits Comments: Patient and MD with no dysphagia concerns; FUN HOUSE ATTENDANT consulted d/t expressive language deficits. Reported Speech, Language, Cognition difficulties: Understanding Speaking Comments: Per provider note: Patient seems to me like he is having word finding difficulty, his speech is not flowing. Patient with chief complaint of AMS. Assessment Speech Production: Aphasic: Fluent Clinical Impression: Did Not Test Observations: Patient with no dysarthria noted; only complaint is word-finding difficulties. Able to form sentences, communicate wants/need, asks questions, etc. Tests of Speech & Lang Adults: Clinical Impression: Impaired Observations: Patient presents with very mild anomic/expressive aphasia. Patient's receptive/expressive language abilities were tested informally this date. Patient would benefit from standardized testing. READING: letters- 4/6; increased to 6/6 when alerted of additional letters in R visual field. words- 9/10, sentences 5/5. Patient reporting glare from evaluation materials (laminated). Patient's visitors assisting with turning down light and patient reported improvement; of note patient with diffusion in L occipital on Brain MRI, possible R vision field decreased. Patient having to move paper around and eventually placing all visual stimulus in L visual field in order to see. NAMING: Pictures- 5/6, Body Parts- 10, Objects in room- 5/5, Responsive- 9/10, Convergent-4/5, Fluency/Divergent- able to name 8 animals within a minute (repetition of horse ). YES/NO /s: simple- 5/5, complex- 5/5, comparative- 5/5. COMMANDS: 1-step- 10/10, 2-step- 4/4, complex-2-3. Patient able to give correct answer and understand incorrect answers with minimum-moderate logical cues. Patient requiring minimum repetitions of tasks in order to understand. Patient presents with very mild anomic aphasia. Patient encouraged to continue to stimulate speech through conversations. Recommended outpatient FUN HOUSE ATTENDANT if word-finding/anomia continues to persists. Recommendations/results of evaluation communicated with MD and RN via secure chat. Recommendation for Speech Therapy: Outpatient Speech Therapy Inpatient Speech Therapy Frequency/Duration: Follow-up 1-2x Date Range for Service Requested: M-F daily Time to Reassess: NA Recommended Referrals to be Discussed with Primary Care Provider: Patient Education: Completed: Yes Patient/Caregiver Education: Described Results of Evaluation Patient expressed understanding of evaluation Patient agrees with goals and treatment plan Family/Caregivers expressed agreement with goals and treatment plan Comments/Barriers to Learning: Residential Coordinator Clinican/Clinical Fellow: No Supervisory Statement: N/A Speech Language Pathologist: Neeru Mitchell M.A., CCC-FUN HOUSE ATTENDANT
--- NOTE | 2025-08-06 14:48 | HO.NURTONUR ---
75M, a&o x3, calm and cooperative. PMH TIA, CKD III, HIV, borderline diabetes, etoh dependence, HTN, presented to ED with cc: AMS. LKW 3 days prior to arrival. Per pt family, patient was noted to be sleepy and confused with difficulty word finding. Pt symptoms continued into the following day prompting family to have pt evaluated in ED. Patient did not have any noted motor deficits, but was confused and unable to express himself on arrival. Pt had workup in the ED with CT imaging. CT head showed hypodense area of the left thalamus and left mesial occipital lobe concerning for acute infarction. Pt passed his nursing swallow screen, and has been oob to th BR. Pt has 20g IV access in R hand.
[2025-08-06 16:19] LABS: Glucose, Whole Blood 88 mg/dL (60-115)
[2025-08-07 03:05] VITALS: BP 137/78; PULSE 58; RESP 18; TEMP 37; O2SAT 93
[2025-08-07 07:36] LABS: Glucose, Whole Blood 94 mg/dL (60-115)
[2025-08-07 08:00] VITALS: BP 130/79; PULSE 57; RESP 18; TEMP 36.5; O2SAT 93
[2025-08-07] MEDS: 0.9 % Sodium Chloride Flush 3 ML SYRINGE IVFLUSH (09:03)
[2025-08-07] MEDS: Bictegrav/Emtricit/Tenofov Ala TABLET 1 TAB PO (09:03)
[2025-08-07] MEDS: Aspirin Enteric Coated 81 MG TABLET.DR PO (09:03)
--- NOTE | 2025-08-07 09:05 | P.PNIM_ITS ---
Subjective Subjective Date of Service: 08/07/25 Interval History: Improving expressive aphasia Physical Exam 2 Exam: Exam: General: AO X 3, no acute distress Resp: CTA bilateral, no accessory muscles used CVS: S1,S2,RRR GI: soft, non tender, non distended Neuro: motor grossly intact, alert, mild expressive aphasia, very mild right facial droop Vital Signs: Vital Signs: Last Vital Signs Temp 97.7 F 08/07/25 08:00 Pulse 57 08/07/25 08:00 Resp 18 08/07/25 08:00 BP 130/79 08/07/25 08:00 Pulse Ox 93 08/07/25 08:00 O2 Del Method Room Air 08/07/25 08:00 BMI result Body Mass Index 32.8 Objective Data Active Medications Acetaminophen (Acetaminophen 325 Mg Tablet) 650 mg PO Q6H PRN PRN Reason: Pain, Mild 1-3,fever,headache Last Admin: 08/06/25 16:25 Dose: 650 mg Documented By: DILMA Aspirin (Aspirin Enteric Coated 81 Mg Tablet.) 81 mg PO DAILY [facility] Last Admin: 08/06/25 11:04 Dose: 81 mg Documented By: ZHOU Atorvastatin Calcium (Atorvastatin Calcium 80 Mg Tablet) 80 mg PO BEDTIME [facility] Last Admin: 08/06/25 22:11 Dose: 80 mg Documented By: NORMA Bictegravir/Emtricitabine/Tenofovir (Bictegrav/Emtricit/Tenofov Ala Tablet) 1 tab PO DAILY [facility] Last Admin: 08/06/25 11:04 Dose: 1 tab Documented By: ZHOU Calcium Carbonate (Calcium Carbonate 750 Mg Tab.Chew) 750 mg PO Q4H PRN PRN Reason: Heartburn Clopidogrel Bisulfate (Clopidogrel Bisulfate 75 Mg Tablet) 75 mg PO DAILY [facility] Cyanocobalamin (Cyanocobalamin (Vitamin B-12) 1,000 Mcg Tablet) 1,000 mcg PO DAILY [facility] Last Admin: 08/06/25 11:04 Dose: 1,000 mcg Documented By: ZHOU Dextrose (Dextrose 50 % 25 Gm/50 Ml Syringe) 25 gm IVPUSH Q15M PRN; Protocol PRN Reason: per Hypoglycemia Standing Ord. Enoxaparin Sodium (Enoxaparin Sodium 40 Mg/0.4 Ml Syringe) 40 mg SUBCUT Q24H [facility] Last Admin: 08/06/25 11:05 Dose: 40 mg Documented By: ZHOU Folic Acid (Folic Acid 1 Mg Tablet) 1 mg PO DAILY [facility] Last Admin: 08/06/25 11:04 Dose: 1 mg Documented By: ZHOU Glucose (Glucose Gel 15 Gm Gel..Gram.) 15 gm PO Q15M PRN; Protocol PRN Reason: per Hypoglycemia Standing Ord. Insulin Human Lispro (Insulin Lispro 100 Unit/Ml 3 Ml Vial) 0 unit SUBCUT QIDACHS [facility]; Protocol Last Admin: 08/07/25 07:39 Dose: Not Given Documented By: DILMA Non-Admin Reason: No Insulin Coverage Magnesium Hydroxide (Milk Of Magnesia 30 Ml Oral.Susp) 30 ml PO DAILY PRN PRN Reason: Constipation Melatonin (Melatonin 3 Mg Tablet) 6 mg PO BEDTIME PRN PRN Reason: Insomnia Multivitamins/Vitamin C (Multivitamin Tablet) 1 tab PO DAILY [facility] Last Admin: 08/06/25 11:04 Dose: 1 tab Documented By: ZHOU Pantoprazole Sodium (Pantoprazole Sodium 20 Mg Tablet.Dr) 20 mg PO DAILY@0630 [facility] Last Admin: 08/07/25 06:04 Dose: 20 mg Documented By: NORMA Sodium Chloride (0.9 % Sodium Chloride Flush 3 Ml Syringe) 3 ml IVFLUSH QSHIFT [facility] Last Admin: 08/06/25 22:12 Dose: 3 ml Documented By: SHAUN-LEDY Thiamine HCl (Thiamine Hcl 100 Mg Tablet) 100 mg PO DAILY [facility] Last Admin: 08/06/25 11:04 Dose: 100 mg Documented By: ZHOU Labs 08/06/25 04:18 08/06/25 04:18 Labs: Laboratory Results - last 24 hr 08/06/25 08/06/25 08/06/25 11:48 11:49 16:11 POC Glucose 100 88 Urine Color Yellow Urine Appearance Clear Urine pH 5.0 Ur Specific [place] >= 1.030 H Urine Protein Trace Urine Glucose (UA) Negative Urine Ketones Negative Urine Blood Negative Urine Nitrite Negative Ur Leukocyte Esterase Negative 08/06/25 08/07/25 21:27 07:26 POC Glucose 94 94 Urine Color Urine Appearance Urine pH Ur Specific [place] Urine Protein Urine Glucose (UA) Urine Ketones Urine Blood Urine Nitrite Ur Leukocyte Esterase Assessment and Plan (1) Cerebral infarct: Status: Acute Plan 75M PMH TIA, CKD III, HIV, borderline diabetes, etoh dependence, HTN, presented with AMS Acute CVA Aspirin, added Plavix, statin, echo - showing Moderate plaque is seen in the sino tubular ridge, tele, neuro eval HIV HAART etoh dependence vitamin supplement, ciwa Borderline diabetes Insulin sliding scale CKD 3 Stable Hypertension Permissive hypertension DVT prophylaxis with Lovenox Full code reason for continued hospitalization: Neuro eval Quality Stroke Does the patient have a stroke diagnosis?: Yes Reason for No Anti-thrombotic by Day Two: N/A - Med Ordered VTE Prior VTE?: No VTE Risk Level:: Medical - moderate - high VTE Device Contraindication: Treatment Not Indicated VTE Drug Contraindication: N/A - Med Ordered
--- NOTE | 2025-08-07 09:08 | P.DS_ITS ---
DS: Providers Provider Date of Service: 08/07/25 Date of admission: 08/05/25 18:06 Date of discharge: 08/07/25 Primary care physician: Raul Nava MD Consults: 08/05/25 18:06 Consult to Neurology Routine Consulting Provider: Tracy Aguilar Reason for consultation: cva DS: Diagnosis Discharge Diagnosis (1) Cerebral infarct: Status: Acute DS: Summary Hospital Course Hospital Course: from initial hpi: 75M PMH TIA, CKD III, HIV, borderline diabetes, etoh dependence, HTN, presented with AMS. One day prior to presentation patient was noted to be sleepy and confused. Having difficulty getting words out. Symptoms persisted on day of presentation so he is brought to ED by his sister. Patient did not have any noted motor deficits, but was confused and unable to express himself. Was also complaining of chest pressure past 2 days but has subsided. In ED CT head showed hypodense area of the left thalamus and left mesial occipital lobe concerning for acute infarction. hospital course: Patient was admitted for acute CVA. Was initialy treated with dual antiplatelet and statin. Echo showed moderate plaque in the sinotubular ridge. seen by neuro who was concerned for cardioembolic event and recommended changing to antivcoagulation, will discharge on [facility] and follow up [facility] cardiology for event monitor. Was seen by PT and OT felt patient did not require rehab at this time. Seen by speech follow up for management of expressive aphasia. For HIV was continued on HAART. For alcohol dependence was continued vitamin supplement and had no evidence of withdrawal. For borderline diabetes was continued on insulin sliding scale. For CKD 3 remained stable. For hypertension was allowed to have permissive hypertension and he will restart antihypertensives on discharge. Time Attestation Discharge Coordination Time (in mins): 34 Quality: Safe Use of Opioids Does Pt have an Active Cancer Diagnosis on the Problem List?: No Quality: Stroke Does the patient have a stroke diagnosis?: Yes Reason for No Anti-thrombotic at DC: N/A - Med Ordered Reason for No Anticoagulant at DC: Drug treatment not indicated Reason Not Initiating IV-Tpa: Drug treatment not indicated Reason for No Anti-thrombotic by Day Two: N/A - Med Ordered Reason for No Statin at DC: N/A - Med Ordered Physical Exam Exam: Exam: General: AO X 3, no acute distress Resp: CTA bilateral, no accessory muscles used CVS: S1,S2,RRR GI: soft, non tender, non distended Neuro: motor grossly intact, alert, mild expressive aphasia, very mild right facial droop Vital Signs: Vital Signs: Last Vital Signs Temp 97.7 F 08/07/25 08:00 Pulse 57 08/07/25 08:00 Resp 18 08/07/25 08:00 BP 130/79 08/07/25 08:00 Pulse Ox 93 08/07/25 08:00 O2 Del Method Room Air 08/07/25 08:00 BMI result Body Mass Index 32.8 DS: Data Data Completed and Pending Labs on day of discharge: Laboratory Results - last 24 hr 08/06/25 08/06/25 08/06/25 11:48 11:49 16:11 POC Glucose 100 88 Urine Color Yellow Urine Appearance Clear Urine pH 5.0 Ur Specific [place] >= 1.030 H Urine Protein Trace Urine Glucose (UA) Negative Urine Ketones Negative Urine Blood Negative Urine Nitrite Negative Ur Leukocyte Esterase Negative 08/06/25 08/07/25 21:27 07:26 POC Glucose 94 94 Urine Color Urine Appearance Urine pH Ur Specific [place] Urine Protein Urine Glucose (UA) Urine Ketones Urine Blood Urine Nitrite Ur Leukocyte Esterase Discharge Plan Discharge Anticipated Discharge Date/Time: 08/07/25 09:06 Patient Disposition: Home, Self-Care Discharge Diagnosis: cva Referrals: Raul Nava MD [Primary Care Provider, Medical] - 1 Week Hakan Cortez MD [Physician, Cardiology] - 1 Week Referral Note: ?cardioembolic stroke, ?holter Discharge Medications: New apixaban 5 mg tablet 5 mg PO BID Qty: 180 0RF Continued cyanocobalamin (vitamin B-12) [Vitamin B-12] 1,000 mcg Tablet 1,000 mcg PO DAILY atorvastatin 80 mg tablet 80 mg PO DAILY metoprolol tartrate 50 mg tablet 50 mg PO BID omeprazole magnesium [Prilosec OTC] 20 mg tablet,delayed release (DR/EC) 20 mg PO DAILY Biktarvy 50-200-25 mg tablet 1 tab PO DAILY losartan 100 mg tablet 100 mg PO QAM Discharge Orders: Discharge Order (Routine); Ordered 08/07/25 Ordered By: Roberto Altman Diet: Advance to usual diet Activity on Discharge: As tolerated Stand Alone Forms: Patient Portal Discharge page Print Language: Kazakh Care Plan Goals: avoid strokes Health Concerns: cva Plan of Treatment: apixiaban, continue statin, avoid alcohol, follow up with cardio for event monitor Assessment: see above
--- NOTE | 2025-08-07 11:18 | PM.NEUROCN ---
History of Present Illness Data of Consult Service Date: 08/07/25 Primary Care Provider: Raul Nava MD SWATI Delvalle is a 75-year-old male patient with a past medical history of CKD, HIV, borderline diabetes, hypertension, and hyperlipidemia as well as alcohol dependence who presented for reports of altered mental status that began 1 day prior to presentation to the hospital. He was also noted to be sleepy and confused with difficulty finding words. In-hospital workup has included: 08/05/2025 CT headIMPRESSION: Hypodense areas of the left thalamus and left mesial occipital lobe are concerning for acute infarction. Further evaluation by MRI as indicated 08/05/2025 CTA of head and neck IMPRESSION: Mild stenoses of the proximal bilateral internal carotid artery and cavernous segment. Ostial calcification of the bilateral vertebral arteries with possible stenoses. No large intracranial artery occlusion. 08/05/2025 MRI of the brain IMPRESSION: 1. Moderate focus of diffusion restriction present at the medial aspect of the left occipital lobe with small foci of diffusion restriction at the medial aspect of the left temporal lobe, left cerebellar hemisphere, and left thalamus, consistent with acute ischemia. There are a few scattered, small foci of increased signal intensity on diffusion-weighted imaging at the right occipital lobe. It is unclear whether there is subtle associated diffusion restriction at these sites, and these findings may be related to small foci of acute and/or subacute ischemia. No midline shift demonstrated. 08/06/2025 CHANDRAKANT: Conclusions: - The left ventricular systolic function is normal. The calculated ejection fraction is 57% by biplane method. - There is mild mitral valve regurgitation. - There is moderate dilatation of the sinuses of Valsalva measuring 4.80 cm and mild dilatation of the ascending aorta measuring 4.10 cm. - Moderate plaque is seen in the sino tubular ridge. Findings Left Ventricle Normal left ventricular cavity size. There is severely increased left ventricular wall thickness. The left ventricular systolic function is normal. The calculated ejection fraction is 57% by biplane method. There is no evidence of regional wall motion abnormalities. Diastolic function is indeterminate on the basis of available data. He is currently feeling overall well aside from feeling tired and with a mild headache. Otherwise, he denies any other areas of pain, weakness, numbness, or paresthesias. He was seen by PT/OT who did not feel that he required rehab at this time. He has also been seen for expressive aphasia by speech therapy. Plan is to discharge him on dual platelet therapy and high-dose statin and follow up with primary care for blood pressure maintenance. Echocardiogram in hospital did show moderate plaque in the sinotubular ridge. Review of Systems Review of Systems: Yes all other systems are reviewed and are negative [facility] Past Medical History Medical History HLD (hyperlipidemia) GERD (gastroesophageal reflux disease) Peripheral neuropathy Cirrhosis Elevated cholesterol Osteoarthritis of right hip Chronic kidney disease Alcoholism Erectile dysfunction HIV (human immunodeficiency virus infection) Hypertension Surgical History Surgical History History of esophagogastroduodenoscopy (EGD) H/O colonoscopy Social History Social History Household Members: None Housing: House Do you presently have visiting nurse or other home services: No Patient Tobacco Use Status: Never used Tobacco Current occupational status: retired 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 Meds Allergies Allergy/AdvReac Type Severity Reaction Status Date / Time No Known Allergies Allergy Verified 08/05/25 15:38 Active Medications: Current Medications Acetaminophen (Acetaminophen 325 Mg Tablet) 650 mg PO Q6H PRN PRN Reason: Pain, Mild 1-3,fever,headache Last Admin: 08/07/25 09:09 Dose: 650 mg Aspirin (Aspirin Enteric Coated 81 Mg Tablet.) 81 mg PO DAILY [facility] Last Admin: 08/07/25 09:03 Dose: 81 mg Atorvastatin Calcium (Atorvastatin Calcium 80 Mg Tablet) 80 mg PO BEDTIME [facility] Last Admin: 08/06/25 22:11 Dose: 80 mg Bictegravir/Emtricitabine/Tenofovir (Bictegrav/Emtricit/Tenofov Ala Tablet) 1 tab PO DAILY [facility] Last Admin: 08/07/25 09:03 Dose: 1 tab Calcium Carbonate (Calcium Carbonate 750 Mg Tab.Chew) 750 mg PO Q4H PRN PRN Reason: Heartburn Clopidogrel Bisulfate (Clopidogrel Bisulfate 75 Mg Tablet) 75 mg PO DAILY [facility] Last Admin: 08/07/25 09:03 Dose: 75 mg Cyanocobalamin (Cyanocobalamin (Vitamin B-12) 1,000 Mcg Tablet) 1,000 mcg PO DAILY [facility] Last Admin: 08/07/25 09:03 Dose: 1,000 mcg Dextrose (Dextrose 50 % 25 Gm/50 Ml Syringe) 25 gm IVPUSH Q15M PRN; Protocol PRN Reason: per Hypoglycemia Standing Ord. Enoxaparin Sodium (Enoxaparin Sodium 40 Mg/0.4 Ml Syringe) 40 mg SUBCUT Q24H [facility] Last Admin: 08/07/25 09:03 Dose: 40 mg Folic Acid (Folic Acid 1 Mg Tablet) 1 mg PO DAILY [facility] Last Admin: 08/07/25 09:03 Dose: 1 mg Glucose (Glucose Gel 15 Gm Gel..Gram.) 15 gm PO Q15M PRN; Protocol PRN Reason: per Hypoglycemia Standing Ord. Insulin Human Lispro (Insulin Lispro 100 Unit/Ml 3 Ml Vial) 0 unit SUBCUT QIDACHS [facility]; Protocol Last Admin: 08/07/25 07:39 Dose: Not Given Magnesium Hydroxide (Milk Of Magnesia 30 Ml Oral.Susp) 30 ml PO DAILY PRN PRN Reason: Constipation Melatonin (Melatonin 3 Mg Tablet) 6 mg PO BEDTIME PRN PRN Reason: Insomnia Multivitamins/Vitamin C (Multivitamin Tablet) 1 tab PO DAILY [facility] Last Admin: 08/07/25 09:03 Dose: 1 tab Pantoprazole Sodium (Pantoprazole Sodium 20 Mg Tablet.) 20 mg PO DAILY@0630 [facility] Last Admin: 08/07/25 06:04 Dose: 20 mg Sodium Chloride (0.9 % Sodium Chloride Flush 3 Ml Syringe) 3 ml IVFLUSH QSHIFT [facility] Last Admin: 08/07/25 09:03 Dose: 3 ml Thiamine HCl (Thiamine Hcl 100 Mg Tablet) 100 mg PO DAILY [facility] Last Admin: 08/07/25 09:03 Dose: 100 mg Home Medications ?Medication ?Instructions ?Recorded ?Confirmed ?Last Taken ?Type bictegravir 50 mg-emtricitabine 1 tab PO DAILY 07/23/20 08/05/25 08/04/25 History 200 mg-tenofovir alafenam 25 mg tablet (Biktarvy) omeprazole magnesium 20 mg 20 mg PO DAILY 07/23/20 08/05/25 08/04/25 History tablet,delayed release (Prilosec OTC) cyanocobalamin (vitamin B-12) 1,000 mcg PO DAILY 03/10/24 08/05/25 08/04/25 History 1,000 mcg tablet (Vitamin B-12) losartan 100 mg tablet 100 mg PO QAM 04/13/25 08/05/25 08/04/25 History atorvastatin 80 mg tablet 80 mg PO DAILY 08/05/25 08/05/25 08/04/25 History metoprolol tartrate 50 mg tablet 50 mg PO BID 08/05/25 08/05/25 08/04/25 History Physical Exam Vital Signs: Vital Signs: Last Vital Signs Temp 97.7 F 08/07/25 08:00 Pulse 57 08/07/25 08:00 Resp 18 08/07/25 08:00 BP 130/79 08/07/25 08:00 Pulse Ox 93 08/07/25 08:00 O2 Del Method Room Air 08/07/25 08:00 BMI result Body Mass Index 32.8 Const: General: cooperative, healthy appearing, comfortable and no acute distress Nutritional Appearance: well nourished Orientation/consciousness: patient oriented x3 Limitations: no limitations HEENT: Head: Yes normal to inspection and Yes normocephalic Eyes: General: appearance normal, both eyes and all related structures Visual Muhammad: abnormal by confrontation peripheral vision loss on the right and right visual field cut Alignment and Position: alignment normal EOM: EOMs intact bilaterally Direct Ophthalmoscopy: normal light reflex Neuro: General: patient oriented x3 and deep tendon reflexes 2+ bilaterally Cranial nerves: Yes Facial sensation intact/muscles of mastication intact Cognition (Neuro): normal cognition Gait exam (Neuro): Normal gait present Motor exam (neuro): 5/5 motor strength present throughout and no tremor noted Sensory Exam: Normal double simultaneous stimulation for sensation Romberg Test: Negative Pupils: Normal pupillary reactivity/response: bilateral Psych: Appearance: grossly normal Mental Status: mental status grossly normal Speech and movement: Normal speech and movement present and Clear speech present Affect: normal affect Attitude: cooperative Thought process: Normal thought process present Thought content: Normal thought content present Insight: Good insight present (Psych) Judgement: Good judgement present (Psych) Results Labs 08/06/25 04:18 08/06/25 04:18 Labs: Urine 08/06/25 Range/Units 11:49 Urine Color Yellow Urine Appearance Clear Urine pH 5.0 (5.0-9.0) Ur Specific Orient >= 1.030 H (1.005-1.025) Urine Protein Trace (Neg-Trace) mg/dL Urine Glucose (UA) Negative (Negative) mg/dL Assessment and Plan (1) Cerebral infarct: Status: Acute (2) Visual field defect of right eye: Status: Acute Plan Mook is a 75-year-old male patient with a past medical history of CKD, HIV, borderline diabetes, hypertension, and hyperlipidemia as well as alcohol dependence who presented for reports of altered mental status that began 1 day prior to presentation to the hospital. His MRI of the brain was significant for a moderate focus of diffusion restriction at the medial aspect of the left occipital lobe with small foci of diffusion restriction at the medial aspect of the left temporal lobe, left cerebellar hemisphere, and left thalamus consistent with acute ischemia. Upon further workup, his CHANDRAKANT did show moderate plaque in the sinotubular ridge. Cardiac monitors during admission seemed okay though given lesions in both posterior and anterior circulation this raise concern for possible cardiac etiology. Recommending anticoagulation for 3-6 months with follow-up by cardiology to complete outpatient cardiac monitoring. If there is no cause found after 6 months can stop anticoagulation. We will resume blood pressure medications upon discharge and it was impressed upon him the importance of follow up with primary care and good control of blood pressure moving forward. He is also on high-dose statin. His exam today was reassuring aside from a notable right visual field deficit for which I have recommended that he follow up with Ophthalmology for formal visual field testing as there was some concern regarding safety of driving moving forward given the visual loss. He does understand. Aside from this, he does have a mild headache and some fatigue. This may resolve over the next week or so but I am happy to see him in the Neurology [facility] for a check-in in a couple of weeks. Procedures Date of Service Date of Service: 08/07/25
--- NOTE | 2025-08-07 11:24 | MHC.STROKE ---
Met with patient and sister Rachel in [place]. [facility], neurology saw patient in consult as well Pt awake, alert and oriented x 3. Pt can be forgetful and reinforcement was needed with stroke education. Stroke education provided to patient and sister Rachel. Pamphlet and educational materials given. All questions answered and information reviewed for patient multiple times. Risk factors discussed including medical history, medications, activity, diet, and social history. Pt denies smoking or alcohol use. Discharge medications discussed with patient. Upon assessment by [facility], no focal deficits however it was noted that peripheral vision of right eye affected. Education provided to patient by [facility]. Phone numbers and cards provided to patient for followup. Will continue to assist as needed.
[2025-08-07 11:28] LABS: Glucose, Whole Blood 131 mg/dL (60-115)
[2025-08-07 12:00] VITALS: BP 137/77; PULSE 65; RESP 20; TEMP 36.9; O2SAT 96
--- NOTE | 2025-08-07 13:16 | MHC.CM.PN ---
IMM 08/07/25, Pt has already been DC, he has a ride here, his sister. DCP: home, self care.
== END 2025-08-07 13:30 | disposition home or self-care (01) | DRG 65 ==
LOC: HO.ED 16:15 → HO.EDOVER 18:10 → HO.IMC 08-06 14:32
PROVIDERS: Physician Assistant; Admitting Provider Internal Medicine; Emergency Provider Emergency Medicine; PCP Internal Medicine; Visit Provider Internal Medicine
DX: I63.9 Cerebral infarction, unspecified (principal); F11.20 Opioid dependence, uncomplicated; H53.40 Unspecified visual field defects; I12.9 Hypertensive chronic kidney disease with stage 1 through stage 4 chronic kidney disease, or unspecified chronic kidney disease; R73.03 Prediabetes; Z21 Asymptomatic human immunodeficiency virus [HIV] infection status; R29.701 NIHSS score 1; N18.30 Chronic kidney disease, stage 3 unspecified; Z79.899 Other long term (current) drug therapy
CPT/HCPCS: 36415; 70450; 70496; 70498; 70551; 71045; 80048; 80053; 80061; 81003; 82140; 82947; 83690; 84484; 85025; 85027; 85610; 85730; 92507; 93005; 93306; 97161; 97165; 99285; J1650; J7120; Q9967

== ENCOUNTER → 2025-08-05 15:39 | Outpatient (BNV) | payer MEDICARE, MEDICAID, SELFPAY | PROVIDERS: Emergency Provider Emergency Medicine; PCP Internal Medicine; Visit Provider Radiology Diagnostic Radiology | DX: I65.23 Occlusion and stenosis of bilateral carotid arteries (principal); G93.89 Other specified disorders of brain; R51.9 Headache, unspecified; R41.0 Disorientation, unspecified; J18.9 Pneumonia, unspecified organism | CPT/HCPCS: 70551; 71045 ==

== ENCOUNTER → 2025-08-05 15:39 | Outpatient (BNV) | payer MEDICARE, MEDICAID, SELFPAY | PROVIDERS: Admitting Provider Internal Medicine; Emergency Provider Emergency Medicine; PCP Internal Medicine; Visit Provider Internal Medicine | DX: I49.9 Cardiac arrhythmia, unspecified (principal); I44.0 Atrioventricular block, first degree | CPT/HCPCS: 93010 ==

== ENCOUNTER 2025-08-05 18:06 | Outpatient (BNV) | payer MEDICARE, MEDICAID, SELFPAY | END 2025-08-06 07:00 | PROVIDERS: Admitting Provider Internal Medicine; Emergency Provider Emergency Medicine; PCP Internal Medicine; Visit Provider Internal Medicine | DX: I34.0 Nonrheumatic mitral (valve) insufficiency (principal); I77.810 Thoracic aortic ectasia; I70.0 Atherosclerosis of aorta | CPT/HCPCS: 93306 ==

== ENCOUNTER → 2025-08-05 18:06 | Outpatient (BNV) | payer MEDICARE, MEDICAID, SELFPAY | PROVIDERS: Admitting Provider Internal Medicine; Emergency Provider Emergency Medicine; PCP Internal Medicine; Visit Provider Nurse Practitioner | DX: I63.9 Cerebral infarction, unspecified (principal); H53.40 Unspecified visual field defects | CPT/HCPCS: 99222 ==

== ENCOUNTER → 2025-08-05 18:06 | Outpatient (BNV) | payer MEDICARE, MEDICAID, SELFPAY | PROVIDERS: Admitting Provider Internal Medicine; Emergency Provider Emergency Medicine; PCP Internal Medicine; Visit Provider Internal Medicine | DX: I63.9 Cerebral infarction, unspecified (principal) | CPT/HCPCS: 99222; 99233; 99239; 99499 ==